=== PATIENT | female | born 1955 | race Caucasian/White ===

== ENCOUNTER 2019-09-05 11:45 | Observation (INO) ==
[2019-09-05] MEDS ORDERED: D50W ABBOJECT SYR ONE ×2 (11:47→12:57)
[2019-09-05] MEDS ORDERED: NS 1000 ML 1,000 ML ONE (11:47)
[2019-09-05] MEDS ORDERED: NS 1000 ML 1,000 ML IV ONE (11:48)
[2019-09-05] MEDS ORDERED: D50W ABBOJECT SYR IV ONE ×2 (11:54→13:09)
[2019-09-05 12:01] LABS: BASOPHILS # (AUTO) 0.1 X10^3/uL (0.0-0.1); EOSINOPHILS # (AUTO) 0.4 x10^3/uL (0.0-0.2); EOSINOPHILS % (AUTO) 3.5 % (0.9-2.9); HEMATOCRIT 36.8 % (36.0-47.0); HEMOGLOBIN 12.1 g/dL (12.0-16.0); LYMPHOCYTES # (AUTO) 3.9 X10^3/uL (1.3-2.9); LYMPHOCYTES % (AUTO) 36.8 % (21.0-51.0); MEAN CORPUSCULAR HEMOGLOBIN 27.7 pg (27.0-34.0); MEAN CORPUSCULAR HGB CONC 32.8 g/dL (33.0-35.0); MEAN CORPUSCULAR VOLUME 84.3 fL (80.0-100.0); MEAN PLATELET VOLUME 7.8 fL (7.4-11.0); MONOCYTES % (AUTO) 9.2 % (0.0-13.0); NEUTROPHILS # (AUTO) 5.3 x10^3/uL (2.2-4.8); NEUTROPHILS % (AUTO) 49.5 % (42.0-75.0); PLATELET COUNT 355 X10^3/uL (150.0-450.0); RED BLOOD COUNT 4.36 X10^6/uL (3.5-5.4); RED CELL DISTRIBUTION WIDTH 14.3 % (11.6-16.5); WHITE BLOOD COUNT 10.7 X10^3/uL (3.6-10.0)
--- NOTE | 2019-09-05 12:04 | DR.HYPOGLY ---
HPI Time Seen Time Seen by Provider: 09/05/19 11:48 PCP Primary Care Physician: Bill Complaint Chief Complaint Doctors Comments: 63yo female presented for hypoglycemia. Pt is historian. He reports pt was seen by PCP this morning and in the pa rking lot has syncopal episode. She was noted to have BG 60 and is took her insulin this morning but had not eaten today. He reports pt has been worsening SOB for the past 5d with BLE swelling. On arrival pt was lethargic and BG 28. She was given 1amp of D5 and respond to verbal stimuli. She has chronic back pain and has fentanyl patch in place. Chief Complaint:: Hypoglycemia Nurses notes reviewed Nurses Notes Review: Yes Source History Provided: Family Member Mode of Arrival Mode of Arrival: Wheelchair Timing Came on: Suddenly Duration Duration: Constant Duration: Minutes Severity Blood sugar (if known): 28 Context [place]: Confused and Found unresponsive Symptoms: Confusion and Missed a meal; denies Shaky, Sweaty and Slurred speech History of: Diabetes, Insulin use and Hypoglycemic episodes Prehospital care: None Modifying factors Improves: D50 and Drink Associated signs and symptoms Associated signs and symptoms: Nausea and Vomiting; denies Abdominal pain PMH PMH Past Medical History: Diabetes and Hypertension Past Medical History Comment: chronic back pain Past Surgical History: Yes Surgical History: Ortho Surgery Family History History of Family Medical Conditions: Yes Family Medical History: Diabetes Mellitus and Hypertension Social History Type of Tobacco Use: None Alcohol Use: None Do you use any recreational Drugs:: No Lives With: Spouse Lives Where: Home infectious screening Isolation: Standard ROS Review of Systems Respiratoy: Short of Breath Cardiovascular: Edema Gastrointestinal/Abdominal: Vomiting Unable to Obtain Due To: Altered mental status PE Vital Signs Vitals: Temperature 98.0 F Pulse Rate 48 Respiratory Rate 32 Blood Pressure [Left Arm] 164/84 Blood Pressure 134/72 O2 Sat by Pulse Oximetry 99 General Limitations: Altered Mental Status General Appearance: Lethargic and In Distress Eyes Eye exam: Normal Appearance, PERRL and EOMI; negative Scleral Icterus Pupils: Regular, Round: Bilateral and Size: Bilateral (3) Sclera/Conjunctival: Normal Inspection: Bilateral ENT ENT Exam: Normal Exam, Normal External Ear Exam, Mucous Membranes Dry and TM's Normal Bilaterally Nose Exam: Normal Nose Exam Mouth Exam: Normal Inspection Throat Exam: Normal Inspection Neck Neck Exam: Normal Inspection; negative Tenderness and Lymphadenopathy Respiratory Respiratory Exam: Normal Lung Sounds Bilat; negative Respiratory Distress Respiratory Exam: Bilateral: Crackles Cardiovascular Cardiovascular Exam: Regular Rate and Normal Rhythm Abdominal Exam Abdominal Exam: Soft, Distention and Dimnished Bowel Sounds; negative Normal Bowel Sounds and Tenderness Extremities Extremities Exam: Normal Inspection and Edema (3+ kourtney) Skin Skin Exam: Warm, Dry, Intact and Normal Color MDM Additional information Additional Information Obtained From: Old Records Differential diagnosis Differential diagnosis: Hypoglycemia and Starvation Induced by: Insulin and Oral hypoglycemic agent COURSE Treatment Treatment: 14:00 pt still lethargic. BG improved. Pt on narcotics and benzo for chronic pain. Will give Narcan x1. Continue to monitor. Reevaluation 1st: Unchanged (pt still lethargic and BG improved to 103 with 1am D50. WIll recheck BG. Will order ct a/p for abd distention) 2nd: Unchanged (Pt repeat BG 62 will given 2nd amp D50 and started on D5 1/2NS. Continue to monitor closely. Pt still lethargic) 3rd: Improved (BG 124 after amp D50) Consultation Consultation Comments: spoke to Dr. Rivera for admission, agree with plan and will see in hospital Education/Counseling Education/Counseling: Patient, Family, Education and Counseling Educated On: Treatment, Diagnosis, Prognosis and Needs for Follow Up (pcp) ROR Labs Reviewed Laboratory Results Reviewed?: Yes Result Diagrams: 09/05/19 11:52 09/05/19 15:45 Laboratory: WBC 10.7 X10^3/uL (3.6-10.0) H 09/05/19 11:52 RBC 4.36 X10^6/uL (3.5-5.4) 09/05/19 11:52 Hgb 12.1 g/dL (12.0-16.0) 09/05/19 11:52 Hct 36.8 % (36.0-47.0) 09/05/19 11:52 MCV 84.3 fL (80.0-100.0) 09/05/19 11:52 MCH 27.7 pg (27.0-34.0) 09/05/19 11:52 MCHC 32.8 g/dL (33.0-35.0) L 09/05/19 11:52 RDW 14.3 % (11.6-16.5) 09/05/19 11:52 Plt Count 355 X10^3/uL (150.0-450.0) 09/05/19 11:52 MPV 7.8 fL (7.4-11.0) 09/05/19 11:52 Neut % (Auto) 49.5 % (42.0-75.0) 09/05/19 11:52 Lymph % (Auto) 36.8 % (21.0-51.0) 09/05/19 11:52 [place] % (Auto) 9.2 % (0.0-13.0) 09/05/19 11:52 Eos % (Auto) 3.5 % (0.9-2.9) H 09/05/19 11:52 Baso % (Auto) 1.0 % (0.2-1.0) 09/05/19 11:52 Neut # (Auto) 5.3 x10^3/uL (2.2-4.8) H 09/05/19 11:52 Lymph # (Auto) 3.9 X10^3/uL (1.3-2.9) H 09/05/19 11:52 [place] # (Auto) 1.0 x10^3/uL (0.3-0.8) H 09/05/19 11:52 Eos # (Auto) 0.4 x10^3/uL (0.0-0.2) H 09/05/19 11:52 Baso # (Auto) 0.1 X10^3/uL (0.0-0.1) 09/05/19 11:52 Absolute Nucleated RBC 0.1 /100WBC 09/05/19 11:52 Sample Site Lbra 09/05/19 14:48 ABG pH 7.380 (7.35-7.45) 09/05/19 14:48 ABG pCO2 56.0 mmHg (35.0-45.0) H* 09/05/19 14:48 ABG pO2 87.0 mmHg (80.0-100.0) 09/05/19 14:48 ABG HCO3 33.1 mmol/L (22-26) H* 09/05/19 14:48 ABG O2 Saturation 96.0 % (90-100) 09/05/19 14:48 ABG Base Excess 6.4 mmol/L (-2.0-2.0) H 09/05/19 14:48 Alexx Test N/a 09/05/19 14:48 A-a Gradient 71.0 mmHg 09/05/19 14:48 FiO2 32.0 09/05/19 14:48 Blood Gas Comments Pt toll well eb 09/05/19 14:48 Sodium 141 mmol/L (136-145) 09/05/19 11:52 Corrected Sodium TNP 09/05/19 11:52 Potassium 3.2 mmol/L (3.5-5.1) L 09/05/19 11:52 Chloride 100 mmol/L (98-107) 09/05/19 11:52 Carbon Dioxide 31.5 mmol/L (21-32) 09/05/19 11:52 BUN 29 mg/dL (7-18) H 09/05/19 11:52 Creatinine 1.58 mg/dL (0.55-1.02) H 09/05/19 11:52 Est GFR (MDRD) Af Amer 42 (>60) L 09/05/19 11:52 Est GFR (MDRD) Non-Af 35 (>60) L 09/05/19 11:52 Glucose 39 mg/dL (65-99) L* 09/05/19 11:52 POC Glucose (mg/dL) 124 mg/dL (65-99) H 09/05/19 13:30 Calcium 9.0 mg/dL (8.5-10.1) 09/05/19 11:52 Troponin I < 0.02 ng/mL (0-1.5) 09/05/19 11:52 B-Natriuretic Peptide 222 pg/mL (0-79) H 09/05/19 11:52 Other Results Comments: WBC 10.7 Hb 12.1 BMP K 3.2 Cr 1.58 BUN 29 Glu 39 Trop neg BNP 222 ABG pH 7.38 pCO2 26 HCO3 33.1 PO2 87.0 POC Bg 103 BG [address] a/p: Mod-sev constipation, Mod bladder obstruction XRAY XRAY Interpreted by: Radiologist XRAY Findings: CXR: NAF EKG Rate: 59 [place]: Normal Rhythm: SB Block: 1 and AVB Hypertrophy: None ST: Normal (Prolong QTc 512, interpreted by me) Opioid Opioid Risk Tool Total: 0 Total Score Risk Category: Low Risk Copyright: [facility] predicting aberrant behaviors Diagnosis Discharge Problem: Hypoglycemia associated with type 2 diabetes mellitus, Acute hypokalemia, DANAE (acute kidney injury) Accidental medication overdose Qualifiers: Encounter type: initial encounter Qualified Code(s): T50.901A - Poisoning by unspecified drugs, medicaments and biological substances, accidental (unintentional), initial encounter ADDITIONAL NOTES Additional Notes Additional Notes: I have personally reviewed your medications, lab results, imaging and time was spent discussion results. Patient educated on their health issue. They verbalized their understanding and agreed with plan of care. Condition: Stable Disposition: Admission
--- NOTE | 2019-09-05 12:09 | RAD ---
HISTORY: Low blood sugar. Prior history of diabetes and hypertension. Study: Single-view chest Comparison: 12/13/2014. Technique: Examination is expiratory. Findings: Trachea is midline. Although there is cardiomegaly, the heart size and pulmonary markings are likely accentuated by the markedly expiratory phase of the radiograph. No CHF, infiltrate or pleural fluid is seen. The osseous structures are intact. IMPRESSION: Cardiomegaly with the transverse diameter likely accentuated by the expiratory technique. No acute or active disease is seen in the chest. Reported By:
[2019-09-05 12:13] LABS: BLOOD UREA NITROGEN 29 mg/dL (7-18); CARBON DIOXIDE 31.5 mmol/L (21-32); CHLORIDE 100 mmol/L (98-107); CREATININE 1.58 mg/dL (0.55-1.02); SODIUM 141 mmol/L (136-145); TROPONIN I < 0.02 ng/mL (0-1.5); eGFR NON BLACK RACES 35 (>60)
[2019-09-05] MEDS ORDERED: D5 1/2 NS 1000 ML 1,000 ML IV ONE (12:57)
[2019-09-05] MEDS ORDERED: DEXTROSE 25% IV ONE (13:08)
[2019-09-05] MEDS ORDERED: NARCAN INJ IVP ONE ×2 (13:58→14:09)
[2019-09-05] MEDS ORDERED: NARCAN INJ ONE ×2 (13:59→14:11)
[2019-09-05] MEDS ORDERED: D5 1/2 NS 1000 ML 1,000 ML IV SCH (14:00)
--- NOTE | 2019-09-05 14:38 | CT ---
History: Abdominal distension Exam: CT abdomen and pelvis without contrast Comparison: None Technique: Axial spiral images were obtained from lung bases through the pubic symphysis without contrast. Automated dose control was utilized. Findings: There is some hazy subsegmental opacities along the lung bases posterior laterally. No effusion is seen. The liver and spleen are normal size and density. The gallbladder, pancreas , and bile ducts are normal. The adrenals are normal. There is moderate cortical thinning and scarring throughout both kidneys with questionable minimal hydronephrosis and mild prominence of both ureters down to the bladder with no filling defects in the ureters. The bladder is severely distended extending superiorly into the mesentery of the lower and mid abdomen. There is no wall thickening or bladder stones seen.. The uterus has been removed. There is no adnexal mass or free fluid. The appendix is normal . No adenopathy or ascites is seen. There is moderate feces in the colon which is mildly dilated throughout down to the proximal to mid left colon with no obvious wall thickening or pericolonic inflammation seen. The distal left colon and sigmoid is normal caliber. The small bowel is normal caliber. There are postop changes seen along the lower lumbar spine. IMPRESSION: Moderately severe constipation with diffuse mild dilatation of the colon seen down to the proximal to mid descending left colon with no obvious focal mass or obstructing lesion seen in the area. This could represent a colonic ileus or possible early colonic obstructing lesion in the left colon, recommend clinical follow-up. Moderately severe distention of the urinary bladder which is probably causing some mild obstruction of the upper collecting systems of both kidneys and is suggestive of an early bladder outlet obstruction , recommend clinical follow-up. Moderate cortical thinning and scarring throughout both kidneys with minimal hydronephrosis and slight prominence of the ureters down to the bladder with no filling defects. Mild bibasilar atelectasis vs early infiltrates or scarring . Status post hysterectomy with no pelvic mass. Reported By:
[2019-09-05 14:51] LABS: ABG BASE EXCESS 6.4 mmol/L (-2.0-2.0)
[2019-09-05 14:52] LABS: ABG HCO3 33.1 mmol/L (22-26)
[2019-09-05 16:00] LABS: BLOOD UREA NITROGEN 27 mg/dL (7-18); CALCIUM 8.2 mg/dL (8.5-10.1); CHLORIDE 104 mmol/L (98-107); CREATININE 1.26 mg/dL (0.55-1.02); SODIUM 143 mmol/L (136-145); eGFR NON BLACK RACES 46 (>60)
[2019-09-05 16:02] LABS: AMMONIA < 10 umol/L (11-32)
[2019-09-05] MEDS: D5 1/2 NS + KCL 20 MEQ/L 1,000 ML IV SCH (16:37)
[2019-09-05] MEDS: OTBSDRIP XX SCH ×6 (16:38→23:46)
[2019-09-05 16:41] LABS: BILIRUBIN,URINE NEGATIVE (NEGATIVE); BLOOD/HEMOGLOBIN,URINE NEGATIVE (NEGATIVE); GLUCOSE, URINE 4+ (NEGATIVE); KETONES,URINE NEGATIVE (NEGATIVE); LEUKOCYTE ESTERASE ,URINE NEGATIVE (NEGATIVE); NITRITES,URINE NEGATIVE (NEGATIVE); PROTEIN,URINE NEGATIVE (NEGATIVE); UROBILINOGEN,URINE NORMAL (NORMAL)
[2019-09-05 16:47] LABS: APPEARANCE,URINE CLEAR (CLEAR); COLOR,URINE YELLOW (YELLOW)
[2019-09-05 17:40] VITALS: BMI 34.9
[2019-09-05] MEDS: SYNTHROID 50 mcg TAB PO SCH (18:04)
[2019-09-05] MEDS: ROCEPHIN VIAL 1 GRAM 1 G in NS 100 ML IV + SPIKE MINIBAG* 100 ML IV SCH (21:15)
[2019-09-05] MEDS: MILK OF MAGNESIA PO SCH (21:15)
[2019-09-05] MEDS: COLACE CAP 100 MG PO SCH (21:15)
[2019-09-05] MEDS: GLUCOPHAGE XR PO SCH (21:43)
[2019-09-05] MEDS: NEBIVOLOL 2.5 MG PO SCH (21:44)
[2019-09-06] MEDS: OTBSDRIP XX SCH ×4 (01:42→07:52)
[2019-09-06] MEDS: D5 1/2 NS + KCL 20 MEQ/L 1,000 ML IV SCH ×2 (01:57→10:43)
[2019-09-06 05:21] LABS: BASOPHILS # (AUTO) 0.1 X10^3/uL (0.0-0.1); BASOPHILS % (AUTO) 1.2 % (0.2-1.0); EOSINOPHILS # (AUTO) 0.2 x10^3/uL (0.0-0.2); EOSINOPHILS % (AUTO) 3.3 % (0.9-2.9); HEMATOCRIT 34.6 % (36.0-47.0); HEMOGLOBIN 11.4 g/dL (12.0-16.0); LYMPHOCYTES # (AUTO) 1.8 X10^3/uL (1.3-2.9); LYMPHOCYTES % (AUTO) 28.1 % (21.0-51.0); MEAN CORPUSCULAR VOLUME 84.9 fL (80.0-100.0); MEAN PLATELET VOLUME 8.3 fL (7.4-11.0); MONOCYTES # (AUTO) 0.6 x10^3/uL (0.3-0.8); MONOCYTES % (AUTO) 9.6 % (0.0-13.0); NEUTROPHILS # (AUTO) 3.6 x10^3/uL (2.2-4.8); NEUTROPHILS % (AUTO) 57.8 % (42.0-75.0); PLATELET COUNT 276 X10^3/uL (150.0-450.0); RED BLOOD COUNT 4.07 X10^6/uL (3.5-5.4); WHITE BLOOD COUNT 6.3 X10^3/uL (3.6-10.0)
[2019-09-06 05:38] LABS: ALANINE AMINOTRANSFERASE 21 Units/L (12-78); ALBUMIN 3.2 g/dL (3.4-5.0); ALKALINE PHOSPHATASE 106 Units/L (46-116); ASPARTATE AMINO TRANSFERASE 21 Units/L (15-37); BLOOD UREA NITROGEN 19 mg/dL (7-18); CHLORIDE 105 mmol/L (98-107); COR CA(FOR HYPOALB) 8.6 mg/dL (8.5-10.1); SODIUM 144 mmol/L (136-145); TOTAL PROTEIN 7.2 g/dL (6.4-8.2); eGFR NON BLACK RACES 60 (>60)
[2019-09-06] MEDS ORDERED: PERCOCET TAB 5/325 MG PO PRN (07:55)
[2019-09-06] MEDS ORDERED: XANAX PO PRN (07:58)
[2019-09-06] MEDS: MILK OF MAGNESIA PO SCH ×2 (08:20→20:42)
[2019-09-06] MEDS: ROCEPHIN VIAL 1 GRAM 1 G in NS 100 ML IV + SPIKE MINIBAG* 100 ML IV SCH (08:21)
--- NOTE | 2019-09-06 09:22 | RAD ---
Examination: AP chest History: SOB Comparison 09/05/2019 Findings: Normal heart size with clear, normally inflated lungs. No definite pneumonia, atelectasis or pleural disease. Impression: Within normal limits. Reported By:
[2019-09-06] MEDS: NEBIVOLOL 2.5 MG PO SCH ×2 (09:45→20:42)
--- NOTE | 2019-09-06 10:37 | DR.H&P ---
H&P - History & Physical for Day of: H&P Date: 09/05/19 - Chief Complaint Chief Complaint: AMS, HYPOGLYCEMIA - History of Present Illness History of Present Illness: PT IS 63 WF ER ADMISSION AFTER PRESENTING WITH AMS DUE TO HYPOGLYCEMIA. PT KNOWN DIABETIC AND STATES SHE TOOK HER INSULIN THIS AM WITHOUT EATING. PT WAS AT HER PCP, DR PATEL OFFICE FOR TREATMENT OF LOWER LEG SWELLING. PT BS 39 ON ARRIVAL TO ER. PT HAS PMH OF CHRONIC PAIN, HTN, DM, WYATT, OA. PT ADMITTED FOR TREATMENT OF ACUTE ILLNESS - Past Medical History Past Medical History: Anxiety, Arthritis, Diabetes, Hypertension - Past Surgical History Surgical History: Ortho Surgery - Family History Family Medical History: Diabetes Mellitus, Hypertension - Social History Does patient currently use any type of tobacco product: No Have you used tobacco products in the last 12 months: No Type of Tobacco Use: None Does any household member use tobacco: No Alcohol Use: None Drug Use: None - Medications Home Medications: lisinopril Allergy (Verified 09/05/19 12:12) ciprofloxacin [From Cipro] Adverse Reaction (Verified 09/05/19 12:12) CONTINUE taking the following medications amphetamine sulfate 10 mg PO BID 09/05/19 [History] empagliflozin [Jardiance] 10 mg PO DAILY 09/05/19 [History] escitalopram oxalate 5 mg PO DAILY 09/05/19 [History] estradiol 1 % VAGINAL DAILY 09/05/19 [History] insulin glargine [Lantus U-100 Insulin] 45 unit SUBCUT DAILY 09/05/19 [History] nebivolol [Bystolic] 2.5 mg PO BID 09/05/19 [History] clonidine HCl 0.1 mg PO TID 09/06/19 [History] furosemide 40 mg PO BID 09/06/19 [History] gabapentin 300 mg PO DAILY PRN 09/06/19 [History] gabapentin 600 mg PO HS 09/06/19 [History] losartan 100 mg PO DAILY 09/06/19 [History] oxybutynin chloride 15 mg PO DAILY 09/06/19 [History] promethazine 12.5 mg PO BID 09/06/19 [History] verapamil 180 mg PO BID 09/06/19 [History] - Review of Systems Constitutional: Weakness Eyes: No Symptoms Reported ENT: No Symptoms Reported Respiratory: No Symptoms Reported Cardiovascular: No Symptoms Reported, Edema Gastrointestinal: Abdominal Pain Genitourinary: Retention Musculoskeletal: Back Pain Skin: No Symptoms Reported Neurological: Weakness, Confusion - Physical Exam Vital Signs: Temperature 98.7 F Pulse Rate 64 Respiratory Rate 17 Blood Pressure [Left Arm] 164/84 Blood Pressure 186/91 O2 Sat by Pulse Oximetry 96 Oriented: Person Ear: Normal Nose: Normal Throat: Dry Respiratory: RLL Diminished, LLL Diminished Cardiovascular: Normal : Normal Auscultation: Bowel Sounds: Normal Palpation: Normal Tenderness: Diffuse Skin: Decreased Turgur Musculoskeletal: Back:Thoracic, Back:Lumbar Psychiatric: Anxiety Affect: Anxious Speech Pattern: Clear, Appropriate - Assessment/Plan (1) Hypoglycemia associated with type 2 diabetes mellitus Status: Acute Plan: ADMIT, BS CONTROL. GENTLE IV HYDRATION, GARCIA CATH WITH STRICT I & OS. UA, ADMISSION LABS. CXR ON ADMISSION, EKG MONITORING. VERIFY HOME MEDICATION (2) DANAE (acute kidney injury) Status: Acute (3) Accidental medication overdose Qualifiers: Encounter type: initial encounter Qualified Code(s): T50.901A - Poisoning by unspecified drugs, medicaments and biological substances, accidental (unintentional), initial encounter Status: Acute (4) Acute hypokalemia Status: Acute (5) Altered mental status Status: Acute - Allergies Allergies/Adverse Reactions: Allergies Allergy/AdvReac Type Severity Reaction Status Date / Time lisinopril Allergy Verified 09/05/19 12:12 ciprofloxacin [From Cipro] AdvReac Verified 09/05/19 12:12
[2019-09-06] MEDS: COZAAR PO SCH (10:44)
[2019-09-06] MEDS: XANAX PO SCH ×2 (14:19→22:02)
[2019-09-06] MEDS: GLUCOPHAGE XR PO SCH ×2 (15:51→20:41)
[2019-09-06] MEDS ORDERED: CATAPRES TAB 0.1 MG ONE (16:18)
[2019-09-06] MEDS: CATAPRES TAB 0.1 MG PO SCH ×2 (16:21→22:02)
[2019-09-06] MEDS: NS 1/2 1000 ML IV 1,000 ML IV SCH (16:22)
[2019-09-06] MEDS ORDERED: HumuLIN R ONE (16:41)
[2019-09-06] MEDS: SYNTHROID 50 mcg TAB PO SCH (16:45)
[2019-09-06] MEDS: HumuLIN R SUBCUT PRN ×2 (16:46→21:18)
[2019-09-06] MEDS: APRESOLINE INJ 20 MG VIAL IVP PRN (17:41)
[2019-09-06] MEDS ORDERED: SNACK - Diabetic Appropriate PO SCH (20:00)
[2019-09-06] MEDS: COLACE CAP 100 MG PO SCH (20:41)
[2019-09-06] MEDS ORDERED: AMBIEN PO PRN (21:26)
[2019-09-06] MEDS ORDERED: AMBIEN ONE (22:00)
[2019-09-07] MEDS ORDERED: NS 1/2 1000 ML IV 1,000 ML IV ONE (01:07)
[2019-09-07] MEDS: NS 1/2 1000 ML IV 1,000 ML IV SCH ×2 (01:29→17:01)
[2019-09-07 05:08] LABS: BASOPHILS # (AUTO) 0.1 X10^3/uL (0.0-0.1); BASOPHILS % (AUTO) 0.9 % (0.2-1.0); EOSINOPHILS # (AUTO) 0.3 x10^3/uL (0.0-0.2); EOSINOPHILS % (AUTO) 3.9 % (0.9-2.9); HEMOGLOBIN 11.4 g/dL (12.0-16.0); LYMPHOCYTES # (AUTO) 2.5 X10^3/uL (1.3-2.9); LYMPHOCYTES % (AUTO) 37.7 % (21.0-51.0); MEAN CORPUSCULAR HEMOGLOBIN 27.5 pg (27.0-34.0); MEAN CORPUSCULAR HGB CONC 32.4 g/dL (33.0-35.0); MEAN CORPUSCULAR VOLUME 84.8 fL (80.0-100.0); MONOCYTES # (AUTO) 0.6 x10^3/uL (0.3-0.8); MONOCYTES % (AUTO) 9.6 % (0.0-13.0); NEUTROPHILS # (AUTO) 3.2 x10^3/uL (2.2-4.8); NEUTROPHILS % (AUTO) 47.9 % (42.0-75.0); PLATELET COUNT 293 X10^3/uL (150.0-450.0); RED BLOOD COUNT 4.13 X10^6/uL (3.5-5.4); RED CELL DISTRIBUTION WIDTH 14.1 % (11.6-16.5); WHITE BLOOD COUNT 6.7 X10^3/uL (3.6-10.0)
[2019-09-07] MEDS: CATAPRES TAB 0.1 MG PO SCH ×2 (05:26→13:14)
[2019-09-07] MEDS: XANAX PO SCH ×2 (05:26→13:13)
[2019-09-07 05:27] LABS: ALANINE AMINOTRANSFERASE 19 Units/L (12-78); ALKALINE PHOSPHATASE 96 Units/L (46-116); ASPARTATE AMINO TRANSFERASE 18 Units/L (15-37); BLOOD UREA NITROGEN 13 mg/dL (7-18); CALCIUM 8.1 mg/dL (8.5-10.1); CARBON DIOXIDE 27.2 mmol/L (21-32); CHLORIDE 106 mmol/L (98-107); COR CA(FOR HYPOALB) 8.9 mg/dL (8.5-10.1); COR NA(FOR HYPERGLY) 142 mmol/L (136-145); CREATININE 0.94 mg/dL (0.55-1.02); SODIUM 141 mmol/L (136-145); TOTAL PROTEIN 6.8 g/dL (6.4-8.2); eGFR NON BLACK RACES > 60 (>60)
[2019-09-07] MEDS ORDERED: SYNTHROID 50 mcg TAB PO SCH (06:00)
[2019-09-07] MEDS: COZAAR PO SCH (08:23)
[2019-09-07] MEDS: GLUCOPHAGE XR PO SCH (08:23)
[2019-09-07] MEDS: ROCEPHIN VIAL 1 GRAM 1 G in NS 100 ML IV + SPIKE MINIBAG* 100 ML IV SCH (08:23)
[2019-09-07] MEDS: NEBIVOLOL 2.5 MG PO SCH (08:24)
[2019-09-07] MEDS: MILK OF MAGNESIA PO SCH (08:24)
[2019-09-07] MEDS: APRESOLINE INJ 20 MG VIAL IVP PRN (12:05)
[2019-09-07] MEDS: HumuLIN R SUBCUT PRN ×2 (12:28→17:01)
[2019-09-07 14:22] VITALS: BP 153/76
== END 2019-09-07 17:30 | disposition home or self-care (01) ==
LOC: ER 11:45 → ICU 11:45
PROVIDERS: ADMIT Internal Medicine; ATTEND Internal Medicine
DX: E87.6 Hypokalemia; N17.8 Other acute kidney failure; F41.8 Other specified anxiety disorders; T50.901A Poisoning by unspecified drugs, medicaments and biological substances, accidental (unintentional), initial encounter; F13.90 Sedative, hypnotic, or anxiolytic use, unspecified, uncomplicated; R41.82 Altered mental status, unspecified; R94.4 Abnormal results of kidney function studies; Z79.4 Long term (current) use of insulin; R60.0 Localized edema; I10 Essential (primary) hypertension; E11.649 Type 2 diabetes mellitus with hypoglycemia without coma
CPT/HCPCS: 36415; 36600; 71010; 71045; 74176; 80048; 80053; 80307; 81003; 82140; 82803; 83036; 83880; 84484; 85025; 93005; 96360; 96361; 96365; 96367; 96372; 96374; 96375; 99284; 99285; A4222; G0378; G0434; J0360; J0696; J1815; J2310; J3490; J7030; J7050; S5010

== ENCOUNTER 2020-09-24 19:15 | Inpatient (IN) ==
[2020-09-24] MEDS ORDERED: NS 1000 ML 1,000 ML IV STA (20:07)
[2020-09-24 20:16] LABS: ABG ALLEN TEST POS; ABG BASE EXCESS -1.8 mmol/L (-2.0-2.0); ABG HCO3 21.9 mmol/L (22-26)
[2020-09-24 20:44] LABS: BASOPHILS % (AUTO) 0.1 % (0.2-1.0); HEMATOCRIT 29.9 % (36.0-47.0); HEMOGLOBIN 9.2 g/dL (12.0-16.0); LYMPHOCYTES % (AUTO) 8.5 % (21.0-51.0); MEAN CORPUSCULAR HEMOGLOBIN 23.5 pg (27.0-34.0); MEAN CORPUSCULAR HGB CONC 30.9 g/dL (33.0-35.0); MEAN CORPUSCULAR VOLUME 76.1 fL (80.0-100.0); MEAN PLATELET VOLUME 8.9 fL (7.4-11.0); MONOCYTES # (AUTO) 0.5 x10^3/uL (0.3-0.8); MONOCYTES % (AUTO) 4.1 % (0.0-13.0); NEUTROPHILS # (AUTO) 10.3 x10^3/uL (2.2-4.8); NEUTROPHILS % (AUTO) 87.3 % (42.0-75.0); PLATELET COUNT 219 X10^3/uL (150.0-450.0); RED BLOOD COUNT 3.93 X10^6/uL (3.5-5.4); RED CELL DISTRIBUTION WIDTH 15.4 % (11.6-16.5); WHITE BLOOD COUNT 11.8 X10^3/uL (3.6-10.0)
--- NOTE | 2020-09-24 20:44 | DR.EXTPAIN ---
HPI Time seen Time Seen by Provider: 09/24/20 20:06 PCP Primary Care Physician: HPI Comment HPI Comment: PATIENT COMPLAINS OF RECENTLY TESTED POSITIVE FOR COVID19 ON 09/20/20 WITH ONSET OF INCREASING DYSPNEA, X 2 DAYS, PRODUCTIVE COUGH AND WEA KNESS. HAS CHEST PAIN UPON INSPIRATION. HAS ASSOCIATED FEVER AND CHILLS. Complaint/Symptoms Chief Complaint Doctor Comments: PRODUCTIVE COUGH AND DYSPNEA Chief Complaint:: PT STATED SHE GOT TESTED FOR COVID ON SEP 20 AN IT WAS POSITIVE. AN TODAY SHE STARTED HAVING SHORTNESS,WEAKNESS,UTI AND SOB. Self Treatment fo Chief Complaint: ANTIBIOTICS FROM DOCTOR COVID-19 Coronavirus risk:travel/contact w/high risk person: Yes Has patient experienced Coronavirus symptoms: Yes Coronavirus symptoms experienced: Fever, Coughing and Shortness of Breath Nurses notes reviewed Nurses Notes Review: Yes Source History Provided: Patient Mode of arrival Mode of Arrival: Ambulatory Timing Onset of Chief Complaint: 09/24/20 Associated signs and symptoms Associated Signs and Symptoms: Weakness, Pain (CHEST PAIN UPON INSPIRATION), Fever and Cough Other history Other History: DIABETES, HYPERTENSION PMH PMH Past Medical History: Yes Past Medical History: Anxiety, Arthritis, Diabetes and Hypertension Past Medical History Comment: COVID Past Surgical History: Yes Surgical History: Hysterectomy and Ortho Surgery Past Surgical History Comment: THYROID ,CATARACTS, BACK Family History History of Family Medical Conditions: Yes Family Medical History: Diabetes Mellitus and Hypertension Social History Alcohol Use: None Do you use any recreational Drugs:: No Lives With: Spouse Lives Where: Home Infectious screening In the last 2 months have you had wt loss of >10#?: NO Have you had fever, night sweats or hemotysis?: No Have you traveled outside the country in the last 6 months?: No Isolation: Droplet ROS Review of Systems Constitutional: Chills, Fever, Malaise and Weakness Respiratoy: Productive Cough and Short of Breath Neurological: Weakness PE Vital Signs Vitals: Temperature 99.1 F Pulse Rate 67 Respiratory Rate 24 Blood Pressure [Left Arm] 164/84 Blood Pressure 140/63 O2 Sat by Pulse Oximetry 87 General Limitations: Physical Limitation General Appearance: Alert Chest Chest Inspection: Symmetric Chest Wall Rise Respiratory Respiratory Exam: Prolonged Expiratory Phase Respiratory Exam: Bilateral: Wheezing and Bilateral: Decreased Breath Sounds MDM Differential Diagnosis Differential Diagnosis: Other (PNEUMONIA) ROR Labs Reviewed Laboratory Results Reviewed?: Yes (TROPONIN <0.02, DDIMER-0.83) Result Diagrams: 10/20/20 06:03 10/20/20 06:03 Laboratory: 09/24/20 20:28 Blood Blood Culture - Final 09/24/20 20:24 Blood Blood Culture - Final 09/24/20 21:52 Urine,Clean Catch Urine Culture - Final Escherichia Coli WBC 11.8 X10^3/uL (3.6-10.0) H 09/24/20 20:24 RBC 3.93 X10^6/uL (3.5-5.4) 09/24/20 20:24 Hgb 9.2 g/dL (12.0-16.0) L 09/24/20 20:24 Hct 29.9 % (36.0-47.0) L 09/24/20 20:24 MCV 76.1 fL (80.0-100.0) L 09/24/20 20:24 MCH 23.5 pg (27.0-34.0) L 09/24/20 20:24 MCHC 30.9 g/dL (33.0-35.0) L 09/24/20 20:24 RDW 15.4 % (11.6-16.5) 09/24/20 20:24 Plt Count 219 X10^3/uL (150.0-450.0) 09/24/20 20:24 Plt Count Comment Adequate (ADEQUATE) 09/24/20 20:24 MPV 8.9 fL (7.4-11.0) 09/24/20 20:24 Neut % (Auto) 87.3 % (42.0-75.0) H 09/24/20 20:24 Lymph % (Auto) 8.5 % (21.0-51.0) L 09/24/20 20:24 [place] % (Auto) 4.1 % (0.0-13.0) 09/24/20 20:24 Eos % (Auto) 0.0 % (0.9-2.9) L 09/24/20 20:24 Baso % (Auto) 0.1 % (0.2-1.0) L 09/24/20 20:24 Neut # (Auto) 10.3 x10^3/uL (2.2-4.8) H 09/24/20 20:24 Lymph # (Auto) 1.0 X10^3/uL (1.3-2.9) L 09/24/20 20:24 [place] # (Auto) 0.5 x10^3/uL (0.3-0.8) 09/24/20 20:24 Eos # (Auto) 0.0 x10^3/uL (0.0-0.2) 09/24/20 20:24 Baso # (Auto) 0.0 X10^3/uL (0.0-0.1) 09/24/20 20:24 Absolute Nucleated RBC 0.0 /100WBC 09/24/20 20:24 Plt Morphology Comment Normal (NORMAL) 09/24/20: RBC Morphology Abnormal (NORMAL) A 09/24/20: Hypochromasia 1+ A 09/24/20: Poikilocytosis Slight A 09/24/20: PT 14.3 SECONDS (11.8-14.3) 09/24/20:24 INR Target Range - 09/24/20: INR 1.15 (0.8-1.3) 09/24/20:24 D-Dimer 0.83 ug/ml (0.0-0.57) H* 09/24/20: Sample Site Rr 09/24/20 20:00 ABG pH 7.430 (7.35-7.45) 09/24/20 20:00 ABG pCO2 33.0 mmHg (35.0-45.0) L 09/24/20 20:00 ABG pO2 69.0 mmHg (80.0-100.0) L 09/24/20 20:00 ABG HCO3 21.9 mmol/L (22-26) L 09/24/20 20:00 ABG O2 Saturation 94.0 % (90-100) 09/24/20 20:00 ABG Base Excess -1.8 mmol/L (-2.0-2.0) 09/24/20 20: Alexx Test Pos 09/24/20 20:00 A-a Gradient 89.0 mmHg 09/24/20 20:00 FiO2 28.0 09/24/20 20:00 Blood Gas Comments Erwin well sw 09/24/20 20:00 Sodium 134 mmol/L (136-145) L 09/24/20 20:24 Corrected Sodium 137 mmol/L (136-145) 09/24/20 20:24 Potassium 4.3 mmol/L (3.5-5.1) 09/24/20 20:24 Chloride 97 mmol/L (98-107) L 09/24/20 20:24 Carbon Dioxide 24.8 mmol/L (21-32) 09/24/20 20:24 BUN 48 mg/dL (7-18) H 09/24/20 20:24 Creatinine 1.91 mg/dL (0.55-1.02) H 09/24/20 20:24 Est GFR (MDRD) Af Amer 34 (>60) L 09/24/20 20:24 Est GFR (MDRD) Non-Af 28 (>60) L 09/24/20 20:24 Glucose 206 mg/dL (65-99) H 09/24/20 20:24 Lactic Acid 1.5 mmol/L (0.4-2.0) 09/24/20 21:56 Calcium 8.5 mg/dL (8.5-10.1) 09/24/20 20:24 Corrected Calcium 9.2 mg/dL (8.5-10.1) 09/24/20 20:24 Ferritin 125 ng/mL (8-252) 09/24/20 20:24 Total Bilirubin 0.30 mg/dL (0.2-1.0) 09/24/20 20:24 AST 24 Units/L (15-37) 09/24/20 20:24 ALT 19 Units/L (12-78) 09/24/20 20:24 Alkaline Phosphatase 63 Units/L (46-116) 09/24/20 20:24 Troponin I < 0.02 ng/mL (0-1.5) 09/24/20 20:24 C-Reactive Protein 25.90 mg/L (0-3.0) H 09/24/20 20:24 B-Natriuretic Peptide 637 pg/mL (0-79) H* 09/24/20 20:24 Total Protein 7.3 g/dL (6.4-8.2) 09/24/20 20:24 Albumin 3.1 g/dL (3.4-5.0) L 09/24/20 20:24 Globulin 4.2 g/dL (2.5-4.5) 09/24/20 20:24 Albumin/Globulin Ratio 0.7 Ratio (1.1-2.1) L 09/24/20 20:24 Specimen Type Clean catch urine 09/24/20 21:52 Urine Color Mabel (YELLOW) 09/24/20 21:52 Urine Appearance Slightly hazy (CLEAR) 09/24/20 21:52 Urine pH 5.0 (5.0 - 8.0) 09/24/20 21:52 Ur Specific [place] 1.015 (1.000-1.030) 09/24/20 21:52 Urine Protein 1+ (NEGATIVE) 09/24/20 21:52 Urine Glucose (UA) 3+ (NEGATIVE) 09/24/20 21:52 Urine Ketones Negative (NEGATIVE) 09/24/20 21:52 Urine Occult Blood 1+ (NEGATIVE) 09/24/20 21:52 Urine Nitrite Positive (NEGATIVE) 09/24/20 21:52 Urine Bilirubin Negative (NEGATIVE) 09/24/20 21:52 Urine Urobilinogen 1+ (NORMAL) 09/24/20 21:52 Ur Leukocyte Esterase 1+ (NEGATIVE) 09/24/20 21:52 Urine RBC 3-5 /HPF (0-3) A 09/24/20 21:52 Urine WBC 5-10 /HPF (0-5) A 09/24/20 21:52 Ur Squamous Epith Cells Few /HPF (NEGATIVE) 09/24/20 21:52 Urine Bacteria 2+ /HPF (NEGATIVE) 09/24/20 21:52 Ur Culture Indicated? Yes/culture set up 09/24/20 21:52 Influenza Type A (PCR) Negative (NEGATIVE) 09/24/20 22:20 Influenza Type B (PCR) Negative (NEGATIVE) 09/24/20 22:20 SARS CoV-2 RNA Rapid MICK Positive (NEGATIVE) A 09/24/20 22: XRAY XRAY Interpreted by: Radiologist X-ray Results: CHEST XRAY CONSISTENT WITH DIFFUSE INFILTRATES EKG Rhythm: NSR Block: None, AVB (IST DEGREE AVB) and IVCD Opioid Opioid Risk Tool Age (Jesus box if 16-45): No History of Preadolescent Sexual Abuse: No Total: 0 Total Score Risk Category: Low Risk Copyright: [facility] predicting aberrant behaviors Diagnosis Discharge Problem: Pneumonia due to COVID-19 virus Instructions Forms: Convalescent Plasma EUA Consent
[2020-09-24 20:55] LABS: PLATELET MORPHOLOGY COMMENT NORMAL (NORMAL)
[2020-09-24 20:56] LABS: HYPOCHROMASIA 1+; POIKILOCYTOSIS SLIGHT
[2020-09-24 20:58] LABS: ALANINE AMINOTRANSFERASE 19 Units/L (12-78); ALBUMIN 3.1 g/dL (3.4-5.0); ALKALINE PHOSPHATASE 63 Units/L (46-116); ASPARTATE AMINO TRANSFERASE 24 Units/L (15-37); BLOOD UREA NITROGEN 48 mg/dL (7-18); CALCIUM 8.5 mg/dL (8.5-10.1); CARBON DIOXIDE 24.8 mmol/L (21-32); CHLORIDE 97 mmol/L (98-107); COR CA(FOR HYPOALB) 9.2 mg/dL (8.5-10.1); COR NA(FOR HYPERGLY) 137 mmol/L (136-145); CREATININE 1.91 mg/dL (0.55-1.02); SODIUM 134 mmol/L (136-145); TOTAL PROTEIN 7.3 g/dL (6.4-8.2); TROPONIN I < 0.02 ng/mL (0-1.5); eGFR NON BLACK RACES 28 (>60)
[2020-09-24] MEDS ORDERED: SOLU-Medrol 125 MG VIAL ONE (21:08)
[2020-09-24] MEDS ORDERED: ROCEPHIN 1 GRAM IV PREMIX 1 G/50 ML IV.SOLN. IV ONE ×2 (21:09→21:35)
[2020-09-24] MEDS ORDERED: NS 1000 ML 1,000 ML ONE (21:09)
[2020-09-24] MEDS ORDERED: SOLU-Medrol 125 MG VIAL IVP ONE (21:11)
[2020-09-24] MEDS ORDERED: LOVENOX INJ 60 MG SYR SC ONE (21:17)
[2020-09-24] MEDS ORDERED: LOVENOX INJ 40 MG SYR SC ONE ×2 (21:22→21:48)
[2020-09-24 22:17] LABS: BILIRUBIN,URINE NEGATIVE (NEGATIVE); BLOOD/HEMOGLOBIN,URINE 1+ (NEGATIVE); GLUCOSE, URINE 3+ (NEGATIVE); KETONES,URINE NEGATIVE (NEGATIVE); LEUKOCYTE ESTERASE ,URINE 1+ (NEGATIVE); NITRITES,URINE POSITIVE (NEGATIVE); PROTEIN,URINE 1+ (NEGATIVE); UROBILINOGEN,URINE 1+ (NORMAL)
[2020-09-24 22:32] LABS: APPEARANCE,URINE SLIGHTLY HAZY (CLEAR); COLOR,URINE AMBER (YELLOW)
[2020-09-24 22:33] LABS: BACTERIA,URINE 2+ /HPF (NEGATIVE); SQUAMOUS EPITHELIAL CELL,UR FEW /HPF (NEGATIVE)
--- NOTE | 2020-09-24 23:38 | RAD ---
STUDY: CHEST, 1 VIEWCOMPARISON: September 06, 2019HISTORY: PT STATED SHE GOT TESTED FOR COVID ON SEP 20 AN IT WAS POSITIVE. AN TODAY SHE STARTED HAVING SHORTNESS,WEAKNESS,UTI AND SOB.FINDINGS:Diffuse multifocal alveolar airspace disease is seen throughout the right and left lung. Heart size is enlarged and may be magnified on this portable technique. No pleural effusion or pneumothorax is seen.IMPRESSION:Multifocal alveolar airspace disease throughout the right and left lung is in correlation with the patient's history of being positive for COVID-19 and therefore, this could represent COVID-19 pneumonia.Electronically signed by: Wilfred Alonso (Sep 24, 2020 23:36:20)
[2020-09-25] MEDS ORDERED: NEURONTIN CAP 300 MG PO PRN (00:48)
[2020-09-25] MEDS ORDERED: PERCOCET TAB 5/325 MG PO PRN ×2 (00:48→12:18)
[2020-09-25] MEDS ORDERED: REMDESIVIR 200 MG in NS 250 ML IV 250 ML IV SCH (01:00)
[2020-09-25] MEDS: ZITHROMAX INJ 500 MG VIAL 500 MG in NS 250 ML IV 250 ML IV SCH (01:15)
[2020-09-25] MEDS: COLACE CAP 100 MG PO SCH ×4 (01:15→22:29)
[2020-09-25] MEDS ORDERED: NS 100 ML IV 100 ML IV ONE (01:34)
[2020-09-25] MEDS ORDERED: ASCORBIC ACID INJ MULTI-DOSE VIAL IV ONE (01:34)
[2020-09-25] MEDS: NS 1000 ML 1,000 ML IV SCH (01:45)
[2020-09-25 02:03] VITALS: BMI 31.4
[2020-09-25] MEDS: ASCORBIC ACID INJ MULTI-DOSE VIAL 1,500 MG in NS 100 ML IV 100 ML IV SCH ×4 (03:38→21:00)
[2020-09-25] MEDS ORDERED: DUONEB 0.5 MG/3 MG (3 mL) NEB ONE (04:54)
[2020-09-25 05:15] LABS: ABG ALLEN TEST POS; ABG BASE EXCESS -1.1 mmol/L (-2.0-2.0); ABG HCO3 22.2 mmol/L (22-26)
[2020-09-25] MEDS: CATAPRES TAB 0.1 MG PO SCH ×3 (05:45→22:31)
[2020-09-25] MEDS: DUONEB 0.5 MG/3 MG (3 mL) NEB SCH ×2 (05:53→14:25)
[2020-09-25] MEDS ORDERED: SOLU-Medrol 40 MG VIAL IVP SCH (06:00)
[2020-09-25] MEDS: HumuLIN R SC PRN ×4 (06:19→22:39)
[2020-09-25 06:21] LABS: BASOPHILS % (AUTO) 0.1 % (0.2-1.0); HEMATOCRIT 29.8 % (36.0-47.0); HEMOGLOBIN 9.4 g/dL (12.0-16.0); LYMPHOCYTES # (AUTO) 0.8 X10^3/uL (1.3-2.9); MEAN CORPUSCULAR HEMOGLOBIN 24.1 pg (27.0-34.0); MEAN CORPUSCULAR HGB CONC 31.6 g/dL (33.0-35.0); MEAN CORPUSCULAR VOLUME 76.2 fL (80.0-100.0); MEAN PLATELET VOLUME 8.7 fL (7.4-11.0); MONOCYTES # (AUTO) 0.3 x10^3/uL (0.3-0.8); MONOCYTES % (AUTO) 2.9 % (0.0-13.0); NEUTROPHILS # (AUTO) 8.2 x10^3/uL (2.2-4.8); PLATELET COUNT 201 X10^3/uL (150.0-450.0); RED BLOOD COUNT 3.91 X10^6/uL (3.5-5.4); RED CELL DISTRIBUTION WIDTH 15.7 % (11.6-16.5); WHITE BLOOD COUNT 9.3 X10^3/uL (3.6-10.0)
[2020-09-25 06:31] LABS: ALBUMIN 2.9 g/dL (3.4-5.0); CALCIUM 8.2 mg/dL (8.5-10.1); CARBON DIOXIDE 21.3 mmol/L (21-32); COR CA(FOR HYPOALB) 9.1 mg/dL (8.5-10.1); CREATININE 1.58 mg/dL (0.55-1.02)
[2020-09-25 07:20] LABS: PLATELET MORPHOLOGY COMMENT NORMAL (NORMAL)
[2020-09-25 07:21] LABS: BURR CELLS PRESENT; HYPOCHROMASIA SLIGHT
[2020-09-25] MEDS ORDERED: LASIX PO SCH (09:00)
[2020-09-25] MEDS ORDERED: VITAMIN D (1.25MG) PO SCH (09:00)
[2020-09-25] MEDS ORDERED: VITAMIN A PO SCH (09:00)
[2020-09-25] MEDS ORDERED: GLUCOPHAGE XR 24-HR PO SCH (09:00)
[2020-09-25] MEDS ORDERED: AMPHETAMINE SULFATE 10 MG PO SCH (09:00)
[2020-09-25] MEDS ORDERED: PHENERGAN TAB 25 MG PO SCH (09:00)
[2020-09-25] MEDS ORDERED: PROMETHAZINE 12.5 MG PO SCH (09:00)
[2020-09-25] MEDS ORDERED: LOVENOX INJ 30 MG SYR SC SCH ×2 (09:00→21:00)
[2020-09-25] MEDS ORDERED: ESCITALOPRAM OXALATE 5 MG PO SCH (09:00)
[2020-09-25] MEDS: PULMICORT NEB TX 0.5 MG NEB SCH ×2 (10:25→21:14)
[2020-09-25] MEDS ORDERED: LEXAPRO ONE (10:58)
[2020-09-25] MEDS: EMPAGLIFLOZIN 10 MG PO SCH (11:15)
[2020-09-25] MEDS: CALAN SR 180 MG PO SCH ×2 (11:17→21:00)
[2020-09-25] MEDS: COZAAR PO SCH (11:19)
[2020-09-25] MEDS: ZEBETA TAB 5 MG PO SCH ×2 (11:19→21:00)
[2020-09-25] MEDS: OXYBUTYNIN CHLORIDE ER PO SCH (11:20)
[2020-09-25] MEDS: LEXAPRO PO SCH (11:21)
[2020-09-25] MEDS: TRICOR TAB 160 MG PO SCH (11:22)
[2020-09-25] MEDS: K-DUR TAB 20 MEQ PO SCH (11:23)
[2020-09-25] MEDS: LANTUS SC SCH (11:24)
[2020-09-25] MEDS: ZINC SULFATE PO SCH ×2 (11:30→21:00)
[2020-09-25] MEDS: ESTRADIOL VG SCH (12:00)
--- NOTE | 2020-09-25 12:26 | DR.H&P ---
H&P History & Physical for Day of: H&P Date: 09/25/20 Chief Complaint Chief Complaint: weakness, dyspnea, COVID infection Allergies Allergies Allergy/AdvReac Type Severity Reaction Status Date / Time lisinopril Allergy Verified 09/05/19 12:12 ciprofloxacin [From Cipro] AdvReac Verified 09/05/19 12:12 History of Present Illness History of Present Illness: Ms. White is a 64y/o female with a PMH of chronic pain, anxiety, Type 2 DM, Hx of blood clots , HTN, HLD presented with worsening dyspnea, weakness and cough. She was tested positive for COVID-19 on 09/20 and reports worsening symptoms. Her also tested positive. She is currently on 3L O2 via nasal cannula. She reports generalized weakness and non productive cough. Denies GI symptoms. ED work up CXR: multifocal airspace disease concerning for COVID-19 infection Labs: WBC 9.3 Hgb 9.4 BUN/Cr: 41/1.58 (down from 1.91 on admission) CRP 25.90 --> 23.8 D-dimer 0.83 Trop (-) AB.45///22 on 3L UA: suggestive of infection Patient was started on COVID-19 pneumonia protocol Plan: increase solumedrol to 80mg q8 hrs, continue Remdesivir. Continue Rocephin and Zithromax. Aggressive pulmonary toilet, continue duonebs/pulmicort. Continue immune support with vitamins. Wean O2 as tolerated. Unable to do CTA due to acute renal injury. Resume home medications. Patient is on Eliquis for hx of blood clots. Monitor AM labs, CXR and ABG. Time spent in clinical assessment, physical examination, reviewing labs/imaging and decision making over 75 mins. Past Medical History Past Medical History: Anxiety, Arthritis, Diabetes, Dyslipidemia, Hypertension, Hypothyroidism and Renal Disease Past Surgical History Surgical History: Hysterectomy and Other Family History Family Medical History: Diabetes Mellitus, Cancer, [place], Coronary Artery Disease, Heart Failure and Hypertension Social History Alcohol Use: None Drug Use: None Medications Home Medications: lisinopril Allergy (Verified 09/05/19 12:12) ciprofloxacin [From Cipro] Adverse Reaction (Verified 09/05/19 12:12) Labs Result Diagrams: 09/25/20 05:49 09/25/20 05:49 Labs: Laboratory WBC 9.3 X10^3/uL (3.6-10.0) 09/25/20 05:49 RBC 3.91 X10^6/uL (3.5-5.4) 09/25/20 05:49 Hgb 9.4 g/dL (12.0-16.0) L 09/25/20 05:49 Hct 29.8 % (36.0-47.0) L 09/25/20 05:49 MCV 76.2 fL (80.0-100.0) L 09/25/20 05:49 MCH 24.1 pg (27.0-34.0) L 09/25/20 05:49 MCHC 31.6 g/dL (33.0-35.0) L 09/25/20 05:49 RDW 15.7 % (11.6-16.5) 09/25/20 05:49 Plt Count 201 X10^3/uL (150.0-450.0) 09/25/20 05:49 Plt Count Comment Adequate (ADEQUATE) 09/25/20 05:49 MPV 8.7 fL (7.4-11.0) 09/25/20 05:49 Neut % (Auto) 88.0 % (42.0-75.0) H 09/25/20 05:49 Lymph % (Auto) 9.0 % (21.0-51.0) L 09/25/20 05:49 [place] % (Auto) 2.9 % (0.0-13.0) 09/25/20 05:49 Eos % (Auto) 0.0 % (0.9-2.9) L 09/25/20 05:49 Baso % (Auto) 0.1 % (0.2-1.0) L 09/25/20 05:49 Neut # (Auto) 8.2 x10^3/uL (2.2-4.8) H 09/25/20 05:49 Lymph # (Auto) 0.8 X10^3/uL (1.3-2.9) L 09/25/20 05:49 [place] # (Auto) 0.3 x10^3/uL (0.3-0.8) 09/25/20 05:49 Eos # (Auto) 0.0 x10^3/uL (0.0-0.2) 09/25/20 05:49 Baso # (Auto) 0.0 X10^3/uL (0.0-0.1) 09/25/20 05:49 Absolute Nucleated RBC 0.0 /100WBC 09/25/20 05:49 Plt Morphology Comment Normal (NORMAL) 09/25/20 05:49 RBC Morphology Abnormal (NORMAL) A 09/25/20 05:49 Hypochromasia Slight A 09/25/20 05:49 Poikilocytosis Slight A 09/24/20 20:24 [place] Cells Present 09/25/20 05:49 PT 14.3 SECONDS (11.8-14.3) 09/24/20 20:24 INR Target Range - 09/24/20 20:24 INR 1.15 (0.8-1.3) 09/24/20 20:24 D-Dimer 0.83 ug/ml (0.0-0.57) H* 09/24/20 20:24 Sample Site Rr 09/25/20 05:00 ABG pH 7.450 (7.35-7.45) 09/25/20 05:00 ABG pCO2 32.0 mmHg (35.0-45.0) L 09/25/20 05:00 ABG pO2 59.0 mmHg (80.0-100.0) L 09/25/20 05:00 ABG HCO3 22.2 mmol/L (22-26) 09/25/20 05:00 ABG O2 Saturation 91.0 % (90-100) 09/25/20 05:00 ABG Base Excess -1.1 mmol/L (-2.0-2.0) 09/25/20 05:00 Alexx Test Pos 09/25/20 05:00 A-a Gradient 129.0 mmHg 09/25/20 05:00 FiO2 32.0 09/25/20 05:00 Blood Gas Comments Erwin well sw 09/25/20 05:00 Sodium 137 mmol/L (136-145) 09/25/20 05:49 Corrected Sodium 141 mmol/L (136-145) 09/25/20 05:49 Potassium 3.9 mmol/L (3.5-5.1) 09/25/20 05:49 Chloride 100 mmol/L (98-107) 09/25/20 05:49 Carbon Dioxide 21.3 mmol/L (21-32) 09/25/20 05:49 BUN 41 mg/dL (7-18) H 09/25/20 05:49 Creatinine 1.58 mg/dL (0.55-1.02) H 09/25/20 05:49 Est GFR (MDRD) Af Amer 42 (>60) L 09/25/20 05:49 Est GFR (MDRD) Non-Af 35 (>60) L 09/25/20 05:49 Glucose 279 mg/dL (65-99) H 09/25/20 05:49 POC Glucose (mg/dL) 371 mg/dL (65-99) H 09/25/20 11:34 Lactic Acid 1.5 mmol/L (0.4-2.0) 09/24/20 21:56 Calcium 8.2 mg/dL (8.5-10.1) L 09/25/20 05:49 Corrected Calcium 9.1 mg/dL (8.5-10.1) 09/25/20 05:49 Ferritin 109 ng/mL (8-252) 09/25/20 05:49 Total Bilirubin 0.30 mg/dL (0.2-1.0) 09/25/20 05:49 AST 22 Units/L (15-37) 09/25/20 05:49 ALT 16 Units/L (12-78) 09/25/20 05:49 Alkaline Phosphatase 64 Units/L (46-116) 09/25/20 05:49 Troponin I < 0.02 ng/mL (0-1.5) 09/24/20 20:24 C-Reactive Protein 23.80 mg/L (0-3.0) H 09/25/20 05:49 B-Natriuretic Peptide 637 pg/mL (0-79) H* 09/24/20 20:24 Total Protein 7.0 g/dL (6.4-8.2) 09/25/20 05:49 Albumin 2.9 g/dL (3.4-5.0) L 09/25/20 05:49 Globulin 4.1 g/dL (2.5-4.5) 12/12/20 05:49 Albumin/Globulin Ratio 0.7 Ratio (1.1-2.1) L 09/25/20 05:49 Specimen Type Clean catch urine 09/24/20 21:52 Urine Color Mabel (YELLOW) 09/24/20 21:52 Urine Appearance Slightly hazy (CLEAR) 09/24/20 21:52 Urine pH 5.0 (5.0 - 8.0) 09/24/20 21:52 Ur Specific [place] 1.015 (1.000-1.030) 09/24/20 21:52 Urine Protein 1+ (NEGATIVE) 09/24/20 21:52 Urine Glucose (UA) 3+ (NEGATIVE) 09/24/20 21:52 Urine Ketones Negative (NEGATIVE) 09/24/20 21:52 Urine Occult Blood 1+ (NEGATIVE) 09/24/20 21:52 Urine Nitrite Positive (NEGATIVE) 09/24/20 21:52 Urine Bilirubin Negative (NEGATIVE) 09/24/20 21:52 Urine Urobilinogen 1+ (NORMAL) 09/24/20 21:52 Ur Leukocyte Esterase 1+ (NEGATIVE) 09/24/20 21:52 Urine RBC 3-5 /HPF (0-3) A 09/24/20 21:52 Urine WBC 5-10 /HPF (0-5) A 09/24/20 21:52 Ur Squamous Epith Cells Few /HPF (NEGATIVE) 09/24/20 21:52 Urine Bacteria 2+ /HPF (NEGATIVE) 09/24/20 21:52 Ur Culture Indicated? Yes/culture set up 09/24/20 21:52 Influenza Type A (PCR) Negative (NEGATIVE) 09/24/20 22:20 Influenza Type B (PCR) Negative (NEGATIVE) 09/24/20 22:20 SARS CoV-2 RNA Rapid MICK Positive (NEGATIVE) A 09/24/20 22:20 Review of Systems Constitutional: Fever, Chills, Weakness and Malaise Eyes: No Symptoms Reported ENT: Nose Congestion Respiratory: Cough, Shortness of Breath, SOB with Excertion and Pleuritic Pain Cardiovascular: No Symptoms Reported Gastrointestinal: No Symptoms Reported Genitourinary: Dysuria and Frequency Musculoskeletal: Back Pain Skin: No Symptoms Reported Neurological: No Symptoms Reported Physical Exam Vital Signs: Temperature 99.7 F Pulse Rate [Left Radial] 75 Pulse Rate 88 Respiratory Rate 20 Blood Pressure [Left Arm] 186/89 Blood Pressure 140/63 O2 Sat by Pulse Oximetry 92 Oriented: Normal Eyes: Normal Ear: Normal Respiratory: Diminished Throughout and Rhonchi Throughout Cardiovascular: Tachycardia Auscultation: Bowel Sounds: Normal Palpation: Normal Tenderness: Normal Skin: Decreased Turgur Musculoskeletal: Normal Psychiatric: Anxiety Mood Description: Anxious Affect: Anxious Speech Pattern: Clear and Appropriate Assessment/Plan (1) DANAE (acute kidney injury): Status: Acute (2) Acute respiratory failure with hypoxia: Status: Acute (3) Urinary tract infection: Qualifiers: Urinary tract infection type: acute cystitis Hematuria presence: without hematuria Qualified Code(s): N30.00 - Acute cystitis without hematuria Status: Acute (4) Diabetes mellitus: Qualifiers: Diabetes mellitus type: type 2 Diabetes mellitus mcfp insulin use: with mcfp use Diabetes mellitus complication status: with circulatory complication Diabetes mellitus complication detail: with other circulatory complications Qualified Code(s): E11.59 - Type 2 diabetes mellitus with other c irculatory complications; Z79.4 - [employer] (current) use of insulin Status: Acute (5) Anemia: Qualifiers: Anemia type: unspecified type Qualified Code(s): D64.9 - Anemia, unspecified Status: Acute (6) Pneumonia due to COVID-19 virus: Status: Acute Review H&P Reviewed: Yes Patient was examined?: Yes
[2020-09-25] MEDS: SOLU-Medrol 40 MG VIAL IVP SCH ×3 (14:08→22:31)
[2020-09-25] MEDS: ELIQUIS PO SCH ×2 (14:09→21:00)
[2020-09-25] MEDS: SYNTHROID 50 mcg TAB PO SCH (16:28)
[2020-09-25 16:40] LABS: CKMB % 1.3 % (<4); CREATINE KINASE 78 Units/L (26-192); CREATINE KINASE MB < 1.0 ng/mL (0-4.0); TROPONIN I < 0.02 ng/mL (0-1.5)
[2020-09-25] MEDS ORDERED: PEPCID TAB 20 MG PO PRN (20:06)
[2020-09-25] MEDS: ROCEPHIN VIAL 1 GRAM 1 G in NS 100 ML IV + SPIKE MINIBAG* 100 ML IV SCH (21:00)
[2020-09-25] MEDS: AMBIEN PO SCH (21:00)
[2020-09-25] MEDS: NEURONTIN TAB 600 MG PO SCH (21:00)
[2020-09-25] MEDS: XOPENEX 1.25 MG/3 ML NEBULE NEB SCH (21:14)
[2020-09-25] MEDS: SNACK - Diabetic Appropriate PO SCH (22:28)
[2020-09-25] MEDS: ZOFRAN INJ 4 MG VIAL IVP PRN (22:55)
[2020-09-25] MEDS: TYLENOL 325 MG TAB PO PRN (23:16)
[2020-09-26] MEDS: NS 1000 ML 1,000 ML IV SCH ×2 (02:13)
[2020-09-26] MEDS: ASCORBIC ACID INJ MULTI-DOSE VIAL 1,500 MG in NS 100 ML IV 100 ML IV SCH ×4 (02:13→21:17)
[2020-09-26 05:18] LABS: BASOPHILS % (AUTO) 0.2 % (0.2-1.0); HEMATOCRIT 28.3 % (36.0-47.0); HEMOGLOBIN 8.9 g/dL (12.0-16.0); LYMPHOCYTES # (AUTO) 0.6 X10^3/uL (1.3-2.9); LYMPHOCYTES % (AUTO) 6.9 % (21.0-51.0); MEAN CORPUSCULAR HGB CONC 31.4 g/dL (33.0-35.0); MEAN CORPUSCULAR VOLUME 76.4 fL (80.0-100.0); MEAN PLATELET VOLUME 9.1 fL (7.4-11.0); MONOCYTES # (AUTO) 0.4 x10^3/uL (0.3-0.8); MONOCYTES % (AUTO) 4.2 % (0.0-13.0); NEUTROPHILS # (AUTO) 7.7 x10^3/uL (2.2-4.8); NEUTROPHILS % (AUTO) 88.7 % (42.0-75.0); PLATELET COUNT 245 X10^3/uL (150.0-450.0); RED CELL DISTRIBUTION WIDTH 16.1 % (11.6-16.5); WHITE BLOOD COUNT 8.7 X10^3/uL (3.6-10.0)
[2020-09-26] MEDS: CATAPRES TAB 0.1 MG PO SCH ×3 (05:23→21:16)
[2020-09-26] MEDS: SOLU-Medrol 40 MG VIAL IVP SCH ×3 (05:23→21:19)
[2020-09-26 05:26] LABS: CALCIUM 8.4 mg/dL (8.5-10.1); CREATININE 1.31 mg/dL (0.55-1.02)
[2020-09-26 05:33] LABS: CARBON DIOXIDE 26.1 mmol/L (21-32)
[2020-09-26] MEDS: HumuLIN R SC PRN ×4 (05:40→22:36)
[2020-09-26 05:46] LABS: ABG HCO3 27.9 mmol/L (22-26)
[2020-09-26 05:47] LABS: ABG ALLEN TEST POS
[2020-09-26] MEDS: K-DUR TAB 20 MEQ PO SCH ×3 (05:48→21:19)
[2020-09-26] MEDS: XOPENEX 1.25 MG/3 ML NEBULE NEB SCH ×3 (06:11→21:00)
[2020-09-26 06:14] LABS: PLATELET MORPHOLOGY COMMENT NORMAL (NORMAL)
[2020-09-26] MEDS ORDERED: LEXAPRO ONE (08:48)
[2020-09-26] MEDS: PULMICORT NEB TX 0.5 MG NEB SCH ×2 (09:12→21:00)
[2020-09-26] MEDS: CALAN SR 180 MG PO SCH ×2 (09:14→21:17)
[2020-09-26] MEDS: ZITHROMAX INJ 500 MG VIAL 500 MG in NS 250 ML IV 250 ML IV SCH (09:14)
[2020-09-26] MEDS: COZAAR PO SCH (09:15)
[2020-09-26] MEDS: ELIQUIS PO SCH ×2 (09:15→21:18)
[2020-09-26] MEDS: COLACE CAP 100 MG PO SCH ×2 (09:15→21:18)
[2020-09-26] MEDS: ZEBETA TAB 5 MG PO SCH ×2 (09:16→21:16)
[2020-09-26] MEDS: EMPAGLIFLOZIN 10 MG PO SCH (09:16)
[2020-09-26] MEDS: ZINC SULFATE PO SCH ×2 (09:17→21:16)
[2020-09-26] MEDS: ESTRADIOL VG SCH (09:17)
[2020-09-26] MEDS: TRICOR TAB 160 MG PO SCH (09:18)
[2020-09-26] MEDS: LEXAPRO PO SCH (09:18)
[2020-09-26] MEDS: OXYBUTYNIN CHLORIDE ER PO SCH (09:31)
[2020-09-26] MEDS: LANTUS SC SCH (09:32)
[2020-09-26] MEDS: REMDESIVIR 100 MG in NS 250 ML IV 250 ML IV SCH (09:32)
[2020-09-26] MEDS ORDERED: REMDESIVIR 100 MG in NS 250 ML IV 250 ML IV SCH (10:00)
--- NOTE | 2020-09-26 11:29 | PCM.PROG ---
Progress Note Progress Note for Day of Date of Exam: 09/26/20 Subjective Subjective: Patient seen at bedside, no overnight events. Patient states she feels a little better today. She is currently on 3L NC. She reports dry cough. Denies fever or chills. She reports decreased appetite. Denies N/V/D. She does report bloating. She is being treated for COVID-19 pneumonia with respiratory failure and UTI. Labs: Hgb 8.9 WBC 8.7 BUN/Cr: 33/1.31 ABG 7.42/43/51/27.9 CRP 25.8 Urine Cx: gram negative rods Blood Cx pending Plan: will order CTA to rule out PE. Order one unit of convalescent plasma. Continue Rocephin, Remdesivir and solumedrol. Continue duonebs, pulmicort and IS. Patient will be moved to ICU side for closer monitoring. Continue gentle hydration with NS. Monitor AM labs and respiratory status closely. Time spent for clinical assessment, physical examination, reviewing labs/imaging and decision making more than 75 mins. Past Medical Family Social History Past Med/Fam/Surg Hx: No changes since H&P Allergies: Allergies lisinopril Allergy (Verified 09/05/19 12:12) ciprofloxacin [From Cipro] Adverse Reaction (Verified 09/05/19 12:12) Review of Systems ROS: No change since H&P Vital Signs and I&O's Vital Signs: Temperature 98.4 F Pulse Rate [Left Radial] 86 Pulse Rate 81 Respiratory Rate 20 Blood Pressure [Left Arm] 169/97 Blood Pressure 140/63 O2 Sat by Pulse Oximetry 92 Intake and Output: Intake & Output 09/23/20 09/24/20 09/25/20 09/26/20 23:59 23:59 23:59 23:59 Intake Total 3376 / 3376 959 / 959 Balance 3376 / 3376 959 / 959 Physical Exam Oriented: Normal Eyes: Normal Ear: Normal Nose: Normal Throat: Dry Respiratory: Generalized and Diminished Cardiovascular: Normal Auscultation: Bowel Sounds: Normal Tenderness: Normal Skin: Decreased Turgur Musculoskeletal: Normal Psychiatric: Normal Mood Description: Calm Affect: Normal Speech Pattern: Clear and Appropriate Laboratory and Diagnostics Result Diagrams: 09/26/20 04:35 09/26/20 04:35 Labs: 09/24/20 20:28 Blood Blood Culture - Preliminary 09/24/20 20:24 Blood Blood Culture - Preliminary 09/24/20 21:52 Urine,Clean Catch Urine Culture - Preliminary Laboratory WBC 8.7 X10^3/uL (3.6-10.0) 09/26/20 04:35 RBC 3.70 X10^6/uL (3.5-5.4) 09/26/20 04:35 Hgb 8.9 g/dL (12.0-16.0) L 09/26/20 04:35 Hct 28.3 % (36.0-47.0) L 09/26/20 04:35 MCV 76.4 fL (80.0-100.0) L 09/26/20 04:35 MCH 24.0 pg (27.0-34.0) L 09/26/20 04:35 MCHC 31.4 g/dL (33.0-35.0) L 09/26/20 04:35 RDW 16.1 % (11.6-16.5) 09/26/20 04:35 Plt Count 245 X10^3/uL (150.0-450.0) 09/26/20 04:35 Plt Count Comment Adequate (ADEQUATE) 09/26/20 04:35 MPV 9.1 fL (7.4-11.0) 09/26/20 04:35 Neut % (Auto) 88.7 % (42.0-75.0) H 09/26/20 04:35 Lymph % (Auto) 6.9 % (21.0-51.0) L 09/26/20 04:35 [place] % (Auto) 4.2 % (0.0-13.0) 09/26/20 04:35 Eos % (Auto) 0.0 % (0.9-2.9) L 09/26/20 04:35 Baso % (Auto) 0.2 % (0.2-1.0) 09/26/20 04:35 Neut # (Auto) 7.7 x10^3/uL (2.2-4.8) H 09/26/20 04:35 Lymph # (Auto) 0.6 X10^3/uL (1.3-2.9) L 09/26/20 04:35 [place] # (Auto) 0.4 x10^3/uL (0.3-0.8) 09/26/20 04:35 Eos # (Auto) 0.0 x10^3/uL (0.0-0.2) 09/26/20 04:35 Baso # (Auto) 0.0 X10^3/uL (0.0-0.1) 09/26/20 04:35 Absolute Nucleated RBC 0.0 /100WBC 09/26/20 04:35 Total Counted 100 09/26/20 04:35 Neutrophils % (Manual) 91 % (39-76) H 09/26/20 04:35 Lymphocytes % (Manual) 9 % (13-43) L 09/26/20 04:35 Plt Morphology Comment Normal (NORMAL) 09/26/20 04:35 RBC Morphology Normal (NORMAL) 09/26/20 04:35 Hypochromasia Slight A 09/25/20 05:49 Poikilocytosis Slight A 09/24/20 20:24 [place] Cells Present 09/25/20 05:49 PT 14.3 SECONDS (11.8-14.3) 09/24/20 20:24 INR Target Range - 09/24/20 20:24 INR 1.15 (0.8-1.3) 09/24/20 20:24 D-Dimer 0.83 ug/ml (0.0-0.57) H* 09/24/20 20:24 Sample Site Lr 09/26/20 05:00 ABG pH 7.420 (7.35-7.45) 09/26/20 05:00 ABG pCO2 43.0 mmHg (35.0-45.0) 09/26/20 05:00 ABG pO2 51.0 mmHg (80.0-100.0) L 09/26/20 05:00 ABG HCO3 27.9 mmol/L (22-26) H 09/26/20 05:00 ABG O2 Saturation 86.0 % (90-100) L 09/26/20 05:00 ABG Base Excess 3.0 mmol/L (-2.0-2.0) H 09/26/20 05:00 Alexx Test Pos 09/26/20 05:00 A-a Gradient 123.0 mmHg 09/26/20 05:00 FiO2 32.0 09/26/20 05:00 Blood Gas Comments Erwin well sw 09/26/20 05:00 Sodium 141 mmol/L (136-145) 09/26/20 04:35 Corrected Sodium 146 mmol/L (136-145) H 09/26/20 04:35 Potassium 4.5 mmol/L (3.5-5.1) 09/26/20 04:35 Chloride 106 mmol/L (98-107) 09/26/20 04:35 Carbon Dioxide 26.1 mmol/L (21-32) 09/26/20 04:35 BUN 33 mg/dL (7-18) H 09/26/20 04:35 Creatinine 1.31 mg/dL (0.55-1.02) H 09/26/20 04:35 Est GFR (MDRD) Af Amer 53 (>60) L 09/26/20 04:35 Est GFR (MDRD) Non-Af 43 (>60) L 09/26/20 04:35 Glucose 315 mg/dL (65-99) H 09/26/20 04:35 POC Glucose (mg/dL) 258 mg/dL (65-99) H 09/26/20 05:02 Lactic Acid 1.5 mmol/L (0.4-2.0) 09/24/20 21:56 Calcium 8.4 mg/dL (8.5-10.1) L 09/26/20 04:35 Corrected Calcium 9.1 mg/dL (8.5-10.1) 09/25/20 05:49 Ferritin 109 ng/mL (8-252) 09/25/20 05:49 Total Bilirubin 0.30 mg/dL (0.2-1.0) 09/25/20 05:49 AST 22 Units/L (15-37) 09/25/20 05:49 ALT 16 Units/L (12-78) 09/25/20 05:49 Alkaline Phosphatase 64 Units/L (46-116) 09/25/20 05:49 Creatine Kinase 78 Units/L (26-192) 09/25/20 16:10 CK-MB (CK-2) < 1.0 ng/mL (0-4.0) 09/25/20 16:10 CK/CKMB % Calc 1.3 % (<4) 09/25/20 16:10 Troponin I < 0.02 ng/mL (0-1.5) 09/25/20 16:10 C-Reactive Protein 25.80 mg/L (0-3.0) H 09/26/20 04:35 B-Natriuretic Peptide 637 pg/mL (0-79) H* 09/24/20 20:24 Total Protein 7.0 g/dL (6.4-8.2) 09/25/20 05:49 Albumin 2.9 g/dL (3.4-5.0) L 09/25/20 05:49 Globulin 4.1 g/dL (2.5-4.5) 09/25/20 05:49 Albumin/Globulin Ratio 0.7 Ratio (1.1-2.1) L 09/25/20 05:49 Specimen Type Clean catch urine 09/24/20 21:52 Urine Color Mabel (YELLOW) 09/24/20 21:52 Urine Appearance Slightly hazy (CLEAR) 09/24/20 21:52 Urine pH 5.0 (5.0 - 8.0) 09/24/20 21:52 Ur Specific [place] 1.015 (1.000-1.030) 09/24/20 21:52 Urine Protein 1+ (NEGATIVE) 09/24/20 21:52 Urine Glucose (UA) 3+ (NEGATIVE) 09/24/20 21:52 Urine Ketones Negative (NEGATIVE) 09/24/20 21:52 Urine Occult Blood 1+ (NEGATIVE) 09/24/20 21:52 Urine Nitrite Positive (NEGATIVE) 09/24/20 21:52 Urine Bilirubin Negative (NEGATIVE) 09/24/20 21:52 Urine Urobilinogen 1+ (NORMAL) 09/24/20 21:52 Ur Leukocyte Esterase 1+ (NEGATIVE) 09/24/20 21:52 Urine RBC 3-5 /HPF (0-3) A 09/24/20 21:52 Urine WBC 5-10 /HPF (0-5) A 09/24/20 21:52 Ur Squamous Epith Cells Few /HPF (NEGATIVE) 09/24/20 21:52 Urine Bacteria 2+ /HPF (NEGATIVE) 09/24/20 21:52 Ur Culture Indicated? Yes/culture set up 09/24/20 21:52 Influenza Type A (PCR) Negative (NEGATIVE) 09/24/20 22:20 Influenza Type B (PCR) Negative (NEGATIVE) 09/24/20 22:20 SARS CoV-2 RNA Rapid MICK Positive (NEGATIVE) A 09/24/20 22:20 Plan (1) DANAE (acute kidney injury): Status: Acute (2) Acute respiratory failure with hypoxia: Status: Acute (3) Urinary tract infection: Status: Acute Qualifiers: Urinary tract infection type: acute cystitis Hematuria presence: without hematuria Qualified Code(s): N30.00 - Acute cystitis without hematuria (4) Diabetes mellitus: Status: Acute Qualifiers: Diabetes mellitus type: type 2 Diabetes mellitus complication status: with circulatory complication Diabetes mellitus complication detail: with other circulatory complications Diabetes mellitus technical writing lead/mgr insulin use: with technical writing lead/mgr use Qualified Code(s): E11.59 - Type 2 diabetes mellitus with other circulatory complications; Z79.4 - FDC (current) use of insulin (5) Anemia: Status: Acute Qualifiers: Anemia type: unspecified type Qualified Code(s): D64.9 - Anemia, unspecified (6) Pneumonia due to COVID-19 virus: Status: Acute
[2020-09-26] MEDS ORDERED: NS 100 ML IV 100 ML IV ONE (11:30)
--- NOTE | 2020-09-26 12:31 | CT ---
HISTORYcovid 19. elevated d-dimerSTUDYCTA CHESTCOMPARISONNone.TECHNIQUEMultiple axial images of the chest were obtained from the thoracic inlet to the upper abdomen after the administration of IV contrast. 3D reconstructions utilizing axial MIPS imaging was performed and reviewed. Dose reduction techniques including Automated Exposure Control (AEC) and adjustment of mA and kV were utilized.FINDINGSLungs: [Extensive parenchymal opacities in both lungs with limited air bronchograms. No obstructing proximal endobronchial masses.]Pleura: [No pleural effusion.]Thoracic Aorta: [Mildly dilated ascending thoracic aorta measuring 4.3 cm. Limited opacification the thoracic aorta. Mild atherosclerotic changes.]Main Pulmonary Trunk: [Respiratory motion artifact limiting assessment of segmental and subsegmental pulmonary artery branches. No filling defects identified within the more proximal pulmonary arteries. Main pulmonary trunk enlarged measuring 3.6 cm.]Heart: [Heart size borderline. No pericardial effusion.]Mediastinum/Lymph Nodes: [No definite pathologically enlarged lymph nodes jeff or mediastinum.]Upper Abdomen: [No masses in the visualized portions the adrenal glands. Possible mass involving the left kidney only seen on the most caudal image measuring 4.5 cm with adjacent fat stranding.]MSK: [Normal alignment of the thoracic vertebrae. Degenerative changes.]Other: Visualized portion of the thyroid gland unremarkable.IMPRESSIONExtensive parenchymal opacities in both lungs, presumably viral in etiology.Mildly dilated ascending thoracic aorta measuring 4.3 cm.No pulmonary embolism identified within limitation imposed by respiratory motion artifact. Enlargement of the main pulmonary trunk suggesting pulmonary arterial hypertension.Possible mass involving left kidney seen only on the most caudal image. This could be further assessed with nonemergent ultrasound.Electronically signed by: Mauricio Mendoza (Sep 26, 2020 12:30:19)
[2020-09-26] MEDS: XANAX PO PRN ×2 (15:48→23:20)
[2020-09-26 16:11] LABS: ABG BASE EXCESS -1.3 mmol/L (-2.0-2.0); ABG HCO3 23.7 mmol/L (22-26)
[2020-09-26] MEDS: SYNTHROID 50 mcg TAB PO SCH (16:52)
--- NOTE | 2020-09-26 18:27 | DR.ADDEND ---
ADDENDUM Addendum Addendum: Patient transferred to ICU for closer monitoring. Sats noted to be in high 60s on nasal canula. Patient placed on heated high flow at 80%. Repeat ABG showed worsening hypoxia. CT PE negative for PE, showed bilateral opacities. Patient placed on BiPAP and will be monitored closely. Patient remains in critical condition. Critical care time spent for clinical assessment, reviewing labs and imaging and decision making more than 75 mins
[2020-09-26] MEDS: AMBIEN PO SCH (21:15)
[2020-09-26] MEDS: ROCEPHIN VIAL 1 GRAM 1 G in NS 100 ML IV + SPIKE MINIBAG* 100 ML IV SCH (21:17)
[2020-09-26] MEDS: NEURONTIN TAB 600 MG PO SCH (21:18)
[2020-09-26] MEDS: SNACK - Diabetic Appropriate PO SCH (21:29)
[2020-09-26] MEDS: ZOFRAN INJ 4 MG VIAL IVP PRN (22:45)
[2020-09-27] MEDS: NS 1000 ML 1,000 ML IV SCH ×2 (00:30→01:17)
[2020-09-27] MEDS: ASCORBIC ACID INJ MULTI-DOSE VIAL 1,500 MG in NS 100 ML IV 100 ML IV SCH ×4 (02:14→20:06)
[2020-09-27] MEDS: APRESOLINE INJ 20 MG VIAL IVP PRN ×2 (03:21→20:20)
[2020-09-27] MEDS: CATAPRES TAB 0.1 MG PO SCH ×2 (05:28→15:15)
[2020-09-27] MEDS: SOLU-Medrol 40 MG VIAL IVP SCH ×3 (05:28→21:12)
[2020-09-27 05:44] LABS: BASOPHILS % (AUTO) 0.1 % (0.2-1.0); HEMATOCRIT 29.1 % (36.0-47.0); HEMOGLOBIN 9.2 g/dL (12.0-16.0); LYMPHOCYTES # (AUTO) 0.6 X10^3/uL (1.3-2.9); LYMPHOCYTES % (AUTO) 3.5 % (21.0-51.0); MEAN CORPUSCULAR HGB CONC 31.6 g/dL (33.0-35.0); MEAN CORPUSCULAR VOLUME 76.1 fL (80.0-100.0); MEAN PLATELET VOLUME 8.5 fL (7.4-11.0); MONOCYTES # (AUTO) 0.6 x10^3/uL (0.3-0.8); MONOCYTES % (AUTO) 3.6 % (0.0-13.0); NEUTROPHILS # (AUTO) 15.6 x10^3/uL (2.2-4.8); NEUTROPHILS % (AUTO) 92.8 % (42.0-75.0); PLATELET COUNT 312 X10^3/uL (150.0-450.0); RED BLOOD COUNT 3.83 X10^6/uL (3.5-5.4); WHITE BLOOD COUNT 16.8 X10^3/uL (3.6-10.0)
[2020-09-27 05:50] LABS: ABG ALLEN TEST POS; ABG BASE EXCESS 0.8 mmol/L (-2.0-2.0)
[2020-09-27] MEDS: HumuLIN R SC PRN ×3 (05:50→20:43)
[2020-09-27 05:57] LABS: CALCIUM 8.6 mg/dL (8.5-10.1); CARBON DIOXIDE 24.6 mmol/L (21-32); CREATININE 1.38 mg/dL (0.55-1.02)
[2020-09-27] MEDS: XOPENEX 1.25 MG/3 ML NEBULE NEB SCH ×3 (06:09→21:01)
[2020-09-27] MEDS: ZOFRAN INJ 4 MG VIAL IVP PRN (06:33)
[2020-09-27 06:52] LABS: PLATELET MORPHOLOGY COMMENT NORMAL (NORMAL)
[2020-09-27] MEDS ORDERED: LEXAPRO ONE (07:36)
--- NOTE | 2020-09-27 07:50 | RAD ---
[id number], SOBSTUDYCHEST, 1 VIEWCOMPARISONPortable chest September 24, 2020.FINDINGSThe trachea is midline. The cardiac silhouette is mildly enlarged but stable. There is significant worsening of airspace disease right upper lobe left upper lobe compared to September 24, 2020. There is no effusion or pneumothorax observed.. The bony thorax is unremarkable.IMPRESSIONSignificant worsening of bilateral upper lobe infiltrates compared to the film of September 24, 2020.Electronically signed by: NAYELI EMMANUEL (Sep 27, 2020 07:49:11)
[2020-09-27] MEDS: ZEBETA TAB 5 MG PO SCH (08:25)
[2020-09-27] MEDS: ELIQUIS PO SCH (08:25)
[2020-09-27] MEDS: LEXAPRO PO SCH (08:27)
[2020-09-27] MEDS: OXYBUTYNIN CHLORIDE ER PO SCH (08:29)
[2020-09-27] MEDS: COZAAR PO SCH (08:30)
[2020-09-27] MEDS: CALAN SR 180 MG PO SCH (08:31)
[2020-09-27] MEDS: ZINC SULFATE PO SCH (08:32)
[2020-09-27] MEDS: COLACE CAP 100 MG PO SCH (08:33)
[2020-09-27] MEDS: LANTUS SC SCH (08:33)
[2020-09-27] MEDS: ZITHROMAX INJ 500 MG VIAL 500 MG in NS 250 ML IV 250 ML IV SCH (08:34)
[2020-09-27] MEDS: TRICOR TAB 160 MG PO SCH (08:34)
[2020-09-27] MEDS: REMDESIVIR 100 MG in NS 250 ML IV 250 ML IV SCH (08:35)
[2020-09-27] MEDS ORDERED: VITAMIN A PO SCH (09:00)
[2020-09-27] MEDS ORDERED: VITAMIN D3 125 mcg (5,000 UNITS) PO SCH (09:00)
[2020-09-27] MEDS: PULMICORT NEB TX 0.5 MG NEB SCH ×2 (09:05→21:01)
[2020-09-27] MEDS: K-DUR TAB 20 MEQ PO SCH ×2 (09:07→20:06)
[2020-09-27] MEDS ORDERED: ACTEMRA 400 MG in NS 100 ML IV 80 ML IV SCH (09:45)
[2020-09-27] MEDS ORDERED: QUELICIN (OR ANECTINE) ONE ×2 (12:27→21:15)
[2020-09-27] MEDS: DIPRIVAN PREMIX 1 GRAM IV 1,000 MG/100 ML VIAL IV PRN ×3 (12:40→23:00)
[2020-09-27] MEDS ORDERED: NS 500 ML IV 500 ML IV ONE (12:48)
--- NOTE | 2020-09-27 13:18 | RAD ---
HISTORYET TUBE PLACEMENT, COVID PNEUMONIA RESP FAILURESTUDYCHEST, 1 VIEWCOMPARISONChest film September 27, 2020 at 4:18 a.m..FINDINGSThe trachea is midline. An ET tube is been placed since the last exam and the tip of the ET tube lies 6.2 cm above the nicky. The bilateral interstitial alveolar infiltrates are stable compared to earlier film today there is no evidence of effusion or pneumothorax. The cardiac silhouette is unremarkable . The lungs are clear without focal infiltrate or effusion. The bony thorax is unremarkable.IMPRESSIONET tube in good position. No change in the bilateral alveolar infiltrates compared to film earlier today.Electronically signed by: NAYELI EMMANUEL (Sep 27, 2020 13:16:54)
[2020-09-27 13:19] LABS: ABG BASE EXCESS -0.4 mmol/L (-2.0-2.0); ABG HCO3 24.1 mmol/L (22-26)
--- NOTE | 2020-09-27 13:57 | RAD ---
HISTORYCENTRAL LINE PLACEMENT, COVID PNEUMONIA, RESP FAILURESTUDYCHEST, 1 VIEWCOMPARISONEarlier same dayFINDINGSThe trachea is midline. The cardiac silhouette is unremarkable. ET tube is in stable position. There is a right IJ line with tip overlying the SVC. The lungs are stable with diffuse multifocal airspace disease no pneumothorax is seen. The bony thorax is unremarkable.IMPRESSIONRight-sided line placement as above otherwise stable chestElectronically signed by: SOSA BRIGGS (Sep 27, 2020 13:55:52)
[2020-09-27 14:17] LABS: ABG BASE EXCESS -0.4 mmol/L (-2.0-2.0); ABG HCO3 24.1 mmol/L (22-26)
--- NOTE | 2020-09-27 14:19 | DR.UPDATE ---
H&P Update History and Physical Update: History and Physical reviewed and patient examined. Changes noted: NO Yes with the following:agree with H&P. will intubate and place invasive monitoring lines. H&P Reviewed: Yes Patient was examined?: Yes Procedures (ALL) - Arterial Line Consent obtained: verbal consent Time out performed: Yes Size(gauge): 20 Technique used: guided wire technique Post-procedure: dry sterile dressing placed Patient tolerated procedure: Yes Site: Left, radial - Intubation Time out performed: Yes Sedative: other (propofil 120mg) paralytic: succinylchline (100mg, then vecuronium 5mg after return of spontaeous resp) Laryngoscope: fiber optic video scope ET tube size: other (7.0) Tube secured depth: 20cm Tube secured location: lips Tube placement confirmation: visualized tube passing through cords, equal breath sounds bilaterally, no breath sounds over epigastrium, comfirmation by capnometer Patient tolerated procedure: Yes Intubation complications: none
--- NOTE | 2020-09-27 14:27 | DR.UPDATE ---
H&P Update History and Physical Update: History and Physical reviewed and patient examined. Changes noted: NO Yes with the following:agree with h&p will place c line H&P Reviewed: Yes Patient was examined?: Yes Procedures (ALL) - Central Line Placement PCM.CLCO: verbal consent Time out performed: Yes Patient placed pm monitor/pulse ox: Yes MD prep: mask, gown, gloves, other Centrial line prep: chlorhexidine scrub, sterile drapes applied Local anesthsia used: lidocane 1% Ultrasound used for placement: Yes (rij cannulation visualized) Central line lumen ininserted: triple Post procedure: sutured in place, good blood return, all ports aspirated, flushed,capped, sterile dressing applied Post procedure xray: tip oc catheter in good position, no pneumothorax seen Patient tolerated procedure: Yes Complications: none
[2020-09-27] MEDS: SNACK - Diabetic Appropriate PO SCH (20:07)
[2020-09-27] MEDS: LOVENOX INJ 30 MG SYR SC SCH (20:08)
[2020-09-27] MEDS: ROCEPHIN VIAL 1 GRAM 1 G in NS 100 ML IV + SPIKE MINIBAG* 100 ML IV SCH (20:08)
[2020-09-27] MEDS ORDERED: QUELICIN (OR ANECTINE) IVP ONE (20:44)
[2020-09-27] MEDS ORDERED: CATAPRES-TTS-1 TD SCH (21:00)
[2020-09-27] MEDS ORDERED: VERSED ONE ×2 (21:17→21:18)
[2020-09-27] MEDS ORDERED: NS 100 ML IV 100 ML IV ONE (21:18)
[2020-09-27] MEDS: VERSED 100 MG in NS 100 ML IV 80 ML IV PRN (21:35)
[2020-09-27] MEDS ORDERED: MORPHINE SULFATE PCA 30 MG IV ONE (22:05)
[2020-09-27] MEDS ORDERED: MORPHINE SULFATE PCA 30 MG ONE (22:18)
[2020-09-27] MEDS ORDERED: DIPRIVAN PREMIX 1 GRAM IV 1,000 MG/100 ML VIAL ONE (22:58)
[2020-09-27 23:52] LABS: ABG BASE EXCESS 1.6 mmol/L (-2.0-2.0); ABG HCO3 27.7 mmol/L (22-26)
[2020-09-28] MEDS: NS 1000 ML 1,000 ML IV SCH ×2 (01:02→15:13)
[2020-09-28] MEDS: ASCORBIC ACID INJ MULTI-DOSE VIAL 1,500 MG in NS 100 ML IV 100 ML IV SCH ×2 (02:00→08:50)
[2020-09-28] MEDS: APRESOLINE INJ 20 MG VIAL IVP PRN ×3 (02:29→22:35)
[2020-09-28] MEDS ORDERED: MORPHINE SULFATE PCA 30 MG ONE (03:42)
[2020-09-28] MEDS: MORPHINE SULFATE PCA 30 MG IV SCH ×8 (04:25→11:04)
[2020-09-28] MEDS: SOLU-Medrol 40 MG VIAL IVP SCH ×3 (05:08→21:08)
[2020-09-28] MEDS: VERSED 100 MG in NS 100 ML IV 80 ML IV PRN ×2 (05:29→20:28)
[2020-09-28 05:37] LABS: BASOPHILS % (AUTO) 0.2 % (0.2-1.0); HEMATOCRIT 27.5 % (36.0-47.0); HEMOGLOBIN 8.6 g/dL (12.0-16.0); LYMPHOCYTES # (AUTO) 0.4 X10^3/uL (1.3-2.9); LYMPHOCYTES % (AUTO) 3.6 % (21.0-51.0); MEAN CORPUSCULAR HEMOGLOBIN 24.1 pg (27.0-34.0); MEAN CORPUSCULAR HGB CONC 31.2 g/dL (33.0-35.0); MEAN CORPUSCULAR VOLUME 77.2 fL (80.0-100.0); MEAN PLATELET VOLUME 8.8 fL (7.4-11.0); MONOCYTES # (AUTO) 0.3 x10^3/uL (0.3-0.8); MONOCYTES % (AUTO) 2.9 % (0.0-13.0); NEUTROPHILS # (AUTO) 10.2 x10^3/uL (2.2-4.8); NEUTROPHILS % (AUTO) 93.3 % (42.0-75.0); PLATELET COUNT 288 X10^3/uL (150.0-450.0); RED BLOOD COUNT 3.56 X10^6/uL (3.5-5.4); RED CELL DISTRIBUTION WIDTH 16.1 % (11.6-16.5); WHITE BLOOD COUNT 10.9 X10^3/uL (3.6-10.0)
[2020-09-28 05:48] LABS: CALCIUM 8.5 mg/dL (8.5-10.1); CARBON DIOXIDE 26.7 mmol/L (21-32); CREATININE 1.42 mg/dL (0.55-1.02)
[2020-09-28] MEDS: HumuLIN R SC PRN ×3 (05:48→17:05)
[2020-09-28] MEDS: XOPENEX 1.25 MG/3 ML NEBULE NEB SCH ×3 (05:59→20:25)
[2020-09-28 06:03] LABS: ABG BASE EXCESS 0.8 mmol/L (-2.0-2.0); ABG HCO3 27.1 mmol/L (22-26)
[2020-09-28 06:52] LABS: PLATELET MORPHOLOGY COMMENT NORMAL (NORMAL)
--- NOTE | 2020-09-28 07:53 | RAD ---
HISTORYSOB, [id number], 1 [id number]/14/2020FINDINGSThe trachea is midline and the endotracheal tube is seen at the level of the clavicles. There is a right IJ catheter with the tip at the SVC. There is stable mild cardiomegaly. There is again seen severe diffuse alveolar ground-glass radiopacities, since prior study,there has been some interval improvement in the right upper lobe densities. There is no evidence of effusions or pneumothoraxIMPRESSIONMild interval improvement in right upper lobe ground-glass radiopacities, persistent diffuse disease.Electronically signed by: Nicci Tran (Sep 28, 2020 07:52:10)
[2020-09-28] MEDS ORDERED: NS 500 ML IV 500 ML IV ONE (08:44)
[2020-09-28] MEDS ORDERED: NS 250 ML IV 250 ML IV ONE (08:45)
[2020-09-28] MEDS: NS 50 ML IV 50 ML IV SCH (08:45)
[2020-09-28] MEDS: LANTUS SC SCH (08:50)
[2020-09-28] MEDS: PULMICORT NEB TX 0.5 MG NEB SCH ×2 (08:55→20:25)
[2020-09-28] MEDS ORDERED: NS 50 ML IV 50 ML IV SCH (09:00)
[2020-09-28] MEDS ORDERED: SYNTHROID INJ 100 mcg VIAL IM SCH (09:00)
[2020-09-28] MEDS: DIPRIVAN PREMIX 1 GRAM IV 1,000 MG/100 ML VIAL IV PRN (09:40)
[2020-09-28] MEDS: NS 250 ML IV 250 ML IV SCH ×2 (09:42→22:29)
[2020-09-28] MEDS: REMDESIVIR 100 MG in NS 250 ML IV 250 ML IV SCH (09:43)
[2020-09-28] MEDS: LOVENOX INJ 30 MG SYR SC SCH ×2 (09:43→20:31)
[2020-09-28] MEDS ORDERED: QUELICIN (OR ANECTINE) ONE (11:00)
[2020-09-28] MEDS ORDERED: NORCURON INJ 10 MG VIAL ONE (11:00)
[2020-09-28] MEDS: ZITHROMAX INJ 500 MG VIAL 500 MG in NS 250 ML IV 250 ML IV SCH (11:00)
[2020-09-28] MEDS ORDERED: DIPRIVAN VIAL ONE (11:00)
--- NOTE | 2020-09-28 12:22 | PCM.PROG ---
Progress Note - Progress Note for Day of Date of Exam: 09/28/20 - Subjective Subjective: WAS ADMITTED FOR PNEUMONIA DUE TO COVID-19, HYPOXIA, AND A URINARY TRACT INFECTION. TODAY, SHE IS ALERT AND ORIENTED, LYING IN BED ON MORNING ROUNDS. SHE ID CURRENTLY UTILIZING THE BIPAP. SHE REPORTS INCREASED SHORTNESS OF BREATH TODAY. HER OXYGEN SATURATIONS REPORTEDLY FELL TO THE 80S SEVERAL TIMES THROUGHOUT THE DAY YESTERDAY. HER OXYGEN WAS INCREASED. HER BLOOD PRESSURE HAS ALSO BEEN ELEVATED. STAFF REPORTS THAT WHEN THE BIPAP IS REMOVED FOR PATIENT TO EAT OR DRINK, HER OXYGEN SATURATIONS DROP TO THE 40s-50s. THEY REPORT THAT HER SATURATIONS WERE SLOW TO REBOUND. AFTER SATURATIONS DID NOT INCREASE PAST THE 70s, PATIENT WAS INTUBATED PER ANESTHESIA AND RESPIRATORY. A CENTRAL LINE AND ART LINE WERE ALSO PLACE AT BEDSIDE. AM LABS REVEALED THE FOLLOWING ABNORMAL VALUES: WBC 16.8, HGB 9.2, HCT 29.1, D-DIMER 2.18, BUN 41, CREATININE 1.38, GLUCOSE 243, CRP 14.90. ABG PRIOR TO INTUBATION REVEALED: PH 7.390, PC02 43.0, P02 53, HC03 26.0, 02 SAT 87.0, FI02 100. BLOOD CULTURES ARE PENDING. URINE CULTURE REVEALED GROWTH OF E.COLI. SHE IS CURRENTLY RECEIVING NS AT 50 ML/HR, REMDESIVIR 100MG IV DAILY, ROCEPHIN 1G IV HS, AZITHROMYCIN 500MG IV DAILY, SOLU-MEDROL 80MG IV Q8H, XOPENEX NEBS TID, PULMICORT NEBS BID, HUMULIN R SLIDING SCALE, LANTUS 36 UNITS SC DAILY. MORPHINE 2MG/1HR ANIMAL CONTROL SPECIALIST, DIPROVAN PER PROTOCOL, AND VERSED DRIP PER PROTOCOL FOR SEDATIONS. OTHERWISE, WE PLAN TO FOL LOW UP WITH AM LABS, ABG, AND CHEST XRAY AND CONTINUE TO MONITOR. Time spent for clinical assessment, physical examination, reviewing labs/imaging and decision making more than 75 mins. - Past Medical Family Social History Past Med/Fam/Surg Hx: No changes since H&P Allergies: Allergies lisinopril Allergy (Verified 09/05/19 12:12) ciprofloxacin [From Cipro] Adverse Reaction (Verified 09/05/19 12:12) - Review of Systems ROS: No change since H&P - Vital Signs and I&O's Vital Signs: Temperature 97.5 F Pulse Rate [Left Radial] 39 Pulse Rate 42 Respiratory Rate 25 Blood Pressure [Left Radial 161/56 Artery] Blood Pressure [Left Arm] 167/74 Blood Pressure 146/69 O2 Sat by Pulse Oximetry 100 Intake and Output: Intake & Output 09/26/20 09/27/20 09/28/20 09/29/20 11:59 11:59 11:59 11:59 Intake Total 3335 / 3335 4538 / 4538 2544 / 2544 Output Total 2300 / 2300 Balance 3335 / 3335 4538 / 4538 244 / 244 - Physical Exam Oriented: Normal Eyes: Normal Ear: Normal Nose: Normal Throat: Dry Respiratory: Generalized, Diminished Cardiovascular: Normal Auscultation: Bowel Sounds: Normal Palpation: Normal Tenderness: Normal Skin: Decreased Turgur Musculoskeletal: Normal Psychiatric: Normal Mood Description: Calm Affect: Normal Speech Pattern: Artificially Ventilated - Laboratory and Diagnostics Result Diagrams: 09/28/20 04:30 09/28/20 04:30 Labs: 09/27/20 13:40 Sputum - Endotracheal Wash Sputum Culture - Preliminary 09/27/20 13:40 Sputum - Endotracheal Wash - Final 09/24/20 21:52 Urine,Clean Catch Urine Culture - Final Escherichia Coli 09/24/20 20:28 Blood Blood Culture - Preliminary 09/24/20 20:24 Blood Blood Culture - Preliminary Laboratory WBC 10.9 X10^3/uL (3.6-10.0) H 09/28/20 04:30 RBC 3.56 X10^6/uL (3.5-5.4) 09/28/20 04:30 Hgb 8.6 g/dL (12.0-16.0) L 09/28/20 04:30 Hct 27.5 % (36.0-47.0) L 09/28/20 04:30 MCV 77.2 fL (80.0-100.0) L 09/28/20 04:30 MCH 24.1 pg (27.0-34.0) L 09/28/20 04:30 MCHC 31.2 g/dL (33.0-35.0) L 09/28/20 04:30 RDW 16.1 % (11.6-16.5) 09/28/20 04:30 Plt Count 288 X10^3/uL (150.0-450.0) 09/28/20 04:30 Plt Count Comment Adequate (ADEQUATE) 09/28/20 04:30 MPV 8.8 fL (7.4-11.0) 09/28/20 04:30 Neut % (Auto) 93.3 % (42.0-75.0) H 09/28/20 04:30 Lymph % (Auto) 3.6 % (21.0-51.0) L 09/28/20 04:30 [place] % (Auto) 2.9 % (0.0-13.0) 09/28/20 04:30 Eos % (Auto) 0.0 % (0.9-2.9) L 09/28/20 04:30 Baso % (Auto) 0.2 % (0.2-1.0) 09/28/20 04:30 Neut # (Auto) 10.2 x10^3/uL (2.2-4.8) H 09/28/20 04:30 Lymph # (Auto) 0.4 X10^3/uL (1.3-2.9) L 09/28/20 04:30 [place] # (Auto) 0.3 x10^3/uL (0.3-0.8) 09/28/20 04:30 Eos # (Auto) 0.0 x10^3/uL (0.0-0.2) 09/28/20 04:30 Baso # (Auto) 0.0 X10^3/uL (0.0-0.1) 09/28/20 04:30 Absolute Nucleated RBC 0.0 /100WBC 09/28/20 04:30 Total Counted 100 09/28/20 04:30 Neutrophils % (Manual) 94 % (39-76) H 09/28/20 04:30 Lymphocytes % (Manual) 4 % (13-43) L 09/28/20 04:30 Monocytes % (Manual) 2 % (4-9) L 09/28/20 04:30 Plt Morphology Comment Normal (NORMAL) 09/28/20 04:30 RBC Morphology Normal (NORMAL) 09/28/20 04:30 Hypochromasia Slight A 09/25/20 05:49 Poikilocytosis Slight A 09/24/20 20:24 [place] Cells Present 09/25/20 05:49 PT 14.3 SECONDS (11.8-14.3) 09/24/20 20:24 INR Target Range - 09/24/20 20:24 INR 1.15 (0.8-1.3) 09/24/20 20:24 D-Dimer 2.18 ug/ml (0.0-0.57) H* 09/27/20 04:30 Sample Site Art-line 09/28/20 06:01 ABG pH 7.350 (7.35-7.45) 09/28/20 06:01 ABG pCO2 49.0 mmHg (35.0-45.0) H 09/28/20 06:01 ABG pO2 191.0 mmHg (80.0-100.0) H 09/28/20 06:01 ABG HCO3 27.1 mmol/L (22-26) H 09/28/20 06:01 ABG O2 Saturation 100.0 % (90-100) 09/28/20 06:01 ABG Base Excess 0.8 mmol/L (-2.0-2.0) 09/28/20 06:01 Alexx Test Na 09/28/20 06:01 A-a Gradient 461.0 mmHg 09/28/20 06:01 FiO2 100.0 09/28/20 06:01 Blood Gas Comments Erwin well-mtf 09/28/20 06:01 Sodium 145 mmol/L (136-145) 09/28/20 04:30 Corrected Sodium 148 mmol/L (136-145) H 09/28/20 04:30 Potassium 5.5 mmol/L (3.5-5.1) H 09/28/20 04:30 Chloride 111 mmol/L (98-107) H 09/28/20 04:30 Carbon Dioxide 26.7 mmol/L (21-32) 09/28/20 04:30 BUN 45 mg/dL (7-18) H 09/28/20 04:30 Creatinine 1.42 mg/dL (0.55-1.02) H 09/28/20 04:30 Est GFR (MDRD) Af Amer 48 (>60) L 09/28/20 04:30 Est GFR (MDRD) Non-Af 39 (>60) L 09/28/20 04:30 Glucose 242 mg/dL (65-99) H 09/28/20 04:30 POC Glucose (mg/dL) 196 mg/dL (65-99) H 09/28/20 12:07 Lactic Acid 1.5 mmol/L (0.4-2.0) 09/24/20 21:56 Calcium 8.5 mg/dL (8.5-10.1) 09/28/20 04:30 Corrected Calcium 9.1 mg/dL (8.5-10.1) 09/25/20 05:49 Ferritin 80 ng/mL (8-252) 09/28/20 04:30 Total Bilirubin 0.30 mg/dL (0.2-1.0) 09/25/20 05:49 AST 22 Units/L (15-37) 09/25/20 05:49 ALT 16 Units/L (12-78) 09/25/20 05:49 Alkaline Phosphatase 64 Units/L (46-116) 09/25/20 05:49 Creatine Kinase 78 Units/L (26-192) 09/25/20 16:10 CK-MB (CK-2) < 1.0 ng/mL (0-4.0) 09/25/20 16:10 CK/CKMB % Calc 1.3 % (<4) 09/25/20 16:10 Troponin I < 0.02 ng/mL (0-1.5) 09/25/20 16:10 C-Reactive Protein 35.30 mg/L (0-3.0) H 09/28/20 04:30 B-Natriuretic Peptide 637 pg/mL (0-79) H* 09/24/20 20:24 Total Protein 7.0 g/dL (6.4-8.2) 09/25/20 05:49 Albumin 2.9 g/dL (3.4-5.0) L 09/25/20 05:49 Globulin 4.1 g/dL (2.5-4.5) 09/25/20 05:49 Albumin/Globulin Ratio 0.7 Ratio (1.1-2.1) L 09/25/20 05:49 Specimen Type Clean catch urine 09/24/20 21:52 Urine Color Mabel (YELLOW) 09/24/20 21:52 Urine Appearance Slightly hazy (CLEAR) 09/24/20 21:52 Urine pH 5.0 (5.0 - 8.0) 09/24/20 21:52 Ur Specific [place] 1.015 (1.000-1.030) 09/24/20 21:52 Urine Protein 1+ (NEGATIVE) 09/24/20 21:52 Urine Glucose (UA) 3+ (NEGATIVE) 09/24/20 21:52 Urine Ketones Negative (NEGATIVE) 09/24/20 21:52 Urine Occult Blood 1+ (NEGATIVE) 09/24/20 21:52 Urine Nitrite Positive (NEGATIVE) 09/24/20 21:52 Urine Bilirubin Negative (NEGATIVE) 09/24/20 21:52 Urine Acetone Negative (NEGATIVE) 09/27/20 11:53 Urine Urobilinogen 1+ (NORMAL) 09/24/20 21:52 Ur Leukocyte Esterase 1+ (NEGATIVE) 09/24/20 21:52 Urine RBC 3-5 /HPF (0-3) A 09/24/20 21:52 Urine WBC 5-10 /HPF (0-5) A 09/24/20 21:52 Ur Squamous Epith Cells Few /HPF (NEGATIVE) 09/24/20 21:52 Urine Bacteria 2+ /HPF (NEGATIVE) 09/24/20 21:52 Ur Culture Indicated? Yes/culture set up 09/24/20 21:52 Influenza Type A (PCR) Negative (NEGATIVE) 09/24/20 22:20 Influenza Type B (PCR) Negative (NEGATIVE) 09/24/20 22:20 SARS CoV-2 RNA Rapid MICK Positive (NEGATIVE) A 09/24/20 22:20 Blood Type A POSITIVE 09/26/20 12:21 - Plan (1) Pneumonia due to 2019 novel coronavirus Status: Acute Plan: NS AT 50 ML/HR, REMDESIVIR 100MG IV DAILY, ROCEPHIN 1G IV HS, AZITHROMYCIN 500MG IV DAILY, SOLU-MEDROL 80MG IV Q8H, XOPENEX NEBS TID, PULMICORT NEBS BID, HUMULIN R SLIDING SCALE, LANTUS 36 UNITS SC DAILY. MECHANICAL VENTILATION, WEAN DOPAMINE TODAY. (2) Acute respiratory failure with hypoxia Status: Acute (3) Diabetes mellitus Status: Acute Qualifiers: Diabetes mellitus type: type 2 Diabetes mellitus nursing home insulin use: unspecified terminal operations supervisor insulin use status Diabetes mellitus complication status: with other specified complication Qualified Code(s): E11.69 - Type 2 diabetes mellitus with other specified complication
[2020-09-28] MEDS: LACRI-LUBE S.O.P. AFFEYE SCH ×2 (12:23→20:30)
--- NOTE | 2020-09-28 15:20 | PCM.PROG ---
Progress Note - Progress Note for Day of Date of Exam: 09/28/20 - Subjective Subjective: WAS ADMITTED FOR PNEUMONIA DUE TO COVID-19, HYPOXIA, AND A URINARY TRACT INFECTION. TODAY, SHE IS ALERT AND ORIENTED, LYING IN BED ON MORNING ROUNDS. SHE IS CURRENTLY ON THE MECHANICAL VENTILLATOR WITH SETTINGS AC, VENT RATE 25, TIDAL VOLUME 450, PEAK FLOW 45, PEEP 15, FI02 70, SET RATE 25. PATIENT IS NOT BREATHING OVER SET RATE. STAFF REPORTS THAT SHE HAS BEEN BRADYCARDIC WITH HR IN THE 40s THIS MORNING, BUT INCREASES TO THE 50s WITH STIMULATION. HER SEDATION WAS INCREASED THROUGHOUT THE NIGHT DUE TO AGITATION. HER OXYGEN SATURATIONS HAVE BEEN 100% ON THE VENT. HER VITALS THIS MORNING ARE: 97.5-44-25-99%-147/69. LABS WERE OBTAINED. ABNORMAL VALUES INCLUDE THE FOLLOWING: WBC 10.9, HGB 8.6 HCT 27.5, POTASSIUM 5.5, CHLORIDE 111, BUN 45, CREATININE 1.42, GLUCOSE 242, CRP 35.30. ABG PRIOR TO INTUBATION REVEALED: PH 7.350, PC02 49, P02 191, HC03 27.1, 02 SAT 100, FI02 100. BLOOD CULTURES ARE PENDING. URINE CULTURE REVEALED GROWTH OF E.COLI. A CHEST XRAY WAS OBTAINED AND REVEALED: Mild interval improvement in right upper lobe ground-glass radiopacities, persistent diffuse disease. SHE IS CURRENTLY RECEIVING NS AT 50 ML/HR, REMDESIVIR 100MG IV, DAILY, ROCEPHIN 1G IV HS, AZITHROMYCIN 500MG IV DAILY, SOLU-MEDROL 80MG IV Q8H, XOPENEX NEBS TID, PULMICORT NEBS BID, HUMULIN R SLIDING SCALE, LANTUS 36 UNITS SC DAILY. MORPHINE 2MG/1HR INTEGRATION DEVELOPER, DIPROVAN PER PROTOCOL, AND VERSED DRIP PER PROTOCOL FOR SEDATIONS. WE WILL WEAN DOWN ON THE DIPROVAN TODAY. OTHERWISE, WE PLAN TO FOLLOW UP WITH AM LABS, ABG, AND CHEST XRAY AND CONTINUE TO MONITOR. Time spent for clinical assessment, physical examination, reviewing labs/imaging and decision making more than 45 mins. - Past Medical Family Social History Past Med/Fam/Surg Hx: No changes since H&P Allergies: Allergies lisinopril Allergy (Verified 09/05/19 12:12) ciprofloxacin [From Cipro] Adverse Reaction (Verified 09/05/19 12:12) - Review of Systems ROS: No change since H&P - Vital Signs and I&O's Vital Signs: Temperature 98.5 F Pulse Rate [Left Radial] 40 Pulse Rate 42 Respiratory Rate 25 Blood Pressure [Left Radial 160/55 Artery] Blood Pressure [Left Arm] 169/75 Blood Pressure 146/69 O2 Sat by Pulse Oximetry 100 Intake and Output: Intake & Output 09/26/20 09/27/20 09/28/20 09/29/20 11:59 11:59 11:59 11:59 Intake Total 3335 / 3335 4538 / 4538 2544 / 2544 Output Total 2300 / 2300 Balance 3335 / 3335 4538 / 4538 244 / 244 - Physical Exam Oriented: Normal Eyes: Normal Ear: Normal Nose: Normal Throat: Dry Respiratory: Generalized, Diminished Cardiovascular: Normal Auscultation: Bowel Sounds: Normal Tenderness: Normal Skin: Decreased Turgur Musculoskeletal: Normal Psychiatric: Normal Mood Description: Calm Affect: Normal Speech Pattern: Artificially Ventilated - Laboratory and Diagnostics Result Diagrams: 09/28/20 04:30 09/28/20 04:30 Labs: 09/27/20 13:40 Sputum - Endotracheal Wash Sputum Culture - Preliminary 09/27/20 13:40 Sputum - Endotracheal Wash - Final 09/24/20 21:52 Urine,Clean Catch Urine Culture - Final Escherichia Coli 09/24/20 20:28 Blood Blood Culture - Preliminary 09/24/20 20:24 Blood Blood Culture - Preliminary Laboratory WBC 10.9 X10^3/uL (3.6-10.0) H 09/28/20 04:30 RBC 3.56 X10^6/uL (3.5-5.4) 09/28/20 04:30 Hgb 8.6 g/dL (12.0-16.0) L 09/28/20 04:30 Hct 27.5 % (36.0-47.0) L 09/28/20 04:30 MCV 77.2 fL (80.0-100.0) L 09/28/20 04:30 MCH 24.1 pg (27.0-34.0) L 09/28/20 04:30 MCHC 31.2 g/dL (33.0-35.0) L 09/28/20 04:30 RDW 16.1 % (11.6-16.5) 09/28/20 04:30 Plt Count 288 X10^3/uL (150.0-450.0) 09/28/20 04:30 Plt Count Comment Adequate (ADEQUATE) 09/28/20 04:30 MPV 8.8 fL (7.4-11.0) 09/28/20 04:30 Neut % (Auto) 93.3 % (42.0-75.0) H 09/28/20 04:30 Lymph % (Auto) 3.6 % (21.0-51.0) L 09/28/20 04:30 [place] % (Auto) 2.9 % (0.0-13.0) 09/28/20 04:30 Eos % (Auto) 0.0 % (0.9-2.9) L 09/28/20 04:30 Baso % (Auto) 0.2 % (0.2-1.0) 09/28/20 04:30 Neut # (Auto) 10.2 x10^3/uL (2.2-4.8) H 09/28/20 04:30 Lymph # (Auto) 0.4 X10^3/uL (1.3-2.9) L 09/28/20 04:30 [place] # (Auto) 0.3 x10^3/uL (0.3-0.8) 09/28/20 04:30 Eos # (Auto) 0.0 x10^3/uL (0.0-0.2) 09/28/20 04:30 Baso # (Auto) 0.0 X10^3/uL (0.0-0.1) 09/28/20 04:30 Absolute Nucleated RBC 0.0 /100WBC 09/28/20 04:30 Total Counted 100 09/28/20 04:30 Neutrophils % (Manual) 94 % (39-76) H 09/28/20 04:30 Lymphocytes % (Manual) 4 % (13-43) L 09/28/20 04:30 Monocytes % (Manual) 2 % (4-9) L 09/28/20 04:30 Plt Morphology Comment Normal (NORMAL) 09/28/20 04:30 RBC Morphology Normal (NORMAL) 09/28/20 04:30 Hypochromasia Slight A 09/25/20 05:49 Poikilocytosis Slight A 09/24/20 20:24 [place] Cells Present 09/25/20 05:49 PT 14.3 SECONDS (11.8-14.3) 09/24/20 20:24 INR Target Range - 09/24/20 20:24 INR 1.15 (0.8-1.3) 09/24/20 20:24 D-Dimer 2.18 ug/ml (0.0-0.57) H* 09/27/20 04:30 Sample Site Art-line 09/28/20 06:01 ABG pH 7.350 (7.35-7.45) 09/28/20 06:01 ABG pCO2 49.0 mmHg (35.0-45.0) H 09/28/20 06:01 ABG pO2 191.0 mmHg (80.0-100.0) H 09/28/20 06:01 ABG HCO3 27.1 mmol/L (22-26) H 09/28/20 06:01 ABG O2 Saturation 100.0 % (90-100) 09/28/20 06:01 ABG Base Excess 0.8 mmol/L (-2.0-2.0) 09/28/20 06:01 Alexx Test Na 09/28/20 06:01 A-a Gradient 461.0 mmHg 09/28/20 06:01 FiO2 100.0 09/28/20 06:01 Blood Gas Comments Erwin well-mtf 09/28/20 06:01 Sodium 145 mmol/L (136-145) 09/28/20 04:30 Corrected Sodium 148 mmol/L (136-145) H 09/28/20 04:30 Potassium 5.5 mmol/L (3.5-5.1) H 09/28/20 04:30 Chloride 111 mmol/L (98-107) H 09/28/20 04:30 Carbon Dioxide 26.7 mmol/L (21-32) 09/28/20 04:30 BUN 45 mg/dL (7-18) H 09/28/20 04:30 Creatinine 1.42 mg/dL (0.55-1.02) H 09/28/20 04:30 Est GFR (MDRD) Af Amer 48 (>60) L 09/28/20 04:30 Est GFR (MDRD) Non-Af 39 (>60) L 09/28/20 04:30 Glucose 242 mg/dL (65-99) H 09/28/20 04:30 POC Glucose (mg/dL) 196 mg/dL (65-99) H 09/28/20 12:07 Lactic Acid 1.5 mmol/L (0.4-2.0) 09/24/20 21:56 Calcium 8.5 mg/dL (8.5-10.1) 09/28/20 04:30 Corrected Calcium 9.1 mg/dL (8.5-10.1) 09/25/20 05:49 Ferritin 80 ng/mL (8-252) 09/28/20 04:30 Total Bilirubin 0.30 mg/dL (0.2-1.0) 09/25/20 05:49 AST 22 Units/L (15-37) 09/25/20 05:49 ALT 16 Units/L (12-78) 09/25/20 05:49 Alkaline Phosphatase 64 Units/L (46-116) 09/25/20 05:49 Creatine Kinase 78 Units/L (26-192) 09/25/20 16:10 CK-MB (CK-2) < 1.0 ng/mL (0-4.0) 09/25/20 16:10 CK/CKMB % Calc 1.3 % (<4) 09/25/20 16:10 Troponin I < 0.02 ng/mL (0-1.5) 09/25/20 16:10 C-Reactive Protein 35.30 mg/L (0-3.0) H 09/28/20 04:30 B-Natriuretic Peptide 637 pg/mL (0-79) H* 09/24/20 20:24 Total Protein 7.0 g/dL (6.4-8.2) 09/25/20 05:49 Albumin 2.9 g/dL (3.4-5.0) L 09/25/20 05:49 Globulin 4.1 g/dL (2.5-4.5) 09/25/20 05:49 Albumin/Globulin Ratio 0.7 Ratio (1.1-2.1) L 09/25/20 05:49 Specimen Type Clean catch urine 09/24/20 21:52 Urine Color Mabel (YELLOW) 09/24/20 21:52 Urine Appearance Slightly hazy (CLEAR) 09/24/20 21:52 Urine pH 5.0 (5.0 - 8.0) 09/24/20 21:52 Ur Specific [place] 1.015 (1.000-1.030) 09/24/20 21:52 Urine Protein 1+ (NEGATIVE) 09/24/20 21:52 Urine Glucose (UA) 3+ (NEGATIVE) 09/24/20 21:52 Urine Ketones Negative (NEGATIVE) 09/24/20 21:52 Urine Occult Blood 1+ (NEGATIVE) 09/24/20 21:52 Urine Nitrite Positive (NEGATIVE) 09/24/20 21:52 Urine Bilirubin Negative (NEGATIVE) 09/24/20 21:52 Urine Acetone Negative (NEGATIVE) 09/27/20 11:53 Urine Urobilinogen 1+ (NORMAL) 09/24/20 21:52 Ur Leukocyte Esterase 1+ (NEGATIVE) 09/24/20 21:52 Urine RBC 3-5 /HPF (0-3) A 09/24/20 21:52 Urine WBC 5-10 /HPF (0-5) A 09/24/20 21:52 Ur Squamous Epith Cells Few /HPF (NEGATIVE) 09/24/20 21:52 Urine Bacteria 2+ /HPF (NEGATIVE) 09/24/20 21:52 Ur Culture Indicated? Yes/culture set up 09/24/20 21:52 Influenza Type A (PCR) Negative (NEGATIVE) 09/24/20 22:20 Influenza Type B (PCR) Negative (NEGATIVE) 09/24/20 22:20 SARS CoV-2 RNA Rapid MICK Positive (NEGATIVE) A 09/24/20 22:20 Blood Type A POSITIVE 09/26/20 12:21 - Plan (1) Pneumonia due to 2019 novel coronavirus Status: Acute Plan: NS AT 50 ML/HR, REMDESIVIR 100MG IV DAILY, ROCEPHIN 1G IV HS, AZITHROMYCIN 500MG IV DAILY, SOLU-MEDROL 80MG IV Q8H, XOPENEX NEBS TID, PULMICORT NEBS BID, HUMULIN R SLIDING SCALE, LANTUS 36 UNITS SC DAILY. MECHANICAL VENTILATION, WEAN DOPAMINE TODAY. 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
[2020-09-28] MEDS: MORPHINE SULFATE PCA 30 MG IV PRN ×2 (17:00→23:47)
[2020-09-28] MEDS: ROCEPHIN VIAL 1 GRAM 1 G in NS 100 ML IV + SPIKE MINIBAG* 100 ML IV SCH (20:29)
[2020-09-28] MEDS: SNACK - Diabetic Appropriate PO SCH (20:29)
[2020-09-29] MEDS: NS 1000 ML 1,000 ML IV SCH ×2 (01:47→18:20)
[2020-09-29] MEDS: APRESOLINE INJ 20 MG VIAL IVP PRN ×2 (02:30→15:12)
[2020-09-29 04:17] LABS: ABG BASE EXCESS 0.7 mmol/L (-2.0-2.0); ABG HCO3 27.4 mmol/L (22-26)
[2020-09-29] MEDS: XOPENEX 1.25 MG/3 ML NEBULE NEB SCH ×3 (05:01→20:50)
[2020-09-29] MEDS: SOLU-Medrol 40 MG VIAL IVP SCH ×3 (05:38→21:04)
[2020-09-29] MEDS: HumuLIN R SC PRN ×3 (05:42→21:05)
[2020-09-29 06:08] LABS: BASOPHILS % (AUTO) 0.1 % (0.2-1.0); HEMATOCRIT 31.3 % (36.0-47.0); HEMOGLOBIN 9.5 g/dL (12.0-16.0); LYMPHOCYTES # (AUTO) 0.4 X10^3/uL (1.3-2.9); LYMPHOCYTES % (AUTO) 3.3 % (21.0-51.0); MEAN CORPUSCULAR HEMOGLOBIN 23.5 pg (27.0-34.0); MEAN CORPUSCULAR HGB CONC 30.5 g/dL (33.0-35.0); MEAN CORPUSCULAR VOLUME 77.2 fL (80.0-100.0); MEAN PLATELET VOLUME 8.8 fL (7.4-11.0); MONOCYTES # (AUTO) 0.6 x10^3/uL (0.3-0.8); MONOCYTES % (AUTO) 4.9 % (0.0-13.0); NEUTROPHILS # (AUTO) 10.6 x10^3/uL (2.2-4.8); NEUTROPHILS % (AUTO) 91.7 % (42.0-75.0); PLATELET COUNT 364 X10^3/uL (150.0-450.0); RED BLOOD COUNT 4.05 X10^6/uL (3.5-5.4); RED CELL DISTRIBUTION WIDTH 16.2 % (11.6-16.5); WHITE BLOOD COUNT 11.6 X10^3/uL (3.6-10.0)
[2020-09-29 06:35] LABS: ALBUMIN 2.3 g/dL (3.4-5.0); CALCIUM 8.6 mg/dL (8.5-10.1); CREATININE 1.4 mg/dL (0.55-1.02); TOTAL PROTEIN 6.3 g/dL (6.4-8.2)
[2020-09-29 06:42] LABS: CARBON DIOXIDE 24.8 mmol/L (21-32)
--- NOTE | 2020-09-29 06:46 | RAD ---
HISTORYSOB, COVID+STUDYCHEST, 1 [id number] view of the chestFINDINGSRight IJ central line in good position. ET tube in good position. Cardiac and mediastinal contours are stable. Improved appearance of multifocal airspace disease. No definite pleural effusion or pneumothorax.IMPRESSIONImproving airspace disease.Electronically signed by: Miller Loredo (Sep 29, 2020 06:45:04)
[2020-09-29 06:53] LABS: HYPOCHROMASIA 1+; PLATELET MORPHOLOGY COMMENT NORMAL (NORMAL)
[2020-09-29] MEDS: MORPHINE SULFATE PCA 30 MG IV PRN ×3 (08:10→22:36)
[2020-09-29] MEDS: PULMICORT NEB TX 0.5 MG NEB SCH ×2 (09:05→20:50)
[2020-09-29] MEDS: DIPRIVAN PREMIX 1 GRAM IV 1,000 MG/100 ML VIAL IV PRN ×2 (09:56→18:20)
[2020-09-29] MEDS: LACRI-LUBE S.O.P. AFFEYE SCH ×2 (09:57→20:48)
[2020-09-29] MEDS: ZITHROMAX INJ 500 MG VIAL 500 MG in NS 250 ML IV 250 ML IV SCH (09:57)
[2020-09-29] MEDS: REMDESIVIR 100 MG in NS 250 ML IV 250 ML IV SCH (09:57)
[2020-09-29] MEDS ORDERED: PHARMACY CONSULT - TPN XX SCH (10:00)
[2020-09-29] MEDS: LOVENOX INJ 30 MG SYR SC SCH ×2 (10:04→21:04)
[2020-09-29] MEDS: LANTUS SC SCH (10:04)
[2020-09-29] MEDS: VERSED 100 MG in NS 100 ML IV 80 ML IV PRN (10:45)
[2020-09-29] MEDS ORDERED: CLINIMIX IV SCH ×7 (11:00)
[2020-09-29] MEDS ORDERED: HUMULIN R IV SCH ×7 (11:00)
[2020-09-29] MEDS ORDERED: TPN ELECTROLYTES IV SCH ×7 (11:00)
[2020-09-29] MEDS ORDERED: [UNRECOGNIZED DRUG - OTHER] IV SCH ×4 (11:00)
[2020-09-29] MEDS: NS 50 ML IV 50 ML IV SCH (11:33)
[2020-09-29] MEDS ORDERED: SYNTHROID INJ 100 mcg VIAL ONE (11:40)
[2020-09-29] MEDS: SYNTHROID INJ 100 mcg VIAL IVP SCH (11:48)
[2020-09-29] MEDS: NS 250 ML IV 250 ML IV SCH (13:24)
[2020-09-29] MEDS: SNACK - Diabetic Appropriate PO SCH (20:48)
[2020-09-29] MEDS: ROCEPHIN VIAL 1 GRAM 1 G in NS 100 ML IV + SPIKE MINIBAG* 100 ML IV SCH (21:04)
[2020-09-29] MEDS: LIPOSYN III 20% 100ML 100 ML IV SCH (21:51)
--- NOTE | 2020-09-29 22:52 | PCM.PROG ---
Progress Note - Progress Note for Day of Date of Exam: 09/29/20 - Subjective Subjective: WAS ADMITTED FOR PNEUMONIA DUE TO COVID-19, HYPOXIA, AND A URINARY TRACT INFECTION. TODAY, SHE IS LYING IN BED ON MORNING ROUNDS. SHE IS SEDATED. SHE IS CURRENTLY ON THE MECHANICAL VENTILLATOR WITH SETTINGS AC, VENT RATE 25, TIDAL VOLUME 450, PEAK FLOW 45, PEEP 15, FI02 55, SET RATE 25. PATIENT IS NOT BREATHING OVER SET RATE. HER SEDATION WAS INCREASED THROUGHOUT THE NIGHT DUE TO AGITATION. STAFF REPORTS THAT SHE CONTINUES TO BE AGITATED. HER OXYGEN SATURATIONS HAVE BEEN 96- 100% ON THE VENT. HER VITALS THIS MORNING ARE: 98.0-65-25-96%-129/72. LABS WERE OBTAINED. ABNORMAL VALUES INCLUDE THE FOLLOWING: WBC 11.6, HGB 9.5, HCT 31.3, SODIUM 149, CHLORIDE 114, BUN 52, CREATININE 1.40, GLUCOSE 215, CRP 21.60, TOTAL PROTEIN 6.3, ALBUMIN 2.3. ABG PRIOR TO INTUBATION REVEALED: PH 7.330, PC02 52, P02 92, HC03 27.4, 02 SAT 97, FI02 65. BLOOD CULTURES ARE PENDING. URINE CULTURE REVEALED GROWTH OF E.COLI. SPUTUM CULTURE REVEALED GROWTH OF ENTEROBACTER CLOACAAE. A CHEST XRAY WAS OBT AINED AND REVEALED: Improving airspace disease. SHE IS CURRENTLY RECEIVING NS AT 50 ML/HR, REMDESIVIR 100MG IV, DAILY, ROCEPHIN 1G IV HS, AZITHROMYCIN 500MG IV DAILY, SOLU-MEDROL 80MG IV Q8H, XOPENEX NEBS TID, PULMICORT NEBS BID, HUMULIN R SLIDING SCALE, LANTUS 36 UNITS SC DAILY, MORPHINE IT APPLICATIONS MANAGER, AND VERSED DRIP PER PROTOCOL FOR SEDATIONS. TODAY, WE WLL RESTART THE DIPROVAN AND DECREASE THE MORPHINE AND VERSED. OTHERWISE, WE PLAN TO FOLLOW UP WITH AM LABS, ABG, AND CHEST XRAY AND CONTINUE TO MONITOR. Time spent for clinical assessment, physical examination, reviewing labs/imaging and decision making more than 45 mins. - Past Medical Family Social History Past Med/Fam/Surg Hx: No changes since H&P Allergies: Allergies lisinopril Allergy (Verified 09/05/19 12:12) ciprofloxacin [From Cipro] Adverse Reaction (Verified 11/22/19 12:12) - Review of Systems ROS: No change since H&P - Vital Signs and I&O's Vital Signs: Temperature 99.3 F Pulse Rate [Left Radial] 75 Pulse Rate 90 Respiratory Rate 25 Blood Pressure [Left Radial 169/69 Artery] Blood Pressure [Left Arm] 152/77 Blood Pressure 171/76 O2 Sat by Pulse Oximetry 100 Intake and Output: Intake & Output 09/27/20 09/28/20 09/29/20 09/30/20 11:59 11:59 11:59 11:59 Intake Total 4538 / 4538 2544 / 2544 2533.0 / 2533.0 1540 / 1540 Output Total 2300 / 2300 1600 / 1600 1300 / 1300 Balance 4538 / 4538 244 / 244 933.0 / 933.0 240 / 240 - Physical Exam Oriented: Normal Eyes: Normal Ear: Normal Nose: Normal Throat: Dry Respiratory: Generalized, Diminished Cardiovascular: Normal Auscultation: Bowel Sounds: Normal Tenderness: Normal Skin: Decreased Turgur Musculoskeletal: Normal Psychiatric: Normal Mood Description: Calm Affect: Normal Speech Pattern: Artificially Ventilated - Laboratory and Diagnostics Result Diagrams: 09/29/20 04:45 09/29/20 04:45 Labs: 09/27/20 13:40 Sputum - Endotracheal Wash Sputum Culture - Preliminary Enterobacter Cloacae 09/27/20 13:40 Sputum - Endotracheal Wash - Final 09/24/20 21:52 Urine,Clean Catch Urine Culture - Final Escherichia Coli 09/24/20 20:28 Blood Blood Culture - Preliminary 09/24/20 20:24 Blood Blood Culture - Preliminary Laboratory WBC 11.6 X10^3/uL (3.6-10.0) H 09/29/20 04:45 RBC 4.05 X10^6/uL (3.5-5.4) 09/29/20 04:45 Hgb 9.5 g/dL (12.0-16.0) L 09/29/20 04:45 Hct 31.3 % (36.0-47.0) L 09/29/20 04:45 MCV 77.2 fL (80.0-100.0) L 09/29/20 04:45 MCH 23.5 pg (27.0-34.0) L 09/29/20 04:45 MCHC 30.5 g/dL (33.0-35.0) L 09/29/20 04:45 RDW 16.2 % (11.6-16.5) 09/29/20 04:45 Plt Count 364 X10^3/uL (150.0-450.0) 09/29/20 04:45 Plt Count Comment Adequate (ADEQUATE) 09/29/20 04:45 MPV 8.8 fL (7.4-11.0) 09/29/20 04:45 Neut % (Auto) 91.7 % (42.0-75.0) H 09/29/20 04:45 Lymph % (Auto) 3.3 % (21.0-51.0) L 09/29/20 04:45 [place] % (Auto) 4.9 % (0.0-13.0) 09/29/20 04:45 Eos % (Auto) 0.0 % (0.9-2.9) L 09/29/20 04:45 Baso % (Auto) 0.1 % (0.2-1.0) L 09/29/20 04:45 Neut # (Auto) 10.6 x10^3/uL (2.2-4.8) H 09/29/20 04:45 Lymph # (Auto) 0.4 X10^3/uL (1.3-2.9) L 09/29/20 04:45 [place] # (Auto) 0.6 x10^3/uL (0.3-0.8) 09/29/20 04:45 Eos # (Auto) 0.0 x10^3/uL (0.0-0.2) 09/29/20 04:45 Baso # (Auto) 0.0 X10^3/uL (0.0-0.1) 09/29/20 04:45 Absolute Nucleated RBC 0.0 /100WBC 09/29/20 04:45 Total Counted 100 09/29/20 04:45 Neutrophils % (Manual) 86 % (39-76) H 09/29/20 04:45 Lymphocytes % (Manual) 11 % (13-43) L 09/29/20 04:45 Monocytes % (Manual) 3 % (4-9) L 09/29/20 04:45 Plt Morphology Comment Normal (NORMAL) 09/29/20 04:45 RBC Morphology Abnormal (NORMAL) A 09/29/20 04:45 Hypochromasia 1+ A 09/29/20 04:45 Poikilocytosis Slight A 09/24/20 20:24 [place] Cells Present 09/25/20 05:49 PT 14.3 SECONDS (11.8-14.3) 09/24/20 20:24 INR Target Range - 09/24/20 20:24 INR 1.15 (0.8-1.3) 09/24/20 20:24 D-Dimer 2.18 ug/ml (0.0-0.57) H* 09/27/20 04:30 Sample Site Cristina 09/29/20 04:12 ABG pH 7.330 (7.35-7.45) L 09/29/20 04:12 ABG pCO2 52.0 mmHg (35.0-45.0) H* 09/29/20 04:12 ABG pO2 92.0 mmHg (80.0-100.0) 09/29/20 04:12 ABG HCO3 27.4 mmol/L (22-26) H 09/29/20 04:12 ABG O2 Saturation 97.0 % (90-100) 09/29/20 04:12 ABG Base Excess 0.7 mmol/L (-2.0-2.0) 09/29/20 04:12 Alexx Test N/a 09/29/20 04:12 A-a Gradient 306.0 mmHg 09/29/20 04:12 FiO2 65.0 09/29/20 04:12 Blood Gas Comments Erwin well ae 09/29/20 04:12 Sodium 149 mmol/L (136-145) H 09/29/20 04:45 Corrected Sodium 152 mmol/L (136-145) H 09/29/20 04:45 Potassium 5.0 mmol/L (3.5-5.1) 09/29/20 04:45 Chloride 114 mmol/L (98-107) H 09/29/20 04:45 Carbon Dioxide 24.8 mmol/L (21-32) 09/29/20 04:45 BUN 52 mg/dL (7-18) H 09/29/20 04:45 Creatinine 1.40 mg/dL (0.55-1.02) H 09/29/20 04:45 Est GFR (MDRD) Af Amer 49 (>60) L 09/29/20 04:45 Est GFR (MDRD) Non-Af 40 (>60) L 09/29/20 04:45 Glucose 215 mg/dL (65-99) H 09/29/20 04:45 POC Glucose (mg/dL) 220 mg/dL (65-99) H 09/29/20 20:20 Lactic Acid 1.5 mmol/L (0.4-2.0) 09/24/20 21:56 Calcium 8.6 mg/dL (8.5-10.1) 09/29/20 04:45 Corrected Calcium 10.0 mg/dL (8.5-10.1) 09/29/20 04:45 Ferritin 81 ng/mL (8-252) 09/29/20 04:45 Total Bilirubin 0.20 mg/dL (0.2-1.0) 09/29/20 04:45 AST 15 Units/L (15-37) 09/29/20 04:45 ALT 19 Units/L (12-78) 09/29/20 04:45 Alkaline Phosphatase 73 Units/L (46-116) 09/29/20 04:45 Creatine Kinase 78 Units/L (26-192) 09/25/20 16:10 CK-MB (CK-2) < 1.0 ng/mL (0-4.0) 09/25/20 16:10 CK/CKMB % Calc 1.3 % (<4) 09/25/20 16:10 Troponin I < 0.02 ng/mL (0-1.5) 09/25/20 16:10 C-Reactive Protein 21.60 mg/L (0-3.0) H 09/29/20 04:45 B-Natriuretic Peptide 637 pg/mL (0-79) H* 09/24/20 20:24 Total Protein 6.3 g/dL (6.4-8.2) L 09/29/20 04:45 Albumin 2.3 g/dL (3.4-5.0) L 09/29/20 04:45 Globulin 4.0 g/dL (2.5-4.5) 09/29/20 04:45 Albumin/Globulin Ratio 0.6 Ratio (1.1-2.1) L 09/29/20 04:45 Prealbumin 15.8 mg/dL (18-35.7) L 09/29/20 04:45 Specimen Type Clean catch urine 09/24/20 21:52 Urine Color Mabel (YELLOW) 09/24/20 21:52 Urine Appearance Slightly hazy (CLEAR) 09/24/20 21:52 Urine pH 5.0 (5.0 - 8.0) 09/24/20 21:52 Ur Specific [place] 1.015 (1.000-1.030) 09/24/20 21:52 Urine Protein 1+ (NEGATIVE) 09/24/20 21:52 Urine Glucose (UA) 3+ (NEGATIVE) 09/24/20 21:52 Urine Ketones Negative (NEGATIVE) 09/24/20 21:52 Urine Occult Blood 1+ (NEGATIVE) 09/24/20 21:52 Urine Nitrite Positive (NEGATIVE) 09/24/20 21:52 Urine Bilirubin Negative (NEGATIVE) 09/24/20 21:52 Urine Acetone Negative (NEGATIVE) 09/27/20 11:53 Urine Urobilinogen 1+ (NORMAL) 09/24/20 21:52 Ur Leukocyte Esterase 1+ (NEGATIVE) 09/24/20 21:52 Urine RBC 3-5 /HPF (0-3) A 09/24/20 21:52 Urine WBC 5-10 /HPF (0-5) A 09/24/20 21:52 Ur Squamous Epith Cells Few /HPF (NEGATIVE) 09/24/20 21:52 Urine Bacteria 2+ /HPF (NEGATIVE) 09/24/20 21:52 Ur Culture Indicated? Yes/culture set up 09/24/20 21:52 Influenza Type A (PCR) Negative (NEGATIVE) 09/24/20 22:20 Influenza Type B (PCR) Negative (NEGATIVE) 09/24/20 22:20 SARS CoV-2 RNA Rapid MICK Positive (NEGATIVE) A 09/24/20 22:20 Blood Type A POSITIVE 09/26/20 12:21 - Plan (1) Pneumonia due to 2019 novel coronavirus Status: Acute Plan: NS AT 50 ML/HR, REMDESIVIR 100MG IV DAILY, ROCEPHIN 1G IV HS, AZITHROMYCIN 500MG IV DAILY, SOLU-MEDROL 80MG IV Q8H, XOPENEX NEBS TID, PULMICORT NEBS BID, HUMULIN R SLIDING SCALE, LANTUS 36 UNITS SC DAILY. MECHANICAL VENTILATION, WEAN DOPAMINE TODAY. (2) Acute respiratory failure with hypoxia Status: Acute (3) Diabetes mellitus Status: Acute Qualifiers: Diabetes mellitus type: type 2 Diabetes mellitus snf insulin use: unspecified snf insulin use status Diabetes mellitus complication status: with other specified complication Qualified Code(s): E11.69 - Type 2 diabetes mellitus with other specified complication
[2020-09-30] MEDS: APRESOLINE INJ 20 MG VIAL IVP PRN ×4 (01:54→23:04)
[2020-09-30] MEDS: VERSED 100 MG in NS 100 ML IV 80 ML IV PRN ×2 (02:20→17:18)
[2020-09-30] MEDS: NS 250 ML IV 250 ML IV SCH ×2 (02:59→12:55)
[2020-09-30] MEDS: NS 1000 ML 1,000 ML IV SCH (03:08)
[2020-09-30] MEDS: DIPRIVAN PREMIX 1 GRAM IV 1,000 MG/100 ML VIAL IV PRN ×3 (03:14→17:51)
[2020-09-30 05:00] LABS: ABG BASE EXCESS 3.1 mmol/L (-2.0-2.0); ABG HCO3 28.5 mmol/L (22-26)
[2020-09-30] MEDS: SOLU-Medrol 40 MG VIAL IVP SCH ×3 (05:14→21:24)
[2020-09-30 05:29] LABS: BASOPHILS % (AUTO) 0.1 % (0.2-1.0); HEMATOCRIT 28.5 % (36.0-47.0); HEMOGLOBIN 9.1 g/dL (12.0-16.0); LYMPHOCYTES # (AUTO) 0.3 X10^3/uL (1.3-2.9); LYMPHOCYTES % (AUTO) 3.2 % (21.0-51.0); MEAN CORPUSCULAR HEMOGLOBIN 24.3 pg (27.0-34.0); MEAN CORPUSCULAR HGB CONC 32.1 g/dL (33.0-35.0); MEAN CORPUSCULAR VOLUME 75.6 fL (80.0-100.0); MONOCYTES # (AUTO) 0.7 x10^3/uL (0.3-0.8); MONOCYTES % (AUTO) 6.9 % (0.0-13.0); NEUTROPHILS # (AUTO) 8.7 x10^3/uL (2.2-4.8); NEUTROPHILS % (AUTO) 89.8 % (42.0-75.0); PLATELET COUNT 419 X10^3/uL (150.0-450.0); RED BLOOD COUNT 3.77 X10^6/uL (3.5-5.4); RED CELL DISTRIBUTION WIDTH 16.2 % (11.6-16.5); WHITE BLOOD COUNT 9.7 X10^3/uL (3.6-10.0)
[2020-09-30 05:40] LABS: PREALBUMIN 18.8 mg/dL (18-35.7)
[2020-09-30 05:43] LABS: ALBUMIN 2.2 g/dL (3.4-5.0); CALCIUM 8.6 mg/dL (8.5-10.1); CREATININE 1.2 mg/dL (0.55-1.02); TOTAL PROTEIN 5.9 g/dL (6.4-8.2)
[2020-09-30 05:51] LABS: CARBON DIOXIDE 24.2 mmol/L (21-32)
[2020-09-30 06:23] LABS: HYPOCHROMASIA SLIGHT; MICROCYTOSIS SLIGHT; PLATELET MORPHOLOGY COMMENT NORMAL (NORMAL)
[2020-09-30] MEDS: XOPENEX 1.25 MG/3 ML NEBULE NEB SCH ×3 (06:26→20:53)
--- NOTE | 2020-09-30 08:10 | RAD ---
HISTORYCOVID, SOBSTUDYCHEST, 1 [id number]/2020.TECHNIQUEAP view of the chestFINDINGSET tube in good position. Right IJ central line in good position. The cardiac and mediastinal contours appear normal. Mildly improved bilateral airspace and interstitial opacities scattered throughout the lungs. No pleural effusion or pneumothorax.IMPRESSIONMildly improved pulmonary infiltrates.Electronically signed by: Miller Loredo (Sep 30, 2020 08:08:37)
[2020-09-30] MEDS ORDERED: CATAPRES-TTS-2 TD SCH (09:00)
[2020-09-30] MEDS: INVANZ INJ 1 GM VIAL 1 GM in NS 100 ML IV + SPIKE MINIBAG* 100 ML IV SCH (09:38)
[2020-09-30] MEDS: LACRI-LUBE S.O.P. AFFEYE SCH ×2 (09:38→20:28)
[2020-09-30] MEDS: HUMULIN R IV SCH ×3 (09:38)
[2020-09-30] MEDS: MVI IV SCH ×3 (09:38)
[2020-09-30] MEDS: CLINIMIX IV SCH ×3 (09:38)
[2020-09-30] MEDS: LANTUS SC SCH (09:38)
[2020-09-30] MEDS: LOVENOX INJ 30 MG SYR SC SCH ×2 (09:39→20:30)
[2020-09-30] MEDS: REMDESIVIR 100 MG in NS 250 ML IV 250 ML IV SCH (09:39)
[2020-09-30] MEDS: SYNTHROID INJ 100 mcg VIAL IVP SCH (09:40)
[2020-09-30] MEDS: MORPHINE SULFATE PCA 30 MG IV PRN ×3 (09:41→20:37)
[2020-09-30] MEDS: CATAPRES-TTS-3 TD SCH (09:52)
[2020-09-30] MEDS: NS 50 ML IV 50 ML IV SCH (10:24)
--- NOTE | 2020-09-30 11:10 | CT ---
HISTORYPUPILLARY CHANGES hypertension diabetesSTUDYBRAIN W/O CONCOMPARISONNoneTECHNIQUEAxial images through the head were performed without contrast. CT scan was performed following ALARA (As low as Reasonably Achievable).Coronal and Sagittal reformatted images were performed.FINDINGSThe ventricles are normal in size and symmetric. There is no evidence of acute hemorrhage, mass effect or edema,no intra or extra-axial fluid collections, no hyperdense vessel. There is mild periventricular hypo attenuations, there is secretions in the nasopharynx. No acute fracture,s there is bilateral opacification of the mastoid cells. No focal orbital masses. No acute fractures are seen. There is no evidence of sellar masses, the cervicocranial junction is unremarkable.IMPRESSIONNo acute intracranial abnormalities. No sellar massesMultiple secretions in the posterior nasopharynx with bilateral opacification of the mastoid cells. NonspecificElectronically signed by: Nicci Tran (Sep 30, 2020 11:08:50)
[2020-09-30] MEDS: PULMICORT NEB TX 0.5 MG NEB SCH ×2 (12:55→20:53)
[2020-09-30] MEDS: HumuLIN R SC PRN ×2 (17:49→20:59)
[2020-09-30] MEDS: SNACK - Diabetic Appropriate PO SCH (20:28)
[2020-09-30] MEDS: LIPOSYN III 20% 100ML 100 ML IV SCH (20:58)
[2020-10-01] MEDS: NS 1000 ML 1,000 ML IV SCH (00:47)
[2020-10-01] MEDS: DIPRIVAN PREMIX 1 GRAM IV 1,000 MG/100 ML VIAL IV PRN ×4 (01:28→17:49)
[2020-10-01] MEDS: NS 250 ML IV 250 ML IV SCH ×2 (02:05→16:55)
[2020-10-01] MEDS: MORPHINE SULFATE PCA 30 MG IV PRN ×5 (03:16→19:41)
[2020-10-01] MEDS: APRESOLINE INJ 20 MG VIAL IVP PRN ×3 (04:37→13:21)
[2020-10-01] MEDS: SOLU-Medrol 40 MG VIAL IVP SCH ×3 (05:16→21:00)
[2020-10-01] MEDS: HumuLIN R SC PRN ×4 (05:35→21:00)
[2020-10-01] MEDS: VERSED 100 MG in NS 100 ML IV 80 ML IV PRN ×2 (05:39→21:31)
[2020-10-01 05:44] LABS: ABG BASE EXCESS 5.5 mmol/L (-2.0-2.0); ABG HCO3 28.9 mmol/L (22-26)
[2020-10-01 05:44] LABS: ALANINE AMINOTRANSFERASE 22 Units/L (12-78); ALBUMIN 2.2 g/dL (3.4-5.0); ALKALINE PHOSPHATASE 51 Units/L (46-116); ASPARTATE AMINO TRANSFERASE 24 Units/L (15-37); BLOOD UREA NITROGEN 53 mg/dL (7-18); CALCIUM 8.7 mg/dL (8.5-10.1); CARBON DIOXIDE 28.7 mmol/L (21-32); COR CA(FOR HYPOALB) 10.1 mg/dL (8.5-10.1); COR NA(FOR HYPERGLY) 160 mmol/L (136-145); CREATININE 1.16 mg/dL (0.55-1.02); TOTAL PROTEIN 5.8 g/dL (6.4-8.2); eGFR NON BLACK RACES 50 (>60)
[2020-10-01] MEDS: XOPENEX 1.25 MG/3 ML NEBULE NEB SCH ×3 (05:45→21:22)
[2020-10-01 06:06] LABS: BASOPHILS % (AUTO) 0.1 % (0.2-1.0); HEMATOCRIT 29.6 % (36.0-47.0); HEMOGLOBIN 9.4 g/dL (12.0-16.0); LYMPHOCYTES # (AUTO) 0.2 X10^3/uL (1.3-2.9); LYMPHOCYTES % (AUTO) 3.9 % (21.0-51.0); MEAN CORPUSCULAR HEMOGLOBIN 24.4 pg (27.0-34.0); MEAN CORPUSCULAR HGB CONC 31.9 g/dL (33.0-35.0); MEAN CORPUSCULAR VOLUME 76.4 fL (80.0-100.0); MEAN PLATELET VOLUME 8.6 fL (7.4-11.0); MONOCYTES # (AUTO) 0.4 x10^3/uL (0.3-0.8); MONOCYTES % (AUTO) 7.1 % (0.0-13.0); NEUTROPHILS # (AUTO) 5.5 x10^3/uL (2.2-4.8); NEUTROPHILS % (AUTO) 88.9 % (42.0-75.0); PLATELET COUNT 396 X10^3/uL (150.0-450.0); RED BLOOD COUNT 3.87 X10^6/uL (3.5-5.4); RED CELL DISTRIBUTION WIDTH 16.5 % (11.6-16.5); WHITE BLOOD COUNT 6.2 X10^3/uL (3.6-10.0)
[2020-10-01 06:30] LABS: SODIUM 155 mmol/L (136-145)
[2020-10-01 06:31] LABS: CHLORIDE 120 mmol/L (98-107)
--- NOTE | 2020-10-01 06:41 | RAD ---
HISTORYCOVID, SOBSTUDYCHEST, 1 VIEWCOMPARISONOne day prior.TECHNIQUEAP view of the chestFINDINGSET tube terminates at the level of the clavicles approximately 9.2 cm from the nicky. Right IJ central line in good position. Stable bilateral scattered patchy lung opacities worst in the mid and upper lungs. No pleural effusion or pneumothorax.IMPRESSIONStable multifocal infiltrates. Consider 1-2 cm advancement of ET tube.Electronically signed by: Miller Loredo (Oct 01, 2020 06:39:45)
[2020-10-01 07:03] LABS: CRENATED RBC SLIGHT; PLATELET MORPHOLOGY COMMENT NORMAL (NORMAL)
[2020-10-01] MEDS ORDERED: SYNTHROID INJ 100 mcg VIAL ONE (08:32)
[2020-10-01] MEDS: PULMICORT NEB TX 0.5 MG NEB SCH ×2 (08:35→21:22)
[2020-10-01] MEDS: INVANZ INJ 1 GM VIAL 1 GM in NS 100 ML IV + SPIKE MINIBAG* 100 ML IV SCH (09:23)
[2020-10-01] MEDS: LACRI-LUBE S.O.P. AFFEYE SCH ×2 (09:24→20:47)
[2020-10-01] MEDS: LANTUS SC SCH (09:25)
[2020-10-01] MEDS: LOVENOX INJ 30 MG SYR SC SCH ×2 (09:28→20:48)
[2020-10-01] MEDS: SYNTHROID INJ 100 mcg VIAL IVP SCH (09:32)
[2020-10-01] MEDS: NS 50 ML IV 50 ML IV SCH (09:41)
[2020-10-01] MEDS: VASOTEC INJ 2.5 MG VIAL IVP PRN (10:24)
[2020-10-01] MEDS: LASIX IVP SCH ×2 (10:24→20:46)
[2020-10-01] MEDS: HUMULIN R IV SCH ×3 (12:44)
[2020-10-01] MEDS: CLINIMIX IV SCH ×3 (12:44)
[2020-10-01] MEDS: MVI IV SCH ×3 (12:44)
[2020-10-01] MEDS: REMDESIVIR 100 MG in NS 250 ML IV 250 ML IV SCH (12:44)
[2020-10-01] MEDS ORDERED: NORMODYNE INJ 20 MG VIAL IVP PRN (13:47)
--- NOTE | 2020-10-01 13:49 | PCM.PROG ---
Progress Note - Progress Note for Day of Date of Exam: 09/30/20 - Subjective Subjective: WAS ADMITTED FOR PNEUMONIA DUE TO COVID-19, HYPOXIA, AND A URINARY TRACT INFECTION. TODAY, SHE IS LYING IN BED ON MORNING ROUNDS. SHE IS SEDATED. SHE IS CURRENTLY ON THE MECHANICAL VENTILLATOR WITH SETTINGS AC, VENT RATE 25, TIDAL VOLUME 450, PEAK FLOW 45, PEEP 10, FI02 40. HER OXYGEN SATURATIONS HAVE BEEN 95- 100% ON THE VENT. HER VITALS THIS MORNING ARE: 97.8-53-25-99%-180/84. LABS WERE OBTAINED. ABNORMAL VALUES INCLUDE THE FOLLOWING: HGB 9.1, HCT 28.5, SODIUM 155, CHLORIDE 119, BUN 53, CREATININE 1.20, GLUCOSE 156, TOTAL BILI 0.10, AST 39, CRP 11.0, TOTAL PROTEIN 5.9, ALBUMIN 2.2 ABG REVEALED: PH 7.400, PC02 46, P02 89.0, HC03 28.5, 02 SAT 97, BASE EXCESS 3.1, FI02 50.0. BLOOD CULTURES ARE PENDING. URINE CULTURE REVEALED GROWTH OF E.COLI. SPUTUM CULTURE REVEALED GROWTH OF ENTEROBACTER CLOACAAE AND KLEBSIELLA PNEUMONIAE. A CHEST XRAY WAS OBTAINED AND REVEALED: Mildly improved pulmonary infiltrates. SHE IS CURRENTLY RECEIVING NS AT 50 ML/HR, REMDESIVIR 100MG IV, DAILY, ROCEPHIN 1G IV HS, AZITHROMYCIN 500MG IV DAILY, SOLU-MEDROL 80MG IV Q8H, XOPENEX NEBS TID, PULMICORT NEBS BID, HUMULIN R SLIDING SCALE, LANTUS 36 UNITS SC DAILY, MORPHINE READING TUTOR, DIPROVAN DRIP, AND VERSED DRIP PER PROTOCOL FOR SEDATIONS. WE WILL DISCONTINUE THE ROCEPHIN AND AZITHROMYCIN TODAY AND START INVANZ 1G IV DAILY. OTHERWISE, WE WILL CONTINUE WITH CURRENT PLAN OF CARE TODAY. WE PLAN TO FOLLOW UP WITH AM LABS, ABG, AND CHEST XRAY AND CONTINUE TO MONITOR. Time spent for clinical assessment, physical examination, reviewing labs/imaging and decision making more than 45 mins. - Past Medical Family Social History Past Med/Fam/Surg Hx: No changes since H&P Allergies: Allergies lisinopril Allergy (Verified 09/05/19 12:12) ciprofloxacin [From Cipro] Adverse Reaction (Verified 09/05/19 12:12) - Review of Systems ROS: No change since H&P - Vital Signs and I&O's Vital Signs: Temperature 97.6 F Pulse Rate [Left Radial] 75 Pulse Rate 47 Respiratory Rate 25 Blood Pressure [Left Radial 169/69 Artery] Blood Pressure [Left Arm] 152/77 Blood Pressure 190/88 O2 Sat by Pulse Oximetry 99 Intake and Output: Intake & Output 09/29/20 09/30/20 10/01/20 10/02/20 11:59 11:59 11:59 11:59 Intake Total 2533.0 / 2533.0 3092 / 3092 2366 / 2366 Output Total 1600 / 1600 2600 / 2600 2900 / 2900 Balance 933.0 / 933.0 492 / 492 -534 / -534 - Physical Exam Oriented: Normal Eyes: Normal Ear: Normal Nose: Normal Throat: Dry Respiratory: Generalized, Diminished Cardiovascular: Normal Auscultation: Bowel Sounds: Normal Palpation: Normal Tenderness: Normal Skin: Decreased Turgur Musculoskeletal: Normal Psychiatric: Normal Mood Description: Calm Affect: Normal Speech Pattern: Artificially Ventilated - Laboratory and Diagnostics Result Diagrams: 10/01/20 04:20 10/01/20 04:20 Labs: 09/24/20 20:28 Blood Blood Culture - Final 09/24/20 20:24 Blood Blood Culture - Final 09/27/20 13:40 Sputum - Endotracheal Wash Sputum Culture - Final Enterobacter Cloacae Klebsiella Pneumoniae 09/27/20 13:40 Sputum - Endotracheal Wash - Final 09/24/20 21:52 Urine,Clean Catch Urine Culture - Final Escherichia Coli Laboratory WBC 6.2 X10^3/uL (3.6-10.0) 10/01/20 04:20 RBC 3.87 X10^6/uL (3.5-5.4) 10/01/20 04:20 Hgb 9.4 g/dL (12.0-16.0) L 10/01/20 04:20 Hct 29.6 % (36.0-47.0) L 10/01/20 04:20 MCV 76.4 fL (80.0-100.0) L 10/01/20 04:20 MCH 24.4 pg (27.0-34.0) L 10/01/20 04:20 MCHC 31.9 g/dL (33.0-35.0) L 10/01/20 04:20 RDW 16.5 % (11.6-16.5) 10/01/20 04:20 Plt Count 396 X10^3/uL (150.0-450.0) 10/01/20 04:20 Plt Count Comment Adequate (ADEQUATE) 10/01/20 04:20 MPV 8.6 fL (7.4-11.0) 10/01/20 04:20 Neut % (Auto) 88.9 % (42.0-75.0) H 10/01/20 04:20 Lymph % (Auto) 3.9 % (21.0-51.0) L 10/01/20 04:20 [place] % (Auto) 7.1 % (0.0-13.0) 10/01/20 04:20 Eos % (Auto) 0.0 % (0.9-2.9) L 10/01/20 04:20 Baso % (Auto) 0.1 % (0.2-1.0) L 10/01/20 04:20 Neut # (Auto) 5.5 x10^3/uL (2.2-4.8) H 10/01/20 04:20 Lymph # (Auto) 0.2 X10^3/uL (1.3-2.9) L 10/01/20 04:20 [place] # (Auto) 0.4 x10^3/uL (0.3-0.8) 10/01/20 04:20 Eos # (Auto) 0.0 x10^3/uL (0.0-0.2) 10/01/20 04:20 Baso # (Auto) 0.0 X10^3/uL (0.0-0.1) 10/01/20 04:20 Absolute Nucleated RBC 0.2 /100WBC 10/01/20 04:20 Total Counted 100 09/29/20 04:45 Neutrophils % (Manual) 86 % (39-76) H 09/29/20 04:45 Lymphocytes % (Manual) 11 % (13-43) L 09/29/20 04:45 Monocytes % (Manual) 3 % (4-9) L 09/29/20 04:45 Plt Morphology Comment Normal (NORMAL) 10/01/20 04:20 RBC Morphology Abnormal (NORMAL) A 10/01/20 04:20 Hypochromasia Slight A 09/30/20 04:25 Poikilocytosis Slight A 09/24/20 20:24 Microcytosis Slight A 09/30/20 04:25 [place] Cells Present 09/25/20 05:49 Crenated Cell Slight A 10/01/20 04:20 PT 14.3 SECONDS (11.8-14.3) 09/24/20 20:24 INR Target Range - 09/24/20 20:24 INR 1.15 (0.8-1.3) 09/24/20 20:24 D-Dimer 2.18 ug/ml (0.0-0.57) H* 09/27/20 04:30 Sample Site Art-line 10/01/20 05:43 ABG pH 7.500 (7.35-7.45) H 10/01/20 05:43 ABG pCO2 37.0 mmHg (35.0-45.0) 10/01/20 05:43 ABG pO2 109.0 mmHg (80.0-100.0) H 10/01/20 05:43 ABG HCO3 28.9 mmol/L (22-26) H 10/01/20 05:43 ABG O2 Saturation 99.0 % (90-100) 10/01/20 05:43 ABG Base Excess 5.5 mmol/L (-2.0-2.0) H 10/01/20 05:43 Alexx Test Na 10/01/20 05:43 A-a Gradient 59.0 mmHg 10/01/20 05:43 FiO2 30.0 10/01/20 05:43 Blood Gas Comments Erwin abg well-mtf 10/01/20 05:43 Sodium 155 mmol/L (136-145) H* 10/01/20 04:20 Corrected Sodium 160 mmol/L (136-145) H 10/01/20 04:20 Potassium 4.2 mmol/L (3.5-5.1) 10/01/20 04:20 Chloride 120 mmol/L (98-107) H* 10/01/20 04:20 Carbon Dioxide 28.7 mmol/L (21-32) 10/01/20 04:20 BUN 53 mg/dL (7-18) H 10/01/20 04:20 Creatinine 1.16 mg/dL (0.55-1.02) H 10/01/20 04:20 Est GFR (MDRD) Af Amer > 60 (>60) 10/01/20 04:20 Est GFR (MDRD) Non-Af 50 (>60) L 10/01/20 04:20 Glucose 292 mg/dL (65-99) H 10/01/20 04:20 POC Glucose (mg/dL) 218 mg/dL (65-99) H 10/01/20 11:18 Lactic Acid 1.5 mmol/L (0.4-2.0) 09/24/20 21:56 Calcium 8.7 mg/dL (8.5-10.1) 10/01/20 04:20 Corrected Calcium 10.1 mg/dL (8.5-10.1) 10/01/20 04:20 Ferritin 102 ng/mL (8-252) 10/01/20 04:20 Total Bilirubin 0.20 mg/dL (0.2-1.0) 10/01/20 04:20 AST 24 Units/L (15-37) 10/01/20 04:20 ALT 22 Units/L (12-78) 10/01/20 04:20 Alkaline Phosphatase 51 Units/L (46-116) 10/01/20 04:20 Creatine Kinase 78 Units/L (26-192) 09/25/20 16:10 CK-MB (CK-2) < 1.0 ng/mL (0-4.0) 09/25/20 16:10 CK/CKMB % Calc 1.3 % (<4) 09/25/20 16:10 Troponin I < 0.02 ng/mL (0-1.5) 09/25/20 16:10 C-Reactive Protein 5.90 mg/L (0-3.0) H 10/01/20 04:20 B-Natriuretic Peptide 637 pg/mL (0-79) H* 09/24/20 20:24 Total Protein 5.8 g/dL (6.4-8.2) L 10/01/20 04:20 Albumin 2.2 g/dL (3.4-5.0) L 10/01/20 04:20 Globulin 3.6 g/dL (2.5-4.5) 10/01/20 04:20 Albumin/Globulin Ratio 0.6 Ratio (1.1-2.1) L 10/01/20 04:20 Prealbumin 18.8 mg/dL (18-35.7) 09/30/20 04:25 Specimen Type Clean catch urine 09/24/20 21:52 Urine Color Mabel (YELLOW) 09/24/20 21:52 Urine Appearance Slightly hazy (CLEAR) 09/24/20 21:52 Urine pH 5.0 (5.0 - 8.0) 09/24/20 21:52 Ur Specific [place] 1.015 (1.000-1.030) 09/24/20 21:52 Urine Protein 1+ (NEGATIVE) 09/24/20 21:52 Urine Glucose (UA) 3+ (NEGATIVE) 09/24/20 21:52 Urine Ketones Negative (NEGATIVE) 09/24/20 21:52 Urine Occult Blood 1+ (NEGATIVE) 09/24/20 21:52 Urine Nitrite Positive (NEGATIVE) 09/24/20 21:52 Urine Bilirubin Negative (NEGATIVE) 09/24/20 21:52 Urine Acetone Negative (NEGATIVE) 09/27/20 11:53 Urine Urobilinogen 1+ (NORMAL) 09/24/20 21:52 Ur Leukocyte Esterase 1+ (NEGATIVE) 09/24/20 21:52 Urine RBC 3-5 /HPF (0-3) A 09/24/20 21:52 Urine WBC 5-10 /HPF (0-5) A 09/24/20 21:52 Ur Squamous Epith Cells Few /HPF (NEGATIVE) 09/24/20 21:52 Urine Bacteria 2+ /HPF (NEGATIVE) 09/24/20 21:52 Ur Culture Indicated? Yes/culture set up 09/24/20 21:52 Influenza Type A (PCR) Negative (NEGATIVE) 09/24/20 22:20 Influenza Type B (PCR) Negative (NEGATIVE) 09/24/20 22:20 SARS CoV-2 RNA Rapid MICK Positive (NEGATIVE) A 09/24/20 22:20 Blood Type A POSITIVE 09/26/20 12:21 - Plan (1) Pneumonia due to 2019 novel coronavirus Status: Acute Plan: NS AT 50 ML/HR, REMDESIVIR 100MG IV DAILY, INVANZ 1G IV DAILY, SOLU-MEDROL 80MG IV Q8H, XOPENEX NEBS TID, PULMICORT NEBS BID, HUMULIN R SLIDING SCALE, LANTUS 36 UNITS SC DAILY. MECHANICAL VENTILATION (2) Acute respiratory failure with hypoxia Status: Acute (3) Diabetes mellitus Status: Acute Qualifiers: Diabetes mellitus type: type 2 Diabetes mellitus assisted insulin use: unspecified assisted insulin use status Diabetes mellitus complication status: with other specified complication Qualified Code(s): E11.69 - Type 2 diabetes mellitus with other specified complication
[2020-10-01] MEDS ORDERED: VERSED ONE (18:24)
[2020-10-01] MEDS ORDERED: NS 100 ML IV 100 ML IV ONE (18:25)
[2020-10-01] MEDS: SNACK - Diabetic Appropriate PO SCH (20:29)
[2020-10-01] MEDS ORDERED: LIPOSYN III 20% 250ML 250 ML IV SCH (21:00)
[2020-10-02] MEDS: NS 1000 ML 1,000 ML IV SCH (01:37)
[2020-10-02] MEDS: DIPRIVAN PREMIX 1 GRAM IV 1,000 MG/100 ML VIAL IV PRN ×4 (02:05→19:44)
[2020-10-02] MEDS: MORPHINE SULFATE PCA 30 MG IV PRN ×4 (02:06→23:55)
[2020-10-02] MEDS: APRESOLINE INJ 20 MG VIAL IVP PRN ×5 (02:25→22:55)
[2020-10-02] MEDS: NS 250 ML IV 250 ML IV SCH (04:05)
[2020-10-02] MEDS: VASOTEC INJ 2.5 MG VIAL IVP PRN ×2 (04:37→10:49)
[2020-10-02 05:29] LABS: ABG BASE EXCESS 8.5 mmol/L (-2.0-2.0)
[2020-10-02] MEDS: XOPENEX 1.25 MG/3 ML NEBULE NEB SCH ×3 (05:29→20:53)
[2020-10-02 05:30] LABS: ABG HCO3 32.8 mmol/L (22-26)
[2020-10-02] MEDS: SOLU-Medrol 40 MG VIAL IVP SCH ×3 (05:44→21:30)
[2020-10-02 05:46] LABS: ALBUMIN 2.2 g/dL (3.4-5.0); CALCIUM 8.4 mg/dL (8.5-10.1); COR CA(FOR HYPOALB) 9.8 mg/dL (8.5-10.1); CREATININE 1.22 mg/dL (0.55-1.02); TOTAL PROTEIN 5.7 g/dL (6.4-8.2)
[2020-10-02] MEDS: HumuLIN R SC PRN ×3 (05:55→21:50)
[2020-10-02 06:01] LABS: BASOPHILS % (AUTO) 0.3 % (0.2-1.0); HEMATOCRIT 29.5 % (36.0-47.0); HEMOGLOBIN 9.3 g/dL (12.0-16.0); LYMPHOCYTES # (AUTO) 0.4 X10^3/uL (1.3-2.9); LYMPHOCYTES % (AUTO) 5.3 % (21.0-51.0); MEAN CORPUSCULAR HEMOGLOBIN 24.3 pg (27.0-34.0); MEAN CORPUSCULAR HGB CONC 31.6 g/dL (33.0-35.0); MEAN CORPUSCULAR VOLUME 76.9 fL (80.0-100.0); MEAN PLATELET VOLUME 8.5 fL (7.4-11.0); MONOCYTES # (AUTO) 0.5 x10^3/uL (0.3-0.8); MONOCYTES % (AUTO) 7.4 % (0.0-13.0); NEUTROPHILS # (AUTO) 6.4 x10^3/uL (2.2-4.8); PLATELET COUNT 396 X10^3/uL (150.0-450.0); RED BLOOD COUNT 3.84 X10^6/uL (3.5-5.4); RED CELL DISTRIBUTION WIDTH 16.3 % (11.6-16.5); WHITE BLOOD COUNT 7.4 X10^3/uL (3.6-10.0)
--- NOTE | 2020-10-02 06:19 | RAD ---
HISTORYcovidSTUDYAP [id number] is slight interval increase in heart size. Interval increase in bibasal airspace disease, left greater than right. ET tube tip is at the level of T3, 6 cm above the nicky. No large pleural fluid component or developing pneumothorax seen.IMPRESSIONIncreasing cardiomegaly and increasing bibasal airspace disease consistent with progression of pneumonia.Electronically signed by: ISHA JIMENEZ (Oct 02, 2020 06:18:13)
[2020-10-02 06:41] LABS: PLATELET MORPHOLOGY COMMENT NORMAL (NORMAL)
[2020-10-02] MEDS: PULMICORT NEB TX 0.5 MG NEB SCH ×2 (09:33→20:53)
[2020-10-02] MEDS: INVANZ INJ 1 GM VIAL 1 GM in NS 100 ML IV + SPIKE MINIBAG* 100 ML IV SCH (09:47)
[2020-10-02] MEDS: LACRI-LUBE S.O.P. AFFEYE SCH ×2 (09:47→20:00)
[2020-10-02] MEDS: LANTUS SC SCH (09:48)
[2020-10-02] MEDS: LOVENOX INJ 30 MG SYR SC SCH ×2 (09:58→21:30)
[2020-10-02] MEDS: NS 50 ML IV 50 ML IV SCH (09:59)
[2020-10-02] MEDS: SYNTHROID INJ 100 mcg VIAL IVP SCH (09:59)
[2020-10-02] MEDS: MVI IV SCH ×3 (13:31)
[2020-10-02] MEDS: CLINIMIX IV SCH ×3 (13:31)
[2020-10-02] MEDS: REMDESIVIR 100 MG in NS 250 ML IV 250 ML IV SCH (13:31)
[2020-10-02] MEDS: HUMULIN R IV SCH ×3 (13:31)
[2020-10-02] MEDS: VERSED 100 MG in NS 100 ML IV 80 ML IV PRN (13:43)
[2020-10-02] MEDS ORDERED: NS 1/2 1000 ML IV 1,000 ML IV ONE (14:29)
[2020-10-02] MEDS: NS 1/2 1000 ML IV 1,000 ML IV SCH (14:45)
[2020-10-02] MEDS: MORPHINE SULFATE PCA 30 MG IVP PRN (15:00)
--- NOTE | 2020-10-02 16:30 | RAD ---
EXAM: ABDOMEN X-RAY (or KUB)HISTORY: Nasogastric tube verification status post tube placement..TECHNIQUE: Supine viewCOMPARISON: None.FINDINGS: A nasogastric tube is noted with the distal tip in the proximal stomach (consuming normal gastric anatomy) and the proximal sidehole at the gastroesophageal junction.There are up to 5.7 cm dilated air-filled large bowel loops within the abdomen which may represent ileus. There is no gross organomegaly, free intraperitoneal air, or suspicious calcifications seen.Status post distal lumbar spine fusion with metallic hardware in situ. The visualized bony structures are otherwise within normal limits.IMPRESSION:1. A nasogastric tube is noted with the distal tip in the proximal stomach (consuming normal gastric anatomy) and the proximal sidehole at the gastroesophageal junction.2. Up to 5.7 cm dilated air-filled large bowel loops within the abdomen which may represent ileus.3. Consider follow-up evaluation with CT if symptoms persist or worsen.Electronically signed by: Mercedes Duffy (Oct 02, 2020 16:29:07)
[2020-10-02] MEDS: NORVASC TAB 5 MG PO SCH ×2 (18:34→19:41)
[2020-10-02] MEDS: COZAAR PO ONE ×2 (18:34→19:41)
[2020-10-02] MEDS: LASIX IVP SCH ×2 (18:34→19:40)
[2020-10-02] MEDS: SNACK - Diabetic Appropriate PO SCH (23:50)
[2020-10-03] MEDS ORDERED: NORVASC TAB 5 MG PO ONE (00:23)
[2020-10-03] MEDS ORDERED: NORVASC TAB 5 MG ONE (01:05)
[2020-10-03] MEDS ORDERED: CATAPRES TAB 0.1 MG ONE (01:10)
[2020-10-03] MEDS ORDERED: VERSED ONE (01:47)
[2020-10-03] MEDS: VERSED 100 MG in NS 100 ML IV 80 ML IV PRN ×2 (02:00→13:50)
[2020-10-03] MEDS: DIPRIVAN PREMIX 1 GRAM IV 1,000 MG/100 ML VIAL IV PRN ×4 (02:00→18:30)
[2020-10-03] MEDS: APRESOLINE INJ 20 MG VIAL IVP PRN ×2 (02:24→08:43)
[2020-10-03] MEDS: XOPENEX 1.25 MG/3 ML NEBULE NEB SCH ×3 (05:24→20:00)
[2020-10-03] MEDS: HumuLIN R SC PRN ×4 (05:31→22:55)
[2020-10-03] MEDS: SOLU-Medrol 40 MG VIAL IVP SCH ×3 (05:32→21:50)
[2020-10-03 05:36] LABS: BASOPHILS % (AUTO) 0.2 % (0.2-1.0); HEMOGLOBIN 9.3 g/dL (12.0-16.0); LYMPHOCYTES # (AUTO) 0.4 X10^3/uL (1.3-2.9); LYMPHOCYTES % (AUTO) 4.2 % (21.0-51.0); MEAN CORPUSCULAR HEMOGLOBIN 24.4 pg (27.0-34.0); MEAN CORPUSCULAR VOLUME 76.2 fL (80.0-100.0); MEAN PLATELET VOLUME 8.3 fL (7.4-11.0); MONOCYTES # (AUTO) 0.6 x10^3/uL (0.3-0.8); MONOCYTES % (AUTO) 6.3 % (0.0-13.0); NEUTROPHILS # (AUTO) 7.9 x10^3/uL (2.2-4.8); NEUTROPHILS % (AUTO) 89.3 % (42.0-75.0); PLATELET COUNT 356 X10^3/uL (150.0-450.0); RED CELL DISTRIBUTION WIDTH 16.3 % (11.6-16.5); WHITE BLOOD COUNT 8.9 X10^3/uL (3.6-10.0)
[2020-10-03 05:52] LABS: ABG BASE EXCESS 9.3 mmol/L (-2.0-2.0)
[2020-10-03 05:53] LABS: ABG HCO3 33.5 mmol/L (22-26)
[2020-10-03 05:55] LABS: ALANINE AMINOTRANSFERASE 25 Units/L (12-78); ALBUMIN 2.3 g/dL (3.4-5.0); ALKALINE PHOSPHATASE 46 Units/L (46-116); ASPARTATE AMINO TRANSFERASE 17 Units/L (15-37); BLOOD UREA NITROGEN 55 mg/dL (7-18); CALCIUM 8.4 mg/dL (8.5-10.1); CARBON DIOXIDE 28.8 mmol/L (21-32); COR CA(FOR HYPOALB) 9.8 mg/dL (8.5-10.1); COR NA(FOR HYPERGLY) 165 mmol/L (136-145); CREATININE 1.05 mg/dL (0.55-1.02); TOTAL PROTEIN 5.6 g/dL (6.4-8.2); eGFR NON BLACK RACES 56 (>60)
[2020-10-03 06:12] LABS: CHLORIDE 123 mmol/L (98-107); SODIUM 160 mmol/L (136-145)
[2020-10-03 06:16] LABS: HYPOCHROMASIA SLIGHT; PLATELET MORPHOLOGY COMMENT NORMAL (NORMAL)
[2020-10-03] MEDS ORDERED: NS 100 ML IV + SPIKE MINIBAG* 100 ML IV ONE (08:03)
[2020-10-03] MEDS: LANTUS SC SCH (08:40)
[2020-10-03] MEDS: INVANZ INJ 1 GM VIAL 1 GM in NS 100 ML IV + SPIKE MINIBAG* 100 ML IV SCH (08:40)
[2020-10-03] MEDS: COZAAR PO SCH (08:40)
[2020-10-03] MEDS: LOVENOX INJ 30 MG SYR SC SCH (08:41)
[2020-10-03] MEDS: LACRI-LUBE S.O.P. AFFEYE SCH ×2 (08:41→21:50)
[2020-10-03] MEDS: LASIX IVP SCH (08:41)
[2020-10-03] MEDS: SYNTHROID INJ 100 mcg VIAL IVP SCH (08:42)
[2020-10-03] MEDS: REMDESIVIR 100 MG in NS 250 ML IV 250 ML IV SCH (08:42)
[2020-10-03] MEDS: NORVASC TAB 10 MG PO SCH (08:50)
[2020-10-03] MEDS: PULMICORT NEB TX 0.5 MG NEB SCH ×2 (09:47→20:00)
--- NOTE | 2020-10-03 12:53 | RAD ---
EXAM: CHEST X-RAYHISTORY: Covid pneumonia. Urinary tract infection..TECHNIQUE: AP CXR dated October 03, 2020 at 10:40 AM.COMPARISON: CXR dated October 02, 2020.FINDINGS:An endotracheal tube is again noted with the distal tip approximately 5.5 cm above the nicky (adequate position). Nasogastric tube with distal tip out of [id number] below the hemidiaphragms, presumably within the stomach. Clinical correlation is advised. Right internal jugular central venous catheter with distal tip in SVC (adequate position). Recommend careful clinical correlation to ensure venous blood return.The heart size and mediastinum are within normal limits. There is mild interval progression of patchy diffuse right lung parenchymal infiltrate compared with the previous exam. There is interval progression of hazy opacity in the right lower lobe/lung base with loss of definition of the hemidiaphragm in keeping with small pleural effusion and/or basilar atelectasis; cannot rule out concomitant pneumonic infiltrate in the appropriate clinical setting. Recommend clinical correlation and appropriate followup evaluation as clinically warranted.There is no pneumothorax seen. The visualized bony structures are within normal limits.IMPRESSION:1. Mild interval progression of patchy diffuse right lung parenchymal infiltrate compared with the previous exam.2. Interval progression of hazy opacity in the right lower lobe/lung base with loss of definition of the hemidiaphragm in keeping with small pleural effusion and/or basilar atelectasis; cannot rule out concomitant pneumonic infiltrate in the appropriate clinical setting.3. Recommend clinical correlation and appropriate followup evaluation to ensure complete clearance.Electronically signed by: Mercedes Duffy (Oct 03, 2020 12:51:53)
[2020-10-03 15:04] LABS: ALANINE AMINOTRANSFERASE 31 Units/L (12-78); ALBUMIN 2.3 g/dL (3.4-5.0); ALKALINE PHOSPHATASE 48 Units/L (46-116); ASPARTATE AMINO TRANSFERASE 23 Units/L (15-37); BLOOD UREA NITROGEN 56 mg/dL (7-18); CALCIUM 8.7 mg/dL (8.5-10.1); COR CA(FOR HYPOALB) 10.1 mg/dL (8.5-10.1); COR NA(FOR HYPERGLY) 164 mmol/L (136-145); CREATININE 1.08 mg/dL (0.55-1.02); TOTAL PROTEIN 5.7 g/dL (6.4-8.2); eGFR NON BLACK RACES 54 (>60)
[2020-10-03 15:06] LABS: SODIUM 160 mmol/L (136-145)
[2020-10-03] MEDS: MORPHINE SULFATE PCA 30 MG IVP PRN (16:00)
[2020-10-03] MEDS ORDERED: NS 1/2 1000 ML IV 1,000 ML IV ONE (19:13)
[2020-10-03] MEDS: SNACK - Diabetic Appropriate PO SCH (19:34)
[2020-10-03] MEDS: NS 1/2 1000 ML IV 1,000 ML IV SCH (19:34)
[2020-10-03] MEDS: CATAPRES TAB 0.1 MG PO PRN (21:50)
[2020-10-04] MEDS: APRESOLINE INJ 20 MG VIAL IVP PRN (00:05)
[2020-10-04] MEDS: LOVENOX INJ 30 MG SYR SC SCH ×3 (00:16→21:23)
[2020-10-04] MEDS: DIPRIVAN PREMIX 1 GRAM IV 1,000 MG/100 ML VIAL IV PRN ×4 (01:00→22:41)
[2020-10-04] MEDS: NS 500 ML IV 500 ML IV PRN (01:20)
[2020-10-04] MEDS: CATAPRES TAB 0.1 MG PO PRN ×2 (03:50→18:47)
[2020-10-04 04:22] LABS: ABG BASE EXCESS 10.4 mmol/L (-2.0-2.0); ABG HCO3 34.3 mmol/L (22-26)
[2020-10-04] MEDS: SOLU-Medrol 40 MG VIAL IVP SCH ×3 (05:30→22:16)
[2020-10-04] MEDS: XOPENEX 1.25 MG/3 ML NEBULE NEB SCH ×3 (05:33→21:28)
[2020-10-04 05:42] LABS: ALANINE AMINOTRANSFERASE 33 Units/L (12-78); ALBUMIN 2.1 g/dL (3.4-5.0); ALKALINE PHOSPHATASE 46 Units/L (46-116); ASPARTATE AMINO TRANSFERASE 17 Units/L (15-37); BLOOD UREA NITROGEN 56 mg/dL (7-18); CALCIUM 8.2 mg/dL (8.5-10.1); CARBON DIOXIDE 30.6 mmol/L (21-32); COR CA(FOR HYPOALB) 9.7 mg/dL (8.5-10.1); COR NA(FOR HYPERGLY) 165 mmol/L (136-145); TOTAL PROTEIN 5.2 g/dL (6.4-8.2); eGFR NON BLACK RACES 59 (>60)
[2020-10-04 06:03] LABS: CHLORIDE 123 mmol/L (98-107); SODIUM 162 mmol/L (136-145)
[2020-10-04 06:05] LABS: BASOPHILS % (AUTO) 0.1 % (0.2-1.0); HEMATOCRIT 29.3 % (36.0-47.0); HEMOGLOBIN 9.1 g/dL (12.0-16.0); LYMPHOCYTES # (AUTO) 0.5 X10^3/uL (1.3-2.9); LYMPHOCYTES % (AUTO) 5.6 % (21.0-51.0); MEAN CORPUSCULAR HEMOGLOBIN 24.1 pg (27.0-34.0); MEAN CORPUSCULAR HGB CONC 31.1 g/dL (33.0-35.0); MEAN CORPUSCULAR VOLUME 77.2 fL (80.0-100.0); MEAN PLATELET VOLUME 8.5 fL (7.4-11.0); MONOCYTES # (AUTO) 0.5 x10^3/uL (0.3-0.8); MONOCYTES % (AUTO) 5.8 % (0.0-13.0); NEUTROPHILS # (AUTO) 8.3 x10^3/uL (2.2-4.8); NEUTROPHILS % (AUTO) 88.5 % (42.0-75.0); PLATELET COUNT 358 X10^3/uL (150.0-450.0); RED CELL DISTRIBUTION WIDTH 16.5 % (11.6-16.5); WHITE BLOOD COUNT 9.3 X10^3/uL (3.6-10.0)
[2020-10-04] MEDS: HumuLIN R SC PRN ×4 (06:36→21:24)
[2020-10-04 06:53] LABS: HYPOCHROMASIA SLIGHT
[2020-10-04 07:13] LABS: PLATELET MORPHOLOGY COMMENT NORMAL (NORMAL)
[2020-10-04 07:26] LABS: CHLORIDE 123 mmol/L (98-107)
--- NOTE | 2020-10-04 08:12 | RAD ---
HISTORYCOVID+STUDYCHEST, 1 [id number]/20/2020FINDINGSTracheostomy tube and nasogastric tube are unchanged. There is a righ t IJ catheter with the tip in the SVC. Stable heart size. There is a stable left lower lobe radiopaci ty. There is persistent effacement of the left diaphragm. There is also persistent right lower lobe r adiopacity. No evidence of pneumothorax or effusions.IMPRESSIONPersistent bibasal alveolar radiopacit ies with effacement of the diaphragm and patchy ground-glass radiopacities in the midlung zones. Tube s and lines are unchanged.Electronically signed by: Nicci Tran (Oct 04, 2020 08:10:14)
[2020-10-04] MEDS: MORPHINE SULFATE PCA 30 MG IVP PRN (08:25)
--- NOTE | 2020-10-04 08:49 | PCM.PROG ---
Progress Note - Progress Note for Day of Date of Exam: 10/01/20 - Subjective Subjective: WAS ADMITTED FOR PNEUMONIA DUE TO COVID-19, HYPOXIA, AND A URINARY TRACT INFECTION. TODAY, SHE IS LYING IN BED ON MORNING ROUNDS. SHE IS SEDATED. SHE IS CURRENTLY ON THE MECHANICAL VENTILLATOR WITH SETTINGS AC, VENT RATE 25, TIDAL VOLUME 450, PEAK FLOW 45, PEEP 7, FI02 30. HER OXYGEN SATURATIONS HAVE BEEN 99-100% ON THE VENT. HER VITALS THIS MORNING ARE: 98.0-49-25-99%-190/93. LABS WERE OBTAINED. ABNORMAL VALUES INCLUDE THE FOLLOWING: HGB 9.4, HCT 29.6, SODIUM 155, CHLORIDE 120, BUN 53, CREATININE 1.16, GLUCOSE 292, CRP 5.90, TOTAL PROTEIN 5.8, ALBUMIN 2.2. ABG REVEALED: PH 7.500, PC02 37, P02 109.0, HC03 28.9, 02 SAT 99, FI02 30.0. BLOOD CULTURES ARE PENDING. URINE CULTURE REVEALED GROWTH OF E.COLI. SPUTUM CULTURE REVEALED GROWTH OF ENTEROBACTER CLOACAAE AND KLEBSIELLA PNEUMONIAE. A CHEST XRAY WAS OBTAINED AND REVEALED: Stable multifocal infiltrates. SHE IS CURRENTLY RECEIVING NS AT 50 ML/HR, REMDESIVIR 100MG IV, DAILY, INVANZ 1G IV DAILY, SOLU-MEDROL 80MG IV Q8H, XOPENEX NEBS TID, PULMICORT NEBS BID, HUMULIN R SLIDING SCALE, LANTUS 36 UNITS SC DAILY, MORPHINE WIRE STRAIGHTENER, DIPROVAN DRIP, AND VERSED DRIP PER PROTOCOL FOR SEDATIONS. OTHERWISE, WE WILL CONTINUE WITH CURRENT PLAN OF CARE TODAY. WE PLAN TO FOLLOW UP WITH AM LABS, ABG, AND CHEST XRAY AND CONTINUE TO MONITOR. Time spent for clinical assessment, physical examination, reviewing labs/imaging and decision making more than 45 mins. - Past Medical Family Social History Past Med/Fam/Surg Hx: No changes since H&P Allergies: Allergies lisinopril Allergy (Verified 09/05/19 12:12) ciprofloxacin [From Cipro] Adverse Reaction (Verified 09/05/19 12:12) - Review of Systems ROS: No change since H&P - Vital Signs and I&O's Vital Signs: Temperature 97.5 F Pulse Rate [Left Radial] 75 Pulse Rate 61 Respiratory Rate 20 Blood Pressure [Left Radial 169/69 Artery] Blood Pressure [Left Arm] 152/77 Blood Pressure 209/89 O2 Sat by Pulse Oximetry 94 Intake and Output: Intake & Output 10/01/20 10/02/20 10/03/20 10/04/20 11:59 11:59 11:59 11:59 Intake Total 2366 / 2366 3475 / 3475 3285 / 3285 830 / 830 Output Total 2900 / 2900 5250 / 5250 3800 / 3800 3225 / 3225 Balance -534 / -534 -1775 / -1775 -515 / -515 -2395 / -2395 - Physical Exam Oriented: Normal Eyes: Normal Ear: Normal Nose: Normal Throat: Dry Respiratory: Generalized, Diminished Cardiovascular: Normal Auscultation: Bowel Sounds: Normal Tenderness: Normal Skin: Decreased Turgur Musculoskeletal: Normal Psychiatric: Normal Mood Description: Calm Affect: Normal Speech Pattern: Artificially Ventilated - Laboratory and Diagnostics Result Diagrams: 10/04/20 05:06 10/04/20 05:06 Labs: 09/24/20 20:28 Blood Blood Culture - Final 09/24/20 20:24 Blood Blood Culture - Final 09/27/20 13:40 Sputum - Endotracheal Wash Sputum Culture - Final Enterobacter Cloacae Klebsiella Pneumoniae 09/27/20 13:40 Sputum - Endotracheal Wash - Final 09/24/20 21:52 Urine,Clean Catch Urine Culture - Final Escherichia Coli Laboratory WBC 9.3 X10^3/uL (3.6-10.0) 10/04/20 05:06 RBC 3.80 X10^6/uL (3.5-5.4) 10/04/20 05:06 Hgb 9.1 g/dL (12.0-16.0) L 10/04/20 05:06 Hct 29.3 % (36.0-47.0) L 10/04/20 05:06 MCV 77.2 fL (80.0-100.0) L 10/04/20 05:06 MCH 24.1 pg (27.0-34.0) L 10/04/20 05:06 MCHC 31.1 g/dL (33.0-35.0) L 10/04/20 05:06 RDW 16.5 % (11.6-16.5) 10/04/20 05:06 Plt Count 358 X10^3/uL (150.0-450.0) 10/04/20 05:06 Plt Count Comment Adequate (ADEQUATE) 10/04/20 05:06 MPV 8.5 fL (7.4-11.0) 10/04/20 05:06 Neut % (Auto) 88.5 % (42.0-75.0) H 10/04/20 05:06 Lymph % (Auto) 5.6 % (21.0-51.0) L 10/04/20 05:06 Simpson % (Auto) 5.8 % (0.0-13.0) 10/04/20 05:06 Eos % (Auto) 0.0 % (0.9-2.9) L 10/04/20 05:06 Baso % (Auto) 0.1 % (0.2-1.0) L 10/04/20 05:06 Neut # (Auto) 8.3 x10^3/uL (2.2-4.8) H 10/04/20 05:06 Lymph # (Auto) 0.5 X10^3/uL (1.3-2.9) L 10/04/20 05:06 Simpson # (Auto) 0.5 x10^3/uL (0.3-0.8) 10/04/20 05:06 Eos # (Auto) 0.0 x10^3/uL (0.0-0.2) 10/04/20 05:06 Baso # (Auto) 0.0 X10^3/uL (0.0-0.1) 10/04/20 05:06 Absolute Nucleated RBC 0.0 /100WBC 10/04/20 05:06 Total Counted 100 09/29/20 04:45 Neutrophils % (Manual) 86 % (39-76) H 09/29/20 04:45 Lymphocytes % (Manual) 11 % (13-43) L 09/29/20 04:45 Monocytes % (Manual) 3 % (4-9) L 09/29/20 04:45 Plt Morphology Comment Normal (NORMAL) 10/04/20 05:06 RBC Morphology Abnormal (NORMAL) A 10/04/20 05:06 Dimorphic RBCs [employer]it[employer] Teacher 10/04/20 05:06 Hypochromasia Slight A 10/04/20 05:06 Poikilocytosis Slight A 09/24/20 20:24 Microcytosis Slight A 09/30/20 04:25 [place] Cells Present 09/25/20 05:49 Crenated Cell Slight A 10/01/20 04:20 PT 14.3 SECONDS (11.8-14.3) 09/24/20 20:24 INR Target Range - 09/24/20 20:24 INR 1.15 (0.8-1.3) 09/24/20 20:24 D-Dimer 2.18 ug/ml (0.0-0.57) H* 09/27/20 04:30 Sample Site Cristina 10/04/20 04:17 ABG pH 7.520 (7.35-7.45) H 10/04/20 04:17 ABG pCO2 42.0 mmHg (35.0-45.0) 10/04/20 04:17 ABG pO2 65.0 mmHg (80.0-100.0) L 10/04/20 04:17 ABG HCO3 34.3 mmol/L (22-26) H* 10/04/20 04:17 ABG O2 Saturation 95.0 % (90-100) 10/04/20 04:17 ABG Base Excess 10.4 mmol/L (-2.0-2.0) H 10/04/20 04:17 Alexx Test N/a 10/04/20 04:17 A-a Gradient 203.0 mmHg 10/04/20 04:17 FiO2 45.0 10/04/20 04:17 Blood Gas Comments Erwin well ae 10/04/20 04:17 Sodium 162 mmol/L (136-145) H* 10/04/20 05:06 Corrected Sodium 165 mmol/L (136-145) H 10/04/20 05:06 Potassium 3.3 mmol/L (3.5-5.1) L 10/04/20 05:06 Chloride 123 mmol/L (98-107) H* 10/04/20 05:06 Carbon Dioxide 30.6 mmol/L (21-32) 10/04/20 05:06 BUN 56 mg/dL (7-18) H 10/04/20 05:06 Creatinine 1.00 mg/dL (0.55-1.02) 10/04/20 05:06 Est GFR (MDRD) Af Amer > 60 (>60) 10/04/20 05:06 Est GFR (MDRD) Non-Af 59 (>60) 10/04/20 05:06 Glucose 220 mg/dL (65-99) H 10/04/20 05:06 POC Glucose (mg/dL) 195 mg/dL (65-99) H 10/04/20 05:06 Lactic Acid 1.5 mmol/L (0.4-2.0) 09/24/20 21:56 Calcium 8.2 mg/dL (8.5-10.1) L 10/04/20 05:06 Corrected Calcium 9.7 mg/dL (8.5-10.1) 10/04/20 05:06 Magnesium 2.8 mg/dL (1.7-2.9) 10/04/20 05:06 Ferritin 179 ng/mL (8-252) 10/03/20 05:09 Total Bilirubin 0.40 mg/dL (0.2-1.0) 10/04/20 05:06 AST 17 Units/L (15-37) 10/04/20 05:06 ALT 33 Units/L (12-78) 10/04/20 05:06 Alkaline Phosphatase 46 Units/L (46-116) 10/04/20 05:06 Creatine Kinase 78 Units/L (26-192) 09/25/20 16:10 CK-MB (CK-2) < 1.0 ng/mL (0-4.0) 09/25/20 16:10 CK/CKMB % Calc 1.3 % (<4) 09/25/20 16:10 Troponin I < 0.02 ng/mL (0-1.5) 09/25/20 16:10 C-Reactive Protein 1.50 mg/L (0-3.0) 10/04/20 05:06 B-Natriuretic Peptide 637 pg/mL (0-79) H* 09/24/20 20:24 Total Protein 5.2 g/dL (6.4-8.2) L 10/04/20 05:06 Albumin 2.1 g/dL (3.4-5.0) L 10/04/20 05:06 Globulin 3.1 g/dL (2.5-4.5) 10/04/20 05:06 Albumin/Globulin Ratio 0.7 Ratio (1.1-2.1) L 10/04/20 05:06 Prealbumin 18.8 mg/dL (18-35.7) 09/30/20 04:25 Specimen Type Clean catch urine 09/24/20 21:52 Urine Color Mabel (YELLOW) 09/24/20 21:52 Urine Appearance Slightly hazy (CLEAR) 09/24/20 21:52 Urine pH 5.0 (5.0 - 8.0) 09/24/20 21:52 Ur Specific [place] 1.015 (1.000-1.030) 09/24/20 21:52 Urine Protein 1+ (NEGATIVE) 09/24/20 21:52 Urine Glucose (UA) 3+ (NEGATIVE) 09/24/20 21:52 Urine Ketones Negative (NEGATIVE) 09/24/20 21:52 Urine Occult Blood 1+ (NEGATIVE) 09/24/20 21:52 Urine Nitrite Positive (NEGATIVE) 09/24/20 21:52 Urine Bilirubin Negative (NEGATIVE) 09/24/20 21:52 Urine Acetone Negative (NEGATIVE) 09/27/20 11:53 Urine Urobilinogen 1+ (NORMAL) 09/24/20 21:52 Ur Leukocyte Esterase 1+ (NEGATIVE) 09/24/20 21:52 Urine RBC 3-5 /HPF (0-3) A 09/24/20 21:52 Urine WBC 5-10 /HPF (0-5) A 09/24/20 21:52 Ur Squamous Epith Cells Few /HPF (NEGATIVE) 09/24/20 21:52 Urine Bacteria 2+ /HPF (NEGATIVE) 09/24/20 21:52 Ur Culture Indicated? Yes/culture set up 09/24/20 21:52 Influenza Type A (PCR) Negative (NEGATIVE) 09/24/20 22:20 Influenza Type B (PCR) Negative (NEGATIVE) 09/24/20 22:20 SARS CoV-2 RNA Rapid MICK Positive (NEGATIVE) A 09/24/20 22:20 Blood Type A POSITIVE 09/26/20 12:21 - Plan (1) Pneumonia due to 2019 novel coronavirus Status: Acute Plan: NS AT 50 ML/HR, REMDESIVIR 100MG IV DAILY, INVANZ 1G IV DAILY, SOLU-MEDROL 80MG IV Q8H, XOPENEX NEBS TID, PULMICORT NEBS BID, HUMULIN R SLIDING SCALE, LANTUS 36 UNITS SC DAILY. MECHANICAL VENTILATION (2) Acute respiratory failure with hypoxia Status: Acute (3) Diabetes mellitus Status: Acute Qualifiers: Diabetes mellitus type: type 2 Diabetes mellitus terminal make up operator insulin use: unspecified snf insulin use status Diabetes mellitus complication status: with other specified complication Qualified Code(s): E11.69 - Type 2 diabetes mellitus with other specified complication
[2020-10-04] MEDS: COZAAR PO SCH (09:19)
[2020-10-04] MEDS: SYNTHROID INJ 100 mcg VIAL IVP SCH (09:19)
[2020-10-04] MEDS: NORVASC TAB 10 MG PO SCH (09:19)
[2020-10-04] MEDS: LANTUS SC SCH (09:20)
[2020-10-04] MEDS: XANAX PO PRN ×2 (09:20→14:30)
[2020-10-04] MEDS: INVANZ INJ 1 GM VIAL 1 GM in NS 100 ML IV + SPIKE MINIBAG* 100 ML IV SCH (09:21)
[2020-10-04] MEDS: LACRI-LUBE S.O.P. AFFEYE SCH ×2 (09:21→21:22)
[2020-10-04] MEDS: PULMICORT NEB TX 0.5 MG NEB SCH ×2 (09:36→21:28)
[2020-10-04] MEDS: REMDESIVIR 100 MG in NS 250 ML IV 250 ML IV SCH (10:23)
[2020-10-04] MEDS: NS 1/2 1000 ML IV 1,000 ML IV SCH (13:36)
[2020-10-04] MEDS: VERSED 100 MG in NS 100 ML IV 80 ML IV PRN (17:00)
[2020-10-04] MEDS: SNACK - Diabetic Appropriate PO SCH (21:22)
[2020-10-05] MEDS: MORPHINE SULFATE PCA 30 MG IVP PRN ×2 (00:32→16:40)
[2020-10-05] MEDS: APRESOLINE INJ 20 MG VIAL IVP PRN ×3 (01:07→23:56)
[2020-10-05 05:00] LABS: ABG BASE EXCESS 8.2 mmol/L (-2.0-2.0)
[2020-10-05] MEDS: XOPENEX 1.25 MG/3 ML NEBULE NEB SCH ×3 (05:00→20:20)
[2020-10-05] MEDS: SOLU-Medrol 40 MG VIAL IVP SCH ×3 (05:00→21:41)
[2020-10-05 05:01] LABS: ABG HCO3 31.9 mmol/L (22-26)
[2020-10-05] MEDS: HumuLIN R SC PRN ×2 (05:37→12:29)
[2020-10-05] MEDS: DIPRIVAN PREMIX 1 GRAM IV 1,000 MG/100 ML VIAL IV PRN (05:41)
[2020-10-05 06:17] LABS: BASOPHILS % (AUTO) 0.3 % (0.2-1.0); HEMOGLOBIN 9.3 g/dL (12.0-16.0); LYMPHOCYTES # (AUTO) 0.8 X10^3/uL (1.3-2.9); LYMPHOCYTES % (AUTO) 7.1 % (21.0-51.0); MEAN CORPUSCULAR HEMOGLOBIN 24.4 pg (27.0-34.0); MEAN CORPUSCULAR HGB CONC 31.9 g/dL (33.0-35.0); MEAN CORPUSCULAR VOLUME 76.6 fL (80.0-100.0); MEAN PLATELET VOLUME 8.6 fL (7.4-11.0); MONOCYTES # (AUTO) 0.5 x10^3/uL (0.3-0.8); MONOCYTES % (AUTO) 4.3 % (0.0-13.0); NEUTROPHILS # (AUTO) 9.5 x10^3/uL (2.2-4.8); NEUTROPHILS % (AUTO) 88.3 % (42.0-75.0); PLATELET COUNT 331 X10^3/uL (150.0-450.0); RED BLOOD COUNT 3.79 X10^6/uL (3.5-5.4); RED CELL DISTRIBUTION WIDTH 16.2 % (11.6-16.5); WHITE BLOOD COUNT 10.7 X10^3/uL (3.6-10.0)
[2020-10-05 06:24] LABS: ALANINE AMINOTRANSFERASE 36 Units/L (12-78); ALBUMIN 2.1 g/dL (3.4-5.0); ALKALINE PHOSPHATASE 46 Units/L (46-116); ASPARTATE AMINO TRANSFERASE 15 Units/L (15-37); BLOOD UREA NITROGEN 60 mg/dL (7-18); CALCIUM 8.3 mg/dL (8.5-10.1); CARBON DIOXIDE 29.8 mmol/L (21-32); COR CA(FOR HYPOALB) 9.8 mg/dL (8.5-10.1); COR NA(FOR HYPERGLY) 163 mmol/L (136-145); CREATININE 0.99 mg/dL (0.55-1.02); TOTAL PROTEIN 5.3 g/dL (6.4-8.2); eGFR NON BLACK RACES 60 (>60)
[2020-10-05 06:35] LABS: CHLORIDE 123 mmol/L (98-107); SODIUM 160 mmol/L (136-145)
--- NOTE | 2020-10-05 07:11 | RAD ---
HISTORYFollow-up COVID-19STUDYChest AP [id number] is rotated to the left. There is an endotracheal tube in good position. There is a nasogastric tube coursing below the left hemidiaphragm. Its tip is not visi ble. There is a right IJ line in good position. The heart remains enlarged. No congestive heart failu re is noted. Hazy infiltrates are present in the lower half of the right lung unchanged from the prio r examination. There is improved aeration of the left lung when compared with the prior examination. No definite pleural effusions are identified. Bony thorax is unremarkable.IMPRESSIONNo change cardiom egaly without congestive heart failureNo change hazy infiltrates lower half of the right lungImproved aeration of the left lung when compared to the prior examinationElectronically signed by: CHOLO WAITE (Oct 05, 2020 07:09:52)
[2020-10-05 07:22] LABS: HYPOCHROMASIA SLIGHT; PLATELET MORPHOLOGY COMMENT NORMAL (NORMAL)
[2020-10-05] MEDS: LACRI-LUBE S.O.P. AFFEYE SCH ×2 (09:15→21:38)
[2020-10-05] MEDS: LANTUS SC SCH (09:15)
[2020-10-05] MEDS: COZAAR PO SCH (09:15)
[2020-10-05] MEDS: INVANZ INJ 1 GM VIAL 1 GM in NS 100 ML IV + SPIKE MINIBAG* 100 ML IV SCH (09:15)
[2020-10-05] MEDS: SYNTHROID INJ 100 mcg VIAL IVP SCH (09:17)
[2020-10-05] MEDS: NORVASC TAB 10 MG PO SCH (09:17)
[2020-10-05] MEDS: PULMICORT NEB TX 0.5 MG NEB SCH ×2 (09:42→20:20)
[2020-10-05] MEDS: LOVENOX INJ 30 MG SYR SC SCH ×2 (12:27→21:38)
--- NOTE | 2020-10-05 16:01 | PCM.PROG ---
Progress Note - Progress Note for Day of Date of Exam: 10/04/20 - Subjective Subjective: WAS ADMITTED FOR PNEUMONIA DUE TO COVID-19, HYPOXIA, AND A URINARY TRACT INFECTION. TODAY, SHE IS LYING IN BED ON MORNING ROUNDS. SHE IS SEDATED. SHE IS CURRENTLY ON THE MECHANICAL VENTILLATOR WITH SETTINGS AC, VENT RATE 20, TIDAL VOLUME 450, PEAK FLOW 45, PEEP 10, FI02 40. HER OXYGEN SATURATIONS HAVE BEEN 90-94% ON THE VENT. THERE IS AN NG TUBE IN PLACE FOR TREATMENT OF HYPERNATREMIA WELL TUBE FEEDINGS. SHE IS RECEIVING FREE WATER THROUGH THE NG TUBE. ON EXAMINATION, SHE CONTINUES TO BE BRADYCARDIC. BILATERAL LUNGS ARE NOTED WITH DIMINISHED LUNG SOUNDS THROUGHOUT. ABDOMEN IS ROUND, SOFT, AND NON-TENDER WITH HYPERACTIVE BOWEL SOUNDS NOTED IN ALL QUADRANTS. THERE IS 1+ PITTING EDEMA TO UPPER AND LOWER EXTREMITIES. A GARCIA CATHETER IS NOTED TO BEDSIDE DREAINAGE. HER VITALS THIS MORNING ARE: 99.0-58-20-92%-196/84. LABS WERE OBTAINED. ABNORMAL VALUES INCLUDE THE FOLLOWING: HGB 9.1, HCT 29.3, SODIUM 162, POTASSIUM 3.3, CHLORIDE 123, BUN 56, GLUCOSE 220, CALCIUM 8.2, TOTAL PROTEIN 5.2, ALBUMIN 2.1. ABG REVEALED: PH 7.520, PC02 42, P02 65, HC03 34.3, 02 SAT 95, FI02 45. BLOOD CULTURES ARE PENDING. URINE CULTURE REVEALED GROWTH OF E.COLI. SPUTUM CULTURE REVEALED GROWTH OF ENTEROBACTER CLOACAAE AND KLEBSIELLA PNEUMONIAE. A CHEST XRAY WAS OBTAINED AND REVEALED: Persistent bibasal alveolar radiopacities with effacement of the diaphragm and patchy ground-glass radio pacities in the midlung zones. Tubes and lines are unchanged. SHE IS CURRENTLY RECEIVING NS AT 75 ML/HR, REMDESIVIR 100MG IV, DAILY, INVANZ 1G IV DAILY, SOLU- MEDROL 80MG IV Q8H, XOPENEX NEBS TID, PULMICORT NEBS BID, HUMULIN R SLIDING SCALE, LANTUS 36 UNITS DAILY, A CATAPRES PATCH, APRESOLINE 10MG IV Q4H PRN, MORPHINE ASSEMBLY ASSOCIATE, DIPROVAN DRIP, AND VERSED DRIP PER PROTOCOL FOR SEDATIONS. WE WILL CONTINUE WITH CURRENT PLAN OF CARE TODAY AND ATTEMPT TO WEAN FROM THE VENT. OTHERWISE, WE PLAN TO FOLLOW UP WITH AM LABS, ABG, AND CHEST XRAY AND CONTINUE TO MONITOR. Time spent for clinical assessment, physical examination, reviewing labs/imaging and decision making more than 45 mins. - Past Medical Family Social History Past Med/Fam/Surg Hx: No changes since H&P Allergies: Allergies lisinopril Allergy (Verified 09/05/19 12:12) ciprofloxacin [From Cipro] Adverse Reaction (Verified 09/05/19 12:12) - Review of Systems ROS: No change since H&P - Vital Signs and I&O's Vital Signs: Temperature 98.7 F Pulse Rate [Left Radial] 75 Pulse Rate 63 Respiratory Rate 18 Blood Pressure [Left Radial 153/53 Artery] Blood Pressure [Left Arm] 152/77 Blood Pressure 199/85 O2 Sat by Pulse Oximetry 91 Intake and Output: Intake & Output 10/03/20 10/04/20 10/05/20 10/06/20 11:59 11:59 11:59 11:59 Intake Total 3285 / 3285 930 / 930 2576 / 2596 1299 / 1299 Output Total 3800 / 3800 3225 / 3225 1900 / 1900 900 / 900 Balance -515 / -515 -2295 / -2295 676 / 696 399 / 399 - Physical Exam Oriented: Normal Eyes: Normal Ear: Normal Nose: Normal Throat: Dry Respiratory: Generalized, Diminished Cardiovascular: Normal Auscultation: Bowel Sounds: Normal Tenderness: Normal Skin: Decreased Turgur Musculoskeletal: Normal Psychiatric: Normal Mood Description: Calm Affect: Normal Speech Pattern: Artificially Ventilated - Laboratory and Diagnostics Result Diagrams: 10/05/20 05:20 10/05/20 05:20 Labs: 09/24/20 20:28 Blood Blood Culture - Final 09/24/20 20:24 Blood Blood Culture - Final 09/27/20 13:40 Sputum - Endotracheal Wash Sputum Culture - Final Enterobacter Cloacae Klebsiella Pneumoniae 09/27/20 13:40 Sputum - Endotracheal Wash - Final 09/24/20 21:52 Urine,Clean Catch Urine Culture - Final Escherichia Coli Laboratory WBC 10.7 X10^3/uL (3.6-10.0) H 10/05/20 05:20 RBC 3.79 X10^6/uL (3.5-5.4) 12/22/20 05:20 Hgb 9.3 g/dL (12.0-16.0) L 10/05/20 05:20 Hct 29.0 % (36.0-47.0) L 10/05/20 05:20 MCV 76.6 fL (80.0-100.0) L 10/05/20 05:20 MCH 24.4 pg (27.0-34.0) L 10/05/20 05:20 MCHC 31.9 g/dL (33.0-35.0) L 10/05/20 05:20 RDW 16.2 % (11.6-16.5) 10/05/20 05:20 Plt Count 331 X10^3/uL (150.0-450.0) 10/05/20 05:20 Plt Count Comment Adequate (ADEQUATE) 10/05/20 05:20 MPV 8.6 fL (7.4-11.0) 10/05/20 05:20 Neut % (Auto) 88.3 % (42.0-75.0) H 10/05/20 05:20 Lymph % (Auto) 7.1 % (21.0-51.0) L 10/05/20 05:20 Cook % (Auto) 4.3 % (0.0-13.0) 10/05/20 05:20 Eos % (Auto) 0.0 % (0.9-2.9) L 10/05/20 05:20 Baso % (Auto) 0.3 % (0.2-1.0) 10/05/20 05:20 Neut # (Auto) 9.5 x10^3/uL (2.2-4.8) H 10/05/20 05:20 Lymph # (Auto) 0.8 X10^3/uL (1.3-2.9) L 10/05/20 05:20 Cook # (Auto) 0.5 x10^3/uL (0.3-0.8) 10/05/20 05:20 Eos # (Auto) 0.0 x10^3/uL (0.0-0.2) 10/05/20 05:20 Baso # (Auto) 0.0 X10^3/uL (0.0-0.1) 10/05/20 05:20 Absolute Nucleated RBC 0.0 /100WBC 10/05/20 05:20 Total Counted 100 09/29/20 04:45 Neutrophils % (Manual) 86 % (39-76) H 09/29/20 04:45 Lymphocytes % (Manual) 11 % (13-43) L 09/29/20 04:45 Monocytes % (Manual) 3 % (4-9) L 09/29/20 04:45 Plt Morphology Comment Normal (NORMAL) 10/05/20 05:20 RBC Morphology Abnormal (NORMAL) A 10/05/20 05:20 Dimorphic RBCs Manager Man[employer] 10/04/20 05:06 Hypochromasia Slight A 10/05/20 05:20 Poikilocytosis Slight A 09/24/20 20:24 Microcytosis Slight A 09/30/20 04:25 Symsonia Cells Present 09/25/20 05:49 Crenated Cell Slight A 10/01/20 04:20 PT 14.3 SECONDS (11.8-14.3) 09/24/20 20:24 INR Target Range - 09/24/20 20:24 INR 1.15 (0.8-1.3) 09/24/20 20:24 D-Dimer 2.18 ug/ml (0.0-0.57) H* 09/27/20 04:30 Sample Site A line 10/05/20 05:00 ABG pH 7.510 (7.35-7.45) H 10/05/20 05:00 ABG pCO2 40.0 mmHg (35.0-45.0) 10/05/20 05:00 ABG pO2 69.0 mmHg (80.0-100.0) L 10/05/20 05:00 ABG HCO3 31.9 mmol/L (22-26) H* 10/05/20 05:00 ABG O2 Saturation 95.0 % (90-100) 10/05/20 05:00 ABG Base Excess 8.2 mmol/L (-2.0-2.0) H 10/05/20 05:00 Alexx Test Na 10/05/20 05:00 A-a Gradient 202.0 mmHg 10/05/20 05:00 FiO2 45.0 10/05/20 05:00 Blood Gas Comments Erwin well sw 10/05/20 05:00 Sodium 160 mmol/L (136-145) H* 10/05/20 05:20 Corrected Sodium 163 mmol/L (136-145) H 10/05/20 05:20 Potassium 3.7 mmol/L (3.5-5.1) 10/05/20 05:20 Chloride 123 mmol/L (98-107) H* 10/05/20 05:20 Carbon Dioxide 29.8 mmol/L (21-32) 10/05/20 05:20 BUN 60 mg/dL (7-18) H 10/05/20 05:20 Creatinine 0.99 mg/dL (0.55-1.02) 10/05/20 05:20 Est GFR (MDRD) Af Amer > 60 (>60) 10/05/20 05:20 Est GFR (MDRD) Non-Af 60 (>60) 10/05/20 05:20 Glucose 222 mg/dL (65-99) H 10/05/20 05:20 POC Glucose (mg/dL) 184 mg/dL (65-99) H 10/05/20 12:00 Lactic Acid 1.5 mmol/L (0.4-2.0) 09/24/20 21:56 Calcium 8.3 mg/dL (8.5-10.1) L 10/05/20 05:20 Corrected Calcium 9.8 mg/dL (8.5-10.1) 10/05/20 05:20 Magnesium 2.8 mg/dL (1.7-2.9) 10/04/20 05:06 Ferritin 178 ng/mL (8-252) 10/05/20 05:20 Total Bilirubin 0.40 mg/dL (0.2-1.0) 10/05/20 05:20 AST 15 Units/L (15-37) 10/05/20 05:20 ALT 36 Units/L (12-78) 10/05/20 05:20 Alkaline Phosphatase 46 Units/L (46-116) 10/05/20 05:20 Creatine Kinase 78 Units/L (26-192) 09/25/20 16:10 CK-MB (CK-2) < 1.0 ng/mL (0-4.0) 09/25/20 16:10 CK/CKMB % Calc 1.3 % (<4) 09/25/20 16:10 Troponin I < 0.02 ng/mL (0-1.5) 09/25/20 16:10 C-Reactive Protein 0.60 mg/L (0-3.0) 10/05/20 05:20 B-Natriuretic Peptide 637 pg/mL (0-79) H* 09/24/20 20:24 Total Protein 5.3 g/dL (6.4-8.2) L 10/05/20 05:20 Albumin 2.1 g/dL (3.4-5.0) L 10/05/20 05:20 Globulin 3.2 g/dL (2.5-4.5) 10/05/20 05:20 Albumin/Globulin Ratio 0.7 Ratio (1.1-2.1) L 10/05/20 05:20 Prealbumin 18.8 mg/dL (18-35.7) 09/30/20 04:25 Specimen Type Clean catch urine 09/24/20 21:52 Urine Color Mabel (YELLOW) 09/24/20 21:52 Urine Appearance Slightly hazy (CLEAR) 09/24/20 21:52 Urine pH 5.0 (5.0 - 8.0) 09/24/20 21:52 Ur Specific [place] 1.015 (1.000-1.030) 09/24/20 21:52 Urine Protein 1+ (NEGATIVE) 09/24/20 21:52 Urine Glucose (UA) 3+ (NEGATIVE) 09/24/20 21:52 Urine Ketones Negative (NEGATIVE) 09/24/20 21:52 Urine Occult Blood 1+ (NEGATIVE) 09/24/20 21:52 Urine Nitrite Positive (NEGATIVE) 09/24/20 21:52 Urine Bilirubin Negative (NEGATIVE) 09/24/20 21:52 Urine Acetone Negative (NEGATIVE) 09/27/20 11:53 Urine Urobilinogen 1+ (NORMAL) 09/24/20 21:52 Ur Leukocyte Esterase 1+ (NEGATIVE) 09/24/20 21:52 Urine RBC 3-5 /HPF (0-3) A 09/24/20 21:52 Urine WBC 5-10 /HPF (0-5) A 09/24/20 21:52 Ur Squamous Epith Cells Few /HPF (NEGATIVE) 09/24/20 21:52 Urine Bacteria 2+ /HPF (NEGATIVE) 09/24/20 21:52 Ur Culture Indicated? Yes/culture set up 09/24/20 21:52 Influenza Type A (PCR) Negative (NEGATIVE) 09/24/20 22:20 Influenza Type B (PCR) Negative (NEGATIVE) 09/24/20 22:20 SARS CoV-2 RNA Rapid MICK Positive (NEGATIVE) A 09/24/20 22:20 Blood Type A POSITIVE 09/26/20 12:21 - Plan (1) Pneumonia due to 2019 novel coronavirus Status: Acute Plan: NS AT 50 ML/HR, REMDESIVIR 100MG IV DAILY, INVANZ 1G IV DAILY, SOLU-MEDROL 80MG IV Q8H, XOPENEX NEBS TID, PULMICORT NEBS BID, HUMULIN R SLIDING SCALE, LANTUS 36 UNITS SC DAILY. MECHANICAL VENTILATION (2) Acute respiratory failure with hypoxia Status: Acute (3) Diabetes mellitus Status: Acute Qualifiers: Diabetes mellitus type: type 2 Diabetes mellitus halfway insulin use: unspecified halfway insulin use status Diabetes mellitus complication status : with other specified complication Qualified Code(s): E11.69 - Type 2 diabetes mellitus with other specified complication
--- NOTE | 2020-10-05 16:29 | PCM.PROG ---
Progress Note - Progress Note for Day of Date of Exam: 10/05/20 - Subjective Subjective: WAS ADMITTED FOR PNEUMONIA DUE TO COVID-19, HYPOXIA, AND A URINARY TRACT INFECTION. TODAY, SHE IS LYING IN BED ON MORNING ROUNDS. SHE IS SEDATED. SHE IS CURRENTLY ON THE MECHANICAL VENTILLATOR WITH SETTINGS AC, VENT RATE 20, TIDAL VOLUME 450, PEAK FLOW 45, PEEP 10, FI02 40. HER OXYGEN SATURATIONS HAVE BEEN 92-94% ON THE VENT. THERE IS AN NG TUBE IN PLACE FOR TREATMENT OF HYPERNATREMIA WELL TUBE FEEDINGS. SHE IS RECEIVING FREE WATER THROUGH THE NG TUBE. ON EXAMINATION, SHE CONTINUES TO BE BRADYCARDIC WITH HR 50- 60. BILATERAL LUNGS ARE NOTED WITH DIMINISHED LUNG SOUNDS THROUGHOUT. ABDOMEN IS ROUND, SOFT, AND NON-TENDER WITH HYPERACTIVE BOWEL SOUNDS NOTED IN ALL QUADRANTS. THERE IS 1+ PITTING EDEMA TO UPPER AND LOWER EXTREMITIES. A GARCIA CATHETER IS NOTED TO BEDSIDE DREAINAGE. HER VITALS THIS MORNING ARE: 98.7-60-20-94%NC-174/68. LABS WERE OBTAINED. ABNORMAL VALUES INCLUDE THE FOLLOWING: WBC 10.7, HGB 9.3, HCT 29.0, SODIUM 160, CHLORIDE 123, BUN 60, GLUCOSE 222, CALCIUM 8.2, TOTAL PROTEIN 5.3, ALBUMIN 2.1. ABG REVEALED: PH 7.510, PC02 40, P02 69, HC03 31.9, 02 SAT 95, BASE EXCESS 8.2, FI02 45. BLOOD CULTURES ARE PENDING. URINE CULTURE REVEALED GROWTH OF E.COLI. SPUTUM CULTURE REVEALED GROWTH OF ENTEROBACTER CLOACAAE AND KLEBSIELLA PNEUMONIAE. A CHEST XRAY WAS OBTAINED AND REVEALED: No change cardiomegaly without congestive heart failure. No change hazy infiltrates lower half of the right lung. Improved aeration of the left lung when compared to the prior examination. SHE IS CURRENTLY RECEIVING NS AT 75 ML/HR, REMDESIVIR 100MG IV, DAILY, INVANZ 1G IV DAILY, SOLU-MEDROL 80MG IV Q8H, XOPENEX NEBS TID, PULMICORT NEBS BID, HUMULIN R SLIDING SCALE, LANTUS 36 UNITS DAILY, A CATAPRES PATCH, APRESOLINE 10MG IV Q4H PRN, MORPHINE AQUACULTURE FARMER, DIPROVAN DRIP, AND VERSED DRIP PER PROTOCOL FOR SEDATIONS. WE WILL CONTINUE WITH CURRENT PLAN OF CARE TODAY AND CONTINUE TO WEAN FROM THE VENT. OTHERWISE, WE PLAN TO FOLLOW UP WITH AM LABS, ABG, AND CHEST XRAY AND CONTINUE TO MONITOR. Time spent for clinical assessment, physical examination, reviewing labs/imaging and decision making more than 45 mins. - Past Medical Family Social History Past Med/Fam/Surg Hx: No changes since H&P Allergies: Allergies lisinopril Allergy (Verified 09/05/19 12:12) ciprofloxacin [From Cipro] Adverse Reaction (Verified 09/05/19 12:12) - Review of Systems ROS: No change since H&P - Vital Signs and I&O's Vital Signs: Temperature 98.7 F Pulse Rate [Left Radial] 75 Pulse Rate 63 Respiratory Rate 18 Blood Pressure [Left Radial 153/53 Artery] Blood Pressure [Left Arm] 152/77 Blood Pressure 199/85 O2 Sat by Pulse Oximetry 91 Intake and Output: Intake & Output 10/03/20 10/04/20 10/05/20 10/06/20 11:59 11:59 11:59 11:59 Intake Total 3285 / 3285 930 / 930 2576 / 2596 1299 / 1299 Output Total 3800 / 3800 3225 / 3225 1900 / 1900 900 / 900 Balance -515 / -515 -2295 / -2295 676 / 696 399 / 399 - Physical Exam Oriented: Normal Eyes: Normal Ear: Normal Nose: Normal Throat: Dry Respiratory: Generalized, Diminished Cardiovascular: Normal : Normal Auscultation: Bowel Sounds: Normal Palpation: Normal Tenderness: Normal Skin: Decreased Turgur Musculoskeletal: Normal Psychiatric: Normal Mood Description: Calm Affect: Normal Speech Pattern: Artificially Ventilated - Laboratory and Diagnostics Result Diagrams: 10/05/20 05:20 10/05/20 05:20 Labs: 09/24/20 20:28 Blood Blood Culture - Final 09/24/20 20:24 Blood Blood Culture - Final 09/27/20 13:40 Sputum - Endotracheal Wash Sputum Culture - Final Enterobacter Cloacae Klebsiella Pneumoniae 09/27/20 13:40 Sputum - Endotracheal Wash - Final 09/24/20 21:52 Urine,Clean Catch Urine Culture - Final Escherichia Coli Laboratory WBC 10.7 X10^3/uL (3.6-10.0) H 10/05/20 05:20 RBC 3.79 X10^6/uL (3.5-5.4) 10/05/20 05:20 Hgb 9.3 g/dL (12.0-16.0) L 10/05/20 05:20 Hct 29.0 % (36.0-47.0) L 10/05/20 05:20 MCV 76.6 fL (80.0-100.0) L 10/05/20 05:20 MCH 24.4 pg (27.0-34.0) L 10/05/20 05:20 MCHC 31.9 g/dL (33.0-35.0) L 10/05/20 05:20 RDW 16.2 % (11.6-16.5) 10/05/20 05:20 Plt Count 331 X10^3/uL (150.0-450.0) 10/05/20 05:20 Plt Count Comment Adequate (ADEQUATE) 10/05/20 05:20 MPV 8.6 fL (7.4-11.0) 10/05/20 05:20 Neut % (Auto) 88.3 % (42.0-75.0) H 10/05/20 05:20 Lymph % (Auto) 7.1 % (21.0-51.0) L 10/05/20 05:20 [place] % (Auto) 4.3 % (0.0-13.0) 10/05/20 05:20 Eos % (Auto) 0.0 % (0.9-2.9) L 10/05/20 05:20 Baso % (Auto) 0.3 % (0.2-1.0) 10/05/20 05:20 Neut # (Auto) 9.5 x10^3/uL (2.2-4.8) H 10/05/20 05:20 Lymph # (Auto) 0.8 X10^3/uL (1.3-2.9) L 10/05/20 05:20 [place] # (Auto) 0.5 x10^3/uL (0.3-0.8) 10/05/20 05:20 Eos # (Auto) 0.0 x10^3/uL (0.0-0.2) 10/05/20 05:20 Baso # (Auto) 0.0 X10^3/uL (0.0-0.1) 10/05/20 05:20 Absolute Nucleated RBC 0.0 /100WBC 10/05/20 05:20 Total Counted 100 09/29/20 04:45 Neutrophils % (Manual) 86 % (39-76) H 09/29/20 04:45 Lymphocytes % (Manual) 11 % (13-43) L 09/29/20 04:45 Monocytes % (Manual) 3 % (4-9) L 09/29/20 04:45 Plt Morphology Comment Normal (NORMAL) 10/05/20 05:20 RBC Morphology Abnormal (NORMAL) A 10/05/20 05:20 Dimorphic RBCs Soda Room Operator 10/04/20 05:06 Hypochromasia Slight A 10/05/20 05:20 Poikilocytosis Slight A 09/24/20 20:24 Microcytosis Slight A 09/30/20 04:25 [place] Cells Present 09/25/20 05:49 Crenated Cell Slight A 10/01/20 04:20 PT 14.3 SECONDS (11.8-14.3) 09/24/20 20:24 INR Target Range - 09/24/20 20:24 INR 1.15 (0.8-1.3) 09/24/20 20:24 D-Dimer 2.18 ug/ml (0.0-0.57) H* 09/27/20 04:30 Sample Site A line 10/05/20 05:00 ABG pH 7.510 (7.35-7.45) H 10/05/20 05:00 ABG pCO2 40.0 mmHg (35.0-45.0) 10/05/20 05:00 ABG pO2 69.0 mmHg (80.0-100.0) L 10/05/20 05:00 ABG HCO3 31.9 mmol/L (22-26) H* 10/05/20 05:00 ABG O2 Saturation 95.0 % (90-100) 10/05/20 05:00 ABG Base Excess 8.2 mmol/L (-2.0-2.0) H 10/05/20 05:00 Alexx Test Na 10/05/20 05:00 A-a Gradient 202.0 mmHg 10/05/20 05:00 FiO2 45.0 10/05/20 05:00 Blood Gas Comments Erwin well sw 10/05/20 05:00 Sodium 160 mmol/L (136-145) H* 10/05/20 05:20 Corrected Sodium 163 mmol/L (136-145) H 10/05/20 05:20 Potassium 3.7 mmol/L (3.5-5.1) 10/05/20 05:20 Chloride 123 mmol/L (98-107) H* 10/05/20 05:20 Carbon Dioxide 29.8 mmol/L (21-32) 10/05/20 05:20 BUN 60 mg/dL (7-18) H 10/05/20 05:20 Creatinine 0.99 mg/dL (0.55-1.02) 10/05/20 05:20 Est GFR (MDRD) Af Amer > 60 (>60) 10/05/20 05:20 Est GFR (MDRD) Non-Af 60 (>60) 10/05/20 05:20 Glucose 222 mg/dL (65-99) H 10/05/20 05:20 POC Glucose (mg/dL) 184 mg/dL (65-99) H 10/05/20 12:00 Lactic Acid 1.5 mmol/L (0.4-2.0) 09/24/20 21:56 Calcium 8.3 mg/dL (8.5-10.1) L 10/05/20 05:20 Corrected Calcium 9.8 mg/dL (8.5-10.1) 10/05/20 05:20 Magnesium 2.8 mg/dL (1.7-2.9) 10/04/20 05:06 Ferritin 178 ng/mL (8-252) 10/05/20 05:20 Total Bilirubin 0.40 mg/dL (0.2-1.0) 10/05/20 05:20 AST 15 Units/L (15-37) 10/05/20 05:20 ALT 36 Units/L (12-78) 10/05/20 05:20 Alkaline Phosphatase 46 Units/L (46-116) 10/05/20 05:20 Creatine Kinase 78 Units/L (26-192) 09/25/20 16:10 CK-MB (CK-2) < 1.0 ng/mL (0-4.0) 09/25/20 16:10 CK/CKMB % Calc 1.3 % (<4) 09/25/20 16:10 Troponin I < 0.02 ng/mL (0-1.5) 09/25/20 16:10 C-Reactive Protein 0.60 mg/L (0-3.0) 10/05/20 05:20 B-Natriuretic Peptide 637 pg/mL (0-79) H* 09/24/20 20:24 Total Protein 5.3 g/dL (6.4-8.2) L 10/05/20 05:20 Albumin 2.1 g/dL (3.4-5.0) L 10/05/20 05:20 Globulin 3.2 g/dL (2.5-4.5) 10/05/20 05:20 Albumin/Globulin Ratio 0.7 Ratio (1.1-2.1) L 10/05/20 05:20 Prealbumin 18.8 mg/dL (18-35.7) 09/30/20 04:25 Specimen Type Clean catch urine 09/24/20 21:52 Urine Color Mabel (YELLOW) 09/24/20 21:52 Urine Appearance Slightly hazy (CLEAR) 09/24/20 21:52 Urine pH 5.0 (5.0 - 8.0) 09/24/20 21:52 Ur Specific [place] 1.015 (1.000-1.030) 09/24/20 21:52 Urine Protein 1+ (NEGATIVE) 09/24/20 21:52 Urine Glucose (UA) 3+ (NEGATIVE) 09/24/20 21:52 Urine Ketones Negative (NEGATIVE) 09/24/20 21:52 Urine Occult Blood 1+ (NEGATIVE) 09/24/20 21:52 Urine Nitrite Positive (NEGATIVE) 09/24/20 21:52 Urine Bilirubin Negative (NEGATIVE) 09/24/20 21:52 Urine Acetone Negative (NEGATIVE) 09/27/20 11:53 Urine Urobilinogen 1+ (NORMAL) 09/24/20 21:52 Ur Leukocyte Esterase 1+ (NEGATIVE) 09/24/20 21:52 Urine RBC 3-5 /HPF (0-3) A 09/24/20 21:52 Urine WBC 5-10 /HPF (0-5) A 09/24/20 21:52 Ur Squamous Epith Cells Few /HPF (NEGATIVE) 09/24/20 21:52 Urine Bacteria 2+ /HPF (NEGATIVE) 09/24/20 21:52 Ur Culture Indicated? Yes/culture set up 09/24/20 21:52 Influenza Type A (PCR) Negative (NEGATIVE) 09/24/20 22:20 Influenza Type B (PCR) Negative (NEGATIVE) 09/24/20 22:20 SARS CoV-2 RNA Rapid MICK Positive (NEGATIVE) A 09/24/20 22:20 Blood Type A POSITIVE 09/26/20 12:21 - Plan (1) Pneumonia due to 2019 novel coronavirus Status: Acute Plan: NS AT 75 ML/HR, REMDESIVIR 100MG IV, DAILY, INVANZ 1G IV DAILY, SOLU- MEDROL 80MG IV Q8H, XOPENEX NEBS TID, PULMICORT NEBS BID, HUMULIN R SLIDING SCALE, LANTUS 36 UNITS DAILY, A CATAPRES PATCH, APRESOLINE 10MG IV Q4H PRN, MORPHINE AQUACULTURE FARMER, DIPROVAN DRIP, AND VERSED DRIP PER PROTOCOL FOR SEDATIONS. MECHANICAL VENTILATION (2) Acute respiratory failure with hypoxia Status: Acute (3) Hypernatremia Status: Acute Plan: FREE WATER THROUGH NG TUBE (4) Diabetes mellitus Status: Acute Qualifiers: Diabetes mellitus type: type 2 Diabetes mellitus fci insulin use: unspecified director long term care insulin use status Diabetes mellitus complication status: with other specified complication Qualified Code(s): E11.69 - Type 2 diabetes mellitus with other specified complication
[2020-10-05] MEDS ORDERED: NS 1/2 1000 ML IV 1,000 ML IV ONE (16:41)
[2020-10-05] MEDS: NS 1/2 1000 ML IV 1,000 ML IV SCH (16:46)
[2020-10-05] MEDS: CATAPRES TAB 0.1 MG PO PRN (21:35)
[2020-10-05] MEDS: SNACK - Diabetic Appropriate PO SCH (21:38)
[2020-10-06 04:08] LABS: ABG BASE EXCESS 9.3 mmol/L (-2.0-2.0); ABG HCO3 33.5 mmol/L (22-26)
[2020-10-06] MEDS: APRESOLINE INJ 20 MG VIAL IVP PRN ×2 (04:24→23:13)
[2020-10-06] MEDS: XOPENEX 1.25 MG/3 ML NEBULE NEB SCH ×3 (05:01→20:17)
[2020-10-06] MEDS ORDERED: NS 1/2 1000 ML IV 1,000 ML IV ONE (05:20)
[2020-10-06] MEDS: SOLU-Medrol 40 MG VIAL IVP SCH ×3 (05:44→21:00)
[2020-10-06 05:47] LABS: BASOPHILS % (AUTO) 0.2 % (0.2-1.0); HEMATOCRIT 28.9 % (36.0-47.0); HEMOGLOBIN 9.1 g/dL (12.0-16.0); LYMPHOCYTES # (AUTO) 0.8 X10^3/uL (1.3-2.9); LYMPHOCYTES % (AUTO) 7.5 % (21.0-51.0); MEAN CORPUSCULAR HEMOGLOBIN 24.2 pg (27.0-34.0); MEAN CORPUSCULAR HGB CONC 31.7 g/dL (33.0-35.0); MEAN CORPUSCULAR VOLUME 76.3 fL (80.0-100.0); MEAN PLATELET VOLUME 8.8 fL (7.4-11.0); MONOCYTES # (AUTO) 0.6 x10^3/uL (0.3-0.8); MONOCYTES % (AUTO) 5.3 % (0.0-13.0); NEUTROPHILS # (AUTO) 9.2 x10^3/uL (2.2-4.8); PLATELET COUNT 290 X10^3/uL (150.0-450.0); RED BLOOD COUNT 3.78 X10^6/uL (3.5-5.4); RED CELL DISTRIBUTION WIDTH 16.2 % (11.6-16.5); WHITE BLOOD COUNT 10.6 X10^3/uL (3.6-10.0)
[2020-10-06 06:07] LABS: ALANINE AMINOTRANSFERASE 31 Units/L (12-78); ALKALINE PHOSPHATASE 48 Units/L (46-116); ASPARTATE AMINO TRANSFERASE 17 Units/L (15-37); BLOOD UREA NITROGEN 51 mg/dL (7-18); CALCIUM 8.2 mg/dL (8.5-10.1); CARBON DIOXIDE 30.6 mmol/L (21-32); COR CA(FOR HYPOALB) 9.8 mg/dL (8.5-10.1); COR NA(FOR HYPERGLY) 163 mmol/L (136-145); CREATININE 0.83 mg/dL (0.55-1.02); HYPOCHROMASIA SLIGHT; PLATELET MORPHOLOGY COMMENT NORMAL (NORMAL); TOTAL PROTEIN 5.1 g/dL (6.4-8.2); eGFR NON BLACK RACES > 60 (>60)
[2020-10-06 06:19] LABS: CHLORIDE 123 mmol/L (98-107); SODIUM 160 mmol/L (136-145)
[2020-10-06] MEDS: HumuLIN R SC PRN ×3 (06:45→16:59)
--- NOTE | 2020-10-06 07:38 | RAD ---
HISTORYShortness of breathSTUDYChest AP [id number]/2020FINDINGSThere is an endotracheal tube in good position. There is a right- sided central line in good position. There is a nasogastric tube in good position. The heart remains enlarged. No congestive heart failure is noted. Hazy infiltrates are present predominately in the low er half of the right lung. Left upper lobe is clear. There is increasing density in the retrocardiac area of the left lower lobe which could be due to developing atelectasis, infiltrate or pleural effus ion. Bony thorax is unremarkable.IMPRESSIONNo change right lung infiltratesNo change cardiomegaly wit hout congestive heart failureIncreasing density retrocardiac area of the left lower lobe obscuring le ft hemidiaphragm which could be on the basis of atelectasis, infiltrate, effusion or combination.Elec tronically signed by: CHOLO HALLMAN (Oct 06, 2020 07:36:24)
[2020-10-06] MEDS: NS 1/2 1000 ML IV 1,000 ML IV SCH ×2 (09:00→22:27)
[2020-10-06] MEDS: PULMICORT NEB TX 0.5 MG NEB SCH ×2 (09:05→20:17)
[2020-10-06] MEDS: INVANZ INJ 1 GM VIAL 1 GM in NS 100 ML IV + SPIKE MINIBAG* 100 ML IV SCH (09:11)
[2020-10-06] MEDS: COZAAR PO SCH (09:11)
[2020-10-06] MEDS: LOVENOX INJ 30 MG SYR SC SCH ×2 (09:12→21:00)
[2020-10-06] MEDS: LACRI-LUBE S.O.P. AFFEYE SCH ×2 (09:12→21:00)
[2020-10-06] MEDS: LANTUS SC SCH (09:12)
[2020-10-06] MEDS: NORVASC TAB 10 MG PO SCH (09:13)
[2020-10-06] MEDS: SYNTHROID INJ 100 mcg VIAL IVP SCH (09:13)
[2020-10-06] MEDS: MORPHINE SULFATE PCA 30 MG IVP PRN (09:14)
--- NOTE | 2020-10-06 12:22 | CT ---
HISTORYAltered mental statusSTUDYCT head without contrastTechnique: Axial noncontrast images with coronal and sagittal reformats. Dose reduction procedures were used with mA/kv adjusted for body size.COMPARISONNoneFINDINGSThe ventricles are normal in size shape and position. There is decreased attenuation in the periventricular white matter suggestive of small vessel vascular disease. There are no areas of abnormal attenuation to suggest recent or remote CVA, hemorrhage, mass lesion, or extra-axial fluid collection. The visualized sinuses are clear. The calvarium is intact.IMPRESSIONNo definite acute intracranial abnormalitySmall-vessel diseaseElectronically signed by: CHOLO HALLMAN (Oct 06, 2020 12:20:34)
[2020-10-06] MEDS: VERSED 100 MG in NS 100 ML IV 80 ML IV PRN (18:13)
[2020-10-06] MEDS: SNACK - Diabetic Appropriate PO SCH (22:29)
[2020-10-06] MEDS: CATAPRES TAB 0.1 MG PO PRN (23:13)
[2020-10-07] MEDS: MORPHINE SULFATE PCA 30 MG IVP PRN ×2 (01:22→17:35)
[2020-10-07] MEDS ORDERED: NS 1/2 1000 ML IV 1,000 ML IV ONE (02:15)
[2020-10-07] MEDS: APRESOLINE INJ 20 MG VIAL IVP PRN (05:00)
[2020-10-07] MEDS: XOPENEX 1.25 MG/3 ML NEBULE NEB SCH ×3 (05:02→20:50)
[2020-10-07] MEDS: NS 1/2 1000 ML IV 1,000 ML IV SCH ×2 (05:11→12:04)
[2020-10-07 05:17] LABS: ABG BASE EXCESS 7.5 mmol/L (-2.0-2.0)
[2020-10-07 05:18] LABS: ABG HCO3 31.1 mmol/L (22-26)
[2020-10-07 05:34] LABS: BASOPHILS % (AUTO) 0.3 % (0.2-1.0); HEMATOCRIT 31.6 % (36.0-47.0); HEMOGLOBIN 9.7 g/dL (12.0-16.0); LYMPHOCYTES # (AUTO) 0.7 X10^3/uL (1.3-2.9); LYMPHOCYTES % (AUTO) 6.4 % (21.0-51.0); MEAN CORPUSCULAR HEMOGLOBIN 23.7 pg (27.0-34.0); MEAN CORPUSCULAR HGB CONC 30.8 g/dL (33.0-35.0); MEAN CORPUSCULAR VOLUME 77.1 fL (80.0-100.0); MEAN PLATELET VOLUME 9.2 fL (7.4-11.0); MONOCYTES # (AUTO) 0.5 x10^3/uL (0.3-0.8); MONOCYTES % (AUTO) 4.7 % (0.0-13.0); NEUTROPHILS # (AUTO) 9.7 x10^3/uL (2.2-4.8); NEUTROPHILS % (AUTO) 88.6 % (42.0-75.0); PLATELET COUNT 287 X10^3/uL (150.0-450.0); RED BLOOD COUNT 4.11 X10^6/uL (3.5-5.4); RED CELL DISTRIBUTION WIDTH 16.2 % (11.6-16.5); WHITE BLOOD COUNT 10.9 X10^3/uL (3.6-10.0)
[2020-10-07 05:55] LABS: HYPOCHROMASIA 1+; PLATELET MORPHOLOGY COMMENT NORMAL (NORMAL)
[2020-10-07 06:00] LABS: ALANINE AMINOTRANSFERASE 31 Units/L (12-78); ALBUMIN 2.2 g/dL (3.4-5.0); ALKALINE PHOSPHATASE 52 Units/L (46-116); ASPARTATE AMINO TRANSFERASE 16 Units/L (15-37); BLOOD UREA NITROGEN 46 mg/dL (7-18); CALCIUM 8.2 mg/dL (8.5-10.1); CARBON DIOXIDE 30.2 mmol/L (21-32); COR CA(FOR HYPOALB) 9.6 mg/dL (8.5-10.1); COR NA(FOR HYPERGLY) 162 mmol/L (136-145); CREATININE 0.86 mg/dL (0.55-1.02); TOTAL PROTEIN 5.4 g/dL (6.4-8.2); eGFR NON BLACK RACES > 60 (>60)
[2020-10-07 06:13] LABS: CHLORIDE 124 mmol/L (98-107); SODIUM 160 mmol/L (136-145)
[2020-10-07] MEDS: SOLU-Medrol 40 MG VIAL IVP SCH ×3 (06:33→21:00)
--- NOTE | 2020-10-07 06:52 | RAD ---
HISTORYShortness of breathSTUDYChest AP [id number]/2020FINDINGSThere is an endotracheal tube in good position. There is a right IJ line in good position. There is a nasogastric tube coursing below the left hemidiaphragm. Its tip is not visible. The heart remains enlarged. The jeff are normal. Hazy infiltrate remains in the lower half of the right lung. The right upper lung field is clear. There has been significant improvement in the aeration of the retrocardiac left lower lobe when compared to the prior examination. The left lung is now clear. No definite pleural effusions are identified. Bony thorax is unremarkable.IMPRESSI ONNo change cardiomegaly without congestive heart failureNo change right basilar infiltratesRemainder of the lung lopez are now clearElectronically signed by: CHOLO HALLMAN (Oct 07, 2020 06:51:16)
[2020-10-07] MEDS: LANTUS SC SCH (08:30)
[2020-10-07] MEDS: INVANZ INJ 1 GM VIAL 1 GM in NS 100 ML IV + SPIKE MINIBAG* 100 ML IV SCH (08:30)
[2020-10-07] MEDS: LOVENOX INJ 30 MG SYR SC SCH ×2 (08:31→21:00)
[2020-10-07] MEDS: LACRI-LUBE S.O.P. AFFEYE SCH ×2 (08:31→21:00)
[2020-10-07] MEDS: SYNTHROID INJ 100 mcg VIAL IVP SCH (08:32)
[2020-10-07] MEDS: PULMICORT NEB TX 0.5 MG NEB SCH ×2 (09:11→20:50)
[2020-10-07] MEDS: COZAAR PO SCH (10:00)
[2020-10-07] MEDS: CATAPRES-TTS-3 TD SCH (10:01)
[2020-10-07] MEDS: NORVASC TAB 10 MG PO SCH (10:01)
--- NOTE | 2020-10-07 10:07 | PCM.PROG ---
Progress Note - Progress Note for Day of Date of Exam: 10/06/20 - Subjective Subjective: WAS ADMITTED FOR PNEUMONIA DUE TO COVID-19, HYPOXIA, AND A URINARY TRACT INFECTION. TODAY, SHE IS LYING IN BED ON MORNING ROUNDS. SHE IS CURRENTLY ON THE MECHANICAL VENTILLATOR WITH SETTINGS AC, VENT RATE 18, TIDAL VOLUME 450, PEAK FLOW 45, PEEP 8, FI02 45. HER OXYGEN SATURATIONS HAVE BEEN 92- 94% ON THE VENT. THERE IS AN NG TUBE IN PLACE FOR TREATMENT OF HYPERNATREMIA WELL TUBE FEEDINGS. SHE IS RECEIVING FREE WATER THROUGH THE NG TUBE. ON EXAMINATION, SHE CONTINUES TO BE BRADYCARDIC WITH HR 50-60. BILATERAL LUNGS ARE NOTED WITH DIMINISHED LUNG SOUNDS THROUGHOUT. ABDOMEN IS ROUND, SOFT, AND NON- TENDER WITH HYPERACTIVE BOWEL SOUNDS NOTED IN ALL QUADRANTS. THERE IS 1+ PITTING EDEMA TO UPPER AND LOWER EXTREMITIES. A GARCIA CATHETER IS NOTED TO BEDSIDE DREAINAGE. HER VITALS THIS MORNING ARE: 98.3-58-18-93%-208/87. LABS WERE OBTAINED. ABNORMAL VALUES INCLUDE THE FOLLOWING: WBC 10.6, HGB 9.1, HCT 28.9, SODIUM 160, CHLORIDE 123, BUN 51, GLUCOSE 207, CALCIUM 8.2, TOTAL PROTEIN 5.1, ALBUMIN 2.0. ABG REVEALED: PH 7.500, PC02 43, P02 66, HC03 33.5, 02 SAT 94, BASE EXCESS 9.3, FI02 50.0. BLOOD CULTURES ARE PENDING. URINE CULTURE REVEALED GROWTH OF E.COLI. SPUTUM CULTURE REVEALED GROWTH OF ENTEROBACTER CLOACAAE AND KLEBSIELLA PNEUMONIAE. A CHEST XRAY WAS OBTAINED AND REVEALED: No change right lung infiltrates. No change cardiomegaly without congestive heart failure. Incr easing density retrocardiac area of the left lower lobe obscuring left hemidiaphragm which could be on the basis of atelectasis, infiltrate, effusion or combination. STAFF ATTEMPTED TO WEAN PATIENT OFF OF SEDATION YESTERDAY. THEY REPORT THAT SHE IS NOT BREATHING OVER THE SET RATE AND IS NOT ABLE TO FOLLOW COMMANDS DESPITE SEDATION BEING TURNED OFF. SHE IS CURRENTLY RECEIVING NS AT 75 ML/HR, REMDESIVIR 100MG IV, DAILY, INVANZ 1G IV DAILY, SOLU-MEDROL 80MG IV Q8H, XOPENEX NEBS TID, PULMICORT NEBS BID, HUMULIN R SLIDING SCALE, LANTUS 36 UNITS DAILY, A CATAPRES PATCH, APRESOLINE 10MG IV Q4H PRN, MORPHINE FINANCIAL REPORTING MANAGER, DIPROVAN DRIP, AND VERSED DRIP PER PROTOCOL FOR SEDATIONS. WE WILL CONTINUE WITH CURRENT PLAN OF CARE TODAY AND CONTINUE TO WEAN FROM THE VENT. OTHERWISE, WE PLAN TO FOLLOW UP WITH AM LABS, ABG, AND CHEST XRAY AND CONTINUE TO MONITOR. Time spent for clinical assessment, physical examination, reviewing labs/imaging and decision making more than 45 mins. - Past Medical Family Social History Past Med/Fam/Surg Hx: No changes since H&P Allergies: Allergies lisinopril Allergy (Verified 09/05/19 12:12) ciprofloxacin [From Cipro] Adverse Reaction (Verified 09/05/19 12:12) - Review of Systems ROS: No change since H&P - Vital Signs and I&O's Vital Signs: Temperature 98.5 F Pulse Rate [Left Radial] 75 Pulse Rate 69 Respiratory Rate 18 Blood Pressure [Left Radial 153/53 Artery] Blood Pressure [Left Arm] 152/77 Blood Pressure 213/92 O2 Sat by Pulse Oximetry 93 Intake and Output: Intake & Output 10/04/20 10/05/20 10/06/20 10/07/20 11:59 11:59 11:59 11:59 Intake Total 930 / 930 2576 / 2596 2543 / 2543 2949 / 2949 Output Total 3225 / 3225 1900 / 1900 3500 / 3500 2275 / 2275 Balance -2295 / -2295 676 / 696 -957 / -957 674 / 674 - Physical Exam Oriented: Normal Eyes: Normal Ear: Normal Nose: Normal Throat: Dry Respiratory: Generalized, Diminished Cardiovascular: Normal : Normal Auscultation: Bowel Sounds: Normal Tenderness: Normal Skin: Decreased Turgur Musculoskeletal: Normal Psychiatric: Normal Mood Description: Calm Affect: Normal Speech Pattern: Artificially Ventilated - Laboratory and Diagnostics Result Diagrams: 10/07/20 04:28 10/07/20 04:28 Labs: 09/24/20 20:28 Blood Blood Culture - Final 09/24/20 20:24 Blood Blood Culture - Final 09/27/20 13:40 Sputum - Endotracheal Wash Sputum Culture - Final Enterobacter Cloacae Klebsiella Pneumoniae 09/27/20 13:40 Sputum - Endotracheal Wash - Final 09/24/20 21:52 Urine,Clean Catch Urine Culture - Final Escherichia Coli Laboratory WBC 10.9 X10^3/uL (3.6-10.0) H 10/07/20 04:28 RBC 4.11 X10^6/uL (3.5-5.4) 10/07/20 04:28 Hgb 9.7 g/dL (12.0-16.0) L 10/07/20 04:28 Hct 31.6 % (36.0-47.0) L 10/07/20 04:28 MCV 77.1 fL (80.0-100.0) L 10/07/20 04:28 MCH 23.7 pg (27.0-34.0) L 10/07/20 04:28 MCHC 30.8 g/dL (33.0-35.0) L 10/07/20 04:28 RDW 16.2 % (11.6-16.5) 10/07/20 04:28 Plt Count 287 X10^3/uL (150.0-450.0) 10/07/20 04:28 Plt Count Comment Adequate (ADEQUATE) 10/07/20 04:28 MPV 9.2 fL (7.4-11.0) 10/07/20 04:28 Neut % (Auto) 88.6 % (42.0-75.0) H 10/07/20 04:28 Lymph % (Auto) 6.4 % (21.0-51.0) L 10/07/20 04:28 [place] % (Auto) 4.7 % (0.0-13.0) 10/07/20 04:28 Eos % (Auto) 0.0 % (0.9-2.9) L 10/07/20 04:28 Baso % (Auto) 0.3 % (0.2-1.0) 10/07/20 04:28 Neut # (Auto) 9.7 x10^3/uL (2.2-4.8) H 10/07/20 04:28 Lymph # (Auto) 0.7 X10^3/uL (1.3-2.9) L 10/07/20 04:28 [place] # (Auto) 0.5 x10^3/uL (0.3-0.8) 10/07/20 04:28 Eos # (Auto) 0.0 x10^3/uL (0.0-0.2) 10/07/20 04:28 Baso # (Auto) 0.0 X10^3/uL (0.0-0.1) 10/07/20 04:28 Absolute Nucleated RBC 0.1 /100WBC 10/07/20 04:28 Total Counted 100 09/29/20 04:45 Neutrophils % (Manual) 86 % (39-76) H 09/29/20 04:45 Lymphocytes % (Manual) 11 % (13-43) L 09/29/20 04:45 Monocytes % (Manual) 3 % (4-9) L 09/29/20 04:45 Plt Morphology Comment Normal (NORMAL) 10/07/20 04:28 RBC Morphology Abnormal (NORMAL) A 10/07/20 04:28 Dimorphic RBCs Edge Inker Uppers 10/04/20 05:06 Hypochromasia 1+ A 10/07/20 04:28 Poikilocytosis Slight A 09/24/20 20:24 Microcytosis Slight A 09/30/20 04:25 [place] Cells Present 09/25/20 05:49 Crenated Cell Slight A 10/01/20 04:20 PT 14.3 SECONDS (11.8-14.3) 09/24/20 20:24 INR Target Range - 09/24/20 20:24 INR 1.15 (0.8-1.3) 09/24/20 20:24 D-Dimer 2.18 ug/ml (0.0-0.57) H* 09/27/20 04:30 Sample Site [place] 10/07/20 05:12 ABG pH 7.510 (7.35-7.45) H 10/07/20 05:12 ABG pCO2 39.0 mmHg (35.0-45.0) 10/07/20 05:12 ABG pO2 82.0 mmHg (80.0-100.0) 10/07/20 05:12 ABG HCO3 31.1 mmol/L (22-26) H* 10/07/20 05:12 ABG O2 Saturation 97.0 % (90-100) 10/07/20 05:12 ABG Base Excess 7.5 mmol/L (-2.0-2.0) H 10/07/20 05:12 Alexx Test Na 10/07/20 05:12 A-a Gradient 154.0 mmHg 10/07/20 05:12 FiO2 40.0 10/07/20 05:12 Blood Gas Comments Erwin abg well-mtf 10/07/20 05:12 Sodium 160 mmol/L (136-145) H* 10/07/20 04:28 Corrected Sodium 162 mmol/L (136-145) H 10/07/20 04:28 Potassium 3.7 mmol/L (3.5-5.1) 10/07/20 04:28 Chloride 124 mmol/L (98-107) H* 10/07/20 04:28 Carbon Dioxide 30.2 mmol/L (21-32) 10/07/20 04:28 BUN 46 mg/dL (7-18) H 10/07/20 04:28 Creatinine 0.86 mg/dL (0.55-1.02) 10/07/20 04:28 Est GFR (MDRD) Af Amer > 60 (>60) 10/07/20 04:28 Est GFR (MDRD) Non-Af > 60 (>60) 10/07/20 04:28 Glucose 189 mg/dL (65-99) H 10/07/20 04:28 POC Glucose (mg/dL) 195 mg/dL (65-99) H 10/06/20 20:07 Lactic Acid 1.5 mmol/L (0.4-2.0) 09/24/20 21:56 Calcium 8.2 mg/dL (8.5-10.1) L 10/07/20 04:28 Corrected Calcium 9.6 mg/dL (8.5-10.1) 10/07/20 04:28 Magnesium 2.8 mg/dL (1.7-2.9) 10/04/20 05:06 Ferritin 220 ng/mL (8-252) 10/07/20 04:28 Total Bilirubin 0.50 mg/dL (0.2-1.0) 10/07/20 04:28 AST 16 Units/L (15-37) 10/07/20 04:28 ALT 31 Units/L (12-78) 10/07/20 04:28 Alkaline Phosphatase 52 Units/L (46-116) 10/07/20 04:28 Creatine Kinase 78 Units/L (26-192) 09/25/20 16:10 CK-MB (CK-2) < 1.0 ng/mL (0-4.0) 09/25/20 16:10 CK/CKMB % Calc 1.3 % (<4) 09/25/20 16:10 Troponin I < 0.02 ng/mL (0-1.5) 09/25/20 16:10 C-Reactive Protein 0.50 mg/L (0-3.0) 10/07/20 04:28 B-Natriuretic Peptide 637 pg/mL (0-79) H* 09/24/20 20:24 Total Protein 5.4 g/dL (6.4-8.2) L 10/07/20 04:28 Albumin 2.2 g/dL (3.4-5.0) L 10/07/20 04:28 Globulin 3.2 g/dL (2.5-4.5) 10/07/20 04:28 Prealbumin 18.8 mg/dL (18-35.7) 09/30/20 04:25 Albumin/Globulin Ratio 0.7 Ratio (1.1-2.1) L 10/07/20 04:28 Specimen Type Clean catch urine 09/24/20 21:52 Urine Color Mabel (YELLOW) 09/24/20 21:52 Urine Appearance Slightly hazy (CLEAR) 09/24/20 21:52 Urine pH 5.0 (5.0 - 8.0) 09/24/20 21:52 Ur Specific [place] 1.015 (1.000-1.030) 09/24/20 21:52 Urine Protein 1+ (NEGATIVE) 09/24/20 21:52 Urine Glucose (UA) 3+ (NEGATIVE) 09/24/20 21:52 Urine Ketones Negative (NEGATIVE) 09/24/20 21:52 Urine Occult Blood 1+ (NEGATIVE) 09/24/20 21:52 Urine Nitrite Positive (NEGATIVE) 09/24/20 21:52 Urine Bilirubin Negative (NEGATIVE) 09/24/20 21:52 Urine Acetone Negative (NEGATIVE) 09/27/20 11:53 Urine Urobilinogen 1+ (NORMAL) 09/24/20 21:52 Ur Leukocyte Esterase 1+ (NEGATIVE) 09/24/20 21:52 Urine RBC 3-5 /HPF (0-3) A 09/24/20 21:52 Urine WBC 5-10 /HPF (0-5) A 09/24/20 21:52 Ur Squamous Epith Cells Few /HPF (NEGATIVE) 09/24/20 21:52 Urine Bacteria 2+ /HPF (NEGATIVE) 09/24/20 21:52 Ur Culture Indicated? Yes/culture set up 09/24/20 21:52 Influenza Type A (PCR) Negative (NEGATIVE) 09/24/20 22:20 Influenza Type B (PCR) Negative (NEGATIVE) 09/24/20 22:20 SARS CoV-2 RNA Rapid MICK Positive (NEGATIVE) A 09/24/20 22:20 Blood Type A POSITIVE 09/26/20 12:21 - Plan (1) Pneumonia due to 2019 novel coronavirus Status: Acute Plan: NS AT 75 ML/HR, REMDESIVIR 100MG IV, DAILY, INVANZ 1G IV DAILY, SOLU- MEDROL 80MG IV Q8H, XOPENEX NEBS TID, PULMICORT NEBS BID, HUMULIN R SLIDING SCALE, LANTUS 36 UNITS DAILY, A CATAPRES PATCH, APRESOLINE 10MG IV Q4H PRN, MORPHINE FINANCIAL REPORTING MANAGER, DIPROVAN DRIP, AND VERSED DRIP PER PROTOCOL FOR SEDATIONS. MECHANICAL VENTILATION (2) Acute respiratory failure with hypoxia Status: Acute (3) Hypernatremia Status: Acute Plan: FREE WATER THROUGH NG TUBE (4) Diabetes mellitus Status: Acute Qualifiers: Diabetes mellitus type: type 2 Diabetes mellitus [facility] insulin use: unspecified termination clerk insulin use status Diabetes mellitus complication status: with other specified complication Qualified Code(s): E11.69 - Type 2 diabetes mellitus with other specified complication
[2020-10-07] MEDS: HumuLIN R SC PRN (21:00)
[2020-10-07] MEDS: CATAPRES TAB 0.1 MG PO PRN (21:00)
[2020-10-07] MEDS ORDERED: NS 500 ML IV 500 ML IV ONE (21:42)
[2020-10-07] MEDS: SNACK - Diabetic Appropriate PO SCH (22:21)
[2020-10-07] MEDS: NS 500 ML IV 500 ML IV PRN (22:28)
[2020-10-08] MEDS: VERSED 100 MG in NS 100 ML IV 80 ML IV PRN ×2 (00:30→23:00)
[2020-10-08] MEDS: APRESOLINE INJ 20 MG VIAL IVP PRN (05:05)
[2020-10-08 05:23] LABS: ABG BASE EXCESS 6.7 mmol/L (-2.0-2.0)
[2020-10-08 05:24] LABS: ABG HCO3 30.4 mmol/L (22-26)
[2020-10-08] MEDS: SOLU-Medrol 40 MG VIAL IVP SCH ×3 (06:05→21:49)
[2020-10-08] MEDS: XOPENEX 1.25 MG/3 ML NEBULE NEB SCH ×3 (06:06→21:06)
[2020-10-08 06:17] LABS: BASOPHILS % (AUTO) 0.3 % (0.2-1.0); HEMATOCRIT 34.4 % (36.0-47.0); HEMOGLOBIN 10.5 g/dL (12.0-16.0); LYMPHOCYTES # (AUTO) 0.6 X10^3/uL (1.3-2.9); LYMPHOCYTES % (AUTO) 4.8 % (21.0-51.0); MEAN CORPUSCULAR HEMOGLOBIN 23.6 pg (27.0-34.0); MEAN CORPUSCULAR HGB CONC 30.5 g/dL (33.0-35.0); MEAN CORPUSCULAR VOLUME 77.4 fL (80.0-100.0); MEAN PLATELET VOLUME 9.4 fL (7.4-11.0); MONOCYTES # (AUTO) 0.5 x10^3/uL (0.3-0.8); MONOCYTES % (AUTO) 4.1 % (0.0-13.0); NEUTROPHILS # (AUTO) 11.1 x10^3/uL (2.2-4.8); NEUTROPHILS % (AUTO) 90.8 % (42.0-75.0); PLATELET COUNT 297 X10^3/uL (150.0-450.0); RED BLOOD COUNT 4.44 X10^6/uL (3.5-5.4); RED CELL DISTRIBUTION WIDTH 16.6 % (11.6-16.5); WHITE BLOOD COUNT 12.2 X10^3/uL (3.6-10.0)
[2020-10-08 06:29] LABS: ALANINE AMINOTRANSFERASE 88 Units/L (12-78); ALBUMIN 2.3 g/dL (3.4-5.0); ALKALINE PHOSPHATASE 60 Units/L (46-116); ASPARTATE AMINO TRANSFERASE 46 Units/L (15-37); BLOOD UREA NITROGEN 44 mg/dL (7-18); CALCIUM 8.4 mg/dL (8.5-10.1); COR CA(FOR HYPOALB) 9.8 mg/dL (8.5-10.1); COR NA(FOR HYPERGLY) 163 mmol/L (136-145); CREATININE 0.89 mg/dL (0.55-1.02); TOTAL PROTEIN 5.7 g/dL (6.4-8.2); eGFR NON BLACK RACES > 60 (>60)
[2020-10-08 06:43] LABS: CHLORIDE 123 mmol/L (98-107); SODIUM 160 mmol/L (136-145)
[2020-10-08] MEDS: HumuLIN R SC PRN ×4 (07:10→21:50)
--- NOTE | 2020-10-08 07:20 | RAD ---
HISTORYSOBSTUDYCHEST, 1 [id number] is rotated to the left. Stable support apparatus. Patchy left base opacity slightly worse. Hazy right lung opacity may relate to rotation however there is more focal patchy right base opacity. No sizable effusion or visible pneumothorax.IMPRESSIONMildly increased patchy multifocal opacities.Electronically signed by: Zi Mendes (Oct 08, 2020 07:18:33)
[2020-10-08 07:43] LABS: BAND NEUTROPHILS % 3 % (0-10); HYPOCHROMASIA 1+; PLATELET MORPHOLOGY COMMENT NORMAL (NORMAL)
[2020-10-08] MEDS: PULMICORT NEB TX 0.5 MG NEB SCH ×2 (09:10→21:06)
[2020-10-08] MEDS: INVANZ INJ 1 GM VIAL 1 GM in NS 100 ML IV + SPIKE MINIBAG* 100 ML IV SCH (09:23)
[2020-10-08] MEDS: LACRI-LUBE S.O.P. AFFEYE SCH ×2 (09:23→21:26)
[2020-10-08] MEDS: COZAAR PO SCH (09:23)
[2020-10-08] MEDS: LOVENOX INJ 30 MG SYR SC SCH ×2 (09:24→21:48)
[2020-10-08] MEDS: LANTUS SC SCH (09:24)
[2020-10-08] MEDS: SYNTHROID INJ 100 mcg VIAL IVP SCH (09:25)
[2020-10-08] MEDS: NORVASC TAB 10 MG PO SCH (09:25)
[2020-10-08] MEDS: MORPHINE SULFATE PCA 30 MG IVP PRN ×2 (09:56→23:00)
[2020-10-08] MEDS: D5W 1000 ML IV 1,000 ML IV SCH ×2 (11:41→22:49)
--- NOTE | 2020-10-08 12:05 | PCM.PROG ---
Progress Note Progress Note for Day of Date of Exam: 10/08/20 Subjective Subjective: Patient seen at bedside, no overnight events. She is currently being treated for acute respiratory failure 2/2 to COVID-19 pneumonia and UTI. She is on mechanical ventilation. Patient has been weaned off sedation but unable to follow commands. During exam, she opens her eyes and moves her head side to side. CT-brain done on 10/06 did not show any acute changes. Labs: WBC 12.2 Hgb 10.5 Na: 163 K 3.5 Glucose 208 D-dimer 2.89 ABG 7.5// Vent settings FiO2 35% PEEP 8 RR 16 CXR: increase in patchy multifocal opacities Sputum Cx: Enterobacter and Klebsiella Urine Cx: E.coli NGT in place Plan: unable to wean off vent due to not able to follow commands. Patient is currently off Propofol, only on versed and Morphine. Monitor neuro status. Switch IVF to D5 at 75cc/hr for hypernatremia. Continue ertapenem. Continue solumedrol Monitor Am labs and imaging. Patient remains critical. Critical care Time spent for clinical assessment, physical examination, reviewi ng labs/imaging , decision making and documentation more than 75 mins. Past Medical Family Social History Past Med/Fam/Surg Hx: No changes since H&P Allergies: Allergies lisinopril Allergy (Verified 09/05/19 12:12) ciprofloxacin [From Cipro] Adverse Reaction (Verified 09/05/19 12:12) Review of Systems ROS: No change since H&P Vital Signs and I&O's Vital Signs: Temperature 98.2 F Pulse Rate [Left Radial] 75 Pulse Rate 67 Respiratory Rate 16 Blood Pressure [Left Radial 153/53 Artery] Blood Pressure [Left Arm] 152/77 Blood Pressure 133/63 O2 Sat by Pulse Oximetry 92 Intake and Output: Intake & Output 10/05/20 10/06/20 10/07/20 10/08/20 23:59 23:59 23:59 23:59 Intake Total 2563 / 2563 2817 / 2817 2375 / 2375 45 / 45 Output Total 2950 / 2950 2900 / 2900 2050 / 2050 500 / 500 Balance -387 / -387 -83 / -83 325 / 325 -455 / -455 Physical Exam Oriented: Unable to test Eyes: Normal Ear: Normal Nose: Normal Throat: Dry Respiratory: Generalized and Diminished Cardiovascular: Normal and Edema Auscultation: Bowel Sounds: Normal Tenderness: Normal Skin: Decreased Turgur Musculoskeletal: Normal Psychiatric: Normal Mood Description: Calm Affect: Normal Speech Pattern: Artificially Ventilated Laboratory and Diagnostics Result Diagrams: 10/08/20 04:42 10/08/20 04:42 Labs: 09/24/20 20:28 Blood Blood Culture - Final 09/24/20 20:24 Blood Blood Culture - Final 09/27/20 13:40 Sputum - Endotracheal Wash Sputum Culture - Final Enterobacter Cloacae Klebsiella Pneumoniae 09/27/20 13:40 Sputum - Endotracheal Wash - Final 09/24/20 21:52 Urine,Clean Catch Urine Culture - Final Escherichia Coli Laboratory WBC 12.2 X10^3/uL (3.6-10.0) H 10/08/20 04:42 RBC 4.44 X10^6/uL (3.5-5.4) 10/08/20 04:42 Hgb 10.5 g/dL (12.0-16.0) L 10/08/20 04:42 Hct 34.4 % (36.0-47.0) L 10/08/20 04:42 MCV 77.4 fL (80.0-100.0) L 10/08/20 04:42 MCH 23.6 pg (27.0-34.0) L 10/08/20 04:42 MCHC 30.5 g/dL (33.0-35.0) L 10/08/20 04:42 RDW 16.6 % (11.6-16.5) H 10/08/20 04:42 Plt Count 297 X10^3/uL (150.0-450.0) 10/08/20 04:42 Plt Count Comment Adequate (ADEQUATE) 10/08/20 04:42 MPV 9.4 fL (7.4-11.0) 10/08/20 04:42 Neut % (Auto) 90.8 % (42.0-75.0) H 10/08/20 04:42 Lymph % (Auto) 4.8 % (21.0-51.0) L 10/08/20 04:42 [place] % (Auto) 4.1 % (0.0-13.0) 10/08/20 04:42 Eos % (Auto) 0.0 % (0.9-2.9) L 10/08/20 04:42 Baso % (Auto) 0.3 % (0.2-1.0) 10/08/20 04:42 Neut # (Auto) 11.1 x10^3/uL (2.2-4.8) H 10/08/20 04:42 Lymph # (Auto) 0.6 X10^3/uL (1.3-2.9) L 10/08/20 04:42 [place] # (Auto) 0.5 x10^3/uL (0.3-0.8) 10/08/20 04:42 Eos # (Auto) 0.0 x10^3/uL (0.0-0.2) 10/08/20 04:42 Baso # (Auto) 0.0 X10^3/uL (0.0-0.1) 10/08/20 04:42 Absolute Nucleated RBC 0.0 /100WBC 10/08/20 04:42 Total Counted 100 10/08/20 04:42 Neutrophils % (Manual) 86 % (39-76) H 10/08/20 04:42 Band Neutrophils % 3 % (0-10) 10/08/20 04:42 Lymphocytes % (Manual) 6 % (13-43) L 10/08/20 04:42 Monocytes % (Manual) 5 % (4-9) 10/08/20 04:42 Plt Morphology Comment Normal (NORMAL) 10/08/20 04:42 RBC Morphology Abnormal (NORMAL) A 10/08/20 04:42 Dimorphic RBCs Belly Dancer 10/04/20 05:06 Hypochromasia 1+ A 10/08/20 04:42 Poikilocytosis Slight A 09/24/20 20:24 Microcytosis Slight A 09/30/20 04:25 [place] Cells Present 09/25/20 05:49 Crenated Cell Slight A 10/01/20 04:20 PT 14.3 SECONDS (11.8-14.3) 09/24/20 20:24 INR Target Range - 09/24/20 20:24 INR 1.15 (0.8-1.3) 09/24/20 20:24 D-Dimer 2.89 ug/ml (0.0-0.57) H* 12/25/20 04:38 Sample Site A line 10/08/20 05:00 ABG pH 7.500 (7.35-7.45) H 10/08/20 05:00 ABG pCO2 39.0 mmHg (35.0-45.0) 10/08/20 05:00 ABG pO2 68.0 mmHg (80.0-100.0) L 10/08/20 05:00 ABG HCO3 30.4 mmol/L (22-26) H* 10/08/20 05:00 ABG O2 Saturation 95.0 % (90-100) 10/08/20 05:00 ABG Base Excess 6.7 mmol/L (-2.0-2.0) H 10/08/20 05:00 Alexx Test Na 10/08/20 05:00 A-a Gradient 133.0 mmHg 10/08/20 05:00 FiO2 35.0 10/08/20 05:00 Blood Gas Comments Ac450,peep8,rr18,35% 10/08/20 05:00 Sodium 160 mmol/L (136-145) H* 10/08/20 04:42 Corrected Sodium 163 mmol/L (136-145) H 10/08/20 04:42 Potassium 3.5 mmol/L (3.5-5.1) 10/08/20 04:42 Chloride 123 mmol/L (98-107) H* 10/08/20 04:42 Carbon Dioxide 29.0 mmol/L (21-32) 10/08/20 04:42 BUN 44 mg/dL (7-18) H 10/08/20 04:42 Creatinine 0.89 mg/dL (0.55-1.02) 10/08/20 04:42 Est GFR (MDRD) Af Amer > 60 (>60) 10/08/20 04:42 Est GFR (MDRD) Non-Af > 60 (>60) 10/08/20 04:42 Glucose 208 mg/dL (65-99) H 10/08/20 04:42 POC Glucose (mg/dL) 190 mg/dL (65-99) H 10/08/20 11:31 Lactic Acid 1.5 mmol/L (0.4-2.0) 09/24/20 21:56 Calcium 8.4 mg/dL (8.5-10.1) L 10/08/20 04:42 Corrected Calcium 9.8 mg/dL (8.5-10.1) 10/08/20 04:42 Magnesium 2.8 mg/dL (1.7-2.9) 10/04/20 05:06 Ferritin 246 ng/mL (8-252) 10/08/20 04:42 Total Bilirubin 0.70 mg/dL (0.2-1.0) 10/08/20 04:42 AST 46 Units/L (15-37) H 10/08/20 04:42 ALT 88 Units/L (12-78) H 10/08/20 04:42 Alkaline Phosphatase 60 Units/L (46-116) 10/08/20 04:42 Creatine Kinase 78 Units/L (26-192) 09/25/20 16:10 CK-MB (CK-2) < 1.0 ng/mL (0-4.0) 09/25/20 16:10 CK/CKMB % Calc 1.3 % (<4) 09/25/20 16:10 Troponin I < 0.02 ng/mL (0-1.5) 09/25/20 16:10 C-Reactive Protein 0.60 mg/L (0-3.0) 10/08/20 04:42 B-Natriuretic Peptide 637 pg/mL (0-79) H* 09/24/20 20:24 Total Protein 5.7 g/dL (6.4-8.2) L 10/08/20 04:42 Albumin 2.3 g/dL (3.4-5.0) L 10/08/20 04:42 Globulin 3.4 g/dL (2.5-4.5) 10/08/20 04:42 Prealbumin 18.8 mg/dL (18-35.7) 09/30/20 04:25 Albumin/Globulin Ratio 0.7 Ratio (1.1-2.1) L 10/08/20 04:42 Specimen Type Clean catch urine 09/24/20 21:52 Urine Color Mabel (YELLOW) 09/24/20 21:52 Urine Appearance Slightly hazy (CLEAR) 09/24/20 21:52 Urine pH 5.0 (5.0 - 8.0) 09/24/20 21:52 Ur Specific [place] 1.015 (1.000-1.030) 09/24/20 21:52 Urine Protein 1+ (NEGATIVE) 09/24/20 21:52 Urine Glucose (UA) 3+ (NEGATIVE) 09/24/20 21:52 Urine Ketones Negative (NEGATIVE) 09/24/20 21:52 Urine Occult Blood 1+ (NEGATIVE) 09/24/20 21:52 Urine Nitrite Positive (NEGATIVE) 09/24/20 21:52 Urine Bilirubin Negative (NEGATIVE) 09/24/20 21:52 Urine Acetone Negative (NEGATIVE) 09/27/20 11:53 Urine Urobilinogen 1+ (NORMAL) 09/24/20 21:52 Ur Leukocyte Esterase 1+ (NEGATIVE) 09/24/20 21:52 Urine RBC 3-5 /HPF (0-3) A 09/24/20 21:52 Urine WBC 5-10 /HPF (0-5) A 09/24/20 21:52 Ur Squamous Epith Cells Few /HPF (NEGATIVE) 09/24/20 21:52 Urine Bacteria 2+ /HPF (NEGATIVE) 09/24/20 21:52 Ur Culture Indicated? Yes/culture set up 09/24/20 21:52 Influenza Type A (PCR) Negative (NEGATIVE) 09/24/20 22:20 Influenza Type B (PCR) Negative (NEGATIVE) 09/24/20 22:20 SARS CoV-2 RNA Rapid MICK Positive (NEGATIVE) A 09/24/20 22:20 Blood Type A POSITIVE 09/26/20 12:21 Plan (1) Pneumonia due to 2019 novel coronavirus: Status: Acute Plan: NS AT 75 ML/HR, REMDESIVIR 100MG IV, DAILY, INVANZ 1G IV DAILY, SOLU-MEDROL 80MG IV Q8H, XOPENEX NEBS TID, PULMICORT NEBS BID, HUMULIN R SLIDING SCALE, LANTUS 36 UNITS DAILY, A CATAPRES PATCH, APRESOLINE 10MG IV Q4H PRN, MORPHINE DIAL PRINTER, DIPROVAN DRIP, AND VERSED DRIP PER PROTOCOL FOR SEDATIONS. MECHANICAL VENTILATION (2) Acute respiratory failure with hypoxia: Status: Acute (3) Hypernatremia: Status: Acute Plan: FREE WATER THROUGH NG TUBE (4) Diabetes mellitus: Status: Acute Qualifiers: Diabetes mellitus complication status: with other specified complication Diabetes mellitus correction insulin use: unspecified long term acute care registered nurse insulin use status Diabetes mellitus type: type 2 Qualified Code(s): E11.69 - Type 2 diabetes mellitus with other specified complication (5) Anemia: Status: Acute Qualifiers: Anemia type: unspecified type Qualified Code(s): D64.9 - Anemia, unspecified (6) On mechanically assisted ventilation: Status: Acute (7) E-coli UTI: Status: Acute (8) Klebsiella pneumonia: Status: Acute
[2020-10-08 16:57] LABS: ABG BASE EXCESS 6.6 mmol/L (-2.0-2.0); ABG HCO3 31.3 mmol/L (22-26)
[2020-10-08] MEDS: SNACK - Diabetic Appropriate PO SCH (22:48)
[2020-10-09 05:33] LABS: BASOPHILS % (AUTO) 0.2 % (0.2-1.0); HEMATOCRIT 30.9 % (36.0-47.0); HEMOGLOBIN 9.4 g/dL (12.0-16.0); LYMPHOCYTES # (AUTO) 0.5 X10^3/uL (1.3-2.9); LYMPHOCYTES % (AUTO) 4.1 % (21.0-51.0); MEAN CORPUSCULAR HEMOGLOBIN 23.7 pg (27.0-34.0); MEAN CORPUSCULAR HGB CONC 30.4 g/dL (33.0-35.0); MEAN PLATELET VOLUME 9.3 fL (7.4-11.0); MONOCYTES # (AUTO) 0.4 x10^3/uL (0.3-0.8); MONOCYTES % (AUTO) 3.6 % (0.0-13.0); NEUTROPHILS # (AUTO) 10.7 x10^3/uL (2.2-4.8); NEUTROPHILS % (AUTO) 92.1 % (42.0-75.0); PLATELET COUNT 219 X10^3/uL (150.0-450.0); RED BLOOD COUNT 3.96 X10^6/uL (3.5-5.4); RED CELL DISTRIBUTION WIDTH 16.5 % (11.6-16.5); WHITE BLOOD COUNT 11.6 X10^3/uL (3.6-10.0)
[2020-10-09] MEDS: SOLU-Medrol 40 MG VIAL IVP SCH (05:39)
[2020-10-09 05:49] LABS: ALANINE AMINOTRANSFERASE 60 Units/L (12-78); ALBUMIN 2.1 g/dL (3.4-5.0); ALKALINE PHOSPHATASE 52 Units/L (46-116); ASPARTATE AMINO TRANSFERASE 20 Units/L (15-37); BLOOD UREA NITROGEN 46 mg/dL (7-18); CALCIUM 8.3 mg/dL (8.5-10.1); CARBON DIOXIDE 28.2 mmol/L (21-32); COR CA(FOR HYPOALB) 9.8 mg/dL (8.5-10.1); COR NA(FOR HYPERGLY) 161 mmol/L (136-145); CREATININE 0.97 mg/dL (0.55-1.02); TOTAL PROTEIN 5.1 g/dL (6.4-8.2); eGFR NON BLACK RACES > 60 (>60)
[2020-10-09] MEDS ORDERED: VERSED ONE (05:51)
[2020-10-09 05:53] LABS: CHLORIDE 120 mmol/L (98-107); SODIUM 157 mmol/L (136-145)
[2020-10-09 06:29] LABS: ABG BASE EXCESS 5.3 mmol/L (-2.0-2.0); ABG HCO3 29.9 mmol/L (22-26)
[2020-10-09] MEDS: HumuLIN R SC PRN ×3 (06:30→21:31)
[2020-10-09 06:42] LABS: HYPOCHROMASIA 1+; PLATELET MORPHOLOGY COMMENT NORMAL (NORMAL)
--- NOTE | 2020-10-09 08:09 | RAD ---
HISTORYcovidSTUDYAP [id number] is similar. There is increasing retrocardiac opacificat ion obscuring the diaphragm. Minimal right basal infiltrate remains. The upper lobes are clear. ET tu be is 5 cm above the nicky. NG tube passes below the diaphragm, tip not visualized. No change in pos ition of the right jugular CVL.IMPRESSIONPersistent cardiomegaly. Increasing consolidation left lower lobe consistent with pneumonia/atelectasis.Electronically signed by: ISHA JIMENEZ (Oct 09, 2020 08 :07:50)
[2020-10-09] MEDS: LACRI-LUBE S.O.P. AFFEYE SCH ×2 (09:45→21:37)
[2020-10-09] MEDS: INVANZ INJ 1 GM VIAL 1 GM in NS 100 ML IV + SPIKE MINIBAG* 100 ML IV SCH (09:45)
[2020-10-09] MEDS: XANAX PO PRN (09:45)
[2020-10-09] MEDS: LOVENOX INJ 30 MG SYR SC SCH ×2 (09:45→21:37)
[2020-10-09] MEDS: COZAAR PO SCH (09:45)
[2020-10-09] MEDS: SYNTHROID INJ 100 mcg VIAL IVP SCH (09:46)
[2020-10-09] MEDS: NORVASC TAB 10 MG PO SCH (09:46)
[2020-10-09] MEDS: PULMICORT NEB TX 0.5 MG NEB SCH ×2 (09:55→20:40)
[2020-10-09] MEDS: XOPENEX 1.25 MG/3 ML NEBULE NEB SCH ×3 (09:55→20:40)
[2020-10-09] MEDS: ZOSYN VIAL 3.375 GRAMS 3.375 G in NS 100 ML IV + SPIKE MINIBAG* 100 ML IV SCH ×3 (11:07→21:39)
--- NOTE | 2020-10-09 12:27 | PCM.PROG ---
Progress Note Progress Note for Day of Date of Exam: 10/09/20 Subjective Subjective: Patient seen at bedside, no overnight events. She is currently being treated for acute respiratory failure 2/2 to COVID-19 pneumonia and UTI. She is on mechanical ventilation. Patient has been weaned off sedation but unable to follow commands. She moves her head to look around the room, not able to make eye contact. During exam, she opens her eyes and moves her head side to side. Patient is seen to be biting on the ETT. CT-brain done on 10/06 did not show any acute changes. Labs: WBC 11.6 Hgb 9.4 Na: 161 K 3.9 Glucose 224 ABG 7.45/43/91/29.9 on FiO2 45%. Vent settings FiO2 45% PEEP 7 RR 14 CXR: increase in LLL consolidation. ETT 5 cm above nicky Sputum Cx: Enterobacter and Klebsiella Urine Cx: E.coli NGT in place Plan: unable to wean off vent due to not able to follow commands. Adjust ETT. Patient is currently off Propofol, only on versed and Morphine. Monitor neuro status. Continue D5 at 75cc/hr for hypernatremia. Continue ertapenem. Add zosyn for pseudomonas coverage Continue solumedrol 80 mg q12hr. Continue Xanax prn for anxiety/agitation. Monitor AM labs and imaging. Patient remains critical. Critical care Time spent for clinical assessment, physical examination, reviewing labs/imaging , decision making and documentation more than 75 mins. Past Medical Family Social History Past Med/Fam/Surg Hx: No changes since H&P Allergies: Allergies lisinopril Allergy (Verified 09/05/19 12:12) ciprofloxacin [From Cipro] Adverse Reaction (Verified 09/05/19 12:12) Review of Systems ROS: No change since H&P Vital Signs and I&O's Vital Signs: Temperature 79.6 F Pulse Rate [Left Radial] 75 Pulse Rate 75 Respiratory Rate 15 Blood Pressure [Left Radial 153/53 Artery] Blood Pressure [Left Arm] 152/77 Blood Pressure 166/78 O2 Sat by Pulse Oximetry 94 Intake and Output: Intake & Output 10/06/20 10/07/20 10/08/20 10/09/20 23:59 23:59 23:59 23:59 Intake Total 2817 / 2817 2375 / 2375 1357 / 1357 0 / 0 Output Total 2900 / 2900 2049 / 0 1500 / 1500 450 / 450 Balance -83 / -83 325 / 325 -143 / -143 -450 / -450 Physical Exam Oriented: Unable to test Eyes: Normal and Other (patient unable to focus with her eyes, looks around the room but does not make eye contact. Does not follow commands. ) Ear: Normal Nose: Normal Throat: Dry Respiratory: Generalized and Diminished Cardiovascular: Normal and Edema Auscultation: Bowel Sounds: Normal Tenderness: Normal Skin: Decreased Turgur Psychiatric: Anxiety Affect: Anxious Speech Pattern: Artificially Ventilated Laboratory and Diagnostics Result Diagrams: 10/09/20 04:35 10/09/20 04:35 Labs: 09/24/20 20:28 Blood Blood Culture - Final 09/24/20 20:24 Blood Blood Culture - Final 09/27/20 13:40 Sputum - Endotracheal Wash Sputum Culture - Final Enterobacter Cloacae Klebsiella Pneumoniae 09/27/20 13:40 Sputum - Endotracheal Wash - Final 09/24/20 21:52 Urine,Clean Catch Urine Culture - Final Escherichia Coli Laboratory WBC 11.6 X10^3/uL (3.6-10.0) H 10/09/20 04:35 RBC 3.96 X10^6/uL (3.5-5.4) 10/09/20 04:35 Hgb 9.4 g/dL (12.0-16.0) L 10/09/20 04:35 Hct 30.9 % (36.0-47.0) L 10/09/20 04:35 MCV 78.0 fL (80.0-100.0) L 10/09/20 04:35 MCH 23.7 pg (27.0-34.0) L 10/09/20 04:35 MCHC 30.4 g/dL (33.0-35.0) L 10/09/20 04:35 RDW 16.5 % (11.6-16.5) 10/09/20 04:35 Plt Count 219 X10^3/uL (150.0-450.0) 10/09/20 04:35 Plt Count Comment Adequate (ADEQUATE) 10/09/20 04:35 MPV 9.3 fL (7.4-11.0) 10/09/20 04:35 Neut % (Auto) 92.1 % (42.0-75.0) H 10/09/20 04:35 Lymph % (Auto) 4.1 % (21.0-51.0) L 10/09/20 04:35 [place] % (Auto) 3.6 % (0.0-13.0) 10/09/20 04:35 Eos % (Auto) 0.0 % (0.9-2.9) L 10/09/20 04:35 Baso % (Auto) 0.2 % (0.2-1.0) 10/09/20 04:35 Neut # (Auto) 10.7 x10^3/uL (2.2-4.8) H 10/09/20 04:35 Lymph # (Auto) 0.5 X10^3/uL (1.3-2.9) L 10/09/20 04:35 [place] # (Auto) 0.4 x10^3/uL (0.3-0.8) 10/09/20 04:35 Eos # (Auto) 0.0 x10^3/uL (0.0-0.2) 10/09/20 04:35 Baso # (Auto) 0.0 X10^3/uL (0.0-0.1) 10/09/20 04:35 Absolute Nucleated RBC 0.1 /100WBC 10/09/20 04:35 Total Counted 100 10/09/20 04:35 Neutrophils % (Manual) 93 % (39-76) H 10/09/20 04:35 Band Neutrophils % 3 % (0-10) 10/08/20 04:42 Lymphocytes % (Manual) 4 % (13-43) L 10/09/20 04:35 Monocytes % (Manual) 3 % (4-9) L 10/09/20 04:35 Plt Morphology Comment Normal (NORMAL) 10/09/20 04:35 RBC Morphology Abnormal (NORMAL) A 10/09/20 04:35 Dimorphic RBCs Wreath Machine Operator 10/04/20 05:06 Hypochromasia 1+ A 10/09/20 04:35 Poikilocytosis Slight A 09/24/20 20:24 Microcytosis Slight A 09/30/20 04:25 [place] Cells Present 09/25/20 05:49 Crenated Cell Slight A 10/01/20 04:20 PT 14.3 SECONDS (11.8-14.3) 09/24/20 20:24 INR Target Range - 09/24/20 20:24 INR 1.15 (0.8-1.3) 09/24/20 20:24 D-Dimer 2.89 ug/ml (0.0-0.57) H* 10/08/20 04:38 Sample Site [place] 10/09/20 06:28 ABG pH 7.450 (7.35-7.45) 10/09/20 06:28 ABG pCO2 43.0 mmHg (35.0-45.0) 10/09/20 06:28 ABG pO2 81.0 mmHg (80.0-100.0) 10/09/20 06:28 ABG HCO3 29.9 mmol/L (22-26) H 10/09/20 06:28 ABG O2 Saturation 96.0 % (90-100) 10/09/20 06:28 ABG Base Excess 5.3 mmol/L (-2.0-2.0) H 10/09/20 06:28 Alexx Test Na 10/09/20 06:28 A-a Gradient 186.0 mmHg 10/09/20 06:28 FiO2 45.0 10/09/20 06:28 Blood Gas Comments [place] abg well 10/09/20 06:28 Sodium 157 mmol/L (136-145) H* 10/09/20 04:35 Corrected Sodium 161 mmol/L (136-145) H 10/09/20 04:35 Potassium 3.9 mmol/L (3.5-5.1) 10/09/20 04:35 Chloride 120 mmol/L (98-107) H* 10/09/20 04:35 Carbon Dioxide 28.2 mmol/L (21-32) 10/09/20 04:35 BUN 46 mg/dL (7-18) H 10/09/20 04:35 Creatinine 0.97 mg/dL (0.55-1.02) 10/09/20 04:35 Est GFR (MDRD) Af Amer > 60 (>60) 10/09/20 04:35 Est GFR (MDRD) Non-Af > 60 (>60) 10/09/20 04:35 Glucose 251 mg/dL (65-99) H 10/09/20 04:35 POC Glucose (mg/dL) 265 mg/dL (65-99) H 10/09/20 11:19 Lactic Acid 1.5 mmol/L (0.4-2.0) 09/24/20 21:56 Calcium 8.3 mg/dL (8.5-10.1) L 10/09/20 04:35 Corrected Calcium 9.8 mg/dL (8.5-10.1) 10/09/20 04:35 Magnesium 2.8 mg/dL (1.7-2.9) 10/04/20 05:06 Ferritin 246 ng/mL (8-252) 10/08/20 04:42 Total Bilirubin 0.60 mg/dL (0.2-1.0) 10/09/20 04:35 AST 20 Units/L (15-37) 10/09/20 04:35 ALT 60 Units/L (12-78) 10/09/20 04:35 Alkaline Phosphatase 52 Units/L (46-116) 10/09/20 04:35 Creatine Kinase 78 Units/L (26-192) 09/25/20 16:10 CK-MB (CK-2) < 1.0 ng/mL (0-4.0) 09/25/20 16:10 CK/CKMB % Calc 1.3 % (<4) 09/25/20 16:10 Troponin I < 0.02 ng/mL (0-1.5) 09/25/20 16:10 C-Reactive Protein 0.60 mg/L (0-3.0) 10/08/20 04:42 B-Natriuretic Peptide 637 pg/mL (0-79) H* 09/24/20 20:24 Total Protein 5.1 g/dL (6.4-8.2) L 10/09/20 04:35 Albumin 2.1 g/dL (3.4-5.0) L 10/09/20 04:35 Globulin 3.0 g/dL (2.5-4.5) 10/09/20 04:35 Prealbumin 18.8 mg/dL (18-35.7) 09/30/20 04:25 Albumin/Globulin Ratio 0.7 Ratio (1.1-2.1) L 10/09/20 04:35 Specimen Type Clean catch urine 09/24/20 21:52 Urine Color Mabel (YELLOW) 09/24/20 21:52 Urine Appearance Slightly hazy (CLEAR) 09/24/20 21:52 Urine pH 5.0 (5.0 - 8.0) 09/24/20 21:52 Ur Specific [place] 1.015 (1.000-1.030) 09/24/20 21:52 Urine Protein 1+ (NEGATIVE) 09/24/20 21:52 Urine Glucose (UA) 3+ (NEGATIVE) 09/24/20 21:52 Urine Ketones Negative (NEGATIVE) 09/24/20 21:52 Urine Occult Blood 1+ (NEGATIVE) 09/24/20 21:52 Urine Nitrite Positive (NEGATIVE) 09/24/20 21:52 Urine Bilirubin Negative (NEGATIVE) 09/24/20 21:52 Urine Acetone Negative (NEGATIVE) 09/27/20 11:53 Urine Urobilinogen 1+ (NORMAL) 09/24/20 21:52 Ur Leukocyte Esterase 1+ (NEGATIVE) 09/24/20 21:52 Urine RBC 3-5 /HPF (0-3) A 09/24/20 21:52 Urine WBC 5-10 /HPF (0-5) A 09/24/20 21:52 Ur Squamous Epith Cells Few /HPF (NEGATIVE) 09/24/20 21:52 Urine Bacteria 2+ /HPF (NEGATIVE) 09/24/20 21:52 Ur Culture Indicated? Yes/culture set up 09/24/20 21:52 Influenza Type A (PCR) Negative (NEGATIVE) 09/24/20 22:20 Influenza Type B (PCR) Negative (NEGATIVE) 09/24/20 22:20 SARS CoV-2 RNA Rapid MICK Positive (NEGATIVE) A 09/24/20 22:20 Blood Type A POSITIVE 09/26/20 12:21 Plan (1) Pneumonia due to 2019 novel coronavirus: Status: Acute (2) Acute respiratory failure with hypoxia: Status: Acute (3) Hypernatremia: Status: Acute Plan: FREE WATER THROUGH NG TUBE (4) Diabetes mellitus: Status: Acute Qualifiers: Diabetes mellitus complication status: with other specified complication Diabetes mellitus alf insulin use: unspecified intermission coordinator insulin use status Diabetes mellitus type: type 2 Qualified Code(s): E11.69 - Type 2 diabetes mellitus with other specified complication (5) Anemia: Status: Acute Qualifiers: Anemia type: unspecified type Qualified Code(s): D64.9 - Anemia, unspecified (6) On mechanically assisted ventilation: Status: Acute (7) E-coli UTI: Status: Acute (8) Klebsiella pneumonia: Status: Acute
[2020-10-09] MEDS: D5W 1000 ML IV 1,000 ML IV SCH (13:48)
[2020-10-09] MEDS: MORPHINE SULFATE PCA 30 MG IVP PRN (15:03)
[2020-10-09] MEDS: VERSED 100 MG in NS 100 ML IV 80 ML IV PRN (17:14)
[2020-10-09] MEDS ORDERED: D5W 250 ML IV 500 ML IV ONE (20:39)
[2020-10-09] MEDS: SNACK - Diabetic Appropriate PO SCH (21:36)
[2020-10-09] MEDS: SOLU-Medrol 125 MG VIAL IVP SCH (21:38)
[2020-10-10] MEDS: D5W 1000 ML IV 1,000 ML IV SCH ×2 (01:58→15:00)
[2020-10-10 04:43] LABS: ABG BASE EXCESS 5.1 mmol/L (-2.0-2.0)
[2020-10-10 04:44] LABS: ABG HCO3 30.5 mmol/L (22-26)
[2020-10-10] MEDS: XOPENEX 1.25 MG/3 ML NEBULE NEB SCH ×3 (05:05→20:43)
[2020-10-10 05:35] LABS: BASOPHILS % (AUTO) 0.1 % (0.2-1.0); HEMATOCRIT 30.2 % (36.0-47.0); HEMOGLOBIN 9.3 g/dL (12.0-16.0); LYMPHOCYTES # (AUTO) 0.6 X10^3/uL (1.3-2.9); LYMPHOCYTES % (AUTO) 5.7 % (21.0-51.0); MEAN CORPUSCULAR HEMOGLOBIN 23.8 pg (27.0-34.0); MEAN CORPUSCULAR HGB CONC 30.7 g/dL (33.0-35.0); MEAN CORPUSCULAR VOLUME 77.6 fL (80.0-100.0); MEAN PLATELET VOLUME 9.2 fL (7.4-11.0); MONOCYTES # (AUTO) 0.5 x10^3/uL (0.3-0.8); MONOCYTES % (AUTO) 5.1 % (0.0-13.0); NEUTROPHILS % (AUTO) 89.1 % (42.0-75.0); PLATELET COUNT 168 X10^3/uL (150.0-450.0); RED BLOOD COUNT 3.89 X10^6/uL (3.5-5.4); RED CELL DISTRIBUTION WIDTH 16.1 % (11.6-16.5); WHITE BLOOD COUNT 10.1 X10^3/uL (3.6-10.0)
[2020-10-10 05:51] LABS: ALANINE AMINOTRANSFERASE 46 Units/L (12-78); ALKALINE PHOSPHATASE 52 Units/L (46-116); ASPARTATE AMINO TRANSFERASE 16 Units/L (15-37); BLOOD UREA NITROGEN 41 mg/dL (7-18); CALCIUM 7.9 mg/dL (8.5-10.1); CARBON DIOXIDE 29.5 mmol/L (21-32); COR CA(FOR HYPOALB) 9.5 mg/dL (8.5-10.1); COR NA(FOR HYPERGLY) 154 mmol/L (136-145); CREATININE 0.86 mg/dL (0.55-1.02); TOTAL PROTEIN 4.9 g/dL (6.4-8.2); eGFR NON BLACK RACES > 60 (>60)
[2020-10-10 05:59] LABS: CHLORIDE 118 mmol/L (98-107); SODIUM 152 mmol/L (136-145)
[2020-10-10] MEDS: ZOSYN VIAL 3.375 GRAMS 3.375 G in NS 100 ML IV + SPIKE MINIBAG* 100 ML IV SCH ×3 (06:39→22:00)
[2020-10-10 06:46] LABS: HYPOCHROMASIA 1+; MICROCYTOSIS SLIGHT; PLATELET MORPHOLOGY COMMENT NORMAL (NORMAL)
[2020-10-10] MEDS: MORPHINE SULFATE PCA 30 MG IVP PRN (07:00)
[2020-10-10] MEDS: XANAX PO PRN (09:30)
[2020-10-10] MEDS: LACRI-LUBE S.O.P. AFFEYE SCH ×2 (09:39→21:00)
[2020-10-10] MEDS: SYNTHROID INJ 100 mcg VIAL IVP SCH (09:39)
[2020-10-10] MEDS: COZAAR PO SCH (09:39)
[2020-10-10] MEDS: NORVASC TAB 10 MG PO SCH (09:40)
[2020-10-10] MEDS: LANTUS SC SCH (09:40)
[2020-10-10] MEDS: PULMICORT NEB TX 0.5 MG NEB SCH ×2 (09:48→20:43)
[2020-10-10] MEDS: SOLU-Medrol 125 MG VIAL IVP SCH ×2 (09:58→21:00)
[2020-10-10] MEDS: LOVENOX INJ 30 MG SYR SC SCH ×2 (09:58→21:42)
--- NOTE | 2020-10-10 10:40 | RAD ---
HISTORYCOVIDSTUDYCHEST, 1 [id number] support apparatus and cardiomegaly. Increasing hazy medial right base opacity. Left base mostly obscured by the heart. No visible pneumothorax or sizable effusion. No acute osseous finding.IMPRESSIONWorsening opacity in the right base. Left base mostly obscured.Electronically signed by: Zi Mendes (Oct 10, 2020 10:38:14)
[2020-10-10] MEDS: INVANZ INJ 1 GM VIAL 1 GM in NS 100 ML IV + SPIKE MINIBAG* 100 ML IV SCH (12:00)
--- NOTE | 2020-10-10 12:14 | PCM.PROG ---
Progress Note Progress Note for Day of Date of Exam: 10/10/20 Subjective Subjective: Patient seen at bedside, no overnight events. She is currently being treated for acute respiratory failure 2/2 to COVID-19 pneumonia and UTI. She is on mechanical ventilation. Patient has been weaned off sedation but unable to follow commands. She does open her eyes on name being called and she does turn her head to the sound. Unable to move fingers on command. Her neuro status does seem slightly better compared to the last few days. Patient has a decubitus ulcer with drainage on the bottom. Wound Cx obtained. CT-brain done on 10/06 did not show any acute changes. Labs: WBC 10.1 Hgb 9.3 Na: 154 K 3.8 Glucose 192 ABG 7.42/47/79/30.5 Vent settings FiO2 40% PEEP 7 RR 14 CXR:worsening infiltrate in the right base Sputum Cx: Enterobacter and Klebsiella Urine Cx: E.coli NGT in place Plan: wean down FiO2 as tolerated, monitor neuro status. Patient is currently off Propofol, only on versed and Morphine. Decrease D5 to 50cc/hr for hypernatremia. Continue ertapenem and zosyn. Continue solumedrol 80 mg q12hr. Continue Xanax prn for anxiety/agitation. Monitor AM labs and imaging. Follow cultures. Patient remains critical. Attempt was made to transfer patient to a higher level of care but no beds available at this time at multiple facilities. Critical care Time spent for clinical assessment, physical examination, reviewing labs/imaging , decision making and documentation more than 75 mins. Past Medical Family Social History Past Med/Fam/Surg Hx: No changes since H&P Allergies: Allergies lisinopril Allergy (Verified 09/05/19 12:12) ciprofloxacin [From Cipro] Adverse Reaction (Verified 09/05/19 12:12) Review of Systems ROS: No change since H&P Vital Signs and I&O's Vital Signs: Temperature 97.6 F Pulse Rate [Left Radial] 75 Pulse Rate 91 Respiratory Rate 18 Blood Pressure [Left Radial 153/53 Artery] Blood Pressure [Left Arm] 152/77 Blood Pressure 160/75 O2 Sat by Pulse Oximetry 96 Intake and Output: Intake & Output 10/07/20 10/08/20 10/09/20 10/10/20 23:59 23:59 23:59 23:59 Intake Total 2375 / 2375 1357 / 1357 2114 / 2114 450 / 450 Output Total 2049 1500 / 1500 1750 / 1750 500 / 500 Balance 325 / 325 -143 / -143 364 / 364 -50 / -50 Physical Exam Oriented: Unable to test Eyes: Normal and Other (Patient does open eyes when name called, looks towards the side of the sound. Not able to make eye contact. ) Ear: Normal Nose: Normal Throat: Dry Respiratory: Generalized and Diminished Cardiovascular: Normal and Edema : Normal Auscultation: Bowel Sounds: Normal Tenderness: Normal Skin: Decreased Turgur Musculoskeletal: Normal Psychiatric: Anxiety Mood Description: Calm Affect: Anxious Speech Pattern: Artificially Ventilated Laboratory and Diagnostics Result Diagrams: 10/10/20 04:35 10/10/20 04:35 Labs: 09/24/20 20:28 Blood Blood Culture - Final 09/24/20 20:24 Blood Blood Culture - Final 09/27/20 13:40 Sputum - Endotracheal Wash Sputum Culture - Final Enterobacter Cloacae Klebsiella Pneumoniae 09/27/20 13:40 Sputum - Endotracheal Wash - Final 09/24/20 21:52 Urine,Clean Catch Urine Culture - Final Escherichia Coli Laboratory WBC 10.1 X10^3/uL (3.6-10.0) H 10/10/20 04:35 RBC 3.89 X10^6/uL (3.5-5.4) 10/10/20 04:35 Hgb 9.3 g/dL (12.0-16.0) L 10/10/20 04:35 Hct 30.2 % (36.0-47.0) L 10/10/20 04:35 MCV 77.6 fL (80.0-100.0) L 10/10/20 04:35 MCH 23.8 pg (27.0-34.0) L 10/10/20 04:35 MCHC 30.7 g/dL (33.0-35.0) L 10/10/20 04:35 RDW 16.1 % (11.6-16.5) 10/10/20 04:35 Plt Count 168 X10^3/uL (150.0-450.0) 10/10/20 04:35 Plt Count Comment Adequate (ADEQUATE) 10/10/20 04:35 MPV 9.2 fL (7.4-11.0) 10/10/20 04:35 Neut % (Auto) 89.1 % (42.0-75.0) H 10/10/20 04:35 Lymph % (Auto) 5.7 % (21.0-51.0) L 10/10/20 04:35 [place] % (Auto) 5.1 % (0.0-13.0) 10/10/20 04:35 Eos % (Auto) 0.0 % (0.9-2.9) L 10/10/20 04:35 Baso % (Auto) 0.1 % (0.2-1.0) L 10/10/20 04:35 Neut # (Auto) 9.0 x10^3/uL (2.2-4.8) H 10/10/20 04:35 Lymph # (Auto) 0.6 X10^3/uL (1.3-2.9) L 10/10/20 04:35 [place] # (Auto) 0.5 x10^3/uL (0.3-0.8) 10/10/20 04:35 Eos # (Auto) 0.0 x10^3/uL (0.0-0.2) 10/10/20 04:35 Baso # (Auto) 0.0 X10^3/uL (0.0-0.1) 10/10/20 04:35 Absolute Nucleated RBC 0.1 /100WBC 10/10/20 04:35 Total Counted 100 10/09/20 04:35 Neutrophils % (Manual) 93 % (39-76) H 10/09/20 04:35 Band Neutrophils % 3 % (0-10) 10/08/20 04:42 Lymphocytes % (Manual) 4 % (13-43) L 10/09/20 04:35 Monocytes % (Manual) 3 % (4-9) L 10/09/20 04:35 Plt Morphology Comment Normal (NORMAL) 10/10/20 04:35 RBC Morphology Abnormal (NORMAL) A 10/10/20 04:35 Dimorphic RBCs Joggle Press Operator 10/04/20 05:06 Hypochromasia 1+ A 10/10/20 04:35 Poikilocytosis Slight A 09/24/20 20:24 Microcytosis Slight A 10/10/20 04:35 Vernon Cells Present 09/25/20 05:49 Crenated Cell Slight A 10/01/20 04:20 PT 14.3 SECONDS (11.8-14.3) 09/24/20 20:24 INR Target Range - 09/24/20 20:24 INR 1.15 (0.8-1.3) 09/24/20 20:24 D-Dimer 2.89 ug/ml (0.0-0.57) H* 10/08/20 04:38 Sample Site Cristina 10/10/20 04:38 ABG pH 7.420 (7.35-7.45) 10/10/20 04:38 ABG pCO2 47.0 mmHg (35.0-45.0) H 10/10/20 04:38 ABG pO2 79.0 mmHg (80.0-100.0) L 10/10/20 04:38 ABG HCO3 30.5 mmol/L (22-26) H* 10/10/20 04:38 ABG O2 Saturation 96.0 % (90-100) 10/10/20 04:38 ABG Base Excess 5.1 mmol/L (-2.0-2.0) H 10/10/20 04:38 Alexx Test N/a 10/10/20 04:38 A-a Gradient 183.0 mmHg 10/10/20 04:38 FiO2 45.0 10/10/20 04:38 Blood Gas Comments Erwin well ae 10/10/20 04:38 Sodium 152 mmol/L (136-145) H* 10/10/20 04:35 Corrected Sodium 154 mmol/L (136-145) H 10/10/20 04:35 Potassium 3.8 mmol/L (3.5-5.1) 10/10/20 04:35 Chloride 118 mmol/L (98-107) H* 10/10/20 04:35 Carbon Dioxide 29.5 mmol/L (21-32) 10/10/20 04:35 BUN 41 mg/dL (7-18) H 10/10/20 04:35 Creatinine 0.86 mg/dL (0.55-1.02) 10/10/20 04:35 Est GFR (MDRD) Af Amer > 60 (>60) 10/10/20 04:35 Est GFR (MDRD) Non-Af > 60 (>60) 10/10/20 04:35 Glucose 192 mg/dL (65-99) H 10/10/20 04:35 POC Glucose (mg/dL) 170 mg/dL (65-99) H 10/10/20 11:55 Lactic Acid 1.5 mmol/L (0.4-2.0) 09/24/20 21:56 Calcium 7.9 mg/dL (8.5-10.1) L 10/10/20 04:35 Corrected Calcium 9.5 mg/dL (8.5-10.1) 10/10/20 04:35 Magnesium 2.8 mg/dL (1.7-2.9) 10/04/20 05:06 Ferritin 246 ng/mL (8-252) 10/08/20 04:42 Total Bilirubin 0.60 mg/dL (0.2-1.0) 10/10/20 04:35 AST 16 Units/L (15-37) 10/10/20 04:35 ALT 46 Units/L (12-78) 10/10/20 04:35 Alkaline Phosphatase 52 Units/L (46-116) 10/10/20 04:35 Creatine Kinase 78 Units/L (26-192) 09/25/20 16:10 CK-MB (CK-2) < 1.0 ng/mL (0-4.0) 09/25/20 16:10 CK/CKMB % Calc 1.3 % (<4) 09/25/20 16:10 Troponin I < 0.02 ng/mL (0-1.5) 09/25/20 16:10 C-Reactive Protein 0.60 mg/L (0-3.0) 10/08/20 04:42 B-Natriuretic Peptide 637 pg/mL (0-79) H* 09/24/20 20:24 Total Protein 4.9 g/dL (6.4-8.2) L 10/10/20 04:35 Albumin 2.0 g/dL (3.4-5.0) L 10/10/20 04:35 Globulin 2.9 g/dL (2.5-4.5) 10/10/20 04:35 Prealbumin 18.8 mg/dL (18-35.7) 09/30/20 04:25 Albumin/Globulin Ratio 0.7 Ratio (1.1-2.1) L 10/10/20 04:35 Specimen Type Clean catch urine 09/24/20 21:52 Urine Color Mabel (YELLOW) 09/24/20 21:52 Urine Appearance Slightly hazy (CLEAR) 09/24/20 21:52 Urine pH 5.0 (5.0 - 8.0) 09/24/20 21:52 Ur Specific [place] 1.015 (1.000-1.030) 09/24/20 21:52 Urine Protein 1+ (NEGATIVE) 09/24/20 21:52 Urine Glucose (UA) 3+ (NEGATIVE) 09/24/20 21:52 Urine Ketones Negative (NEGATIVE) 09/24/20 21:52 Urine Occult Blood 1+ (NEGATIVE) 09/24/20 21:52 Urine Nitrite Positive (NEGATIVE) 09/24/20 21:52 Urine Bilirubin Negative (NEGATIVE) 09/24/20 21:52 Urine Acetone Negative (NEGATIVE) 09/27/20 11:53 Urine Urobilinogen 1+ (NORMAL) 09/24/20 21:52 Ur Leukocyte Esterase 1+ (NEGATIVE) 09/24/20 21:52 Urine RBC 3-5 /HPF (0-3) A 09/24/20 21:52 Urine WBC 5-10 /HPF (0-5) A 09/24/20 21:52 Ur Squamous Epith Cells Few /HPF (NEGATIVE) 09/24/20 21:52 Urine Bacteria 2+ /HPF (NEGATIVE) 09/24/20 21:52 Ur Culture Indicated? Yes/culture set up 09/24/20 21:52 Influenza Type A (PCR) Negative (NEGATIVE) 09/24/20 22:20 Influenza Type B (PCR) Negative (NEGATIVE) 09/24/20 22:20 SARS CoV-2 RNA Rapid MICK Positive (NEGATIVE) A 09/24/20 22:20 Blood Type A POSITIVE 09/26/20 12:21 Plan (1) Pneumonia due to 2019 novel coronavirus: Status: Acute Plan: NS AT 75 ML/HR, REMDESIVIR 100MG IV, DAILY, INVANZ 1G IV DAILY, SO DIA-MEDROL 80MG IV Q8H, XOPENEX NEBS TID, PULMICORT NEBS BID, HUMULIN R SLIDING SCALE, LANTUS 36 UNITS DAILY, A CATAPRES PATCH, APRESOLINE 10MG IV Q4H PRN, MORPHINE ASSISTANT DIRECTOR OF PLANT OPERATIONS, DIPROVAN DRIP, AND VERSED DRIP PER PROTOCOL FOR SEDATIONS. MECHANICAL VENTILATION (2) Acute respiratory failure with hypoxia: Status: Acute (3) Hypernatremia: Status: Acute Plan: FREE WATER THROUGH NG TUBE (4) Diabetes mellitus: Status: Acute Qualifiers: Diabetes mellitus complication status: with other specified complication Diabetes mellitus lobsterman insulin use: unspecified lobsterman insulin use status Diabetes mellitus type: type 2 Qualified Code(s): E11.69 - Type 2 diabetes mellitus with other specified complication (5) Anemia: Status: Acute Qualifiers: Anemia type: unspecified type Qualified Code(s): D64.9 - Anemia, uns pecified (6) On mechanically assisted ventilation: Status: Acute (7) E-coli UTI: Status: Acute (8) Klebsiella pneumonia: Status: Acute
[2020-10-10] MEDS: VERSED 100 MG in NS 100 ML IV 80 ML IV PRN (12:35)
[2020-10-10] MEDS: HumuLIN R SC PRN ×2 (17:13→21:00)
--- NOTE | 2020-10-10 18:04 | PCM.PROG ---
Progress Note - Progress Note for Day of Date of Exam: 10/07/20 - Subjective Subjective: WAS ADMITTED FOR PNEUMONIA DUE TO COVID-19, HYPOXIA, ACUTE RESPIRATORY FAILURE, AND A URINARY TRACT INFECTION. TODAY, SHE IS LYING IN BED ON MORNING ROUNDS. SHE IS CURRENTLY ON THE MECHANICAL VENTILLATOR WITH SETTINGS AC, VENT RATE 18, TIDAL VOLUME 450, PEAK FLOW 45, PEEP 8, FI02 40. HER OXYGEN SATURATIONS HAVE BEEN 90-94% ON THE VENT. THERE IS AN NG TUBE IN PLACE FOR TREATMENT OF HYPERNATREMIA WELL TUBE FEEDINGS. SHE IS RECEIVING FREE WATER THROUGH THE NG TUBE. ON EXAMINATION, SHE CONTINUES TO BE BRADYCARDIC WITH HR 50- 60. BILATERAL LUNGS ARE NOTED WITH DIMINISHED LUNG SOUNDS THROUGHOUT. ABDOMEN IS ROUND, SOFT, AND NON-TENDER WITH HYPERACTIVE BOWEL SOUNDS NOTED IN ALL QUADRANTS. THERE IS 1+ PITTING EDEMA TO UPPER AND LOWER EXTREMITIES. A GARCIA CATHETER IS NOTED TO BEDSIDE DREAINAGE. HER VITALS THIS MORNING ARE: 98.2-61-18-92%-207/88. LABS WERE OBTAINED. ABNORMAL VALUES INCLUDE THE FOLLOWING: WBC 10.9, HGB 9.7, HCT 31.6, SODIUM 160, CHLORIDE 124, BUN 46, GLUCOSE 189, CALCIUM 8.2, TOTAL PROTEIN 5.4, ALBUMIN 2.2. ABG REVEALED: 7.510, PC02 39, P02 82, HC03 31.1, 02 SAT 97, BASE EXCESS 7.5, FI02 40. BLOOD CULTURES ARE PENDING. URINE CULTURE REVEALED GROWTH OF E.COLI. SPUTUM CULTURE REVEALS GROWTH OF ENTEROBACTER CLOACAAE AND KLEBSIELLA PNEUMONIAE. A CHEST XRAY WAS OBTAINED AND REVEALED: No change cardiomegaly without congestive heart failure. No change right basilar infiltrates. Remainder of the lung lopez are now clear. STAFF ATTEMPTED TO WEAN PATIENT OFF OF SEDATION YESTERDAY. THEY REPORT THAT SHE IS NOT BREATHING OVER THE SET RATE AND IS NOT ABLE TO FOLLOW COMMANDS DESPITE SEDATION BEING TURNED OFF. SHE IS CURRENTLY RECEIVING NS AT 75 ML/HR, INVANZ 1G IV DAILY, SOLU-MEDROL 80MG IV Q8H, XOPENEX NEBS TID, PULMICORT NEBS BID, HUMULIN R SLIDING SCALE, LANTUS 36 UNITS DAILY, A CATAPRES PATCH, APRESOLINE 10MG IV Q4H PRN, MORPHINE MARINE METEOROLOGIST, DIPROVAN DRIP, AND VERSED DRIP PER PROTOCOL FOR SEDATIONS. WE WILL CONTINUE WITH CURRENT PLAN OF CARE TODAY AND CONTINUE TO WEAN FROM THE VENT. OTHERWISE, WE PLAN TO FOLLOW UP WITH AM LABS, ABG, AND CHEST XRAY AND CON TINUE TO MONITOR. Time spent for clinical assessment, physical examination, reviewing labs/imaging and decision making more than 75 mins. - Past Medical Family Social History Past Med/Fam/Surg Hx: No changes since H&P Allergies: Allergies lisinopril Allergy (Verified 09/05/19 12:12) ciprofloxacin [From Cipro] Adverse Reaction (Verified 09/05/19 12:12) - Review of Systems ROS: No change since H&P - Vital Signs and I&O's Vital Signs: Temperature 97.6 F Pulse Rate [Left Radial] 75 Pulse Rate 59 Respiratory Rate 13 Blood Pressure [Left Radial 153/53 Artery] Blood Pressure [Left Arm] 152/77 Blood Pressure 137/72 O2 Sat by Pulse Oximetry 93 Intake and Output: Intake & Output 10/08/20 10/09/20 10/10/20 10/11/20 11:59 11:59 11:59 11:59 Intake Total 1821 / 1821 1312 / 1312 2664 / 2664 1850 / 1850 Output Total 1974 / 1974 1450 / 1450 1800 / 1800 525 / 525 Balance -154 / -154 -138 / -138 864 / 864 1325 / 1325 - Physical Exam Oriented: Unable to test Eyes: Normal, Other (Patient does open eyes when name called, looks towards the side of the sound. Not able to make eye contact.) Ear: Normal Nose: Normal Throat: Dry Respiratory: Generalized, Diminished Cardiovascular: Normal, Edema : Normal Auscultation: Bowel Sounds: Normal Palpation: Normal Tenderness: Normal Skin: Decreased Turgur Musculoskeletal: Normal Psychiatric: Normal Mood Description: Calm Affect: Flat Speech Pattern: Artificially Ventilated - Laboratory and Diagnostics Result Diagrams: 10/10/20 04:35 10/10/20 04:35 Labs: 10/10/20 11:24 Buttock Gram Stain - Final 09/24/20 20:28 Blood Blood Culture - Final 09/24/20 20:24 Blood Blood Culture - Final 09/27/20 13:40 Sputum - Endotracheal Wash Sputum Culture - Final Enterobacter Cloacae Klebsiella Pneumoniae 09/27/20 13:40 Sputum - Endotracheal Wash - Final 09/24/20 21:52 Urine,Clean Catch Urine Culture - Final Escherichia Coli Laboratory WBC 10.1 X10^3/uL (3.6-10.0) H 10/10/20 04:35 RBC 3.89 X10^6/uL (3.5-5.4) 10/10/20 04:35 Hgb 9.3 g/dL (12.0-16.0) L 10/10/20 04:35 Hct 30.2 % (36.0-47.0) L 10/10/20 04:35 MCV 77.6 fL (80.0-100.0) L 10/10/20 04:35 MCH 23.8 pg (27.0-34.0) L 10/10/20 04:35 MCHC 30.7 g/dL (33.0-35.0) L 10/10/20 04:35 RDW 16.1 % (11.6-16.5) 10/10/20 04:35 Plt Count 168 X10^3/uL (150.0-450.0) 10/10/20 04:35 Plt Count Comment Adequate (ADEQUATE) 10/10/20 04:35 MPV 9.2 fL (7.4-11.0) 10/10/20 04:35 Neut % (Auto) 89.1 % (42.0-75.0) H 10/10/20 04:35 Lymph % (Auto) 5.7 % (21.0-51.0) L 10/10/20 04:35 [place] % (Auto) 5.1 % (0.0-13.0) 10/10/20 04:35 Eos % (Auto) 0.0 % (0.9-2.9) L 10/10/20 04:35 Baso % (Auto) 0.1 % (0.2-1.0) L 10/10/20 04:35 Neut # (Auto) 9.0 x10^3/uL (2.2-4.8) H 10/10/20 04:35 Lymph # (Auto) 0.6 X10^3/uL (1.3-2.9) L 10/10/20 04:35 [place] # (Auto) 0.5 x10^3/uL (0.3-0.8) 10/10/20 04:35 Eos # (Auto) 0.0 x10^3/uL (0.0-0.2) 10/10/20 04:35 Baso # (Auto) 0.0 X10^3/uL (0.0-0.1) 10/10/20 04:35 Absolute Nucleated RBC 0.1 /100WBC 10/10/20 04:35 Total Counted 100 10/09/20 04:35 Neutrophils % (Manual) 93 % (39-76) H 10/09/20 04:35 Band Neutrophils % 3 % (0-10) 10/08/20 04:42 Lymphocytes % (Manual) 4 % (13-43) L 10/09/20 04:35 Monocytes % (Manual) 3 % (4-9) L 10/09/20 04:35 Plt Morphology Comment Normal (NORMAL) 10/10/20 04:35 RBC Morphology Abnormal (NORMAL) A 10/10/20 04:35 Dimorphic RBCs [employer] Maker 10/04/20 05:06 Hypochromasia 1+ A 10/10/20 04:35 Poikilocytosis Slight A 09/24/20 20:24 Microcytosis Slight A 10/10/20 04:35 Vernon Cells Present 09/25/20 05:49 Crenated Cell Slight A 10/01/20 04:20 PT 14.3 SECONDS (11.8-14.3) 09/24/20 20:24 INR Target Range - 09/24/20 20:24 INR 1.15 (0.8-1.3) 09/24/20 20:24 D-Dimer 2.89 ug/ml (0.0-0.57) H* 10/08/20 04:38 Sample Site Cristina 10/10/20 04:38 ABG pH 7.420 (7.35-7.45) 10/10/20 04:38 ABG pCO2 47.0 mmHg (35.0-45.0) H 10/10/20 04:38 ABG pO2 79.0 mmHg (80.0-100.0) L 10/10/20 04:38 ABG HCO3 30.5 mmol/L (22-26) H* 10/10/20 04:38 ABG O2 Saturation 96.0 % (90-100) 10/10/20 04:38 ABG Base Excess 5.1 mmol/L (-2.0-2.0) H 10/10/20 04:38 Alexx Test N/a 10/10/20 04:38 A-a Gradient 183.0 mmHg 10/10/20 04:38 FiO2 45.0 10/10/20 04:38 Blood Gas Comments Erwin well ae 10/10/20 04:38 Sodium 152 mmol/L (136-145) H* 10/10/20 04:35 Corrected Sodium 154 mmol/L (136-145) H 10/10/20 04:35 Potassium 3.8 mmol/L (3.5-5.1) 10/10/20 04:35 Chloride 118 mmol/L (98-107) H* 10/10/20 04:35 Carbon Dioxide 29.5 mmol/L (21-32) 10/10/20 04:35 BUN 41 mg/dL (7-18) H 10/10/20 04:35 Creatinine 0.86 mg/dL (0.55-1.02) 10/10/20 04:35 Est GFR (MDRD) Af Amer > 60 (>60) 10/10/20 04:35 Est GFR (MDRD) Non-Af > 60 (>60) 10/10/20 04:35 Glucose 192 mg/dL (65-99) H 10/10/20 04:35 POC Glucose (mg/dL) 234 mg/dL (65-99) H 10/10/20 16:31 Lactic Acid 1.5 mmol/L (0.4-2.0) 09/24/20 21:56 Calcium 7.9 mg/dL (8.5-10.1) L 10/10/20 04:35 Corrected Calcium 9.5 mg/dL (8.5-10.1) 10/10/20 04:35 Magnesium 2.8 mg/dL (1.7-2.9) 10/04/20 05:06 Ferritin 246 ng/mL (8-252) 10/08/20 04:42 Total Bilirubin 0.60 mg/dL (0.2-1.0) 10/10/20 04:35 AST 16 Units/L (15-37) 10/10/20 04:35 ALT 46 Units/L (12-78) 10/10/20 04:35 Alkaline Phosphatase 52 Units/L (46-116) 10/10/20 04:35 Creatine Kinase 78 Units/L (26-192) 09/25/20 16:10 CK-MB (CK-2) < 1.0 ng/mL (0-4.0) 09/25/20 16:10 CK/CKMB % Calc 1.3 % (<4) 09/25/20 16:10 Troponin I < 0.02 ng/mL (0-1.5) 09/25/20 16:10 C-Reactive Protein 0.60 mg/L (0-3.0) 10/08/20 04:42 B-Natriuretic Peptide 637 pg/mL (0-79) H* 09/24/20 20:24 Total Protein 4.9 g/dL (6.4-8.2) L 10/10/20 04:35 Albumin 2.0 g/dL (3.4-5.0) L 10/10/20 04:35 Globulin 2.9 g/dL (2.5-4.5) 10/10/20 04:35 Prealbumin 18.8 mg/dL (18-35.7) 09/30/20 04:25 Albumin/Globulin Ratio 0.7 Ratio (1.1-2.1) L 10/10/20 04:35 Specimen Type Clean catch urine 09/24/20 21:52 Urine Color Mabel (YELLOW) 09/24/20 21:52 Urine Appearance Slightly hazy (CLEAR) 09/24/20 21:52 Urine pH 5.0 (5.0 - 8.0) 09/24/20 21:52 Ur Specific [place] 1.015 (1.000-1.030) 09/24/20 21:52 Urine Protein 1+ (NEGATIVE) 09/24/20 21:52 Urine Glucose (UA) 3+ (NEGATIVE) 09/24/20 21:52 Urine Ketones Negative (NEGATIVE) 09/24/20 21:52 Urine Occult Blood 1+ (NEGATIVE) 09/24/20 21:52 Urine Nitrite Positive (NEGATIVE) 09/24/20 21:52 Urine Bilirubin Negative (NEGATIVE) 09/24/20 21:52 Urine Acetone Negative (NEGATIVE) 09/27/20 11:53 Urine Urobilinogen 1+ (NORMAL) 09/24/20 21:52 Ur Leukocyte Esterase 1+ (NEGATIVE) 09/24/20 21:52 Urine RBC 3-5 /HPF (0-3) A 09/24/20 21:52 Urine WBC 5-10 /HPF (0-5) A 09/24/20 21:52 Ur Squamous Epith Cells Few /HPF (NEGATIVE) 09/24/20 21:52 Urine Bacteria 2+ /HPF (NEGATIVE) 09/24/20 21:52 Ur Culture Indicated? Yes/culture set up 09/24/20 21:52 Influenza Type A (PCR) Negative (NEGATIVE) 09/24/20 22:20 Influenza Type B (PCR) Negative (NEGATIVE) 09/24/20 22:20 SARS CoV-2 RNA Rapid MICK Positive (NEGATIVE) A 09/24/20 22:20 Blood Type A POSITIVE 09/26/20 12:21 - Plan (1) Pneumonia due to 2019 novel coronavirus Status: Acute Plan: NS AT 75 ML/HR, INVANZ 1G IV DAILY, SOLU-MEDROL 80MG IV Q8H, XOPENEX NEBS TID, PULMICORT NEBS BID, HUMULIN R SLIDING SCALE, LANTUS 36 UNITS DAILY, A CATAPRES PATCH, APRESOLINE 10MG IV Q4H PRN, MORPHINE MARINE METEOROLOGIST, DIPROVAN DRIP, AND VERSED DRIP PER PROTOCOL FOR SEDATIONS. MECHANICAL VENTILATION (2) Acute respiratory failure with hypoxia Status: Acute (3) Hypernatremia Status: Acute Plan: FREE WATER THROUGH NG TUBE (4) Diabetes mellitus Status: Acute Qualifiers: Diabetes mellitus type: type 2 Diabetes mellitus marine oil terminal superintendent insulin use: unspecified marine oil terminal superintendent insulin use status Diabetes mellitus complication status: with other specified complication Qualified Code(s): E11.69 - Type 2 diabetes mellitus with other specified complication
[2020-10-11] MEDS: SNACK - Diabetic Appropriate PO SCH ×2 (00:41→20:48)
[2020-10-11] MEDS: D5W 1000 ML IV 1,000 ML IV SCH ×4 (00:45→19:00)
[2020-10-11] MEDS: VERSED 100 MG in NS 100 ML IV 80 ML IV PRN (03:00)
[2020-10-11 05:49] LABS: ABG ALLEN TEST POS; ABG BASE EXCESS 4.5 mmol/L (-2.0-2.0); ABG HCO3 29.2 mmol/L (22-26)
[2020-10-11] MEDS: XOPENEX 1.25 MG/3 ML NEBULE NEB SCH ×3 (05:50→21:38)
[2020-10-11] MEDS: ZOSYN VIAL 3.375 GRAMS 3.375 G in NS 100 ML IV + SPIKE MINIBAG* 100 ML IV SCH ×3 (06:00→22:05)
[2020-10-11 06:07] LABS: BASOPHILS % (AUTO) 0.2 % (0.2-1.0); EOSINOPHILS % (AUTO) 0.2 % (0.9-2.9); HEMATOCRIT 28.4 % (36.0-47.0); HEMOGLOBIN 8.9 g/dL (12.0-16.0); LYMPHOCYTES # (AUTO) 1.4 X10^3/uL (1.3-2.9); LYMPHOCYTES % (AUTO) 15.1 % (21.0-51.0); MEAN CORPUSCULAR HEMOGLOBIN 23.9 pg (27.0-34.0); MEAN CORPUSCULAR HGB CONC 31.2 g/dL (33.0-35.0); MEAN CORPUSCULAR VOLUME 76.6 fL (80.0-100.0); MEAN PLATELET VOLUME 9.3 fL (7.4-11.0); MONOCYTES # (AUTO) 0.6 x10^3/uL (0.3-0.8); MONOCYTES % (AUTO) 6.8 % (0.0-13.0); NEUTROPHILS # (AUTO) 7.2 x10^3/uL (2.2-4.8); NEUTROPHILS % (AUTO) 77.7 % (42.0-75.0); PLATELET COUNT 167 X10^3/uL (150.0-450.0); RED BLOOD COUNT 3.71 X10^6/uL (3.5-5.4); RED CELL DISTRIBUTION WIDTH 15.8 % (11.6-16.5); WHITE BLOOD COUNT 9.3 X10^3/uL (3.6-10.0)
[2020-10-11 06:43] LABS: BLOOD UREA NITROGEN 34 mg/dL (7-18); CALCIUM 7.8 mg/dL (8.5-10.1); CARBON DIOXIDE 28.6 mmol/L (21-32); CHLORIDE 113 mmol/L (98-107); COR NA(FOR HYPERGLY) 148 mmol/L (136-145); CREATININE 0.81 mg/dL (0.55-1.02); SODIUM 146 mmol/L (136-145); eGFR NON BLACK RACES > 60 (>60)
--- NOTE | 2020-10-11 06:46 | RAD ---
HISTORYSOBSTUDYCHEST, 1 [id number]/27/2020.TECHNIQUEAP view of the chestFINDINGSET tube in good position. NG tube in good position. Right IJ central line in good position. Cardiac and mediastinal contours are stable. Stable hazy right infrahilar opacity. Stable left base consolidation. No large pleural effusion. No pneumothorax.IMPRESSIONNo significant change.Electronically signed by: Miller Loredo (Oct 11, 2020 06:45:05)
[2020-10-11 07:31] LABS: HYPOCHROMASIA 1+; PLATELET MORPHOLOGY COMMENT NORMAL (NORMAL)
[2020-10-11] MEDS: NORVASC TAB 10 MG PO SCH (08:15)
[2020-10-11] MEDS: INVANZ INJ 1 GM VIAL 1 GM in NS 100 ML IV + SPIKE MINIBAG* 100 ML IV SCH ×2 (08:15→12:42)
[2020-10-11] MEDS: COZAAR PO SCH (08:15)
[2020-10-11] MEDS: SYNTHROID INJ 100 mcg VIAL IVP SCH (08:16)
[2020-10-11] MEDS: LANTUS SC SCH (08:20)
[2020-10-11] MEDS: LOVENOX INJ 30 MG SYR SC SCH ×3 (08:21→21:00)
[2020-10-11] MEDS: LACRI-LUBE S.O.P. AFFEYE SCH ×2 (08:21→20:48)
[2020-10-11] MEDS: SOLU-Medrol 125 MG VIAL IVP SCH ×2 (08:22→22:05)
[2020-10-11] MEDS ORDERED: POTASSIUM CHLORIDE LIQ 20 MEQ UDC PO PRN (08:27)
[2020-10-11] MEDS ORDERED: K-RIDER 10 MEQ/NS 100 ML 10 MEQ/100 ML BAG IV PRN (08:27)
[2020-10-11] MEDS: PULMICORT NEB TX 0.5 MG NEB SCH ×2 (09:57→21:38)
[2020-10-11] MEDS ORDERED: SOLU-Medrol 125 MG VIAL IVP SCH (11:00)
[2020-10-11] MEDS: MORPHINE SULFATE PCA 30 MG IVP PRN ×2 (15:00)
[2020-10-11] MEDS: LASIX IVP SCH (18:29)
[2020-10-12] MEDS: VERSED 100 MG in NS 100 ML IV 80 ML IV PRN (01:00)
[2020-10-12 05:50] LABS: ALANINE AMINOTRANSFERASE 60 Units/L (12-78); ALBUMIN 1.9 g/dL (3.4-5.0); ALKALINE PHOSPHATASE 51 Units/L (46-116); ASPARTATE AMINO TRANSFERASE 37 Units/L (15-37); BLOOD UREA NITROGEN 29 mg/dL (7-18); CALCIUM 7.9 mg/dL (8.5-10.1); CARBON DIOXIDE 28.4 mmol/L (21-32); CHLORIDE 111 mmol/L (98-107); COR CA(FOR HYPOALB) 9.6 mg/dL (8.5-10.1); COR NA(FOR HYPERGLY) 148 mmol/L (136-145); CREATININE 0.71 mg/dL (0.55-1.02); SODIUM 146 mmol/L (136-145); eGFR NON BLACK RACES > 60 (>60)
[2020-10-12 06:15] LABS: BASOPHILS % (AUTO) 0.1 % (0.2-1.0); EOSINOPHILS % (AUTO) 0.2 % (0.9-2.9); HEMATOCRIT 29.3 % (36.0-47.0); HEMOGLOBIN 9.4 g/dL (12.0-16.0); LYMPHOCYTES # (AUTO) 1.1 X10^3/uL (1.3-2.9); LYMPHOCYTES % (AUTO) 10.5 % (21.0-51.0); MEAN CORPUSCULAR HEMOGLOBIN 24.5 pg (27.0-34.0); MEAN CORPUSCULAR HGB CONC 32.2 g/dL (33.0-35.0); MEAN CORPUSCULAR VOLUME 76.1 fL (80.0-100.0); MEAN PLATELET VOLUME 9.2 fL (7.4-11.0); MONOCYTES # (AUTO) 0.5 x10^3/uL (0.3-0.8); MONOCYTES % (AUTO) 4.5 % (0.0-13.0); NEUTROPHILS # (AUTO) 8.6 x10^3/uL (2.2-4.8); NEUTROPHILS % (AUTO) 84.7 % (42.0-75.0); PLATELET COUNT 147 X10^3/uL (150.0-450.0); RED BLOOD COUNT 3.85 X10^6/uL (3.5-5.4); RED CELL DISTRIBUTION WIDTH 15.7 % (11.6-16.5); WHITE BLOOD COUNT 10.2 X10^3/uL (3.6-10.0)
[2020-10-12] MEDS: XOPENEX 1.25 MG/3 ML NEBULE NEB SCH ×3 (06:15→21:00)
[2020-10-12 06:37] LABS: ABG BASE EXCESS 6.7 mmol/L (-2.0-2.0)
[2020-10-12 06:38] LABS: ABG ALLEN TEST POS; ABG HCO3 30.4 mmol/L (22-26)
[2020-10-12] MEDS: ZOSYN VIAL 3.375 GRAMS 3.375 G in NS 100 ML IV + SPIKE MINIBAG* 100 ML IV SCH ×3 (07:10→22:00)
[2020-10-12] MEDS: SOLU-Medrol 125 MG VIAL IVP SCH ×3 (07:10→22:00)
[2020-10-12] MEDS: D5W 1000 ML IV 1,000 ML IV SCH ×2 (07:10→18:04)
--- NOTE | 2020-10-12 07:39 | RAD ---
HISTORYShortness of breathSTUDYChest AP [id number]/28/2020FINDINGSPatient is rotated significantly to the left. There is an endotra cheal tube in good position. There is a nasogastric tube in good position. There is a right IJ line i n good position. Heart remains enlarged. No congestive heart failure is noted. Right lung and left up per lung lopez remain clear. Persistent increased density retrocardiac area left lower lobe obscurin g the left hemidiaphragm which could be on the basis of consolidation, atelectasis, pleural effusion or combination bony thorax is unremarkable.IMPRESSIONNo change cardiomegaly without congestive heart failureNo change abnormal retrocardiac density obscuring the left hemidiaphragm. Differential diagnos is as aboveElectronically signed by: CHOLO HALLMAN (Oct 12, 2020 07:37:41)
[2020-10-12] MEDS: PULMICORT NEB TX 0.5 MG NEB SCH ×2 (09:14→21:00)
[2020-10-12] MEDS: MORPHINE SULFATE PCA 30 MG IVP PRN (09:15)
[2020-10-12] MEDS: SYNTHROID INJ 100 mcg VIAL IVP SCH (09:41)
[2020-10-12] MEDS: NORVASC TAB 10 MG PO SCH (09:42)
[2020-10-12] MEDS: CATAPRES TAB 0.1 MG PO PRN (09:42)
[2020-10-12] MEDS: LOVENOX INJ 30 MG SYR SC SCH (09:42)
[2020-10-12] MEDS: LACRI-LUBE S.O.P. AFFEYE SCH ×2 (09:43→21:00)
[2020-10-12] MEDS: LANTUS SC SCH (09:43)
[2020-10-12] MEDS: LASIX IVP SCH ×2 (09:43→18:00)
[2020-10-12] MEDS: COZAAR PO SCH (09:46)
[2020-10-12] MEDS: INVANZ INJ 1 GM VIAL 1 GM in NS 100 ML IV + SPIKE MINIBAG* 100 ML IV SCH (10:15)
[2020-10-12] MEDS: XANAX PO PRN (21:00)
[2020-10-13] MEDS: SNACK - Diabetic Appropriate PO SCH ×2 (02:07→21:44)
[2020-10-13] MEDS: SOLU-Medrol 125 MG VIAL IVP SCH ×3 (05:45→21:44)
[2020-10-13] MEDS: ZOSYN VIAL 3.375 GRAMS 3.375 G in NS 100 ML IV + SPIKE MINIBAG* 100 ML IV SCH ×3 (05:45→21:44)
[2020-10-13 06:00] LABS: ABG BASE EXCESS 8.7 mmol/L (-2.0-2.0)
[2020-10-13 06:01] LABS: ABG HCO3 31.5 mmol/L (22-26)
[2020-10-13 06:07] LABS: BASOPHILS # (AUTO) 0.1 X10^3/uL (0.0-0.1); BASOPHILS % (AUTO) 0.5 % (0.2-1.0); EOSINOPHILS % (AUTO) 0.3 % (0.9-2.9); HEMATOCRIT 29.6 % (36.0-47.0); HEMOGLOBIN 9.2 g/dL (12.0-16.0); LYMPHOCYTES # (AUTO) 1.2 X10^3/uL (1.3-2.9); LYMPHOCYTES % (AUTO) 11.5 % (21.0-51.0); MEAN CORPUSCULAR HEMOGLOBIN 23.6 pg (27.0-34.0); MEAN CORPUSCULAR HGB CONC 31.1 g/dL (33.0-35.0); MEAN CORPUSCULAR VOLUME 75.9 fL (80.0-100.0); MEAN PLATELET VOLUME 9.2 fL (7.4-11.0); MONOCYTES # (AUTO) 0.6 x10^3/uL (0.3-0.8); MONOCYTES % (AUTO) 5.6 % (0.0-13.0); NEUTROPHILS # (AUTO) 8.5 x10^3/uL (2.2-4.8); NEUTROPHILS % (AUTO) 82.1 % (42.0-75.0); PLATELET COUNT 139 X10^3/uL (150.0-450.0); RED CELL DISTRIBUTION WIDTH 15.9 % (11.6-16.5); WHITE BLOOD COUNT 10.4 X10^3/uL (3.6-10.0)
[2020-10-13 06:16] LABS: ALANINE AMINOTRANSFERASE 70 Units/L (12-78); ALBUMIN 2.2 g/dL (3.4-5.0); ALKALINE PHOSPHATASE 60 Units/L (46-116); ASPARTATE AMINO TRANSFERASE 35 Units/L (15-37); BLOOD UREA NITROGEN 19 mg/dL (7-18); CALCIUM 7.9 mg/dL (8.5-10.1); CARBON DIOXIDE 26.9 mmol/L (21-32); CHLORIDE 111 mmol/L (98-107); COR CA(FOR HYPOALB) 9.3 mg/dL (8.5-10.1); CREATININE 0.63 mg/dL (0.55-1.02); SODIUM 146 mmol/L (136-145); TOTAL PROTEIN 5.4 g/dL (6.4-8.2); eGFR NON BLACK RACES > 60 (>60)
[2020-10-13] MEDS: XOPENEX 1.25 MG/3 ML NEBULE NEB SCH ×2 (06:30→12:20)
--- NOTE | 2020-10-13 06:42 | RAD ---
HISTORYSOBSTUDYCHEST, 1 [id number]/29/2020 in theFINDINGSThe trachea is midline. Endotracheal tube has been removed. NG tube tip in the distal esophagus. Right IJ central line in distal SVC. The cardiac silhouette is mildly enlarged.. Retrocardiac left lower lobe density again noted. Lungs are otherwise clear.. The bony thorax is unremarkable.IMPRESSIONMild cardiomegaly.Left lower lobe retrocardiac density unchanged from 10/12/2020Electronically signed by: Holger Soto (Oct 13, 2020 06:41:27)
[2020-10-13] MEDS: D5W 1000 ML IV 1,000 ML IV SCH ×2 (08:27→21:45)
[2020-10-13] MEDS: COZAAR PO SCH (08:27)
[2020-10-13] MEDS: INVANZ INJ 1 GM VIAL 1 GM in NS 100 ML IV + SPIKE MINIBAG* 100 ML IV SCH (08:27)
[2020-10-13] MEDS: LACRI-LUBE S.O.P. AFFEYE SCH ×2 (08:28→23:45)
[2020-10-13] MEDS: LASIX IVP SCH ×2 (08:28→16:54)
[2020-10-13] MEDS: LOVENOX INJ 30 MG SYR SC SCH ×2 (08:28→21:43)
[2020-10-13] MEDS: LANTUS SC SCH (08:28)
[2020-10-13] MEDS: NORVASC TAB 10 MG PO SCH (08:29)
[2020-10-13] MEDS: SYNTHROID INJ 100 mcg VIAL IVP SCH (08:29)
[2020-10-13] MEDS: PULMICORT NEB TX 0.5 MG NEB SCH ×2 (09:55→10:05)
--- NOTE | 2020-10-13 10:46 | PCM.PROG ---
Progress Note - Progress Note for Day of Date of Exam: 10/11/20 - Subjective Subjective: IS BEING TREATED FOR PNEUMONIA DUE TO COVID-19, HYPOXIA, ACUTE RESPIRATORY FAILURE, AND A URINARY TRACT INFECTION. TODAY, SHE IS LYING IN BED ON MORNING ROUNDS. SHE IS CURRENTLY ON THE MECHANICAL VENTILLATOR WITH SETTINGS SIMV, VENT RATE 14, TIDAL VOLUME 450, PEAK FLOW 45, PEEP 7, PRESSURE SUPPORT 10, RISE TIME 0.2, FI02 50. HER OXYGEN SATURATIONS HAVE BEEN 91-95% ON THE THESE SETTINGS. THERE IS AN NG TUBE IN PLACE FOR TREATMENT OF HYPERNATREMIA WELL TUBE FEEDINGS. SHE IS RECEIVING FREE WATER THROUGH THE NG TUBE. ON EXAMINATION, SHE CONTINUES TO BE BRADYCARDIC WITH HR 50-60. BILATERAL LUNGS ARE NOTED WITH DIMINISHED LUNG SOUNDS THROUGHOUT. ABDOMEN IS ROUND, SOFT, AND NON- TENDER WITH HYPERACTIVE BOWEL SOUNDS NOTED IN ALL QUADRANTS. THERE IS 1+ PITTING EDEMA TO UPPER AND LOWER EXTREMITIES. A GARCIA CATHETER IS NOTED TO BEDSIDE DREAINAGE. HER VITALS THIS MORNING ARE: 98.7-62-71-93-155/72. LABS WERE OBTAINED. ABNORMAL VALUES INCLUDE THE FOLLOWING: HGB 8.9, HCT 28.4, SODIUM 146, CHLORIDE 113, BUN 34, GLUCOSE 196, CALCIUM 7.8. ABG REVEALED: 7.550, PC02 36, P02 77, HC03 31.5, 02 SAT 97, BASE EXCESS 8.7, FI02 28. URINE CULTURE REVEALED GROWTH OF E.COLI. SPUTUM CULTURE REVEALS GROWTH OF ENTEROBACTER CLOACAAE AND KLEBSIELLA PNEUMONIAE. A CHEST XRAY WAS OBTAINED AND REVEALED: ET tube in good position. NG tube in good position. Right IJ central line in good position. C ardiac and mediastinal contours are stable. Stable hazy right infrahilar opacity. Stable left base consolidation. No large pleural effusion. No pneumothorax. SHE IS CURRENTLY RECEIVING NS AT 75 ML/HR, INVANZ 1G IV DAILY, ZOSYN IV TID, SOLU-MEDROL 80MG IV Q8H, XOPENEX NEBS TID, PULMICORT NEBS BID, HU MULIN R SLIDING SCALE, LANTUS 36 UNITS DAILY, A CATAPRES PATCH, APRESOLINE 10MG IV Q4H PRN, MORPHINE CUSTOMER SUCCESS REPRESENTATIVE, AND VERSED DRIP PER PROTOCOL FOR SEDATION. WE WILL CONTINUE WITH CURRENT PLAN OF CARE TODAY AND CONTINUE TO WEAN FROM THE VENT. WE ARE HOPEFUL THAT SHE CAN BE EXTUBATED BY TOMORROW. TODAY, WE WILL START LASIX 40MG IV BID. OTHERWISE, WE PLAN TO FOLLOW UP WITH AM LABS, ABG, AND CHEST XRAY AND CONTINUE TO MONITOR. Time spent for clinical assessment, physical examination, reviewing labs/imaging and decision making more than 75 mins. - Past Medical Family Social History Past Med/Fam/Surg Hx: No changes since H&P Allergies: Allergies lisinopril Allergy (Verified 09/05/19 12:12) ciprofloxacin [From Cipro] Adverse Reaction (Verified 09/05/19 12:12) - Review of Systems ROS: No change since H&P - Vital Signs and I&O's Vital Signs: Temperature 98.0 F Pulse Rate [Left Radial] 75 Pulse Rate 96 Respiratory Rate 18 Blood Pressure [Left Radial 153/53 Artery] Blood Pressure [Left Arm] 152/77 Blood Pressure 161/81 O2 Sat by Pulse Oximetry 93 Intake and Output: Intake & Output 10/10/20 10/11/20 10/12/20 10/13/20 11:59 11:59 11:59 11:59 Intake Total 2664 / 2664 3290 / 3290 543 / 543 1300 / 1300 Output Total 1800 / 1800 1575 / 1575 2900 / 2900 2775 / 2775 Balance 864 / 864 1715 / 1715 -2357 / -2357 -1475 / -1475 - Physical Exam Oriented: Unable to test Eyes: Normal, Other (Patient does open eyes when name called, looks towards the side of the sound. Not able to make eye contact.) Ear: Normal Nose: Normal Throat: Dry Respiratory: Generalized, Diminished Cardiovascular: Normal, Edema : Normal Auscultation: Bowel Sounds: Normal Palpation: Normal Tenderness: Normal Skin: Decreased Turgur Musculoskeletal: Normal Psychiatric: Normal Mood Description: Calm Affect: Flat Speech Pattern: Clear, Appropriate - Laboratory and Diagnostics Result Diagrams: 10/13/20 04:45 10/13/20 04:45 Labs: 10/10/20 11:24 Buttock Gram Stain - Final 10/10/20 11:24 Buttock Wound Culture - Final 09/24/20 20:28 Blood Blood Culture - Final 09/24/20 20:24 Blood Blood Culture - Final 09/27/20 13:40 Sputum - Endotracheal Wash Sputum Culture - Final Enterobacter Cloacae Klebsiella Pneumoniae 09/27/20 13:40 Sputum - Endotracheal Wash - Final 09/24/20 21:52 Urine,Clean Catch Urine Culture - Final Escherichia Coli Laboratory WBC 10.4 X10^3/uL (3.6-10.0) H 10/13/20 04:45 RBC 3.90 X10^6/uL (3.5-5.4) 10/13/20 04:45 Hgb 9.2 g/dL (12.0-16.0) L 10/13/20 04:45 Hct 29.6 % (36.0-47.0) L 10/13/20 04:45 MCV 75.9 fL (80.0-100.0) L 10/13/20 04:45 MCH 23.6 pg (27.0-34.0) L 10/13/20 04:45 MCHC 31.1 g/dL (33.0-35.0) L 10/13/20 04:45 RDW 15.9 % (11.6-16.5) 10/13/20 04:45 Plt Count 139 X10^3/uL (150.0-450.0) L 10/13/20 04:45 Plt Count Comment Adequate (ADEQUATE) 10/11/20 04:55 MPV 9.2 fL (7.4-11.0) 10/13/20 04:45 Neut % (Auto) 82.1 % (42.0-75.0) H 10/13/20 04:45 Lymph % (Auto) 11.5 % (21.0-51.0) L 10/13/20 04:45 [place] % (Auto) 5.6 % (0.0-13.0) 10/13/20 04:45 Eos % (Auto) 0.3 % (0.9-2.9) L 10/13/20 04:45 Baso % (Auto) 0.5 % (0.2-1.0) 10/13/20 04:45 Neut # (Auto) 8.5 x10^3/uL (2.2-4.8) H 10/13/20 04:45 Lymph # (Auto) 1.2 X10^3/uL (1.3-2.9) L 10/13/20 04:45 [place] # (Auto) 0.6 x10^3/uL (0.3-0.8) 10/13/20 04:45 Eos # (Auto) 0.0 x10^3/uL (0.0-0.2) 10/13/20 04:45 Baso # (Auto) 0.1 X10^3/uL (0.0-0.1) 10/13/20 04:45 Absolute Nucleated RBC 0.1 /100WBC 10/13/20 04:45 Total Counted 100 10/09/20 04:35 Neutrophils % (Manual) 93 % (39-76) H 10/09/20 04:35 Band Neutrophils % 3 % (0-10) 10/08/20 04:42 Lymphocytes % (Manual) 4 % (13-43) L 10/09/20 04:35 Monocytes % (Manual) 3 % (4-9) L 10/09/20 04:35 Plt Morphology Comment Normal (NORMAL) 10/11/20 04:55 RBC Morphology Abnormal (NORMAL) A 10/11/20 04:55 Dimorphic RBCs Benzene Worker 10/04/20 05:06 Hypochromasia 1+ A 10/11/20 04:55 Poikilocytosis Slight A 09/24/20 20:24 Microcytosis Slight A 10/10/20 04:35 Vernon Cells Present 09/25/20 05:49 Crenated Cell Slight A 10/01/20 04:20 PT 14.3 SECONDS (11.8-14.3) 09/24/20 20:24 INR Target Range - 09/24/20 20:24 INR 1.15 (0.8-1.3) 09/24/20 20:24 D-Dimer 2.89 ug/ml (0.0-0.57) H* 10/08/20 04:38 Sample Site Rb 10/13/20 05:55 ABG pH 7.550 (7.35-7.45) H 10/13/20 05:55 ABG pCO2 36.0 mmHg (35.0-45.0) 10/13/20 05:55 ABG pO2 77.0 mmHg (80.0-100.0) L 10/13/20 05:55 ABG HCO3 31.5 mmol/L (22-26) H* 10/13/20 05:55 ABG O2 Saturation 97.0 % (90-100) 10/13/20 05:55 ABG Base Excess 8.7 mmol/L (-2.0-2.0) H 10/13/20 05:55 Alexx Test Na 10/13/20 05:55 A-a Gradient 78.0 mmHg 10/13/20 05:55 FiO2 28.0 10/13/20 05:55 Blood Gas Comments Erwin well gmb 10/13/20 05:55 Sodium 146 mmol/L (136-145) H 10/13/20 04:45 Corrected Sodium TNP 10/13/20 04:45 Potassium 3.3 mmol/L (3.5-5.1) L 10/13/20 04:45 Chloride 111 mmol/L (98-107) H 10/13/20 04:45 Carbon Dioxide 26.9 mmol/L (21-32) 10/13/20 04:45 BUN 19 mg/dL (7-18) H 10/13/20 04:45 Creatinine 0.63 mg/dL (0.55-1.02) 10/13/20 04:45 Est GFR (MDRD) Af Amer > 60 (>60) 10/13/20 04:45 Est GFR (MDRD) Non-Af > 60 (>60) 10/13/20 04:45 Glucose 79 mg/dL (65-99) 10/13/20 04:45 POC Glucose (mg/dL) 70 mg/dL (65-99) 10/13/20 04:53 Lactic Acid 1.5 mmol/L (0.4-2.0) 09/24/20 21:56 Calcium 7.9 mg/dL (8.5-10.1) L 10/13/20 04:45 Corrected Calcium 9.3 mg/dL (8.5-10.1) 10/13/20 04:45 Magnesium 2.4 mg/dL (1.7-2.9) 10/11/20 04:55 Ferritin 327 ng/mL (8-252) H 10/13/20 04:45 Total Bilirubin 0.60 mg/dL (0.2-1.0) 10/13/20 04:45 AST 35 Units/L (15-37) 10/13/20 04:45 ALT 70 Units/L (12-78) 10/13/20 04:45 Alkaline Phosphatase 60 Units/L (46-116) 10/13/20 04:45 Creatine Kinase 78 Units/L (26-192) 09/25/20 16:10 CK-MB (CK-2) < 1.0 ng/mL (0-4.0) 09/25/20 16:10 CK/CKMB % Calc 1.3 % (<4) 09/25/20 16:10 Troponin I < 0.02 ng/mL (0-1.5) 09/25/20 16:10 C-Reactive Protein 0.60 mg/L (0-3.0) 10/13/20 04:45 B-Natriuretic Peptide 637 pg/mL (0-79) H* 09/24/20 20:24 Total Protein 5.4 g/dL (6.4-8.2) L 10/13/20 04:45 Albumin 2.2 g/dL (3.4-5.0) L 10/13/20 04:45 Globulin 3.2 g/dL (2.5-4.5) 10/13/20 04:45 Prealbumin 18.8 mg/dL (18-35.7) 09/30/20 04:25 Albumin/Globulin Ratio 0.7 Ratio (1.1-2.1) L 10/13/20 04:45 Specimen Type Clean catch urine 09/24/20 21:52 Urine Color Mabel (YELLOW) 09/24/20 21:52 Urine Appearance Slightly hazy (CLEAR) 09/24/20 21:52 Urine pH 5.0 (5.0 - 8.0) 09/24/20 21:52 Ur Specific [place] 1.015 (1.000-1.030) 09/24/20 21:52 Urine Protein 1+ (NEGATIVE) 09/24/20 21:52 Urine Glucose (UA) 3+ (NEGATIVE) 09/24/20 21:52 Urine Ketones Negative (NEGATIVE) 09/24/20 21:52 Urine Occult Blood 1+ (NEGATIVE) 09/24/20 21:52 Urine Nitrite Positive (NEGATIVE) 09/24/20 21:52 Urine Bilirubin Negative (NEGATIVE) 09/24/20 21:52 Urine Acetone Negative (NEGATIVE) 09/27/20 11:53 Urine Urobilinogen 1+ (NORMAL) 09/24/20 21:52 Ur Leukocyte Esterase 1+ (NEGATIVE) 09/24/20 21:52 Urine RBC 3-5 /HPF (0-3) A 09/24/20 21:52 Urine WBC 5-10 /HPF (0-5) A 09/24/20 21:52 Ur Squamous Epith Cells Few /HPF (NEGATIVE) 09/24/20 21:52 Urine Bacteria 2+ /HPF (NEGATIVE) 09/24/20 21:52 Ur Culture Indicated? Yes/culture set up 09/24/20 21:52 Influenza Type A (PCR) Negative (NEGATIVE) 09/24/20 22:20 Influenza Type B (PCR) Negative (NEGATIVE) 09/24/20 22:20 SARS CoV-2 RNA Rapid MICK Negative (NEGATIVE) 10/12/20 08:25 Blood Type A POSITIVE 09/26/20 12:21 - Plan (1) Pneumonia due to 2019 novel coronavirus Status: Acute Plan: NS AT 75 ML/HR, INVANZ 1G IV DAILY, ZOSYN IV Q8H, SOLU-MEDROL 80MG IV Q8H, XOPENEX NEBS TID, PULMICORT NEBS BID, HUMULIN R SLIDING SCALE, LANTUS 36 UNITS DAILY, A CATAPRES PATCH, APRESOLINE 10MG IV Q4H PRN, MORPHINE CUSTOMER SUCCESS REPRESENTATIVE, AND VERSED DRIP PER PROTOCOL FOR SEDATIONS. MECHANICAL VENTILATION (2) Acute respiratory failure with hypoxia Status: Acute (3) Hypernatremia Status: Acute Plan: FREE WATER THROUGH NG TUBE (4) Diabetes mellitus Status: Acute Qualifiers: Diabetes mellitus type: type 2 Diabetes mellitus chcf insulin use: unspecified chcf insulin use status Diabetes mellitus complication status: with other specified complication Qualified Code(s): E11.69 - Type 2 diabetes mellitus with other specified complication
--- NOTE | 2020-10-13 11:02 | PCM.PROG ---
Progress Note - Progress Note for Day of Date of Exam: 10/12/20 - Subjective Subjective: IS BEING TREATED FOR PNEUMONIA DUE TO COVID-19, HYPOXIA, ACUTE RESPIRATORY FAILURE, AND A URINARY TRACT INFECTION. TODAY, SHE IS LYING IN BED ON MORNING ROUNDS. SHE IS CURRENTLY ON THE MECHANICAL VENTILLATOR WITH SETTINGS SIMV, VENT RATE 14, TIDAL VOLUME 450, PEAK FLOW 50, PEEP 7, PRESSURE SUPPORT 10, RISE TIME 0.2, FI02 35. HER OXYGEN SATURATIONS HAVE BEEN 91-94% ON THE THESE SETTINGS. THERE IS AN NG TUBE IN PLACE FOR TREATMENT OF HYPERNATREMIA WELL TUBE FEEDINGS. SHE IS RECEIVING FREE WATER THROUGH THE NG TUBE. SHE IS OFF OF MOST OF HER SEDATION. SHE IS ALERT AND ABLE TO FOLLOW COMMANDS. ON EXAMINATION, BILATERAL LUNGS ARE NOTED WITH DIMINISHED LUNG SOUNDS THROUGHOUT. ABDOMEN IS ROUND, SOFT, AND NON-TENDER WITH HYPERACTIVE BOWEL SOUNDS NOTED IN ALL QUADRANTS. THERE IS 1+ PITTING EDEMA TO UPPER AND LOWER EXTREMITIES. A GARCIA CATHETER IS NOTED TO BEDSIDE DRAINAGE. HER VITALS THIS MORNING ARE: 98.0-64-14-96%-166/79. LABS WERE OBTAINED. ABNORMAL VALUES INCLUDE THE F OLLOWING: WBC 10.2, HGB 9.4, HCT 29.3, PLT COUNT 147, SODIUM 146, CHLORIDE 113, BUN 34, GLUCOSE 196, CALCIUM 7.8. ABG REVEALED: 7.550, PC02 39, P02 60, HC03 30.4, 02 SAT 93, BASE EXCESS 6.7, A-a GRADIENT 176, FI02 40. URINE CULTURE REVEALED GROWTH OF E.COLI. SPUTUM CULTURE REVEALS GROWTH OF ENTEROBACTER CLOACAAE AND KLEBSIELLA PNEUMONIAE. A CHEST XRAY WAS OBTAINED AND REVEALED: Patient is rotated significantly to the left. There is an endotracheal tube in good position. There is a nasogastric tube in good position. There is a right IJ line in good position. Heart remains enlarged. No congestive heart failure is noted. Right lung and left upper lung lopez remain clear. Persistent increased density retrocardiac area left lower lobe obscuring the left hemidiaphragm which could be on the basis of consolidation, atelectasis, pleural effusion or combination bony thorax is unremarkable. SHE IS CURRENTLY RECEIVING D5W AT 50 ML/HR, INVANZ 1G IV DAILY, ZOSYN IV TID, SOLU-MEDROL 80MG IV Q8H, XOPENEX NEBS TID, PULMICORT NEBS BID, HUMULIN R SLIDING SCALE, LASIX 40MG IV BID, LANTUS 36 UNITS DAILY, A CATAPRES PATCH, APRESOLINE 10MG IV Q4H PRN, THE POTASSIUM AND MAGNESIUM PROTOCOLS, MORPHINE WELDING SUPERVISOR, AND VERSED DRIP PER PROTOCOL FOR SEDATION. WE WILL DISCONTINUE THE VERSED AND MORPHINE AND WILL EXTUBATE PATIENT TODAY. OTHERWISE, WE WILL CONTINUE WITH CURRENT PLAN OF CARE. WE PLAN TO FOLLOW UP WITH AM LABS, ABG, AND CHEST XRAY AND CONTINUE TO MONITOR. Time spent for clinical assessment, physical examination, reviewing labs/imaging and decision making more than 75 mins. - Past Medical Family Social History Past Med/Fam/Surg Hx: No changes since H&P Allergies: Allergies lisinopril Allergy (Verified 09/05/19 12:12) ciprofloxacin [From Cipro] Adverse Reaction (Verified 09/05/19 12:12) - Review of Systems ROS: No change since H&P - Vital Signs and I&O's Vital Signs: Temperature 98.0 F Pulse Rate [Left Radial] 75 Pulse Rate 96 Respiratory Rate 18 Blood Pressure [Left Radial 153/53 Artery] Blood Pressure [Left Arm] 152/77 Blood Pressure 161/81 O2 Sat by Pulse Oximetry 93 Intake and Output: Intake & Output 10/10/20 10/11/20 10/12/20 10/13/20 11:59 11:59 11:59 11:59 Intake Total 2664 / 2664 3290 / 3290 543 / 543 1300 / 1300 Output Total 1800 / 1800 1575 / 1575 2900 / 2900 2775 / 2775 Balance 864 / 864 1715 / 1715 -2357 / -2357 -1475 / -1475 - Physical Exam Oriented: Unable to test Eyes: Normal, Other (Patient does open eyes when name called, looks towards the side of the sound. Not able to make eye contact.) Ear: Normal Nose: Normal Throat: Dry Respiratory: Generalized, Diminished Cardiovascular: Normal, Edema : Normal Auscultation: Bowel Sounds: Normal Palpation: Normal Tenderness: Normal Skin: Normal Musculoskeletal: Normal Psychiatric: Normal Mood Description: Calm Affect: Flat Speech Pattern: Clear, Appropriate - Laboratory and Diagnostics Result Diagrams: 10/13/20 04:45 10/13/20 04:45 Labs: 10/10/20 11:24 Buttock Gram Stain - Final 10/10/20 11:24 Buttock Wound Culture - Final 09/24/20 20:28 Blood Blood Culture - Final 09/24/20 20:24 Blood Blood Culture - Final 09/27/20 13:40 Sputum - Endotracheal Wash Sputum Culture - Final Enterobacter Cloacae Klebsiella Pneumoniae 09/27/20 13:40 Sputum - Endotracheal Wash - Final 09/24/20 21:52 Urine,Clean Catch Urine Culture - Final Escherichia Coli Laboratory WBC 10.4 X10^3/uL (3.6-10.0) H 10/13/20 04:45 RBC 3.90 X10^6/uL (3.5-5.4) 10/13/20 04:45 Hgb 9.2 g/dL (12.0-16.0) L 10/13/20 04:45 Hct 29.6 % (36.0-47.0) L 10/13/20 04:45 MCV 75.9 fL (80.0-100.0) L 10/13/20 04:45 MCH 23.6 pg (27.0-34.0) L 10/13/20 04:45 MCHC 31.1 g/dL (33.0-35.0) L 10/13/20 04:45 RDW 15.9 % (11.6-16.5) 10/13/20 04:45 Plt Count 139 X10^3/uL (150.0-450.0) L 10/13/20 04:45 Plt Count Comment Adequate (ADEQUATE) 10/11/20 04:55 MPV 9.2 fL (7.4-11.0) 10/13/20 04:45 Neut % (Auto) 82.1 % (42.0-75.0) H 10/13/20 04:45 Lymph % (Auto) 11.5 % (21.0-51.0) L 10/13/20 04:45 [place] % (Auto) 5.6 % (0.0-13.0) 10/13/20 04:45 Eos % (Auto) 0.3 % (0.9-2.9) L 10/13/20 04:45 Baso % (Auto) 0.5 % (0.2-1.0) 10/13/20 04:45 Neut # (Auto) 8.5 x10^3/uL (2.2-4.8) H 10/13/20 04:45 Lymph # (Auto) 1.2 X10^3/uL (1.3-2.9) L 10/13/20 04:45 [place] # (Auto) 0.6 x10^3/uL (0.3-0.8) 10/13/20 04:45 Eos # (Auto) 0.0 x10^3/uL (0.0-0.2) 10/13/20 04:45 Baso # (Auto) 0.1 X10^3/uL (0.0-0.1) 10/13/20 04:45 Absolute Nucleated RBC 0.1 /100WBC 10/13/20 04:45 Total Counted 100 10/09/20 04:35 Neutrophils % (Manual) 93 % (39-76) H 10/09/20 04:35 Band Neutrophils % 3 % (0-10) 10/08/20 04:42 Lymphocytes % (Manual) 4 % (13-43) L 10/09/20 04:35 Monocytes % (Manual) 3 % (4-9) L 10/09/20 04:35 Plt Morphology Comment Normal (NORMAL) 10/11/20 04:55 RBC Morphology Abnormal (NORMAL) A 10/11/20 04:55 Dimorphic RBCs Latin Dancer 10/04/20 05:06 Hypochromasia 1+ A 10/11/20 04:55 Poikilocytosis Slight A 09/24/20 20:24 Microcytosis Slight A 10/10/20 04:35 [place] Cells Present 09/25/20 05:49 Crenated Cell Slight A 10/01/20 04:20 PT 14.3 SECONDS (11.8-14.3) 09/24/20 20:24 INR Target Range - 09/24/20 20:24 INR 1.15 (0.8-1.3) 09/24/20 20:24 D-Dimer 2.89 ug/ml (0.0-0.57) H* 10/08/20 04:38 Sample Site Rb 10/13/20 05:55 ABG pH 7.550 (7.35-7.45) H 10/13/20 05:55 ABG pCO2 36.0 mmHg (35.0-45.0) 10/13/20 05:55 ABG pO2 77.0 mmHg (80.0-100.0) L 10/13/20 05:55 ABG HCO3 31.5 mmol/L (22-26) H* 10/13/20 05:55 ABG O2 Saturation 97.0 % (90-100) 10/13/20 05:55 ABG Base Excess 8.7 mmol/L (-2.0-2.0) H 10/13/20 05:55 Alexx Test Na 10/13/20 05:55 A-a Gradient 78.0 mmHg 10/13/20 05:55 FiO2 28.0 10/13/20 05:55 Blood Gas Comments Erwin well gmb 10/13/20 05:55 Sodium 146 mmol/L (136-145) H 10/13/20 04:45 Corrected Sodium TNP 10/13/20 04:45 Potassium 3.3 mmol/L (3.5-5.1) L 10/13/20 04:45 Chloride 111 mmol/L (98-107) H 10/13/20 04:45 Carbon Dioxide 26.9 mmol/L (21-32) 10/13/20 04:45 BUN 19 mg/dL (7-18) H 10/13/20 04:45 Creatinine 0.63 mg/dL (0.55-1.02) 10/13/20 04:45 Est GFR (MDRD) Af Amer > 60 (>60) 10/13/20 04:45 Est GFR (MDRD) Non-Af > 60 (>60) 10/13/20 04:45 Glucose 79 mg/dL (65-99) 10/13/20 04:45 POC Glucose (mg/dL) 70 mg/dL (65-99) 10/13/20 04:53 Lactic Acid 1.5 mmol/L (0.4-2.0) 09/24/20 21:56 Calcium 7.9 mg/dL (8.5-10.1) L 10/13/20 04:45 Corrected Calcium 9.3 mg/dL (8.5-10.1) 10/13/20 04:45 Magnesium 2.4 mg/dL (1.7-2.9) 10/11/20 04:55 Ferritin 327 ng/mL (8-252) H 10/13/20 04:45 Total Bilirubin 0.60 mg/dL (0.2-1.0) 10/13/20 04:45 AST 35 Units/L (15-37) 10/13/20 04:45 ALT 70 Units/L (12-78) 10/13/20 04:45 Alkaline Phosphatase 60 Units/L (46-116) 10/13/20 04:45 Creatine Kinase 78 Units/L (26-192) 09/25/20 16:10 CK-MB (CK-2) < 1.0 ng/mL (0-4.0) 09/25/20 16:10 CK/CKMB % Calc 1.3 % (<4) 09/25/20 16:10 Troponin I < 0.02 ng/mL (0-1.5) 09/25/20 16:10 C-Reactive Protein 0.60 mg/L (0-3.0) 10/13/20 04:45 B-Natriuretic Peptide 637 pg/mL (0-79) H* 09/24/20 20:24 Total Protein 5.4 g/dL (6.4-8.2) L 10/13/20 04:45 Albumin 2.2 g/dL (3.4-5.0) L 10/13/20 04:45 Globulin 3.2 g/dL (2.5-4.5) 10/13/20 04:45 Prealbumin 18.8 mg/dL (18-35.7) 09/30/20 04:25 Albumin/Globulin Ratio 0.7 Ratio (1.1-2.1) L 10/13/20 04:45 Specimen Type Clean catch urine 09/24/20 21:52 Urine Color Mabel (YELLOW) 09/24/20 21:52 Urine Appearance Slightly hazy (CLEAR) 09/24/20 21:52 Urine pH 5.0 (5.0 - 8.0) 09/24/20 21:52 Ur Specific [place] 1.015 (1.000-1.030) 09/24/20 21:52 Urine Protein 1+ (NEGATIVE) 09/24/20 21:52 Urine Glucose (UA) 3+ (NEGATIVE) 09/24/20 21:52 Urine Ketones Negative (NEGATIVE) 09/24/20 21:52 Urine Occult Blood 1+ (NEGATIVE) 09/24/20 21:52 Urine Nitrite Positive (NEGATIVE) 09/24/20 21:52 Urine Bilirubin Negative (NEGATIVE) 09/24/20 21:52 Urine Acetone Negative (NEGATIVE) 09/27/20 11:53 Urine Urobilinogen 1+ (NORMAL) 09/24/20 21:52 Ur Leukocyte Esterase 1+ (NEGATIVE) 09/24/20 21:52 Urine RBC 3-5 /HPF (0-3) A 09/24/20 21:52 Urine WBC 5-10 /HPF (0-5) A 09/24/20 21:52 Ur Squamous Epith Cells Few /HPF (NEGATIVE) 09/24/20 21:52 Urine Bacteria 2+ /HPF (NEGATIVE) 09/24/20 21:52 Ur Culture Indicated? Yes/culture set up 09/24/20 21:52 Influenza Type A (PCR) Negative (NEGATIVE) 09/24/20 22:20 Influenza Type B (PCR) Negative (NEGATIVE) 09/24/20 22:20 SARS CoV-2 RNA Rapid MICK Negative (NEGATIVE) 10/12/20 08:25 Blood Type A POSITIVE 09/26/20 12:21 - Plan (1) Pneumonia due to 2019 novel coronavirus Status: Acute Plan: D5W AT 50 ML/HR, INVANZ 1G IV DAILY, ZOSYN IV Q8H, SOLU-MEDROL 80MG IV Q8H, XOPENEX NEBS TID, PULMICORT NEBS BID, HUMULIN R SLIDING SCALE, LANTUS 36 UNITS DAILY, A CATAPRES PATCH, APRESOLINE 10MG IV Q4H PRN, THE POTASSIUM AND MAGNESIUM PROTOCOLS LASIX 40MG IV BID (2) Acute respiratory failure with hypoxia Status: Acute (3) Hypernatremia Status: Acute Plan: FREE WATER THROUGH NG TUBE (4) Diabetes mellitus Status: Acute Qualifiers: Diabetes mellitus type: type 2 Diabetes mellitus usp insulin use: unspecified termite inspector insulin use status Diabetes mellitus complication status: with other specified complication Qualified Code(s): E11.69 - Type 2 diabetes mellitus with other specified complication
[2020-10-13] MEDS: ALBUMIN HUMAN 25%- 100 ML 100 ML IV SCH (11:24)
--- NOTE | 2020-10-13 11:24 | PCM.PROG ---
Progress Note - Progress Note for Day of Date of Exam: 10/13/20 - Subjective Subjective: IS BEING TREATED FOR PNEUMONIA DUE TO COVID-19, HYPOXIA, ACUTE RESPIRATORY FAILURE, AND A URINARY TRACT INFECTION. SHE HAS BEEN REMOVED FROM THE MECHANICAL VENTILLATOR AND IS CURRENTLY UTILIZING OXYGEN VIA NASAL CANNULA AT 3 LPM. HER OXYGEN SATURATIONS HAVE BEEN 93-97% ON NASAL CANNULA. NGT REMAINS IN PLACE. SHE IS RECEIVING FREE WATER THROUGH THE NG TUBE. SHE IS SLIGHTLY DROWSY THIS MORNING, BUT IS ABLE TO FOLLOW COMMANDS. SHE DOES REPORT WEAKNESS AND SHORTNESS OF BREATH. ON EXAMINATION, BILATERAL LUNGS ARE NOTED WITH DIMINISHED LUNG SOUNDS THROUGHOUT. ABDOMEN IS ROUND, SOFT, AND NON-TENDER WITH HYPERACTIVE BOWEL SOUNDS NOTED IN ALL QUADRANTS. THERE IS 2+ EDEMA TO THE RIGHT UPPER EXTREMITY. A GARCIA CATHETER IS NOTED TO BEDSIDE DRAINAGE. HER VITALS THIS MORNING ARE: 98.0-100-19-93%162/85. LABS WERE OBTAINED. ABNORMAL VALUES INCLUDE THE FOLLOWING: WBC 10.4, HGB 9.2, HCT 29.6, PLT COUNT 139, SODIUM 143, POTASSIUM 3.3, CHLORIDE 111, BUN 19, CALCIUM 7.9, FERRITIN 327, TOTAL PROTEIN 5.4, ALBUMIN 2.2. ABG REVEALED: 7.550, PC02 36, P02 77, HC03 31.5, 02 SAT 97, BASE EXCESS 8 .7, FI02 28. URINE CULTURE REVEALED GROWTH OF E.COLI. SPUTUM CULTURE REVEALS GROWTH OF ENTEROBACTER CLOACAAE AND KLEBSIELLA PNEUMONIAE. A CHEST XRAY WAS OBTAINED AND REVEALED: Left lower lobe retrocardiac density unchanged from 10/12/2020. SHE IS CURRENTLY RECEIVING D5W AT 50 ML/HR, INVANZ 1G IV DAILY, ZOSYN IV TID, SOLU-MEDROL 80MG IV Q8H, XOPENEX NEBS TID, PULMICORT NEBS BID, HUMULIN R SLIDING SCALE, LASIX 40MG IV BID, LANTUS 36 UNITS DAILY, A CATAPRES PATCH, APRESOLINE 10MG IV Q4H PRN, THE POTASSIUM AND MAGNESIUM PROTOCOLS. TODAY, WE WILL ADD ALBUMIN 25% IV DAILY AND OBTAIN A RUE DOPPLER. OTHERWISE, WE WILL CONTINUE WITH CURRENT PLAN OF CARE. WE PLAN TO FOLLOW UP WITH AM LABS, ABG, AND CHEST XRAY AND CONTINUE TO MONITOR. Time spent for clinical assessment, physical examination, reviewing labs/imaging and decision making more than 75 mins. - Past Medical Family Social History Past Med/Fam/Surg Hx: No changes since H&P Allergies: Allergies lisinopril Allergy (Verified 09/05/19 12:12) ciprofloxacin [From Cipro] Adverse Reaction (Verified 09/05/19 12:12) - Review of Systems ROS: No change since H&P - Vital Signs and I&O's Vital Signs: Temperature 98.0 F Pulse Rate [Left Radial] 75 Pulse Rate 92 Respiratory Rate 23 Blood Pressure [Left Radial 153/53 Artery] Blood Pressure [Left Arm] 152/77 Blood Pressure 153/76 O2 Sat by Pulse Oximetry 91 Intake and Output: Intake & Output 10/10/20 10/11/20 10/12/20 10/13/20 11:59 11:59 11:59 11:59 Intake Total 2664 / 2664 3290 / 3290 543 / 543 1300 / 1300 Output Total 1800 / 1800 1575 / 1575 2900 / 2900 2775 / 2775 Balance 864 / 864 1715 / 1715 -2357 / -2357 -1475 / -1475 - Physical Exam Oriented: Unable to test Eyes: Normal, Other (Patient does open eyes when name called, looks towards the side of the sound. Not able to make eye contact.) Ear: Normal Nose: Normal Throat: Dry Respiratory: Generalized, Diminished Cardiovascular: Normal, Edema : Normal Auscultation: Bowel Sounds: Normal Palpation: Normal Tenderness: Normal Skin: Normal Musculoskeletal: Normal Psychiatric: Normal Mood Description: Calm Affect: Flat Speech Pattern: Clear, Appropriate - Laboratory and Diagnostics Result Diagrams: 10/13/20 04:45 10/13/20 04:45 Labs: 10/10/20 11:24 Buttock Gram Stain - Final 10/10/20 11:24 Buttock Wound Culture - Final 09/24/20 20:28 Blood Blood Culture - Final 09/24/20 20:24 Blood Blood Culture - Final 09/27/20 13:40 Sputum - Endotracheal Wash Sputum Culture - Final Enterobacter Cloacae Klebsiella Pneumoniae 09/27/20 13:40 Sputum - Endotracheal Wash - Final 09/24/20 21:52 Urine,Clean Catch Urine Culture - Final Escherichia Coli Laboratory WBC 10.4 X10^3/uL (3.6-10.0) H 10/13/20 04:45 RBC 3.90 X10^6/uL (3.5-5.4) 10/13/20 04:45 Hgb 9.2 g/dL (12.0-16.0) L 10/13/20 04:45 Hct 29.6 % (36.0-47.0) L 10/13/20 04:45 MCV 75.9 fL (80.0-100.0) L 10/13/20 04:45 MCH 23.6 pg (27.0-34.0) L 10/13/20 04:45 MCHC 31.1 g/dL (33.0-35.0) L 10/13/20 04:45 RDW 15.9 % (11.6-16.5) 10/13/20 04:45 Plt Count 139 X10^3/uL (150.0-450.0) L 10/13/20 04:45 Plt Count Comment Adequate (ADEQUATE) 10/11/20 04:55 MPV 9.2 fL (7.4-11.0) 10/13/20 04:45 Neut % (Auto) 82.1 % (42.0-75.0) H 10/13/20 04:45 Lymph % (Auto) 11.5 % (21.0-51.0) L 10/13/20 04:45 [place] % (Auto) 5.6 % (0.0-13.0) 10/13/20 04:45 Eos % (Auto) 0.3 % (0.9-2.9) L 10/13/20 04:45 Baso % (Auto) 0.5 % (0.2-1.0) 10/13/20 04:45 Neut # (Auto) 8.5 x10^3/uL (2.2-4.8) H 10/13/20 04:45 Lymph # (Auto) 1.2 X10^3/uL (1.3-2.9) L 10/13/20 04:45 [place] # (Auto) 0.6 x10^3/uL (0.3-0.8) 10/13/20 04:45 Eos # (Auto) 0.0 x10^3/uL (0.0-0.2) 10/13/20 04:45 Baso # (Auto) 0.1 X10^3/uL (0.0-0.1) 10/13/20 04:45 Absolute Nucleated RBC 0.1 /100WBC 10/13/20 04:45 Total Counted 100 10/09/20 04:35 Neutrophils % (Manual) 93 % (39-76) H 10/09/20 04:35 Band Neutrophils % 3 % (0-10) 10/08/20 04:42 Lymphocytes % (Manual) 4 % (13-43) L 10/09/20 04:35 Monocytes % (Manual) 3 % (4-9) L 10/09/20 04:35 Plt Morphology Comment Normal (NORMAL) 10/11/20 04:55 RBC Morphology Abnormal (NORMAL) A 10/11/20 04:55 Dimorphic RBCs Belt Builder 10/04/20 05:06 Hypochromasia 1+ A 10/11/20 04:55 Poikilocytosis Slight A 09/24/20 20:24 Microcytosis Slight A 10/10/20 04:35 [place] Cells Present 09/25/20 05:49 Crenated Cell Slight A 10/01/20 04:20 PT 14.3 SECONDS (11.8-14.3) 09/24/20 20:24 INR Target Range - 09/24/20 20:24 INR 1.15 (0.8-1.3) 09/24/20 20:24 D-Dimer 2.89 ug/ml (0.0-0.57) H* 10/08/20 04:38 Sample Site Rb 10/13/20 05:55 ABG pH 7.550 (7.35-7.45) H 10/13/20 05:55 ABG pCO2 36.0 mmHg (35.0-45.0) 10/13/20 05:55 ABG pO2 77.0 mmHg (80.0-100.0) L 10/13/20 05:55 ABG HCO3 31.5 mmol/L (22-26) H* 10/13/20 05:55 ABG O2 Saturation 97.0 % (90-100) 10/13/20 05:55 ABG Base Excess 8.7 mmol/L (-2.0-2.0) H 10/13/20 05:55 Alexx Test Na 10/13/20 05:55 A-a Gradient 78.0 mmHg 10/13/20 05:55 FiO2 28.0 10/13/20 05:55 Blood Gas Comments Erwin well g[facility] 10/13/20 05:55 Sodium 146 mmol/L (136-145) H 10/13/20 04:45 Corrected Sodium TNP 10/13/20 04:45 Potassium 3.3 mmol/L (3.5-5.1) L 10/13/20 04:45 Chloride 111 mmol/L (98-107) H 10/13/20 04:45 Carbon Dioxide 26.9 mmol/L (21-32) 10/13/20 04:45 BUN 19 mg/dL (7-18) H 10/13/20 04:45 Creatinine 0.63 mg/dL (0.55-1.02) 10/13/20 04:45 Est GFR (MDRD) Af Amer > 60 (>60) 10/13/20 04:45 Est GFR (MDRD) Non-Af > 60 (>60) 10/13/20 04:45 Glucose 79 mg/dL (65-99) 10/13/20 04:45 POC Glucose (mg/dL) 70 mg/dL (65-99) 10/13/20 04:53 Lactic Acid 1.5 mmol/L (0.4-2.0) 09/24/20 21:56 Calcium 7.9 mg/dL (8.5-10.1) L 10/13/20 04:45 Corrected Calcium 9.3 mg/dL (8.5-10.1) 10/13/20 04:45 Magnesium 2.4 mg/dL (1.7-2.9) 10/11/20 04:55 Ferritin 327 ng/mL (8-252) H 10/13/20 04:45 Total Bilirubin 0.60 mg/dL (0.2-1.0) 10/13/20 04:45 AST 35 Units/L (15-37) 10/13/20 04:45 ALT 70 Units/L (12-78) 10/13/20 04:45 Alkaline Phosphatase 60 Units/L (46-116) 10/13/20 04:45 Creatine Kinase 78 Units/L (26-192) 09/25/20 16:10 CK-MB (CK-2) < 1.0 ng/mL (0-4.0) 09/25/20 16:10 CK/CKMB % Calc 1.3 % (<4) 09/25/20 16:10 Troponin I < 0.02 ng/mL (0-1.5) 09/25/20 16:10 C-Reactive Protein 0.60 mg/L (0-3.0) 10/13/20 04:45 B-Natriuretic Peptide 637 pg/mL (0-79) H* 09/24/20 20:24 Total Protein 5.4 g/dL (6.4-8.2) L 10/13/20 04:45 Albumin 2.2 g/dL (3.4-5.0) L 10/13/20 04:45 Globulin 3.2 g/dL (2.5-4.5) 10/13/20 04:45 Prealbumin 18.8 mg/dL (18-35.7) 09/30/20 04:25 Albumin/Globulin Ratio 0.7 Ratio (1.1-2.1) L 10/13/20 04:45 Specimen Type Clean catch urine 09/24/20 21:52 Urine Color Mabel (YELLOW) 09/24/20 21:52 Urine Appearance Slightly hazy (CLEAR) 09/24/20 21:52 Urine pH 5.0 (5.0 - 8.0) 09/24/20 21:52 Ur Specific [place] 1.015 (1.000-1.030) 09/24/20 21:52 Urine Protein 1+ (NEGATIVE) 09/24/20 21:52 Urine Glucose (UA) 3+ (NEGATIVE) 09/24/20 21:52 Urine Ketones Negative (NEGATIVE) 09/24/20 21:52 Urine Occult Blood 1+ (NEGATIVE) 09/24/20 21:52 Urine Nitrite Positive (NEGATIVE) 09/24/20 21:52 Urine Bilirubin Negative (NEGATIVE) 09/24/20 21:52 Urine Acetone Negative (NEGATIVE) 09/27/20 11:53 Urine Urobilinogen 1+ (NORMAL) 09/24/20 21:52 Ur Leukocyte Esterase 1+ (NEGATIVE) 09/24/20 21:52 Urine RBC 3-5 /HPF (0-3) A 09/24/20 21:52 Urine WBC 5-10 /HPF (0-5) A 09/24/20 21:52 Ur Squamous Epith Cells Few /HPF (NEGATIVE) 09/24/20 21:52 Urine Bacteria 2+ /HPF (NEGATIVE) 09/24/20 21:52 Ur Culture Indicated? Yes/culture set up 09/24/20 21:52 Influenza Type A (PCR) Negative (NEGATIVE) 09/24/20 22:20 Influenza Type B (PCR) Negative (NEGATIVE) 09/24/20 22:20 SARS CoV-2 RNA Rapid MICK Negative (NEGATIVE) 10/12/20 08:25 Blood Type A POSITIVE 09/26/20 12:21 - Plan (1) Pneumonia due to 2019 novel coronavirus Status: Acute Plan: D5W AT 50 ML/HR, ALBUMIN 25% IV DAILY, INVANZ 1G IV DAILY, ZOSYN IV Q8H, SOLU-MEDROL 80MG IV Q8H, XOPENEX NEBS TID, PULMICORT NEBS BID, HUMULIN R SLIDING SCALE, LANTUS 36 UNITS DAILY, A CATAPRES PATCH, APRESOLINE 10MG IV Q4H PRN, THE POTASSIUM AND MAGNESIUM PROTOCOLS LASIX 40MG IV BID (2) Acute respiratory failure with hypoxia Status: Acute (3) Hypernatremia Status: Acute Plan: FREE WATER THROUGH NG TUBE (4) Diabetes mellitus Status: Acute Qualifiers: Diabetes mellitus type: type 2 Diabetes mellitus fpc insulin use: unspecified fpc insulin use status Diabetes mellitus complication status: with other specified complication Qualified Code(s): E11.69 - Type 2 diabetes mellitus with other specified complication
--- NOTE | 2020-10-13 15:48 | VAS ---
PROCEDURE: Right upper extremity Doppler venous study.HISTORY: RT ARM EDEMA .TECHNIQUE: Grayscale and color Doppler evaluation was performed of the deep venous system of the right upper extremity.COMPARISON: None .TECHNICAL QUALITY: Satisfactory .FINDINGS:Normal Doppler flow with no filling defects identified involving deep venous system of the right upper extremity.Normal compression and augmentation of the right internal jugular, subclavian, axillary, brachial, radial, and ulnar veins.IMPRESSION:No evidence of deep venous thrombosis.Electronically signed by: Forrest Harris (Oct 13, 2020 15:46:54)
[2020-10-13] MEDS: HumuLIN R SC PRN (21:52)
[2020-10-14] MEDS: PULMICORT NEB TX 0.5 MG NEB SCH ×3 (02:10→21:15)
[2020-10-14] MEDS: XOPENEX 1.25 MG/3 ML NEBULE NEB SCH ×4 (02:11→21:15)
[2020-10-14 06:21] LABS: ABG BASE EXCESS 11.3 mmol/L (-2.0-2.0)
[2020-10-14 06:22] LABS: ABG HCO3 33.6 mmol/L (22-26)
[2020-10-14 06:23] LABS: ABG ALLEN TEST POS
[2020-10-14 06:25] LABS: BASOPHILS % (AUTO) 0.1 % (0.2-1.0); HEMATOCRIT 27.1 % (36.0-47.0); HEMOGLOBIN 8.8 g/dL (12.0-16.0); LYMPHOCYTES # (AUTO) 0.4 X10^3/uL (1.3-2.9); MEAN CORPUSCULAR HEMOGLOBIN 24.2 pg (27.0-34.0); MEAN CORPUSCULAR HGB CONC 32.6 g/dL (33.0-35.0); MEAN CORPUSCULAR VOLUME 74.2 fL (80.0-100.0); MONOCYTES # (AUTO) 0.2 x10^3/uL (0.3-0.8); MONOCYTES % (AUTO) 2.8 % (0.0-13.0); NEUTROPHILS % (AUTO) 92.1 % (42.0-75.0); PLATELET COUNT 125 X10^3/uL (150.0-450.0); RED BLOOD COUNT 3.65 X10^6/uL (3.5-5.4); RED CELL DISTRIBUTION WIDTH 15.7 % (11.6-16.5); WHITE BLOOD COUNT 8.6 X10^3/uL (3.6-10.0)
[2020-10-14] MEDS: ZOSYN VIAL 3.375 GRAMS 3.375 G in NS 100 ML IV + SPIKE MINIBAG* 100 ML IV SCH (06:26)
[2020-10-14 06:36] LABS: ALANINE AMINOTRANSFERASE 78 Units/L (12-78); ALBUMIN 2.6 g/dL (3.4-5.0); ALKALINE PHOSPHATASE 68 Units/L (46-116); ASPARTATE AMINO TRANSFERASE 30 Units/L (15-37); BLOOD UREA NITROGEN 16 mg/dL (7-18); CARBON DIOXIDE 29.8 mmol/L (21-32); CHLORIDE 108 mmol/L (98-107); COR CA(FOR HYPOALB) 9.1 mg/dL (8.5-10.1); COR NA(FOR HYPERGLY) 147 mmol/L (136-145); CREATININE 0.64 mg/dL (0.55-1.02); SODIUM 145 mmol/L (136-145); TOTAL PROTEIN 5.6 g/dL (6.4-8.2); eGFR NON BLACK RACES > 60 (>60)
--- NOTE | 2020-10-14 06:45 | RAD ---
HISTORYShortness of breathSTUDYChest AP [id number]/30/2020FINDINGSPatient is rotated to the left. There is a right IJ line in good position. Nasogastric tube is no longer present. The heart remains enlarged. The lungs are somewhat h ypoinflated. The right lung is clear. There is some subsegmental atelectasis peripherally in the left upper lobe. Increased density in the retrocardiac area of the left lower lobe could represent atelec tasis, infiltrate, effusion or combination and is unchanged. Bony thorax is unremarkable.IMPRESSIONNo significant change from the prior examinationElectronically signed by: CHOLO HALLMAN (Oct 14, 2020 0 6:43:39)
[2020-10-14] MEDS: SOLU-Medrol 125 MG VIAL IVP SCH (07:26)
[2020-10-14 07:28] LABS: BAND NEUTROPHILS % 5 % (0-10)
[2020-10-14 07:29] LABS: MICROCYTOSIS SLIGHT; PLATELET MORPHOLOGY COMMENT NORMAL (NORMAL)
[2020-10-14] MEDS: ALBUMIN HUMAN 25%- 100 ML 100 ML IV SCH (09:19)
[2020-10-14] MEDS: INVANZ INJ 1 GM VIAL 1 GM in NS 100 ML IV + SPIKE MINIBAG* 100 ML IV SCH (10:09)
[2020-10-14] MEDS: LOVENOX INJ 30 MG SYR SC SCH ×2 (10:12→21:26)
[2020-10-14] MEDS: SYNTHROID INJ 100 mcg VIAL IVP SCH (10:14)
[2020-10-14] MEDS: APRESOLINE INJ 20 MG VIAL IVP PRN (10:15)
[2020-10-14] MEDS ORDERED: XANAX PO PRN (10:47)
[2020-10-14] MEDS: COZAAR PO SCH ×2 (11:00→12:02)
[2020-10-14] MEDS: LASIX IVP SCH ×2 (11:00→17:36)
[2020-10-14] MEDS: LACRI-LUBE S.O.P. AFFEYE SCH ×2 (12:02→21:27)
[2020-10-14] MEDS: LANTUS SC SCH (12:03)
[2020-10-14] MEDS: NORVASC TAB 10 MG PO SCH (13:39)
[2020-10-14] MEDS: CATAPRES-TTS-3 TD SCH (13:39)
[2020-10-14] MEDS: NS 1/2 + KCL 20 MEQ/L 1,000 ML IV SCH ×2 (13:40→19:06)
[2020-10-14] MEDS: ZOFRAN INJ 4 MG VIAL IVP PRN (13:40)
--- NOTE | 2020-10-14 14:34 | RAD ---
HISTORYABD PAIN HX: HTN, DM SX: HYSTERECTOMYSTUDYACUTE ABDOMEN SERIESCOMPARISONChest x-ray same dayFINDINGSThe trachea is midline. The cardiac silhouette is [stable. Right IJ central venous catheter unchanged]. [Similar left basilar airspace opacities] [the bony thorax is unremarkable].Flat plate and upright evaluation of the abdomen demonstrates a [normal bowel gas pattern]. There is no pneumoperitoneum. No pathological soft tissue mass or calcification can be observed. The bony structures are grossly intact. Lumbar spinal fusion hardware.IMPRESSION1. [Similar left basilar airspace opacities.]2. [No evidence for acute abdominal pathology identified.]Electronically signed by: CHOLO HALLMAN (Oct 14, 2020 14:32:19)
[2020-10-14] MEDS: TOPROL XL PO SCH (20:15)
[2020-10-14] MEDS ORDERED: TOPROL XL PO ONE (20:15)
[2020-10-14] MEDS: SNACK - Diabetic Appropriate PO SCH (21:27)
[2020-10-15] MEDS: NS 1/2 + KCL 20 MEQ/L 1,000 ML IV SCH ×6 (00:43→19:54)
[2020-10-15] MEDS: ZOFRAN INJ 4 MG VIAL IVP PRN (05:41)
[2020-10-15 06:16] LABS: BASOPHILS % (AUTO) 0.1 % (0.2-1.0); EOSINOPHILS # (AUTO) 0.1 x10^3/uL (0.0-0.2); EOSINOPHILS % (AUTO) 1.1 % (0.9-2.9); HEMATOCRIT 24.6 % (36.0-47.0); LYMPHOCYTES # (AUTO) 0.9 X10^3/uL (1.3-2.9); LYMPHOCYTES % (AUTO) 14.9 % (21.0-51.0); MEAN CORPUSCULAR HEMOGLOBIN 24.3 pg (27.0-34.0); MEAN CORPUSCULAR HGB CONC 32.5 g/dL (33.0-35.0); MEAN CORPUSCULAR VOLUME 74.7 fL (80.0-100.0); MEAN PLATELET VOLUME 8.5 fL (7.4-11.0); MONOCYTES # (AUTO) 0.5 x10^3/uL (0.3-0.8); MONOCYTES % (AUTO) 7.8 % (0.0-13.0); NEUTROPHILS # (AUTO) 4.8 x10^3/uL (2.2-4.8); NEUTROPHILS % (AUTO) 76.1 % (42.0-75.0); PLATELET COUNT 110 X10^3/uL (150.0-450.0); RED BLOOD COUNT 3.29 X10^6/uL (3.5-5.4); RED CELL DISTRIBUTION WIDTH 15.7 % (11.6-16.5); WHITE BLOOD COUNT 6.3 X10^3/uL (3.6-10.0)
[2020-10-15] MEDS: XOPENEX 1.25 MG/3 ML NEBULE NEB SCH ×3 (06:27→20:00)
[2020-10-15] MEDS: APRESOLINE INJ 20 MG VIAL IVP PRN (06:28)
[2020-10-15 06:29] LABS: ALANINE AMINOTRANSFERASE 85 Units/L (12-78); ALBUMIN 2.6 g/dL (3.4-5.0); ALKALINE PHOSPHATASE 51 Units/L (46-116); ASPARTATE AMINO TRANSFERASE 39 Units/L (15-37); BLOOD UREA NITROGEN 12 mg/dL (7-18); CALCIUM 7.6 mg/dL (8.5-10.1); CARBON DIOXIDE 31.1 mmol/L (21-32); CHLORIDE 107 mmol/L (98-107); COR CA(FOR HYPOALB) 8.7 mg/dL (8.5-10.1); COR NA(FOR HYPERGLY) 146 mmol/L (136-145); SODIUM 145 mmol/L (136-145); TOTAL PROTEIN 5.2 g/dL (6.4-8.2); eGFR NON BLACK RACES > 60 (>60)
[2020-10-15 07:21] LABS: PLATELET MORPHOLOGY COMMENT NORMAL (NORMAL)
[2020-10-15 07:22] LABS: HYPOCHROMASIA SLIGHT
--- NOTE | 2020-10-15 08:12 | RAD ---
HISTORYSOBSTUDYCHEST, 1 [id number]/31/2020.TECHNIQUEAP view of the chestFINDINGSRight IJ central line in good position. Cardiac silhouette stably enlarged. Mediastinal contours appear stable. Similar appearance of left worse than right base airspace disease. Suspect small pleural effusions. No pneumothorax.IMPRESSIONNo significant change.Electronically signed by: Miller Loredo (Oct 15, 2020 08:10:03)
[2020-10-15] MEDS ORDERED: TOPROL XL PO ONE (08:35)
[2020-10-15] MEDS: LASIX IVP SCH ×2 (09:12→17:00)
[2020-10-15] MEDS: TOPROL XL PO SCH (09:12)
[2020-10-15] MEDS: LANTUS SC SCH (09:12)
[2020-10-15] MEDS: LOVENOX INJ 30 MG SYR SC SCH ×2 (09:13→20:55)
[2020-10-15] MEDS: NORVASC TAB 10 MG PO SCH (09:13)
[2020-10-15] MEDS: COZAAR PO SCH (09:13)
[2020-10-15] MEDS: SYNTHROID INJ 100 mcg VIAL IVP SCH (09:14)
[2020-10-15] MEDS: ALBUMIN HUMAN 25%- 100 ML 100 ML IV SCH (09:14)
[2020-10-15] MEDS: PREDNISONE TAB 10 MG PO SCH (09:14)
[2020-10-15] MEDS: LOPRESSOR TAB 50 MG PO SCH ×2 (09:22→20:55)
[2020-10-15] MEDS ORDERED: LOPRESSOR TAB 50 MG ONE (09:22)
[2020-10-15] MEDS: PULMICORT NEB TX 0.5 MG NEB SCH ×2 (09:49→20:00)
[2020-10-15] MEDS: MAGNESIUM SULFATE 1 GRAM/100 mL PREMIX 1 GM/100 ML BAG IV PRN ×3 (10:40→12:30)
[2020-10-15] MEDS ORDERED: MAGNESIUM SULFATE 1 GRAM/100 mL PREMIX 4 G/400 ML BAG IV SCH (12:24)
[2020-10-15] MEDS ORDERED: LINZESS PO SCH (13:00)
[2020-10-15] MEDS: APRESOLINE TAB 25 MG PO SCH ×2 (15:00→20:55)
[2020-10-15] MEDS ORDERED: CITROMA ONE (18:06)
[2020-10-15] MEDS ORDERED: CITROMA NG ONE (18:20)
[2020-10-15] MEDS: SNACK - Diabetic Appropriate PO SCH (20:55)
[2020-10-16] MEDS: NS 1/2 + KCL 20 MEQ/L 1,000 ML IV SCH ×5 (01:40→17:01)
[2020-10-16] MEDS: APRESOLINE TAB 25 MG PO SCH ×3 (05:45→21:50)
[2020-10-16] MEDS: XOPENEX 1.25 MG/3 ML NEBULE NEB SCH ×4 (06:10→20:16)
[2020-10-16 06:38] LABS: BASOPHILS % (AUTO) 0.2 % (0.2-1.0); EOSINOPHILS # (AUTO) 0.2 x10^3/uL (0.0-0.2); EOSINOPHILS % (AUTO) 3.2 % (0.9-2.9); HEMATOCRIT 25.1 % (36.0-47.0); HEMOGLOBIN 8.1 g/dL (12.0-16.0); LYMPHOCYTES % (AUTO) 17.5 % (21.0-51.0); MEAN CORPUSCULAR HEMOGLOBIN 24.4 pg (27.0-34.0); MEAN CORPUSCULAR HGB CONC 32.4 g/dL (33.0-35.0); MEAN CORPUSCULAR VOLUME 75.4 fL (80.0-100.0); MEAN PLATELET VOLUME 8.1 fL (7.4-11.0); MONOCYTES # (AUTO) 0.5 x10^3/uL (0.3-0.8); MONOCYTES % (AUTO) 9.7 % (0.0-13.0); NEUTROPHILS # (AUTO) 3.8 x10^3/uL (2.2-4.8); NEUTROPHILS % (AUTO) 69.4 % (42.0-75.0); PLATELET COUNT 107 X10^3/uL (150.0-450.0); RED BLOOD COUNT 3.33 X10^6/uL (3.5-5.4); RED CELL DISTRIBUTION WIDTH 15.9 % (11.6-16.5); WHITE BLOOD COUNT 5.4 X10^3/uL (3.6-10.0)
[2020-10-16 06:44] LABS: ALANINE AMINOTRANSFERASE 61 Units/L (12-78); ALBUMIN 2.8 g/dL (3.4-5.0); ALKALINE PHOSPHATASE 49 Units/L (46-116); ASPARTATE AMINO TRANSFERASE 26 Units/L (15-37); BLOOD UREA NITROGEN 12 mg/dL (7-18); CALCIUM 7.7 mg/dL (8.5-10.1); CARBON DIOXIDE 28.9 mmol/L (21-32); CHLORIDE 106 mmol/L (98-107); COR CA(FOR HYPOALB) 8.7 mg/dL (8.5-10.1); CREATININE 0.46 mg/dL (0.55-1.02); MAGNESIUM 2.6 mg/dL (1.7-2.9); SODIUM 140 mmol/L (136-145); TOTAL PROTEIN 5.4 g/dL (6.4-8.2); eGFR NON BLACK RACES > 60 (>60)
[2020-10-16] MEDS: PULMICORT NEB TX 0.5 MG NEB SCH ×2 (09:30→20:16)
[2020-10-16] MEDS: PREDNISONE TAB 10 MG PO SCH (10:00)
[2020-10-16] MEDS: SYNTHROID INJ 100 mcg VIAL IVP SCH (10:00)
[2020-10-16] MEDS: COZAAR PO SCH (10:00)
[2020-10-16] MEDS: LOPRESSOR TAB 50 MG PO SCH ×2 (10:00→21:50)
[2020-10-16] MEDS: LASIX IVP SCH ×2 (10:00→17:00)
[2020-10-16] MEDS: NORVASC TAB 10 MG PO SCH (10:00)
[2020-10-16] MEDS: ALBUMIN HUMAN 25%- 100 ML 100 ML IV SCH (10:36)
[2020-10-16] MEDS: LANTUS SC SCH (11:06)
[2020-10-16] MEDS: TYLENOL 325 MG TAB PO PRN (15:48)
[2020-10-16] MEDS: SNACK - Diabetic Appropriate PO SCH (21:50)
[2020-10-16] MEDS: MIRALAX POWDER (1 DOSE 17 G) PO SCH (21:50)
[2020-10-16] MEDS: HumuLIN R SC PRN (22:05)
[2020-10-17] MEDS: NS 1/2 + KCL 20 MEQ/L 1,000 ML IV SCH ×4 (03:12→21:27)
[2020-10-17] MEDS: XOPENEX 1.25 MG/3 ML NEBULE NEB SCH ×4 (05:00→20:25)
[2020-10-17 06:47] LABS: BASOPHILS % (AUTO) 0.3 % (0.2-1.0); EOSINOPHILS # (AUTO) 0.1 x10^3/uL (0.0-0.2); EOSINOPHILS % (AUTO) 3.9 % (0.9-2.9); HEMATOCRIT 24.8 % (36.0-47.0); HEMOGLOBIN 7.8 g/dL (12.0-16.0); LYMPHOCYTES # (AUTO) 0.9 X10^3/uL (1.3-2.9); LYMPHOCYTES % (AUTO) 23.3 % (21.0-51.0); MEAN CORPUSCULAR HEMOGLOBIN 23.8 pg (27.0-34.0); MEAN CORPUSCULAR HGB CONC 31.5 g/dL (33.0-35.0); MEAN CORPUSCULAR VOLUME 75.6 fL (80.0-100.0); MEAN PLATELET VOLUME 8.4 fL (7.4-11.0); MONOCYTES # (AUTO) 0.4 x10^3/uL (0.3-0.8); NEUTROPHILS # (AUTO) 2.4 x10^3/uL (2.2-4.8); NEUTROPHILS % (AUTO) 61.5 % (42.0-75.0); PLATELET COUNT 98 X10^3/uL (150.0-450.0); RED BLOOD COUNT 3.28 X10^6/uL (3.5-5.4); RED CELL DISTRIBUTION WIDTH 15.9 % (11.6-16.5); WHITE BLOOD COUNT 3.9 X10^3/uL (3.6-10.0)
[2020-10-17] MEDS: APRESOLINE TAB 25 MG PO SCH ×4 (06:50→21:37)
[2020-10-17 07:09] LABS: ALANINE AMINOTRANSFERASE 53 Units/L (12-78); ALBUMIN 2.5 g/dL (3.4-5.0); ALKALINE PHOSPHATASE 49 Units/L (46-116); ASPARTATE AMINO TRANSFERASE 22 Units/L (15-37); BLOOD UREA NITROGEN 10 mg/dL (7-18); CALCIUM 7.4 mg/dL (8.5-10.1); CHLORIDE 104 mmol/L (98-107); COR CA(FOR HYPOALB) 8.6 mg/dL (8.5-10.1); COR NA(FOR HYPERGLY) 138 mmol/L (136-145); CREATININE 0.57 mg/dL (0.55-1.02); SODIUM 137 mmol/L (136-145); eGFR NON BLACK RACES > 60 (>60)
[2020-10-17] MEDS: HumuLIN R SC PRN (08:57)
[2020-10-17] MEDS ORDERED: LOVENOX INJ 30 MG SYR SC SCH (09:00)
[2020-10-17] MEDS: PULMICORT NEB TX 0.5 MG NEB SCH ×2 (09:04→20:25)
[2020-10-17] MEDS ORDERED: PROCRIT or EPOGEN VIAL 10,000 UNITS SC ONE (09:12)
[2020-10-17] MEDS ORDERED: NS 100 ML IV 100 ML with VENOFER 200 MG IV NR ×2 (09:14)
[2020-10-17] MEDS: COZAAR PO SCH (10:20)
[2020-10-17] MEDS: LANTUS SC SCH (10:21)
[2020-10-17] MEDS: LASIX IVP SCH ×2 (10:22→17:46)
[2020-10-17] MEDS: NORVASC TAB 10 MG PO SCH (10:23)
[2020-10-17] MEDS: SYNTHROID INJ 100 mcg VIAL IVP SCH (10:24)
[2020-10-17] MEDS: PREDNISONE TAB 10 MG PO SCH (10:24)
[2020-10-17] MEDS: LOPRESSOR TAB 50 MG PO SCH ×2 (10:31→21:36)
[2020-10-17] MEDS: GLUCOPHAGE XR 24-HR PO SCH ×2 (10:35→21:35)
[2020-10-17] MEDS: ZOFRAN INJ 4 MG VIAL IVP PRN (14:26)
[2020-10-17] MEDS: SNACK - Diabetic Appropriate PO SCH (21:28)
[2020-10-17] MEDS: MIRALAX POWDER (1 DOSE 17 G) PO SCH (21:36)
[2020-10-18 04:25] LABS: ABG BASE EXCESS 8.3 mmol/L (-2.0-2.0); ABG HCO3 32.8 mmol/L (22-26)
[2020-10-18 04:26] LABS: ABG ALLEN TEST POS
[2020-10-18] MEDS: NS 1/2 + KCL 20 MEQ/L 1,000 ML IV SCH ×5 (04:59→22:33)
[2020-10-18] MEDS: APRESOLINE TAB 25 MG PO SCH ×3 (04:59→21:31)
[2020-10-18] MEDS: XOPENEX 1.25 MG/3 ML NEBULE NEB SCH ×3 (05:15→21:18)
[2020-10-18 07:15] LABS: BASOPHILS % (AUTO) 0.5 % (0.2-1.0); EOSINOPHILS # (AUTO) 0.2 x10^3/uL (0.0-0.2); EOSINOPHILS % (AUTO) 3.4 % (0.9-2.9); LYMPHOCYTES % (AUTO) 21.7 % (21.0-51.0); MEAN CORPUSCULAR HEMOGLOBIN 24.4 pg (27.0-34.0); MEAN CORPUSCULAR VOLUME 76.1 fL (80.0-100.0); MEAN PLATELET VOLUME 8.2 fL (7.4-11.0); MONOCYTES # (AUTO) 0.5 x10^3/uL (0.3-0.8); MONOCYTES % (AUTO) 10.6 % (0.0-13.0); NEUTROPHILS # (AUTO) 2.9 x10^3/uL (2.2-4.8); NEUTROPHILS % (AUTO) 63.8 % (42.0-75.0); PLATELET COUNT 99 X10^3/uL (150.0-450.0); RED BLOOD COUNT 3.29 X10^6/uL (3.5-5.4); RED CELL DISTRIBUTION WIDTH 15.7 % (11.6-16.5); WHITE BLOOD COUNT 4.6 X10^3/uL (3.6-10.0)
[2020-10-18 07:28] LABS: ALANINE AMINOTRANSFERASE 66 Units/L (12-78); ALBUMIN 2.3 g/dL (3.4-5.0); ALKALINE PHOSPHATASE 51 Units/L (46-116); ASPARTATE AMINO TRANSFERASE 35 Units/L (15-37); BLOOD UREA NITROGEN 11 mg/dL (7-18); CALCIUM 7.6 mg/dL (8.5-10.1); CARBON DIOXIDE 27.1 mmol/L (21-32); CHLORIDE 104 mmol/L (98-107); COR NA(FOR HYPERGLY) 140 mmol/L (136-145); CREATININE 0.59 mg/dL (0.55-1.02); SODIUM 138 mmol/L (136-145); TOTAL PROTEIN 4.8 g/dL (6.4-8.2); eGFR NON BLACK RACES > 60 (>60)
--- NOTE | 2020-10-18 08:02 | RAD ---
HISTORYSOBSTUDYCHEST, 1 [id number]/01/2021FINDINGSBilateral patchy areas of opacity are present compatible with broncho pneumonia. Findings on the left side have decreased. The findings on the right side have progressed.N o pleural effusion on the left but there is a small right effusion. No pneumothorax.Heart size is nor mal.Bones are unremarkable.Right jugular central venous catheter is in the expected location of the s uperior vena cava. EKG leads are noted.IMPRESSION1. Bronchopneumonia2. New small right effusionElectr onically signed by: Easton Kee (Oct 18, 2020 08:00:36)
[2020-10-18] MEDS: PULMICORT NEB TX 0.5 MG NEB SCH ×2 (08:54→21:18)
[2020-10-18] MEDS: LASIX IVP SCH ×2 (08:55→16:49)
[2020-10-18] MEDS: LOPRESSOR TAB 50 MG PO SCH ×2 (08:55→21:31)
[2020-10-18] MEDS: NORVASC TAB 10 MG PO SCH (08:55)
[2020-10-18] MEDS: GLUCOPHAGE XR 24-HR PO SCH ×2 (08:55→21:31)
[2020-10-18] MEDS: SYNTHROID INJ 100 mcg VIAL IVP SCH (08:55)
[2020-10-18] MEDS: COZAAR PO SCH (08:55)
[2020-10-18] MEDS: PREDNISONE TAB 10 MG PO SCH (08:56)
[2020-10-18] MEDS: LANTUS SC SCH (10:18)
[2020-10-18] MEDS: HumuLIN R SC PRN (12:04)
[2020-10-18] MEDS ORDERED: BUTT CREAM (COMPOUND) TOP PRN (13:31)
--- NOTE | 2020-10-18 20:37 | PCM.PROG ---
Progress Note - Progress Note for Day of Date of Exam: 10/18/20 - Subjective Subjective: IS BEING TREATED FOR PNEUMONIA DUE TO COVID-19, HYPOXIA, ACUTE RESPIRATORY FAILURE, AND A URINARY TRACT INFECTION. SHE HAS BEEN REMOVED FROM THE MECHANICAL VENTILLATOR AND IS CURRENTLY UTILIZING OXYGEN VIA NASAL CANNULA AT 3 LPM. HER OXYGEN SATURATIONS HAVE BEEN 93-97% ON NASAL CANNULA. NGT REMAINS IN PLACE. SHE IS RECEIVING FREE WATER THROUGH THE NG TUBE. SHE IS SLIGHTLY DROWSY THIS MORNING, BUT IS ABLE TO FOLLOW COMMANDS. SHE DOES REPORT WEAKNESS AND SHORTNESS OF BREATH. ON EXAMINATION, BILATERAL LUNGS ARE NOTED WITH DIMINISHED LUNG SOUNDS THROUGHOUT. ABDOMEN IS ROUND, SOFT, AND NON-TENDER WITH HYPERACTIVE BOWEL SOUNDS NOTED IN ALL QUADRANTS. THERE IS 2+ EDEMA TO THE RIGHT UPPER EXTREMITY. A GARCIA CATHETER IS NOTED TO BEDSIDE DRAINAGE. HER VITALS THIS MORNING ARE: 98.0-100-19-93%162/85. LABS WERE OBTAINED. ABNORMAL VALUES INCLUDE THE FOLLOWING: WBC 10.4, HGB 9.2, HCT 29.6, PLT COUNT 139, SODIUM 143, POTASSIUM 3.3, CHLORIDE 111, BUN 19, CALCIUM 7.9, FERRITIN 327, TOTAL PROTEIN 5.4, ALBUMIN 2.2. ABG REVEALED: 7.550, PC02 36, P02 77, HC03 31.5, 02 SAT 97, BASE EXCESS 8 .7, FI02 28. URINE CULTURE REVEALED GROWTH OF E.COLI. SPUTUM CULTURE REVEALS GROWTH OF ENTEROBACTER CLOACAAE AND KLEBSIELLA PNEUMONIAE. A CHEST XRAY WAS OBTAINED AND REVEALED: Left lower lobe retrocardiac density unchanged from 10/12/2020. SHE IS CURRENTLY RECEIVING D5W AT 50 ML/HR, INVANZ 1G IV DAILY, ZOSYN IV TID, SOLU-MEDROL 80MG IV Q8H, XOPENEX NEBS TID, PULMICORT NEBS BID, HUMULIN R SLIDING SCALE, LASIX 40MG IV BID, LANTUS 36 UNITS DAILY, A CATAPRES PATCH, APRESOLINE 10MG IV Q4H PRN, THE POTASSIUM AND MAGNESIUM PROTOCOLS. TODAY, WE WILL ADD ALBUMIN 25% IV DAILY AND OBTAIN A RUE DOPPLER. OTHERWISE, WE WILL CONTINUE WITH CURRENT PLAN OF CARE. WE PLAN TO FOLLOW UP WITH AM LABS, ABG, AND CHEST XRAY AND CONTINUE TO MONITOR. Time spent for clinical assessment, physical examination, reviewing labs/imaging and decision making more than 75 mins. - Past Medical Family Social History Past Med/Fam/Surg Hx: No changes since H&P Allergies: Allergies lisinopril Allergy (Verified 09/05/19 12:12) ciprofloxacin [From Cipro] Adverse Reaction (Verified 09/05/19 12:12) - Review of Systems ROS: No change since H&P - Vital Signs and I&O's Vital Signs: Temperature 98.6 F Pulse Rate [Left Radial] 75 Pulse Rate 73 Respiratory Rate 20 Blood Pressure [Left Radial 153/53 Artery] Blood Pressure [Left Arm] 152/77 Blood Pressure 131/68 O2 Sat by Pulse Oximetry 94 Intake and Output: Intake & Output 10/16/20 10/17/20 10/18/20 10/19/20 11:59 11:59 11:59 11:59 Intake Total 2350 / 2350 1520 / 1520 4375 / 4375 1610 / 1610 Output Total 1900 / 1900 3275 / 3275 4775 / 4775 1800 / 1800 Balance 450 / 450 -1755 / -1755 -400 / -400 -190 / -190 - Physical Exam Oriented: Unable to test Eyes: Normal, Other (Patient does open eyes when name called, looks towards the side of the sound. Not able to make eye contact.) Ear: Normal Nose: Normal Throat: Dry Respiratory: Generalized, Diminished Cardiovascular: Normal, Edema : Normal Auscultation: Bowel Sounds: Normal Palpation: Normal Tenderness: Normal Skin: Normal Musculoskeletal: Normal Psychiatric: Normal Mood Description: Calm Affect: Flat Speech Pattern: Clear, Appropriate - Laboratory and Diagnostics Result Diagrams: 10/18/20 06:20 10/18/20 06:20 Labs: 10/10/20 11:24 Buttock Gram Stain - Final 10/10/20 11:24 Buttock Wound Culture - Final 09/24/20 20:28 Blood Blood Culture - Final 09/24/20 20:24 Blood Blood Culture - Final 09/27/20 13:40 Sputum - Endotracheal Wash Sputum Culture - Final Enterobacter Cloacae Klebsiella Pneumoniae 09/27/20 13:40 Sputum - Endotracheal Wash - Final 09/24/20 21:52 Urine,Clean Catch Urine Culture - Final Escherichia Coli Laboratory WBC 4.6 X10^3/uL (3.6-10.0) 10/18/20 06:20 RBC 3.29 X10^6/uL (3.5-5.4) L 10/18/20 06:20 Hgb 8.0 g/dL (12.0-16.0) L 10/18/20 06:20 Hct 25.0 % (36.0-47.0) L 10/18/20 06:20 MCV 76.1 fL (80.0-100.0) L 10/18/20 06:20 MCH 24.4 pg (27.0-34.0) L 10/18/20 06:20 MCHC 32.0 g/dL (33.0-35.0) L 10/18/20 06:20 RDW 15.7 % (11.6-16.5) 10/18/20 06:20 Plt Count 99 X10^3/uL (150.0-450.0) L 10/18/20 06:20 Plt Count Comment Decreased (ADEQUATE) A 10/15/20 04:45 MPV 8.2 fL (7.4-11.0) 10/18/20 06:20 Neut % (Auto) 63.8 % (42.0-75.0) 10/18/20 06:20 Lymph % (Auto) 21.7 % (21.0-51.0) 10/18/20 06:20 [place] % (Auto) 10.6 % (0.0-13.0) 10/18/20 06:20 Eos % (Auto) 3.4 % (0.9-2.9) H 10/18/20 06:20 Baso % (Auto) 0.5 % (0.2-1.0) 10/18/20 06:20 Neut # (Auto) 2.9 x10^3/uL (2.2-4.8) 10/18/20 06:20 Lymph # (Auto) 1.0 X10^3/uL (1.3-2.9) L 10/18/20 06:20 [place] # (Auto) 0.5 x10^3/uL (0.3-0.8) 10/18/20 06:20 Eos # (Auto) 0.2 x10^3/uL (0.0-0.2) 10/18/20 06:20 Baso # (Auto) 0.0 X10^3/uL (0.0-0.1) 10/18/20 06:20 Absolute Nucleated RBC 0.1 /100WBC 10/18/20 06:20 Total Counted 100 10/14/20 05:15 Neutrophils % (Manual) 88 % (39-76) H 10/14/20 05:15 Band Neutrophils % 5 % (0-10) 10/14/20 05:15 Lymphocytes % (Manual) 5 % (13-43) L 10/14/20 05:15 Monocytes % (Manual) 2 % (4-9) L 10/14/20 05:15 Plt Morphology Comment Normal (NORMAL) 10/15/20 04:45 RBC Morphology Abnormal (NORMAL) A 10/15/20 04:45 Dimorphic RBCs Autom[employer] W[employer]y Administrator 10/04/20 05:06 Hypochromasia Slight A 10/15/20 04:45 Poikilocytosis Slight A 09/24/20 20:24 Microcytosis Slight A 10/14/20 05:15 [place] Cells Present 09/25/20 05:49 Crenated Cell Slight A 10/01/20 04:20 PT 14.3 SECONDS (11.8-14.3) 09/24/20 20:24 INR Target Range - 09/24/20 20:24 INR 1.15 (0.8-1.3) 09/24/20 20:24 D-Dimer 2.89 ug/ml (0.0-0.57) H* 10/08/20 04:38 Sample Site Lr 10/18/20 04:20 ABG pH 7.480 (7.35-7.45) H 10/18/20 04:20 ABG pCO2 44.0 mmHg (35.0-45.0) 10/18/20 04:20 ABG pO2 82.0 mmHg (80.0-100.0) 10/18/20 04:20 ABG HCO3 32.8 mmol/L (22-26) H* 10/18/20 04:20 ABG O2 Saturation 97.0 % (90-100) 10/18/20 04:20 ABG Base Excess 8.3 mmol/L (-2.0-2.0) H 10/18/20 04:20 Alexx Test Pos 10/18/20 04:20 A-a Gradient 63.0 mmHg 10/18/20 04:20 FiO2 28.0 10/18/20 04:20 Blood Gas Comments Erwin well ae 10/18/20 04:20 Sodium 138 mmol/L (136-145) 10/18/20 06:20 Corrected Sodium 140 mmol/L (136-145) 10/18/20 06:20 Potassium 4.4 mmol/L (3.5-5.1) 10/18/20 06:20 Chloride 104 mmol/L (98-107) 10/18/20 06:20 Carbon Dioxide 27.1 mmol/L (21-32) 10/18/20 06:20 BUN 11 mg/dL (7-18) 10/18/20 06:20 Creatinine 0.59 mg/dL (0.55-1.02) 10/18/20 06:20 Est GFR (MDRD) Af Amer > 60 (>60) 10/18/20 06:20 Est GFR (MDRD) Non-Af > 60 (>60) 10/18/20 06:20 Glucose 183 mg/dL (65-99) H 10/18/20 06:20 POC Glucose (mg/dL) 132 mg/dL (65-99) H 10/18/20 16:17 Lactic Acid 1.5 mmol/L (0.4-2.0) 09/24/20 21:56 Calcium 7.6 mg/dL (8.5-10.1) L 10/18/20 06:20 Corrected Calcium 9.0 mg/dL (8.5-10.1) 10/18/20 06:20 Magnesium 2.6 mg/dL (1.7-2.9) 10/16/20 05:38 Ferritin 178 ng/mL (8-252) 10/17/20 05:20 Total Bilirubin 0.40 mg/dL (0.2-1.0) 10/18/20 06:20 AST 35 Units/L (15-37) 10/18/20 06:20 ALT 66 Units/L (12-78) 10/18/20 06:20 Alkaline Phosphatase 51 Units/L (46-116) 10/18/20 06:20 Creatine Kinase 78 Units/L (26-192) 09/25/20 16:10 CK-MB (CK-2) < 1.0 ng/mL (0-4.0) 09/25/20 16:10 CK/CKMB % Calc 1.3 % (<4) 09/25/20 16:10 Troponin I < 0.02 ng/mL (0-1.5) 09/25/20 16:10 C-Reactive Protein < 0.50 mg/L (0-3.0) 10/18/20 06:20 B-Natriuretic Peptide 637 pg/mL (0-79) H* 09/24/20 20:24 Total Protein 4.8 g/dL (6.4-8.2) L 10/18/20 06:20 Albumin 2.3 g/dL (3.4-5.0) L 10/18/20 06:20 Globulin 2.5 g/dL (2.5-4.5) 10/18/20 06:20 Prealbumin 18.8 mg/dL (18-35.7) 09/30/20 04:25 Albumin/Globulin Ratio 0.9 Ratio (1.1-2.1) L 10/18/20 06:20 Specimen Type Clean catch urine 09/24/20 21:52 Urine Color Mabel (YELLOW) 09/24/20 21:52 Urine Appearance Slightly hazy (CLEAR) 09/24/20 21:52 Urine pH 5.0 (5.0 - 8.0) 09/24/20 21:52 Ur Specific [place] 1.015 (1.000-1.030) 09/24/20 21:52 Urine Protein 1+ (NEGATIVE) 09/24/20 21:52 Urine Glucose (UA) 3+ (NEGATIVE) 09/24/20 21:52 Urine Ketones Negative (NEGATIVE) 09/24/20 21:52 Urine Occult Blood 1+ (NEGATIVE) 09/24/20 21:52 Urine Nitrite Positive (NEGATIVE) 09/24/20 21:52 Urine Bilirubin Negative (NEGATIVE) 09/24/20 21:52 Urine Acetone Negative (NEGATIVE) 09/27/20 11:53 Urine Urobilinogen 1+ (NORMAL) 09/24/20 21:52 Ur Leukocyte Esterase 1+ (NEGATIVE) 09/24/20 21:52 Urine RBC 3-5 /HPF (0-3) A 09/24/20 21:52 Urine WBC 5-10 /HPF (0-5) A 09/24/20 21:52 Ur Squamous Epith Cells Few /HPF (NEGATIVE) 09/24/20 21:52 Urine Bacteria 2+ /HPF (NEGATIVE) 09/24/20 21:52 Ur Culture Indicated? Yes/culture set up 09/24/20 21:52 Influenza Type A (PCR) Negative (NEGATIVE) 09/24/20 22:20 Influenza Type B (PCR) Negative (NEGATIVE) 09/24/20 22:20 SARS CoV-2 RNA Rapid MICK Negative (NEGATIVE) 10/12/20 08:25 Miscellaneous Test Covid 19 10/13/20 16:10 Blood Type A POSITIVE 09/26/20 12:21 - Plan (1) Pneumonia due to 2019 novel coronavirus Status: Acute Plan: 1/2NS WITH 20MEQ KCL AT 125ML/HR, PREDNISONE 10MG PO DAILY, XANAX 0.5MG PO TID PRN, XOPENEX NEBS TID, PULMICORT NEBS BID, HUMULIN R SLIDING SCALE, LASIX 40MG IV BID, LANTUS 40 UNITS DAILY, A CATAPRES PATCH, APRESOLINE 10MG IV Q4H PRN, APRESOLINE 50MG PO TID, ZOFRAN 4MG IV Q6H PRN, THE POTASSIUM AND MAGNESIUM PROTOCOLS. (2) Acute respiratory failure with hypoxia Status: Acute (3) Diabetes mellitus Status: Acute Qualifiers: Diabetes mellitus type: type 2 Diabetes mellitus senior living insulin use: unspecified senior living insulin use status Diabetes mellitus complication status: with other specified complication Qualified Code(s): E11.69 - Type 2 diabetes mellitus with other specified complication
[2020-10-18] MEDS: SNACK - Diabetic Appropriate PO SCH (21:30)
[2020-10-18] MEDS: MIRALAX POWDER (1 DOSE 17 G) PO SCH (21:31)
[2020-10-19] MEDS: XOPENEX 1.25 MG/3 ML NEBULE NEB SCH ×3 (05:03→20:50)
[2020-10-19] MEDS: NS 1/2 + KCL 20 MEQ/L 1,000 ML IV SCH ×3 (06:01→21:45)
[2020-10-19] MEDS: APRESOLINE TAB 25 MG PO SCH ×3 (06:01→21:46)
[2020-10-19 06:28] LABS: BASOPHILS % (AUTO) 0.5 % (0.2-1.0); EOSINOPHILS # (AUTO) 0.2 x10^3/uL (0.0-0.2); EOSINOPHILS % (AUTO) 4.2 % (0.9-2.9); HEMATOCRIT 22.3 % (36.0-47.0); HEMOGLOBIN 7.1 g/dL (12.0-16.0); LYMPHOCYTES # (AUTO) 1.2 X10^3/uL (1.3-2.9); LYMPHOCYTES % (AUTO) 27.7 % (21.0-51.0); MEAN CORPUSCULAR HEMOGLOBIN 24.5 pg (27.0-34.0); MEAN CORPUSCULAR HGB CONC 31.9 g/dL (33.0-35.0); MEAN CORPUSCULAR VOLUME 76.7 fL (80.0-100.0); MONOCYTES # (AUTO) 0.5 x10^3/uL (0.3-0.8); MONOCYTES % (AUTO) 10.7 % (0.0-13.0); NEUTROPHILS # (AUTO) 2.4 x10^3/uL (2.2-4.8); NEUTROPHILS % (AUTO) 56.9 % (42.0-75.0); PLATELET COUNT 111 X10^3/uL (150.0-450.0); RED BLOOD COUNT 2.91 X10^6/uL (3.5-5.4); RED CELL DISTRIBUTION WIDTH 16.2 % (11.6-16.5); WHITE BLOOD COUNT 4.3 X10^3/uL (3.6-10.0)
[2020-10-19 06:43] LABS: ALANINE AMINOTRANSFERASE 69 Units/L (12-78); ALBUMIN 2.2 g/dL (3.4-5.0); ALKALINE PHOSPHATASE 41 Units/L (46-116); ASPARTATE AMINO TRANSFERASE 28 Units/L (15-37); BLOOD UREA NITROGEN 13 mg/dL (7-18); CALCIUM 7.6 mg/dL (8.5-10.1); CARBON DIOXIDE 27.9 mmol/L (21-32); CHLORIDE 105 mmol/L (98-107); SODIUM 139 mmol/L (136-145); TOTAL PROTEIN 4.7 g/dL (6.4-8.2); eGFR NON BLACK RACES > 60 (>60)
--- NOTE | 2020-10-19 07:09 | RAD ---
HISTORYSOBSTUDYCHEST, 1 VIEWCOMPARISONOne day prior.TECHNIQUEAP view of the chestFINDINGSRight IJ central line in good position. Stable cardiomegaly. Interval improvement in airspace and interstitial opacities compared to prior. Suspect small pleural effusions. No pneumothorax.IMPRESSIONInterval improvement in airspace and interstitial opacities consistent with pneumonia.Electronically signed by: Miller Loredo (Oct 19, 2020 07:07:15)
[2020-10-19] MEDS ORDERED: NS 500 ML IV 500 ML IV ONE (09:21)
[2020-10-19] MEDS ORDERED: BENADRYL INJ 50 MG VIAL IVP PRN (09:21)
[2020-10-19] MEDS: PULMICORT NEB TX 0.5 MG NEB SCH ×2 (09:30→20:50)
[2020-10-19] MEDS: COZAAR PO SCH (09:55)
[2020-10-19] MEDS: GLUCOPHAGE XR 24-HR PO SCH ×2 (09:55→21:45)
[2020-10-19] MEDS: SYNTHROID INJ 100 mcg VIAL IVP SCH (09:56)
[2020-10-19] MEDS: LANTUS SC SCH (09:56)
[2020-10-19] MEDS: NORVASC TAB 10 MG PO SCH (09:56)
[2020-10-19] MEDS: LOPRESSOR TAB 50 MG PO SCH ×2 (09:56→21:46)
[2020-10-19] MEDS: PREDNISONE TAB 10 MG PO SCH (09:56)
[2020-10-19] MEDS: LASIX IVP SCH ×2 (10:08→16:55)
[2020-10-19] MEDS: TYLENOL 325 MG TAB PO PRN (13:04)
--- NOTE | 2020-10-19 20:22 | PCM.PROG ---
Progress Note - Progress Note for Day of Date of Exam: 10/18/20 - Subjective Subjective: IS BEING TREATED FOR PNEUMONIA DUE TO COVID-19, HYPOXIA, ACUTE RESPIRATORY FAILURE, AND A URINARY TRACT INFECTION. SHE WAS REMOVED FROM THE MECHANICAL VENTILLATOR LAST WEEK AND IS CURRENTLY UTILIZING OXYGEN VIA NASAL CANNULA AT 2 LPM. HER OXYGEN SATURATIONS HAVE BEEN 92-97% ON NASAL CANNULA. SHE IS RECEIVING FREE WATER THROUGH THE NG TUBE. SHE IS ALERT AND ORIENTED THIS MORNING. SHE DOES REPORT WEAKNESS AND SHORTNESS OF BREATH, BUT REPORTS IMPROVEMENT SINCE WE LAST SAW HER. SHE HAS HAD SOME OCCASIONAL NAUSEA. PHYSICAL THERAPY HAS BEEN WORKING WITH PATIENT. SHE HAS BEEN COOPERATIVE. ON EXAMINATION, BILATERAL LUNGS ARE NOTED WITH DIMINISHED LUNG SOUNDS THROUGHOUT. ABDOMEN IS RO UND, SOFT, AND NON-TENDER WITH HYPERACTIVE BOWEL SOUNDS NOTED IN ALL QUADRANTS. THERE IS TRACE TO THE RIGHT UPPER EXTREMITY. HER VITALS THIS MORNING ARE: 99.5-78-22-93%-127/61. LABS WERE OBTAINED. ABNORMAL VALUES INCLUDE THE FOLLOWING: WBC RBC 3.29, HGB 8.0, HCT 25.0, PLT COUNT 99, GLUCOSE 183, CALCIUM 7.6, TOTAL PROTEIN 4.8, ALBUMIN 2.3. ABG REVEALED: 7.480, PC02 44, P02 82, HC03 32.8, 02 SAT 97, BASE EXCESS 8.3, FI02 28.0. A CHEST XRAY WAS OBTAINED AND REVEALED: 1. Bronchopneumonia 2. New small right effusion. SHE IS CURRENTLY RECEIVING 1/2NS WITH 20MEQ KCL AT 125ML/HR, PREDNISONE 10MG PO DAILY, XANAX 0.5MG PO TID PRN, XOPENEX NEBS TID, PULMICORT NEBS BID, HUMULIN R SLIDING SCALE, LASIX 40MG IV BID, LANTUS 40 UNITS DAILY, A CATAPRES PATCH, APRESOLINE 10MG IV Q4H PRN, APRESOLINE 50MG PO TID, ZOFRAN 4MG IV Q6H PRN, THE POTASSIUM AND MAGNESIUM PROTOCOLS. WE WILL CONTINUE WITH CURRENT PLAN OF CARE TODAY. OTHERWISE, WE WILL FOLLOW UP WITH AM LABS AND CHEST XRAY AND CONTINUE TO MONITOR. Time spent for clinical assessment, physical examination, reviewing labs/imaging and decision making more than 75 mins. - Past Medical Family Social History Past Med/Fam/Surg Hx: No changes since H&P Allergies: Allergies lisinopril Allergy (Verified 09/05/19 12:12) ciprofloxacin [From Cipro] Adverse Reaction (Verified 09/05/19 12:12) - Review of Systems ROS: No change since H&P - Vital Signs and I&O's Vital Signs: Temperature 98.4 F Pulse Rate [Left Radial] 75 Pulse Rate 82 Respiratory Rate 24 Blood Pressure [Left Radial 153/53 Artery] Blood Pressure [Left Arm] 152/77 Blood Pressure 118/63 O2 Sat by Pulse Oximetry 95 Intake and Output: Intake & Output 10/17/20 10/18/20 10/19/20 10/20/20 11:59 11:59 11:59 11:59 Intake Total 1520 / 1520 4375 / 4375 3220 / 3220 1775 / 1775 Output Total 3275 / 3275 4775 / 4775 4900 / 4900 2300 / 2300 Balance -1755 / -1755 -400 / -400 -1680 / -1680 -525 / -525 - Physical Exam Oriented: Normal Eyes: Normal Ear: Normal Nose: Normal Throat: Dry Respiratory: Generalized, Diminished Cardiovascular: Normal, Edema : Normal Auscultation: Bowel Sounds: Normal Palpation: Normal Tenderness: Normal Skin: Normal Musculoskeletal: Normal Psychiatric: Normal Mood Description: Calm Affect: Normal Speech Pattern: Clear, Appropriate - Laboratory and Diagnostics Result Diagrams: 10/19/20 05:29 10/19/20 05:29 Labs: 10/10/20 11:24 Buttock Gram Stain - Final 10/10/20 11:24 Buttock Wound Culture - Final 09/24/20 20:28 Blood Blood Culture - Final 09/24/20 20:24 Blood Blood Culture - Final 09/27/20 13:40 Sputum - Endotracheal Wash Sputum Culture - Final Enterobacter Cloacae Klebsiella Pneumoniae 09/27/20 13:40 Sputum - Endotracheal Wash - Final 09/24/20 21:52 Urine,Clean Catch Urine Culture - Final Escherichia Coli Laboratory WBC 4.3 X10^3/uL (3.6-10.0) 10/19/20 05:29 RBC 2.91 X10^6/uL (3.5-5.4) L 10/19/20 05:29 Hgb 7.1 g/dL (12.0-16.0) L 10/19/20 05:29 Hct 22.3 % (36.0-47.0) L 10/19/20 05:29 MCV 76.7 fL (80.0-100.0) L 10/19/20 05:29 MCH 24.5 pg (27.0-34.0) L 10/19/20 05:29 MCHC 31.9 g/dL (33.0-35.0) L 10/19/20 05:29 RDW 16.2 % (11.6-16.5) 10/19/20 05:29 Plt Count 111 X10^3/uL (150.0-450.0) L 10/19/20 05:29 Plt Count Comment Decreased (ADEQUATE) A 10/15/20 04:45 MPV 8.0 fL (7.4-11.0) 10/19/20 05:29 Neut % (Auto) 56.9 % (42.0-75.0) 10/19/20 05:29 Lymph % (Auto) 27.7 % (21.0-51.0) 10/19/20 05:29 [place] % (Auto) 10.7 % (0.0-13.0) 10/19/20 05:29 Eos % (Auto) 4.2 % (0.9-2.9) H 10/19/20 05:29 Baso % (Auto) 0.5 % (0.2-1.0) 10/19/20 05:29 Neut # (Auto) 2.4 x10^3/uL (2.2-4.8) 10/19/20 05:29 Lymph # (Auto) 1.2 X10^3/uL (1.3-2.9) L 10/19/20 05:29 [place] # (Auto) 0.5 x10^3/uL (0.3-0.8) 10/19/20 05:29 Eos # (Auto) 0.2 x10^3/uL (0.0-0.2) 10/19/20 05:29 Baso # (Auto) 0.0 X10^3/uL (0.0-0.1) 10/19/20 05:29 Absolute Nucleated RBC 0.1 /100WBC 10/19/20 05:29 Total Counted 100 10/14/20 05:15 Neutrophils % (Manual) 88 % (39-76) H 10/14/20 05:15 Band Neutrophils % 5 % (0-10) 10/14/20 05:15 Lymphocytes % (Manual) 5 % (13-43) L 10/14/20 05:15 Monocytes % (Manual) 2 % (4-9) L 10/14/20 05:15 Plt Morphology Comment Normal (NORMAL) 10/15/20 04:45 RBC Morphology Abnormal (NORMAL) A 10/15/20 04:45 Dimorphic RBCs Assembly Mechanic 10/04/20 05:06 Hypochromasia Slight A 10/15/20 04:45 Poikilocytosis Slight A 09/24/20 20:24 Microcytosis Slight A 10/14/20 05:15 [place] Cells Present 09/25/20 05:49 Crenated Cell Slight A 10/01/20 04:20 PT 14.3 SECONDS (11.8-14.3) 09/24/20 20:24 INR Target Range - 09/24/20 20:24 INR 1.15 (0.8-1.3) 09/24/20 20:24 D-Dimer 2.89 ug/ml (0.0-0.57) H* 10/08/20 04:38 Sample Site Lr 10/18/20 04:20 ABG pH 7.480 (7.35-7.45) H 10/18/20 04:20 ABG pCO2 44.0 mmHg (35.0-45.0) 10/18/20 04:20 ABG pO2 82.0 mmHg (80.0-100.0) 10/18/20 04:20 ABG HCO3 32.8 mmol/L (22-26) H* 10/18/20 04:20 ABG O2 Saturation 97.0 % (90-100) 10/18/20 04:20 ABG Base Excess 8.3 mmol/L (-2.0-2.0) H 10/18/20 04:20 Alexx Test Pos 10/18/20 04:20 A-a Gradient 63.0 mmHg 10/18/20 04:20 FiO2 28.0 10/18/20 04:20 Blood Gas Comments Erwin well ae 10/18/20 04:20 Sodium 139 mmol/L (136-145) 10/19/20 05:29 Corrected Sodium TNP 10/19/20 05:29 Potassium 4.2 mmol/L (3.5-5.1) 10/19/20 05:29 Chloride 105 mmol/L (98-107) 10/19/20 05:29 Carbon Dioxide 27.9 mmol/L (21-32) 10/19/20 05:29 BUN 13 mg/dL (7-18) 10/19/20 05:29 Creatinine 0.50 mg/dL (0.55-1.02) L 10/19/20 05:29 Est GFR (MDRD) Af Amer > 60 (>60) 10/19/20 05:29 Est GFR (MDRD) Non-Af > 60 (>60) 10/19/20 05:29 Glucose 83 mg/dL (65-99) 10/19/20 05:29 POC Glucose (mg/dL) 161 mg/dL (65-99) H 10/19/20 16:37 Lactic Acid 1.5 mmol/L (0.4-2.0) 09/24/20 21:56 Calcium 7.6 mg/dL (8.5-10.1) L 10/19/20 05:29 Corrected Calcium 9.0 mg/dL (8.5-10.1) 10/19/20 05:29 Magnesium 2.6 mg/dL (1.7-2.9) 10/16/20 05:38 Ferritin 178 ng/mL (8-252) 10/17/20 05:20 Total Bilirubin 0.40 mg/dL (0.2-1.0) 10/19/20 05:29 AST 28 Units/L (15-37) 10/19/20 05:29 ALT 69 Units/L (12-78) 10/19/20 05:29 Alkaline Phosphatase 41 Units/L (46-116) L 10/19/20 05:29 Creatine Kinase 78 Units/L (26-192) 09/25/20 16:10 CK-MB (CK-2) < 1.0 ng/mL (0-4.0) 09/25/20 16:10 CK/CKMB % Calc 1.3 % (<4) 09/25/20 16:10 Troponin I < 0.02 ng/mL (0-1.5) 09/25/20 16:10 C-Reactive Protein < 0.50 mg/L (0-3.0) 10/19/20 05:29 B-Natriuretic Peptide 637 pg/mL (0-79) H* 09/24/20 20:24 Total Protein 4.7 g/dL (6.4-8.2) L 10/19/20 05:29 Albumin 2.2 g/dL (3.4-5.0) L 10/19/20 05:29 Globulin 2.5 g/dL (2.5-4.5) 10/19/20 05:29 Prealbumin 18.8 mg/dL (18-35.7) 09/30/20 04:25 Albumin/Globulin Ratio 0.9 Ratio (1.1-2.1) L 10/19/20 05:29 Specimen Type Clean catch urine 09/24/20 21:52 Urine Color Mabel (YELLOW) 09/24/20 21:52 Urine Appearance Slightly hazy (CLEAR) 09/24/20 21:52 Urine pH 5.0 (5.0 - 8.0) 09/24/20 21:52 Ur Specific [place] 1.015 (1.000-1.030) 09/24/20 21:52 Urine Protein 1+ (NEGATIVE) 09/24/20 21:52 Urine Glucose (UA) 3+ (NEGATIVE) 09/24/20 21:52 Urine Ketones Negative (NEGATIVE) 09/24/20 21:52 Urine Occult Blood 1+ (NEGATIVE) 09/24/20 21:52 Urine Nitrite Positive (NEGATIVE) 09/24/20 21:52 Urine Bilirubin Negative (NEGATIVE) 09/24/20 21:52 Urine Acetone Negative (NEGATIVE) 09/27/20 11:53 Urine Urobilinogen 1+ (NORMAL) 09/24/20 21:52 Ur Leukocyte Esterase 1+ (NEGATIVE) 09/24/20 21:52 Urine RBC 3-5 /HPF (0-3) A 09/24/20 21:52 Urine WBC 5-10 /HPF (0-5) A 09/24/20 21:52 Ur Squamous Epith Cells Few /HPF (NEGATIVE) 09/24/20 21:52 Urine Bacteria 2+ /HPF (NEGATIVE) 09/24/20 21:52 Ur Culture Indicated? Yes/culture set up 09/24/20 21:52 Influenza Type A (PCR) Negative (NEGATIVE) 09/24/20 22:20 Influenza Type B (PCR) Negative (NEGATIVE) 09/24/20 22:20 SARS CoV-2 RNA Rapid MICK Negative (NEGATIVE) 10/12/20 08:25 Miscellaneous Test Covid 19 10/13/20 16:10 Blood Type A POSITIVE 10/19/20 09:46 Antibody Screen Negative 10/19/20 09:46 Crossmatch See Detail 10/19/20 09:46 - Plan (1) Pneumonia due to 2019 novel coronavirus Status: Acute Plan: 1/2NS WITH 20MEQ KCL AT 125ML/HR, PREDNISONE 10MG PO DAILY, XANAX 0.5MG PO TID PRN, XOPENEX NEBS TID, PULMICORT NEBS BID, HUMULIN R SLIDING SCALE, LASIX 40MG IV BID, LANTUS 40 UNITS DAILY, A CATAPRES PATCH, APRESOLINE 10MG IV Q4H PRN, APRESOLINE 50MG PO TID, ZOFRAN 4MG IV Q6H PRN, THE POTASSIUM AND MAGNESIUM PROTOCOLS. (2) Acute respiratory failure with hypoxia Status: Acute (3) Diabetes mellitus Status: Acute Qualifiers: Diabetes mellitus type: type 2 Diabetes mellitus custodial insulin use: unspecified custodial insulin use status Diabetes mellitus complication status: with other specified complication Qualified Code(s): E11.69 - Type 2 diabetes mellitus with other specified complication
--- NOTE | 2020-10-19 20:26 | PCM.PROG ---
Progress Note - Subjective Subjective: IS BEING TREATED FOR PNEUMONIA DUE TO COVID-19, HYPOXIA, ACUTE RESPIRATORY FAILURE, AND A URINARY TRACT INFECTION. SHE WAS REMOVED FROM THE MECHANICAL VENTILLATOR LAST WEEK AND IS CURRENTLY UTILIZING OXYGEN VIA NASAL CANNULA AT 2 LPM. HER OXYGEN SATURATIONS HAVE BEEN 92-97% ON NASAL CANNULA. SHE IS RECEIVING FREE WATER THROUGH THE NG TUBE. SHE IS ALERT AND ORIENTED THIS MORNING. SHE DOES REPORT WEAKNESS AND SHORTNESS OF BREATH, BUT REPORTS IMPROVEMENT SINCE WE LAST SAW HER. SHE HAS HAD SOME OCCASIONAL NAUSEA. PHYSICAL THERAPY HAS BEEN WORKING WITH PATIENT. SHE HAS BEEN COOPERATIVE. ON EXAMINATION, BILATERAL LUNGS ARE NOTED WITH DIMINISHED LUNG SOUNDS THROUGHOUT. ABDOMEN IS ROUND, SOFT, AND NON-TENDER WITH HYPERACTIVE BOWEL SOUNDS NOTED IN ALL QUADRANTS. THERE IS TRACE TO THE RIGHT UPPER EXTREMITY. HER VITALS THIS MORNING ARE: 98.6-76-20-97%-126/67. LABS WERE OBTAINED. ABNORMAL VALUES INCLUDE THE FOLLOWING: RBC 2.91, HGB 7.1, HCT 22.3, PLT COUNT 111, CREATININE 0.50, CALCIUM 7.6, ALK PHOS 41, TOTAL PROTEIN 4.7, ALBUMIN 2.2. A CHEST XRAY WAS OBTAINED AND REVEALED: Interval improvement in airspace and interstitial opacities consistent with pneumonia. SHE IS CURRENTLY RECEIVING 1/2NS WITH 20MEQ KCL AT 125ML/HR, PREDNISONE 10MG PO DAILY, XANAX 0.5MG PO TID PRN, XOPENEX NEBS TID, PULMICORT NEBS BID, HUMULIN R SLIDING SCALE, LASIX 40MG IV BID, LANTUS 40 UNITS DAILY, A CATAPRES PATCH, APRESOLINE 10MG IV Q4H PRN, APRESOLINE 50MG PO TID, ZOFRAN 4MG IV Q6H PRN, THE POTASSIUM AND MAGNESIUM PROTOCOLS. WE WILL TRANSFUSE TWO UNITS OF PRBC TODAY. OTHERWISE, WE WILL CONTINUE WITH CURRENT PLAN OF CARE. WE WILL PLAN FOR [facility] FOR PH[facility]ICAL THERAPY AND REHAB. OTHERWISE, WE WILL FOLLOW UP WITH AM LABS AND CHEST XRAY AND CONTINUE TO MONITOR. Time spent for clinical assessment, physical examination, reviewing labs/imaging and decision making more than 75 mins. - Past Medical Family Social History Past Med/Fam/Surg Hx: No changes since H&P Allergies: Allergies lisinopril Allergy (Verified 09/05/19 12:12) ciprofloxacin [From Cipro] Adverse Reaction (Verified 09/05/19 12:12) - Review of Systems ROS: No change since H&P - Vital Signs and I&O's Vital Signs: Temperature 98.4 F Pulse Rate [Left Radial] 75 Pulse Rate 82 Respiratory Rate 24 Blood Pressure [Left Radial 153/53 Artery] Blood Pressure [Left Arm] 152/77 Blood Pressure 118/63 O2 Sat by Pulse Oximetry 95 Intake and Output: Intake & Output 10/17/20 10/18/20 10/19/20 10/20/20 11:59 11:59 11:59 11:59 Intake Total 1520 / 1520 4375 / 4375 3220 / 3220 1775 / 1775 Output Total 3275 / 3275 4775 / 4775 4900 / 4900 2300 / 2300 Balance -1755 / -1755 -400 / -400 -1680 / -1680 -525 / -525 - Physical Exam Oriented: Normal Eyes: Normal Ear: Normal Nose: Normal Throat: Dry Respiratory: Generalized, Diminished Cardiovascular: Normal, Edema : Normal Auscultation: Bowel Sounds: Normal Tenderness: Normal Skin: Normal Musculoskeletal: Normal Psychiatric: Normal Mood Description: Calm Affect: Normal Speech Pattern: Clear, Appropriate - Laboratory and Diagnostics Result Diagrams: 10/19/20 05:29 10/19/20 05:29 Labs: 10/10/20 11:24 Buttock Gram Stain - Final 10/10/20 11:24 Buttock Wound Culture - Final 09/24/20 20:28 Blood Blood Culture - Final 09/24/20 20:24 Blood Blood Culture - Final 09/27/20 13:40 Sputum - Endotracheal Wash Sputum Culture - Final Enterobacter Cloacae Klebsiella Pneumoniae 09/27/20 13:40 Sputum - Endotracheal Wash - Final 09/24/20 21:52 Urine,Clean Catch Urine Culture - Final Escherichia Coli Laboratory WBC 4.3 X10^3/uL (3.6-10.0) 10/19/20 05:29 RBC 2.91 X10^6/uL (3.5-5.4) L 10/19/20 05:29 Hgb 7.1 g/dL (12.0-16.0) L 10/19/20 05:29 Hct 22.3 % (36.0-47.0) L 10/19/20 05:29 MCV 76.7 fL (80.0-100.0) L 10/19/20 05:29 MCH 24.5 pg (27.0-34.0) L 10/19/20 05:29 MCHC 31.9 g/dL (33.0-35.0) L 10/19/20 05:29 RDW 16.2 % (11.6-16.5) 10/19/20 05:29 Plt Count 111 X10^3/uL (150.0-450.0) L 10/19/20 05:29 Plt Count Comment Decreased (ADEQUATE) A 10/15/20 04:45 MPV 8.0 fL (7.4-11.0) 10/19/20 05:29 Neut % (Auto) 56.9 % (42.0-75.0) 10/19/20 05:29 Lymph % (Auto) 27.7 % (21.0-51.0) 10/19/20 05:29 [place] % (Auto) 10.7 % (0.0-13.0) 10/19/20 05:29 Eos % (Auto) 4.2 % (0.9-2.9) H 10/19/20 05:29 Baso % (Auto) 0.5 % (0.2-1.0) 10/19/20 05:29 Neut # (Auto) 2.4 x10^3/uL (2.2-4.8) 10/19/20 05:29 Lymph # (Auto) 1.2 X10^3/uL (1.3-2.9) L 10/19/20 05:29 [place] # (Auto) 0.5 x10^3/uL (0.3-0.8) 10/19/20 05:29 Eos # (Auto) 0.2 x10^3/uL (0.0-0.2) 10/19/20 05:29 Baso # (Auto) 0.0 X10^3/uL (0.0-0.1) 10/19/20 05:29 Absolute Nucleated RBC 0.1 /100WBC 10/19/20 05:29 Total Counted 100 10/14/20 05:15 Neutrophils % (Manual) 88 % (39-76) H 10/14/20 05:15 Band Neutrophils % 5 % (0-10) 10/14/20 05:15 Lymphocytes % (Manual) 5 % (13-43) L 10/14/20 05:15 Monocytes % (Manual) 2 % (4-9) L 10/14/20 05:15 Plt Morphology Comment Normal (NORMAL) 10/15/20 04:45 RBC Morphology Abnormal (NORMAL) A 10/15/20 04:45 Dimorphic RBCs Fork Operator 10/04/20 05:06 Hypochromasia Slight A 10/15/20 04:45 Poikilocytosis Slight A 09/24/20 20:24 Microcytosis Slight A 10/14/20 05:15 [place] Cells Present 09/25/20 05:49 Crenated Cell Slight A 10/01/20 04:20 PT 14.3 SECONDS (11.8-14.3) 09/24/20 20:24 INR Target Range - 09/24/20 20:24 INR 1.15 (0.8-1.3) 09/24/20 20:24 D-Dimer 2.89 ug/ml (0.0-0.57) H* 10/08/20 04:38 Sample Site Lr 10/18/20 04:20 ABG pH 7.480 (7.35-7.45) H 10/18/20 04:20 ABG pCO2 44.0 mmHg (35.0-45.0) 10/18/20 04:20 ABG pO2 82.0 mmHg (80.0-100.0) 10/18/20 04:20 ABG HCO3 32.8 mmol/L (22-26) H* 10/18/20 04:20 ABG O2 Saturation 97.0 % (90-100) 10/18/20 04:20 ABG Base Excess 8.3 mmol/L (-2.0-2.0) H 10/18/20 04:20 Alexx Test Pos 10/18/20 04:20 A-a Gradient 63.0 mmHg 10/18/20 04:20 FiO2 28.0 10/18/20 04:20 Blood Gas Comments Erwin well ae 10/18/20 04:20 Sodium 139 mmol/L (136-145) 10/19/20 05:29 Corrected Sodium TNP 10/19/20 05:29 Potassium 4.2 mmol/L (3.5-5.1) 10/19/20 05:29 Chloride 105 mmol/L (98-107) 10/19/20 05:29 Carbon Dioxide 27.9 mmol/L (21-32) 10/19/20 05:29 BUN 13 mg/dL (7-18) 10/19/20 05:29 Creatinine 0.50 mg/dL (0.55-1.02) L 10/19/20 05:29 Est GFR (MDRD) Af Amer > 60 (>60) 10/19/20 05:29 Est GFR (MDRD) Non-Af > 60 (>60) 10/19/20 05:29 Glucose 83 mg/dL (65-99) 10/19/20 05:29 POC Glucose (mg/dL) 161 mg/dL (65-99) H 10/19/20 16:37 Lactic Acid 1.5 mmol/L (0.4-2.0) 09/24/20 21:56 Calcium 7.6 mg/dL (8.5-10.1) L 10/19/20 05:29 Corrected Calcium 9.0 mg/dL (8.5-10.1) 10/19/20 05:29 Magnesium 2.6 mg/dL (1.7-2.9) 10/16/20 05:38 Ferritin 178 ng/mL (8-252) 10/17/20 05:20 Total Bilirubin 0.40 mg/dL (0.2-1.0) 10/19/20 05:29 AST 28 Units/L (15-37) 10/19/20 05:29 ALT 69 Units/L (12-78) 10/19/20 05:29 Alkaline Phosphatase 41 Units/L (46-116) L 10/19/20 05:29 Creatine Kinase 78 Units/L (26-192) 09/25/20 16:10 CK-MB (CK-2) < 1.0 ng/mL (0-4.0) 09/25/20 16:10 CK/CKMB % Calc 1.3 % (<4) 09/25/20 16:10 Troponin I < 0.02 ng/mL (0-1.5) 09/25/20 16:10 C-Reactive Protein < 0.50 mg/L (0-3.0) 10/19/20 05:29 B-Natriuretic Peptide 637 pg/mL (0-79) H* 09/24/20 20:24 Total Protein 4.7 g/dL (6.4-8.2) L 10/19/20 05:29 Albumin 2.2 g/dL (3.4-5.0) L 10/19/20 05:29 Globulin 2.5 g/dL (2.5-4.5) 10/19/20 05:29 Prealbumin 18.8 mg/dL (18-35.7) 09/30/20 04:25 Albumin/Globulin Ratio 0.9 Ratio (1.1-2.1) L 10/19/20 05:29 Specimen Type Clean catch urine 09/24/20 21:52 Urine Color Mabel (YELLOW) 09/24/20 21:52 Urine Appearance Slightly hazy (CLEAR) 09/24/20 21:52 Urine pH 5.0 (5.0 - 8.0) 09/24/20 21:52 Ur Specific [place] 1.015 (1.000-1.030) 09/24/20 21:52 Urine Protein 1+ (NEGATIVE) 09/24/20 21:52 Urine Glucose (UA) 3+ (NEGATIVE) 09/24/20 21:52 Urine Ketones Negative (NEGATIVE) 09/24/20 21:52 Urine Occult Blood 1+ (NEGATIVE) 09/24/20 21:52 Urine Nitrite Positive (NEGATIVE) 09/24/20 21:52 Urine Bilirubin Negative (NEGATIVE) 09/24/20 21:52 Urine Acetone Negative (NEGATIVE) 09/27/20 11:53 Urine Urobilinogen 1+ (NORMAL) 09/24/20 21:52 Ur Leukocyte Esterase 1+ (NEGATIVE) 09/24/20 21:52 Urine RBC 3-5 /HPF (0-3) A 09/24/20 21:52 Urine WBC 5-10 /HPF (0-5) A 09/24/20 21:52 Ur Squamous Epith Cells Few /HPF (NEGATIVE) 09/24/20 21:52 Urine Bacteria 2+ /HPF (NEGATIVE) 09/24/20 21:52 Ur Culture Indicated? Yes/culture set up 09/24/20 21:52 Influenza Type A (PCR) Negative (NEGATIVE) 09/24/20 22:20 Influenza Type B (PCR) Negative (NEGATIVE) 09/24/20 22:20 SARS CoV-2 RNA Rapid MICK Negative (NEGATIVE) 10/12/20 08:25 Miscellaneous Test Covid 19 10/13/20 16:10 Blood Type A POSITIVE 10/19/20 09:46 Antibody Screen Negative 10/19/20 09:46 Crossmatch See Detail 10/19/20 09:46 - Plan (1) Pneumonia due to 2019 novel coronavirus Status: Acute Plan: 1/2NS WITH 20MEQ KCL AT 125ML/HR, PREDNISONE 10MG PO DAILY, XANAX 0.5MG PO TID PRN, XOPENEX NEBS TID, PULMICORT NEBS BID, HUMULIN R SLIDING SCALE, LASIX 40MG IV BID, LANTUS 40 UNITS DAILY, A CATAPRES PATCH, APRESOLINE 10MG IV Q4H PRN, APRESOLINE 50MG PO TID, ZOFRAN 4MG IV Q6H PRN, THE POTASSIUM AND MAGNESIUM PROTOCOLS. (2) Acute respiratory failure with hypoxia Status: Acute (3) Diabetes mellitus Status: Acute Qualifiers: Diabetes mellitus type: type 2 Diabetes mellitus buttermaker helper insulin use: unspecified buttermaker helper insulin use status Diabetes mellitus complication status: with other specified complication Qualified Code(s): E11.69 - Type 2 diabetes mellitus with other specified complication
[2020-10-19] MEDS: SNACK - Diabetic Appropriate PO SCH (21:45)
[2020-10-19] MEDS: MIRALAX POWDER (1 DOSE 17 G) PO SCH (21:46)
[2020-10-20] MEDS: NS 1/2 + KCL 20 MEQ/L 1,000 ML IV SCH ×2 (04:22→11:06)
[2020-10-20] MEDS: XOPENEX 1.25 MG/3 ML NEBULE NEB SCH (05:55)
[2020-10-20] MEDS: APRESOLINE TAB 25 MG PO SCH (06:39)
[2020-10-20 06:44] LABS: ALANINE AMINOTRANSFERASE 62 Units/L (12-78); ALBUMIN 2.6 g/dL (3.4-5.0); ALKALINE PHOSPHATASE 63 Units/L (46-116); ASPARTATE AMINO TRANSFERASE 30 Units/L (15-37); BLOOD UREA NITROGEN 12 mg/dL (7-18); CALCIUM 8.2 mg/dL (8.5-10.1); CHLORIDE 105 mmol/L (98-107); COR CA(FOR HYPOALB) 9.3 mg/dL (8.5-10.1); CREATININE 0.53 mg/dL (0.55-1.02); SODIUM 141 mmol/L (136-145); TOTAL PROTEIN 5.4 g/dL (6.4-8.2); eGFR NON BLACK RACES > 60 (>60)
[2020-10-20 07:12] LABS: BASOPHILS # (AUTO) 0.1 X10^3/uL (0.0-0.1); BASOPHILS % (AUTO) 0.9 % (0.2-1.0); EOSINOPHILS # (AUTO) 0.2 x10^3/uL (0.0-0.2); HEMATOCRIT 32.1 % (36.0-47.0); HEMOGLOBIN 10.6 g/dL (12.0-16.0); LYMPHOCYTES # (AUTO) 1.6 X10^3/uL (1.3-2.9); LYMPHOCYTES % (AUTO) 27.4 % (21.0-51.0); MEAN CORPUSCULAR HEMOGLOBIN 26.5 pg (27.0-34.0); MEAN CORPUSCULAR VOLUME 80.4 fL (80.0-100.0); MEAN PLATELET VOLUME 7.9 fL (7.4-11.0); MONOCYTES # (AUTO) 0.8 x10^3/uL (0.3-0.8); MONOCYTES % (AUTO) 13.5 % (0.0-13.0); NEUTROPHILS # (AUTO) 3.1 x10^3/uL (2.2-4.8); NEUTROPHILS % (AUTO) 55.2 % (42.0-75.0); PLATELET COUNT 140 X10^3/uL (150.0-450.0); RED BLOOD COUNT 3.99 X10^6/uL (3.5-5.4); RED CELL DISTRIBUTION WIDTH 21.6 % (11.6-16.5); WHITE BLOOD COUNT 5.7 X10^3/uL (3.6-10.0)
[2020-10-20 07:35] LABS: ANISOCYTOSIS 1+; PLATELET MORPHOLOGY COMMENT NORMAL (NORMAL)
--- NOTE | 2020-10-20 08:02 | RAD ---
HISTORYSOBSTUDYCHEST, 1 [id number] is less opacity in the lungs than previously. This may represent improved pneumonia.No pleural effusion or pneumothorax.Heart size is normal.Bones are unremarkable.Right jugular central venous catheter is in the expected location of the superior vena cava. EKG leads are noted.IMPRESSION1. Improved pneumoniaElectronically signed by: Easton Kee (Oct 20, 2020 08:00:56)
[2020-10-20] MEDS ORDERED: D50W ABBOJECT SYR ONE (08:18)
[2020-10-20] MEDS: COZAAR PO SCH (08:30)
[2020-10-20] MEDS: GLUCOPHAGE XR 24-HR PO SCH (08:32)
[2020-10-20] MEDS: LOPRESSOR TAB 50 MG PO SCH (08:32)
[2020-10-20] MEDS: NORVASC TAB 10 MG PO SCH (08:32)
[2020-10-20] MEDS: PREDNISONE TAB 10 MG PO SCH (08:33)
[2020-10-20] MEDS: SYNTHROID INJ 100 mcg VIAL IVP SCH (08:37)
[2020-10-20] MEDS: LASIX IVP SCH (08:38)
[2020-10-20] MEDS: LANTUS SC SCH (08:38)
[2020-10-20] MEDS ORDERED: D50W ABBOJECT SYR IV ONE (08:39)
[2020-10-20 10:13] VITALS: BP 144/66
== END 2020-10-20 11:25 | DRG 208 ==
LOC: ER 19:21 → MED/SURG 09-25 00:35 → ICU 09-26 16:22 → MED/SURG 10-15 12:56
PROVIDERS: ADMIT Family Medicine; ATTEND Internal Medicine
DX: R26.89 Other abnormalities of gait and mobility; N30.00 Acute cystitis without hematuria; N17.8 Other acute kidney failure; J12.89 Other viral pneumonia; Z79.4 Long term (current) use of insulin; R13.11 Dysphagia, oral phase; J90 Pleural effusion, not elsewhere classified; E87.0 Hyperosmolality and hypernatremia; D64.9 Anemia, unspecified; U07.1 COVID-19; Z78.1 Physical restraint status; R79.89 Other specified abnormal findings of blood chemistry; B96.29 Other Escherichia coli [E. coli] as the cause of diseases classified elsewhere; J96.01 Acute respiratory failure with hypoxia; R79.82 Elevated C-reactive protein (CRP); J15.0 Pneumonia due to Klebsiella pneumoniae; B96.89 Other specified bacterial agents as the cause of diseases classified elsewhere; R41.82 Altered mental status, unspecified; E11.65 Type 2 diabetes mellitus with hyperglycemia

== ENCOUNTER 2024-06-26 16:15 | Observation (INO) ==
--- NOTE | 2024-06-26 16:58 | DR.GENAD ---
HPI Time Seen Time Seen by Provider: 06/26/24 16:41 Complaint/Symptoms Chief Complaint Doctors Comments: 68-year-old female presents for evaluation. Brought in by spouse. Patient was fine this a.m. left the house at around 2:00, to get the grandkids. Patient was bit wobbly and confused on returning home. Blood sugar earlier was down to 54 around 1:00, better when spouse checked it again with her confusion. Patient currently doing better. Denies headache, sinus congestion, sore throat. Denies cough, shortness of breath or chest pain. Recently admitted for COVID, urinary tract infection. Still taking antibiotic. Having slight discomfort of the lower abdomen. Able to move all extremities, good strength, no numbness or weakness. Chief Complaint:: patient brought in by family with alert and oriented but delayed intermittent confusion states she left around 2:30 to go fish bait picker her grandson and unsure when she came back due to him asleep on the couch but when he woke up a few min ago he noticed she wasnt acting the same. 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 patient states she did have a episode earlier around 1300 where her blood sugar dropped down to 54. patient denies any pain or symptoms. patient is alert to person,place,year,month Self Treatment fo Chief Complaint: patient is currently being treated with antibiotics and has a pic line in place to the left upper arm. COVID-19 Coronavirus risk:travel/contact w/high risk person: No Has patient experienced Coronavirus symptoms: No Nurses notes reviewed Nurses Notes Review: Yes Source History Provided: Patient Mode of Arrival Mode of Arrival: Wheelchair Timing Onset of Chief Complaint: 06/26/24 PMH PMH Past Medical History: Yes Past Medical History: Anxiety, Arthritis, Diabetes, Dyslipidemia, Hypertension, Hypothyroidism and Renal Disease Past Surgical History: Yes Surgical History: Hysterectomy and Ortho Surgery Family History History of Family Medical Conditions: Yes Family Medical History: Diabetes Mellitus Social History Does patient currently use any type of tobacco product: No Have you used tobacco products in the last 12 months: No Type of Tobacco Use: None Does any household member use tobacco: No Alcohol Use: None Do you use any recreational Drugs:: No Lives With: Family Lives Where: Home Travel Risk Coronavirus risk:travel/contact w/high risk person: No Has patient experienced Coronavirus symptoms: No Infectious screening In the last 2 months have you had wt loss of >10#?: NO Have you had fever, night sweats or hemotysis?: No Have you traveled outside the country in the last 6 months?: No Isolation: Standard ROS Review of Systems Constitutional: Malaise and Weakness Eyes: No Symptoms Reported ENTM: No Symptoms Reported Respiratoy: No Symptoms Reported Cardiovascular: No Symptoms Reported Gastrointestinal/Abdominal: Abdominal Pain Genitourinary: Frequency Neurological: Weakness Musculoskeletal: No Symptoms Reported Integumentary: No Symptoms Reported Hematologic/Lymphatic: No Symptoms Reported Psychiatric: No Symptoms Reported All Other Systems: Reviewed and Negative PE Vital Signs Vitals: Vital Signs Temperature 97.9 F Pulse Rate 60 Pulse Rate 59 Pulse Rate 59 Pulse Rate 50 Pulse Rate 58 Pulse Rate 58 Pulse Rate 54 Pulse Rate 55 Pulse Rate 52 Pulse Rate 50 Respiratory Rate 25 Respiratory Rate 26 Respiratory Rate 29 Respiratory Rate 38 Respiratory Rate 33 Respiratory Rate 31 Respiratory Rate 30 Respiratory Rate 27 Respiratory Rate 34 Respiratory Rate 30 Blood Pressure 164/83 Blood Pressure 146/73 O2 Sat by Pulse Oximetry 94 O2 Sat by Pulse Oximetry 97 O2 Sat by Pulse Oximetry 94 O2 Sat by Pulse Oximetry 96 O2 Sat by Pulse Oximetry 96 O2 Sat by Pulse Oximetry 96 O2 Sat by Pulse Oximetry 96 O2 Sat by Pulse Oximetry 92 O2 Sat by Pulse Oximetry 95 O2 Sat by Pulse Oximetry 92 General General Appearance: Alert and In No Apparent Distress Head Head Exam: Normal Inspection, Atraumatic and Normocephalic Eyes Eye exam: PERRL and EOMI ENT ENT Exam: Normal Oropharynx, Mucous Membranes Moist and TM's Normal Bilaterally Neck Neck Exam: Normal Inspection and Full ROM Respiratory Respiratory Exam: Normal Lung Sounds Bilat; negative Accessory Muscle Use or Respiratory Distress Cardiovascular Cardiovascular Exam: Regular Rate, Normal Rhythm and Normal Heart Sounds Abdominal Exam Abdominal Exam: Normal Bowel Sounds, Soft and Tenderness (LLQ, no guarding or rebound. ) Extremities Extremities Exam: Normal Inspection, Full ROM and Edema (2+ bilateral lower exts) Back Back Exam: Normal Inspection and Full ROM; negative (R) CVA Tenderness or (L) CVA Tenderness Neurologic Neurological Exam: Alert, Oriented X3 and CN II-XII Intact; negative Motor Sensory Deficit Skin Skin Exam: Warm and Dry COURSE Treatment Treatment: 60-year-old female brought in with episode of confusion, currently doing better. Physical exam benign, no active deficits. Recently hospitalized with COVID, treated for UTI. Currently receiving IV antibiotic, ertapenem, over 14 days. Urinalysis obtained, still with 20-30 white blood cells per high-power field, positive for bacteria & leukocyte estrace. Patient with a complicated UTI, had E. coli ESBL, resistant to most antibiotics. Supposedly sensitive the ertapenem that she has on. 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 Recommend admitting the patient overnight to ensure stability, hopefully can change to every 8 hours at home via the PICC line. Discussed with Dr. Amanda, accepts the admission. [facility] Labs Reviewed Laboratory Results Reviewed?: Yes 06/26/24 17:10 06/26/24 17:10 Laboratory: WBC 8.7 X10^3/uL (3.6-10.0) 06/26/24 17:10 RBC 3.39 X10^6/uL (3.5-5.4) L 06/26/24 17:10 Hgb 8.7 g/dL (12.0-16.0) L 06/26/24 17:10 Hct 27.3 % (36.0-47.0) L 06/26/24 17:10 MCV 80.7 fL (80.0-100.0) 06/26/24 17:10 MCH 25.8 pg (27.0-34.0) L 06/26/24 17:10 MCHC 32.0 g/dL (33.0-35.0) L 06/26/24 17:10 RDW 17.6 % (11.6-16.5) H 06/26/24 17:10 Plt Count 460 X10^3/uL (150.0-450.0) H 06/26/24 17:10 MPV 7.7 fL (7.4-11.0) 06/26/24 17:10 Neut % (Auto) 63.9 % (42.0-75.0) 06/26/24 17:10 Lymph % (Auto) 23.1 % (21.0-51.0) 06/26/24 17:10 [place] % (Auto) 8.5 % (0.0-13.0) 06/26/24 17:10 Eos % (Auto) 2.1 % (0.9-2.9) 06/26/24 17:10 Baso % (Auto) 2.4 % (0.2-1.0) H 06/26/24 17:10 Neut # (Auto) 5.5 x10^3/uL (2.2-4.8) H 06/26/24 17:10 Lymph # (Auto) 2.0 X10^3/uL (1.3-2.9) 06/26/24 17:10 [place] # (Auto) 0.7 x10^3/uL (0.3-0.8) 06/26/24 17:10 Eos # (Auto) 0.2 x10^3/uL (0.0-0.2) 06/26/24 17:10 Baso # (Auto) 0.2 X10^3/uL (0.0-0.1) H 06/26/24 17:10 Absolute Nucleated RBC 0.1 /100WBC 06/26/24 17:10 Sodium 139 mmol/L (136-145) 06/26/24 17:10 Corrected Sodium 139 mmol/L (136-145) 06/26/24 17:10 Potassium 4.0 mmol/L (3.5-5.1) 06/26/24 17:10 Chloride 102 mmol/L (98-107) 06/26/24 17:10 Carbon Dioxide 29.4 mmol/L (21-32) 06/26/24 17:10 BUN 19 mg/dL (7-18) H 06/26/24 17:10 Creatinine 1.51 mg/dL (0.55-1.02) H 06/26/24 17:10 Est GFR (MDRD) Af Amer 44 (>60) L 06/26/24 17:10 Est GFR (MDRD) Non-Af 36 (>60) L 06/26/24 17:10 Glucose 114 mg/dL (65-99) H 06/26/24 17:10 POC Glucose (mg/dL) 122 mg/dL (65-99) H 06/26/24 16:44 Calcium 8.0 mg/dL (8.5-10.1) L 06/26/24 17:10 Corrected Calcium 9.0 mg/dL (8.5-10.1) 06/26/24 17:10 Total Bilirubin 0.20 mg/dL (0.2-1.0) 06/26/24 17:10 AST 27 Units/L (15-37) 06/26/24 17:10 ALT 41 Units/L (12-78) 06/26/24 17:10 Alkaline Phosphatase 125 Units/L (46-116) H 06/26/24 17:10 Troponin I High Sens 7.8 ng/L (4.0-60.0) 06/26/24 17:10 Total Protein 7.7 g/dL (6.4-8.2) 06/26/24 17:10 Albumin 2.8 g/dL (3.4-5.0) L 06/26/24 17:10 Globulin 4.9 g/dL (2.5-4.5) H 06/26/24 17:10 Albumin/Globulin Ratio 0.6 Ratio (1.1-2.1) L 06/26/24 17:10 Lipase 15 Units/L (16-77) L 06/26/24 17:10 TSH 3rd Generation 6.833 uIU/mL (0.358-3.74) H 06/26/24 17:10 Specimen Type Catherized urine 06/26/24 17:34 Urine Color Yellow (YELLOW) 06/26/24 17:34 Urine Appearance Slightly hazy (CLEAR) 06/26/24 17:34 Urine pH 6.0 (5.0 - 8.0) 06/26/24 17:34 Ur Specific [place] 1.015 (1.000-1.030) 06/26/24 17:34 Urine Protein 2+ (NEGATIVE) 06/26/24 17:34 Urine Glucose (UA) Negative (NEGATIVE) 06/26/24 17:34 Urine Ketones Negative (NEGATIVE) 06/26/24 17:34 Urine Blood 1+ (NEGATIVE) 06/26/24 17:34 Urine Nitrite Negative (NEGATIVE) 06/26/24 17:34 Urine Bilirubin Negative (NEGATIVE) 06/26/24 17:34 Urine Urobilinogen Normal (NORMAL) 06/26/24 17:34 Ur Leukocyte Esterase 2+ (NEGATIVE) 06/26/24 17:34 Urine RBC 3-5 /HPF (0-3) A 06/26/24 17:34 Urine WBC 20-30 /HPF (0-5) A 06/26/24 17:34 Ur Squamous Epith Cells Moderate /HPF (NEGATIVE) 06/26/24 17:34 Urine Bacteria 1+ /HPF (NEGATIVE) 06/26/24 17:34 Ur Culture Indicated? Yes/culture set up 06/26/24 17:34 XRAY XRAY Interpreted by: Both X-ray Results: EXAM: BRAIN W/O CON HISTORY: altered mental status; COMPARISON: None. TECHNIQUE: Nonenhanced spiral CT imaging was performed through the head and axial, coronal, and sagittal CT images were generated. FINDINGS: The ventricles and sulci are prominent. There is hypodensity in the periventricular and subcortical white matter compatible with small-vessel isc hemic disease. The brain parenchyma otherwise has normal density. There is no sulcal effacement or focal loss of the denis-white junction to suggest acute infarct. There is no intracranial hemorrhage. There is no mass effect or midline shift. The calvarium is intact. Mastoid air cells and middle ear cavities are clear. The paranasal sinuses are clear. IMPRESSION: No acute abnormality. THIS IS AN ELECTRONICALLY VERIFIED FINAL REPORT 06/26/2024 5:13 PM - Electronically signed by Juan Alberto Garcia MD Chest x-ray unremarkable EKG Rate: 51 [place]: Normal Rhythm: Afib (w/slow ventricular response.) ST: Normal Opioid Opioid Risk Tool Age (Jesus box if 16-45): No History of Preadolescent Sexual Abuse: No Total: 0 Total Score Risk Category: Low Risk Copyright: Gurmeet LOPEZ predicting aberrant behaviors Discharge Plan Diagnosis Discharge Problem: Complicated UTI (urinary tract infection), Altered mental status Discharge Plan Patient Disposition: ADMITTED INPATIENT Condition: Stable Prescriptions: No Action furosemide 40 mg tablet 40 mg PO BID clonidine HCl 0.1 mg tablet 0.1 mg PO TID tizanidine 4 mg tablet 4 mg PO BID valacyclovir 1 gram tablet 1,000 mg PO QDAY clonazepam 1 mg tablet 1 mg PO QPM PRN oxycodone-acetaminophen 5-325 mg tablet 1 tab PO QID PRN potassium chloride 20 mEq tablet,ER particles/crystals 20 meq PO BID amlodipine 10 mg tablet 10 mg PO QDAY levothyroxine 50 mcg tablet 50 mcg PO QDAY pantoprazole 40 mg tablet,delayed release (DR/EC) 40 mg PO BID ropinirole 0.5 mg tablet 0.5 mg PO BID gabapentin 300 mg capsule 300 mg PO QDAY losartan 100 mg tablet 100 mg PO QDAY escitalopram oxalate 5 mg tablet 5 mg PO QDAY hydroxyzine HCl 25 mg tablet 25 mg PO QID PRN insulin degludec [Tresiba FlexTouch U-200] 200 unit/mL (3 mL) insulin pen 40 unit SUBCUT BID Patient Comments: [NO ORIGINAL SIG] ertapenem 1 gram Recon Soln 1 g IV Q24H Qty: 14 0RF amiodarone 200 mg Tablet 200 mg PO BID Qty: 60 0RF metoprolol tartrate [Lopressor] 50 mg Tablet 50 mg PO BID Qty: 60 0RF Eliquis 5 mg Tablet 5 mg PO BID Qty: 60 0RF Health Concerns: Post Hospitalization: new medications and changes needed to prevent readmission or further decline. Pt educated and given instructions on all concerns. Plan of Treatment: Continue with present treatment and follow up plan. Pt is to keep follow up appointment as instructed and take medications as ordered. Orders to Discharge Patient Discharge Orders: Transfer (Routine); Ordered 06/26/24 Ordered By: Roly Price Follow ups/Referrals Follow ups/Referrals: Deondre Khan [Primary Care Provider] - 3 days
--- NOTE | 2024-06-26 17:16 | CT ---
EXAM: BRAIN W/O CON HISTORY: altered mental status; COMPARISON: None. TECHNIQUE: Nonenhanced spiral CT imaging was performed through the head and axial, coronal, and sagittal CT imag es were generated. FINDINGS: The ventricles and sulci are prominent. There is hypodensity in the periventricular and subcortical white matter compatible with small-vessel ischemic disease. The brain parenchyma otherwise has samir l density. There is no sulcal effacement or focal loss of the denis-white junction to suggest acute i nfarct. There is no intracranial hemorrhage. There is no mass effect or midline shift. The calvari um is intact. Mastoid air cells and middle ear cavities are clear. The paranasal sinuses are clear. IMPRESSION: No acute abnormality. THIS IS AN ELECTRONICALLY VERIFIED FINAL REPORT 06/26/2024 5:13 PM - Electronically signed by Juan Alberto Garcia MD
[2024-06-26 17:21] LABS: HEMOGLOBIN 8.7 g/dL (12.0-16.0); MEAN PLATELET VOLUME 7.7 fL (7.4-11.0)
[2024-06-26 17:25] LABS: BASOPHILS # (AUTO) 0.2 X10^3/uL (0.0-0.1); BASOPHILS % (AUTO) 2.4 % (0.2-1.0); EOSINOPHILS # (AUTO) 0.2 x10^3/uL (0.0-0.2); EOSINOPHILS % (AUTO) 2.1 % (0.9-2.9); HEMATOCRIT 27.3 % (36.0-47.0); LYMPHOCYTES % (AUTO) 23.1 % (21.0-51.0); MEAN CORPUSCULAR HEMOGLOBIN 25.8 pg (27.0-34.0); MEAN CORPUSCULAR VOLUME 80.7 fL (80.0-100.0); MONOCYTES # (AUTO) 0.7 x10^3/uL (0.3-0.8); MONOCYTES % (AUTO) 8.5 % (0.0-13.0); NEUTROPHILS # (AUTO) 5.5 x10^3/uL (2.2-4.8); NEUTROPHILS % (AUTO) 63.9 % (42.0-75.0); PLATELET COUNT 460 X10^3/uL (150.0-450.0); RED BLOOD COUNT 3.39 X10^6/uL (3.5-5.4); RED CELL DISTRIBUTION WIDTH 17.6 % (11.6-16.5); WHITE BLOOD COUNT 8.7 X10^3/uL (3.6-10.0)
--- NOTE | 2024-06-26 17:28 | EKG ---
Test Reason : altered mental status Blood Pressure : */* mmHG Vent. Rate : 51 BPM Atrial Rate : * BPM P-R Int : * ms QRS Dur : 100 ms QT Int : 486 ms P-R-T Axes : * 22 28 degrees QTc Int : 447 ms Atrial fibrillation with slow ventricular response Abnormal ECG When compared with ECG of 17-JUN-2024 07:31, Vent. rate has decreased BY 39 BPM Nonspecific T wave abnormality, improved in Anterior leads QT has lengthened Confirmed by Mauricio Rangel MD ([id number]) on 06/27/2024 7:28:40 AM Referred By: Confirmed By: Mauricio Rangel MD
[2024-06-26 17:38] LABS: ALBUMIN 2.8 g/dL (3.4-5.0); CARBON DIOXIDE 29.4 mmol/L (21-32); CREATININE 1.51 mg/dL (0.55-1.02); TOTAL PROTEIN 7.7 g/dL (6.4-8.2); TSH (3RD GENERATION) 6.833 uIU/mL (0.358-3.74)
[2024-06-26 17:45] LABS: BILIRUBIN,URINE NEGATIVE (NEGATIVE); BLOOD/HEMOGLOBIN,URINE 1+ (NEGATIVE); GLUCOSE, URINE NEGATIVE (NEGATIVE); KETONES,URINE NEGATIVE (NEGATIVE); LEUKOCYTE ESTERASE ,URINE 2+ (NEGATIVE); NITRITES,URINE NEGATIVE (NEGATIVE); PROTEIN,URINE 2+ (NEGATIVE); UROBILINOGEN,URINE NORMAL (NORMAL)
[2024-06-26 17:46] LABS: APPEARANCE,URINE SLIGHTLY HAZY (CLEAR); COLOR,URINE YELLOW (YELLOW)
[2024-06-26 17:51] LABS: BACTERIA,URINE 1+ /HPF (NEGATIVE); SQUAMOUS EPITHELIAL CELL,UR MODERATE /HPF (NEGATIVE)
[2024-06-26] MEDS ORDERED: CONSULT PHARMACY - POTASSIUM & MAGNESIUM XX SCH (19:26)
[2024-06-26] MEDS ORDERED: NS 250 ML IV 25 ML IV PRN (19:26)
[2024-06-26] MEDS: D5 NS 1,000 ML IV 1,000 ML IV SCH (20:39)
[2024-06-26] MEDS: ZOSYN VIAL 3.375 GRAMS 3.375 G in NS 100 ML IV 100 ML IV SCH (20:39)
[2024-06-26] MEDS: ELIQUIS PO SCH (20:39)
[2024-06-26] MEDS: REQUIP PO SCH (20:39)
[2024-06-26] MEDS: PROTONIX TAB 40 MG PO SCH (20:40)
[2024-06-26] MEDS: CORDARONE TAB 200 MG PO SCH (20:40)
[2024-06-26] MEDS: LASIX PO SCH (20:40)
[2024-06-26] MEDS: K-DUR TAB 20 MEQ PO SCH (20:40)
[2024-06-26] MEDS: LOPRESSOR TAB 50 MG PO SCH (20:40)
[2024-06-26] MEDS: CATAPRES TAB 0.1 MG PO SCH (21:02)
[2024-06-26] MEDS: TRESIBA U-100 INSULIN SC SCH (21:11)
[2024-06-26 21:45] VITALS: BMI 34.7
[2024-06-27] MEDS: KLONOPIN TAB 1 MG PO PRN (02:04)
[2024-06-27] MEDS: PERCOCET TAB 5/325 MG PO PRN (02:05)
[2024-06-27] MEDS: SYNTHROID 50 mcg TAB PO SCH (05:36)
[2024-06-27] MEDS: NovoLIN R (or HumuLIN R) SUBCUT PRN (05:53)
[2024-06-27 06:24] LABS: BASOPHILS # (AUTO) 0.1 X10^3/uL (0.0-0.1); BASOPHILS % (AUTO) 1.3 % (0.2-1.0); EOSINOPHILS # (AUTO) 0.3 x10^3/uL (0.0-0.2); EOSINOPHILS % (AUTO) 2.7 % (0.9-2.9); HEMOGLOBIN 8.4 g/dL (12.0-16.0); LYMPHOCYTES # (AUTO) 1.9 X10^3/uL (1.3-2.9); LYMPHOCYTES % (AUTO) 20.1 % (21.0-51.0); MEAN CORPUSCULAR HEMOGLOBIN 26.1 pg (27.0-34.0); MEAN CORPUSCULAR HGB CONC 32.4 g/dL (33.0-35.0); MEAN CORPUSCULAR VOLUME 80.6 fL (80.0-100.0); MEAN PLATELET VOLUME 7.8 fL (7.4-11.0); MONOCYTES # (AUTO) 0.7 x10^3/uL (0.3-0.8); MONOCYTES % (AUTO) 7.4 % (0.0-13.0); NEUTROPHILS # (AUTO) 6.6 x10^3/uL (2.2-4.8); NEUTROPHILS % (AUTO) 68.5 % (42.0-75.0); PLATELET COUNT 394 X10^3/uL (150.0-450.0); RED BLOOD COUNT 3.23 X10^6/uL (3.5-5.4); RED CELL DISTRIBUTION WIDTH 17.6 % (11.6-16.5); WHITE BLOOD COUNT 9.6 X10^3/uL (3.6-10.0)
[2024-06-27 06:36] LABS: ALBUMIN 2.5 g/dL (3.4-5.0); CALCIUM 7.9 mg/dL (8.5-10.1); CARBON DIOXIDE 29.1 mmol/L (21-32); COR CA(FOR HYPOALB) 9.1 mg/dL (8.5-10.1); CREATININE 1.37 mg/dL (0.55-1.02); POTASSIUM 4.1 mmol/L (3.5-5.1); TOTAL PROTEIN 7.1 g/dL (6.4-8.2)
--- NOTE | 2024-06-27 06:45 | RAD ---
EXAM: CHEST, 1 VIEW HISTORY: altered mental status; COMPARISON: 06/18/2024 FINDINGS: The trachea is midline. The cardiac silhouette is unremarkable . The lungs are clear without focal infiltrate or effusion. The bony thorax is unremarkable. IMPRESSION: No acute cardiopulmonary disease. THIS IS AN ELECTRONICALLY VERIFIED FINAL REPORT 06/27/2024 6:42 AM - Electronically signed by Devyn Manrique MD
[2024-06-27] MEDS ORDERED: LEXAPRO ONE (08:21)
[2024-06-27] MEDS: VALTREX PO SCH (09:09)
[2024-06-27] MEDS: NEURONTIN CAP 300 MG PO SCH (09:09)
[2024-06-27] MEDS: NORVASC TAB 10 MG PO SCH (09:09)
[2024-06-27] MEDS: COZAAR PO SCH (09:09)
[2024-06-27] MEDS: ATARAX TAB 25 MG PO PRN (09:09)
[2024-06-27] MEDS: LEXAPRO PO SCH (09:10)
--- NOTE | 2024-06-27 09:48 | DR.H&P ---
H&P History & Physical for Day of: H&P Date: 06/27/24 Chief Complaint Chief Complaint: Confusion, low blood sugar History of Present Illness History of Present Illness: Patient is a 68-year-old female that presented after having confusion. She was noted at home to have blood sugar of 54. She was taken to the ED for further evaluation. Labs/imaging: WBC 9.6, hemoglobin 8.4, platelets 394, sodium 139, potassium 4.1, creatinine 1.37, glucose 263, troponin negative, UA consistent with infection, urine culture pending. Patient symptoms quickly improved while in the ED. She was admitted overnight for further observation. She was started on IV Zosyn for acute cystitis. On exam this morning patient is alert and oriented sitting in bed. Will change antibiotics to ertapenem that she was previously on and receiving at home for ESBL E. coli. Will also change her Tresiba to 20 units twice daily that is decreased from what she was taking before. Continue to monitor blood sugars and have her on sliding scale insulin. Restart home medications. Otherwise, continue with current treatment plan. Continue to closely monitor and follow-up labs/imaging. Past Medical History Past Medical History: Anxiety, Arthritis, Diabetes, Dyslipidemia, Hypertension, Hypothyroidism and Renal Disease Past Surgical History Surgical History: Ortho Surgery Family History Family Medical History: Diabetes Mellitus, Cancer and Hypertension Social History Does patient currently use any type of tobacco product: No Have you used tobacco products in the last 12 months: No Type of Tobacco Use: None Does any household member use tobacco: No Alcohol Use: None Drug Use: None Medications Home Medications: Home Medications Medication Instructions Recorded Confirmed Type amlodipine 10 mg tablet 10 mg PO QDAY 06/14/24 06/26/24 History clonazepam 1 mg tablet 1 mg PO QPM PRN 06/14/24 06/26/24 History clonidine HCl 0.1 mg tablet 0.1 mg PO TID 06/14/24 06/26/24 History escitalopram oxalate 5 mg tablet 5 mg PO QDAY 06/14/24 06/26/24 History furosemide 40 mg tablet 40 mg PO BID 06/14/24 06/26/24 History gabapentin 300 mg capsule 300 mg PO QDAY 06/14/24 06/26/24 History hydroxyzine HCl 25 mg tablet 25 mg PO QID PRN 06/14/24 06/26/24 History insulin degludec 200 unit/mL (3 40 unit subcut BID 06/14/24 06/26/24 History mL) subcutaneous pen (Tresiba FlexTouch U-200 insulin) levothyroxine 50 mcg tablet 50 mcg PO QDAY 06/14/24 06/26/24 History losartan 100 mg tablet 100 mg PO QDAY 06/14/24 06/26/24 History oxycodone-acetaminophen 5 mg-325 1 tab PO QID PRN 06/14/24 06/26/24 History mg tablet pantoprazole 40 mg tablet,delayed 40 mg PO BID 06/14/24 06/26/24 History release potassium chloride 20 mEq 20 meq PO BID 06/14/24 06/26/24 History tablet,extended release(part/cryst) ropinirole 0.5 mg tablet 0.5 mg PO BID 06/14/24 06/26/24 History tizanidine 4 mg tablet 4 mg PO BID 06/14/24 06/26/24 History valacyclovir 1 gram tablet 1,000 mg PO QDAY 06/14/24 06/26/24 History Allergies Allergies Allergy/AdvReac Type Severity Reaction Status Date / Time lisinopril Allergy Verified 06/14/24 01:13 ciprofloxacin [From Cipro] AdvReac Verified 06/14/24 01:13 Labs 06/27/24 05:55 06/27/24 05:55 Labs: 06/26/24 17:34 Urine,Catheterized Urine Culture - Preliminary Laboratory WBC 9.6 X10^3/uL (3.6-10.0) 06/27/24 05:55 RBC 3.23 X10^6/uL (3.5-5.4) L 06/27/24 05:55 Hgb 8.4 g/dL (12.0-16.0) L 06/27/24 05:55 Hct 26.0 % (36.0-47.0) L 06/27/24 05:55 MCV 80.6 fL (80.0-100.0) 06/27/24 05:55 MCH 26.1 pg (27.0-34.0) L 06/27/24 05:55 MCHC 32.4 g/dL (33.0-35.0) L 06/27/24 05:55 RDW 17.6 % (11.6-16.5) H 06/27/24 05:55 Plt Count 394 X10^3/uL (150.0-450.0) 06/27/24 05:55 MPV 7.8 fL (7.4-11.0) 06/27/24 05:55 Neut % (Auto) 68.5 % (42.0-75.0) 06/27/24 05:55 Lymph % (Auto) 20.1 % (21.0-51.0) L 06/27/24 05:55 [place] % (Auto) 7.4 % (0.0-13.0) 06/27/24 05:55 Eos % (Auto) 2.7 % (0.9-2.9) 06/27/24 05:55 Baso % (Auto) 1.3 % (0.2-1.0) H 06/27/24 05:55 Neut # (Auto) 6.6 x10^3/uL (2.2-4.8) H 06/27/24 05:55 Lymph # (Auto) 1.9 X10^3/uL (1.3-2.9) 06/27/24 05:55 [place] # (Auto) 0.7 x10^3/uL (0.3-0.8) 06/27/24 05:55 Eos # (Auto) 0.3 x10^3/uL (0.0-0.2) H 06/27/24 05:55 Baso # (Auto) 0.1 X10^3/uL (0.0-0.1) 06/27/24 05:55 Absolute Nucleated RBC 0.0 /100WBC 06/27/24 05:55 Sodium 139 mmol/L (136-145) 06/27/24 05:55 Corrected Sodium 143 mmol/L (136-145) 06/27/24 05:55 Potassium 4.1 mmol/L (3.5-5.1) 06/27/24 05:55 Chloride 102 mmol/L (98-107) 06/27/24 05:55 Carbon Dioxide 29.1 mmol/L (21-32) 06/27/24 05:55 BUN 16 mg/dL (7-18) 06/27/24 05:55 Creatinine 1.37 mg/dL (0.55-1.02) H 06/27/24 05:55 Est GFR (MDRD) Af Amer 49 (>60) L 06/27/24 05:55 Est GFR (MDRD) Non-Af 41 (>60) L 06/27/24 05:55 Glucose 263 mg/dL (65-99) H 06/27/24 05:55 POC Glucose (mg/dL) 242 mg/dL (65-99) H 06/27/24 05:35 Calcium 7.9 mg/dL (8.5-10.1) L 06/27/24 05:55 Corrected Calcium 9.1 mg/dL (8.5-10.1) 06/27/24 05:55 Total Bilirubin 0.30 mg/dL (0.2-1.0) 06/27/24 05:55 AST 18 Units/L (15-37) 06/27/24 05:55 ALT 34 Units/L (12-78) 06/27/24 05:55 Alkaline Phosphatase 118 Units/L (46-116) H 06/27/24 05:55 Troponin I High Sens 7.8 ng/L (4.0-60.0) 06/26/24 17:10 Total Protein 7.1 g/dL (6.4-8.2) 06/27/24 05:55 Albumin 2.5 g/dL (3.4-5.0) L 06/27/24 05:55 Globulin 4.6 g/dL (2.5-4.5) H 06/27/24 05:55 Albumin/Globulin Ratio 0.5 Ratio (1.1-2.1) L 06/27/24 05:55 Lipase 15 Units/L (16-77) L 06/26/24 17:10 TSH 3rd Generation 6.833 uIU/mL (0.358-3.74) H 06/26/24 17:10 Specimen Type Catherized urine 06/26/24 17:34 Urine Color Yellow (YELLOW) 06/26/24 17:34 Urine Appearance Slightly hazy (CLEAR) 06/26/24 17:34 Urine pH 6.0 (5.0 - 8.0) 06/26/24 17:34 Ur Specific [place] 1.015 (1.000-1.030) 06/26/24 17:34 Urine Protein 2+ (NEGATIVE) 06/26/24 17:34 Urine Glucose (UA) Negative (NEGATIVE) 06/26/24 17:34 Urine Ketones Negative (NEGATIVE) 06/26/24 17:34 Urine Blood 1+ (NEGATIVE) 06/26/24 17:34 Urine Nitrite Negative (NEGATIVE) 06/26/24 17:34 Urine Bilirubin Negative (NEGATIVE) 06/26/24 17:34 Urine Urobilinogen Normal (NORMAL) 06/26/24 17:34 Ur Leukocyte Esterase 2+ (NEGATIVE) 06/26/24 17:34 Urine RBC 3-5 /HPF (0-3) A 06/26/24 17:34 Urine WBC 20-30 /HPF (0-5) A 06/26/24 17:34 Ur Squamous Epith Cells Moderate /HPF (NEGATIVE) 06/26/24 17:34 Urine Bacteria 1+ /HPF (NEGATIVE) 06/26/24 17:34 Ur Culture Indicated? Yes/culture set up 06/26/24 17:34 Review of Systems Constitutional: No Symptoms Reported Eyes: No Symptoms Reported ENT: No Symptoms Reported Respiratory: No Symptoms Reported Cardiovascular: No Symptoms Reported Gastrointestinal: No Symptoms Reported Genitourinary: No Symptoms Reported Musculoskeletal: No Symptoms Reported Skin: No Symptoms Reported Neurological: Confusion Physical Exam Vital Signs: Vital Signs Temperature 97.4 F Temperature 99.0 F Pulse Rate [Bilateral Radial] 66 Pulse Rate [Bilateral Radial] 64 Respiratory Rate 20 Respiratory Rate 21 Respiratory Rate 22 Respiratory Rate 18 Blood Pressure [Left Arm] 174/79 Blood Pressure [Left Arm] 150/74 O2 Sat by Pulse Oximetry 94 O2 Sat by Pulse Oximetry 96 Oriented: Normal Eyes: Normal Ear: Normal Nose: Normal Throat: Normal Respiratory: Clear Throughout Cardiovascular: Normal : Normal Auscultation: Bowel Sounds: Normal Palpation: Normal Tenderness: Normal Skin: Normal Musculoskeletal: Normal Psychiatric: Normal Mood Description: Calm and Appropriate Affect: Normal Speech Pattern: Clear and Appropriate Assessment/Plan (1) Altered mental status: Status: Acute (2) Complicated UTI (urinary tract infection): Status: Acute (3) Hypoglycemia: Status: Acute Review H&P Reviewed: Yes Patient was examined?: Yes
[2024-06-27] MEDS: PATIENT'S HOME MEDICATION IV SCH (11:17)
[2024-06-27] MEDS: DUONEB 0.5 MG/3 MG (3 mL) NEB PRN (17:27)
[2024-06-27] MEDS: DUONEB 0.5 MG/3 MG (3 mL) NEB ONE (18:34)
[2024-06-27] MEDS: TRESIBA U-100 INSULIN SC SCH (21:05)
[2024-06-27] MEDS: SNACK - Diabetic Appropriate PO SCH (21:05)
[2024-06-28 00:27] VITALS: O2SAT 93
[2024-06-28 05:05] LABS: BASOPHILS # (AUTO) 0.2 X10^3/uL (0.0-0.1); BASOPHILS % (AUTO) 2.1 % (0.2-1.0); EOSINOPHILS # (AUTO) 0.2 x10^3/uL (0.0-0.2); EOSINOPHILS % (AUTO) 1.6 % (0.9-2.9); HEMATOCRIT 26.2 % (36.0-47.0); HEMOGLOBIN 8.3 g/dL (12.0-16.0); LYMPHOCYTES # (AUTO) 1.9 X10^3/uL (1.3-2.9); LYMPHOCYTES % (AUTO) 16.8 % (21.0-51.0); MEAN CORPUSCULAR HEMOGLOBIN 25.6 pg (27.0-34.0); MEAN CORPUSCULAR HGB CONC 31.7 g/dL (33.0-35.0); MEAN CORPUSCULAR VOLUME 80.8 fL (80.0-100.0); MEAN PLATELET VOLUME 8.1 fL (7.4-11.0); MONOCYTES # (AUTO) 0.9 x10^3/uL (0.3-0.8); MONOCYTES % (AUTO) 8.4 % (0.0-13.0); NEUTROPHILS # (AUTO) 7.8 x10^3/uL (2.2-4.8); NEUTROPHILS % (AUTO) 71.1 % (42.0-75.0); PLATELET COUNT 417 X10^3/uL (150.0-450.0); RED BLOOD COUNT 3.25 X10^6/uL (3.5-5.4); RED CELL DISTRIBUTION WIDTH 17.9 % (11.6-16.5)
[2024-06-28 05:13] LABS: ALANINE AMINOTRANSFERASE 31 Units/L (12-78); ALBUMIN 2.7 g/dL (3.4-5.0); ALKALINE PHOSPHATASE 121 Units/L (46-116); ASPARTATE AMINO TRANSFERASE 15 Units/L (15-37); BLOOD UREA NITROGEN 13 mg/dL (7-18); CALCIUM 8.1 mg/dL (8.5-10.1); CARBON DIOXIDE 30.7 mmol/L (21-32); CHLORIDE 104 mmol/L (98-107); COR CA(FOR HYPOALB) 9.1 mg/dL (8.5-10.1); CREATININE 1.22 mg/dL (0.55-1.02); GLUCOSE 106 mg/dL (65-99); POTASSIUM 3.9 mmol/L (3.5-5.1); SODIUM 140 mmol/L (136-145); TOTAL PROTEIN 7.4 g/dL (6.4-8.2); eGFR NON BLACK RACES 47 (>60)
[2024-06-28] MEDS ORDERED: CONSULT PHARMACY - POTASSIUM & MAGNESIUM XX SCH (07:00)
[2024-06-28] MEDS ORDERED: LEXAPRO ONE (08:38)
[2024-06-28] MEDS: MAG-OX TAB PO SCH (08:57)
[2024-06-28 09:33] VITALS: BP 159/76; PULSE 70; RESP 22; TEMP 100
--- NOTE | 2024-07-02 11:04 | W.DIS.FURT ---
Summary of Discharge Discharge Summary of Date Date of Exam: 06/28/24 Admission Date Date of Admission: 06/26/24 Admission Diagnosis Patient Problems (Updated 06/27/24 @ 09:46 by Ciro Puentes) Complicated UTI (urinary tract infection) (Acute) N39.0 Altered mental status (Acute) R41.82 Hospital Course: Ms White is a 68y/o female who was recently admitted for ESBL UTI and bacteremia. She is on IV antibiotics at home. She presented with AMS and hypoglycemia. Her glucose was 54. ER work up showed no pertinent lab abnormalities. UA was consistent with infection. Patient was more awake & alert in the ER. She was started on IV Zosyn and admitted for further management. She was doing well the following day. Her Tresiba was decreased to 20 units BID. She was restarted back on Invanz for ESBL UTI. Her labs were monitored daily and electrolytes replaced as needed. She was doing well, tolerating PO intake. She was stable to be discharged home. She will continue to finish her course of IV antibiotics and f/u with PCP. Vital Signs: Vital Signs (72 hours) 06/26/24 16:33 06/26/24 16:36 06/26/24 16:45 Temperature 97.9 F Pulse Rate 50 L 52 L 55 L Pulse Rate [Bilateral Radial] Respiratory Rate 30 H 34 H 27 H Blood Pressure 146/73 Blood Pressure [Left Arm] O2 Sat by Pulse Oximetry 92 L 95 92 L Oxygen Delivery Method Room Air Nasal Cannula Nasal Cannula Oxygen Flow Rate 2 2 FIO2% 06/26/24 17:20 06/26/24 17:21 06/26/24 17:21 Temperature Pulse Rate 54 L 58 L Pulse Rate [Bilateral Radial] Respiratory Rate 30 H 31 H Blood Pressure 164/83 Blood Pressure [Left Arm] O2 Sat by Pulse Oximetry 96 96 Oxygen Delivery Method Nasal Cannula Nasal Cannula Nasal Cannula Oxygen Flow Rate 2 2 2 FIO2% 06/26/24 17:30 06/26/24 17:45 06/26/24 18:00 Temperature Pulse Rate 58 L 50 L 59 L Pulse Rate [Bilateral Radial] Respiratory Rate 33 H 38 H 29 H Blood Pressure Blood Pressure [Left Arm] O2 Sat by Pulse Oximetry 96 96 94 L Oxygen Delivery Method Oxygen Flow Rate FIO2% 06/26/24 18:15 06/26/24 18:30 06/26/24 18:45 Temperature Pulse Rate 59 L 60 61 Pulse Rate [Bilateral Radial] Respiratory Rate 26 H 25 H 25 H Blood Pressure Blood Pressure [Left Arm] O2 Sat by Pulse Oximetry 97 94 L 95 Oxygen Delivery Method Oxygen Flow Rate FIO2% 06/26/24 19:30 06/26/24 19:00 06/26/24 19:15 Temperature Pulse Rate 62 65 Pulse Rate [Bilateral Radial] Respiratory Rate 41 H Blood Pressure Blood Pressure [Left Arm] O2 Sat by Pulse Oximetry 95 97 94 L Oxygen Delivery Method Room Air Oxygen Flow Rate FIO2% 06/26/24 20:47 06/26/24 20:00 06/26/24 20:45 Temperature 98.1 F Pulse Rate Pulse Rate [Bilateral Radial] 62 Respiratory Rate 21 Blood Pressure Blood Pressure [Left Arm] 167/83 O2 Sat by Pulse Oximetry 98 Oxygen Delivery Method Nasal Cannula Nasal Cannula Nasal Cannula Oxygen Flow Rate 2 2 FIO2% 28 06/27/24 00:00 06/27/24 02:05 06/27/24 03:05 Temperature 98.9 F Pulse Rate Pulse Rate [Bilateral Radial] 67 Respiratory Rate 19 18 22 Blood Pressure Blood Pressure [Left Arm] 180/72 O2 Sat by Pulse Oximetry 95 Oxygen Delivery Method Nasal Cannula Oxygen Flow Rate 2 FIO2% 06/27/24 04:00 06/27/24 08:00 06/27/24 07:00 Temperature 99.0 F 97.4 F L Pulse Rate Pulse Rate [Bilateral Radial] 64 66 Respiratory Rate 21 20 Blood Pressure Blood Pressure [Left Arm] 150/74 174/79 O2 Sat by Pulse Oximetry 96 94 L Oxygen Delivery Method Nasal Cannula Nasal Cannula Nasal Cannula Oxygen Flow Rate 2 2 FIO2% 06/27/24 12:00 06/27/24 16:00 06/27/24 17:30 Temperature 98.8 F 98.6 F Pulse Rate 62 Pulse Rate [Bilateral Radial] 59 L 62 Respiratory Rate 20 20 Blood Pressure Blood Pressure [Left Arm] 155/81 166/77 O2 Sat by Pulse Oximetry 93 L 91 L 93 L Oxygen Delivery Method Nasal Cannula Nasal Cannula Oxygen Flow Rate 2 2 FIO2% 06/27/24 19:31 06/27/24 19:31 06/27/24 19:00 Temperature Pulse Rate 62 Pulse Rate [Bilateral Radial] Respiratory Rate Blood Pressure Blood Pressure [Left Arm] O2 Sat by Pulse Oximetry 95 Oxygen Delivery Method Nasal Cannula Nasal Cannula Oxygen Flow Rate 2 FIO2% 28 06/27/24 20:00 06/27/24 23:17 06/28/24 00:00 Temperature 98.5 F 99.6 F Pulse Rate Pulse Rate [Bilateral Radial] 67 86 Respiratory Rate 22 22 22 Blood Pressure Blood Pressure [Left Arm] 162/76 178/86 O2 Sat by Pulse Oximetry 94 L 93 L Oxygen Delivery Method Nasal Cannula Nasal Cannula Oxygen Flow Rate 2 3 FIO2% 06/28/24 00:17 06/28/24 04:00 06/28/24 08:00 Temperature 99.8 F H 100.0 F H Pulse Rate Pulse Rate [Bilateral Radial] 71 70 Respiratory Rate 20 21 22 Blood Pressure Blood Pressure [Left Arm] 180/87 159/76 O2 Sat by Pulse Oximetry 93 L 93 L Oxygen Delivery Method Nasal Cannula Nasal Cannula Oxygen Flow Rate 3 3 FIO2% 06/28/24 07:00 Temperature Pulse Rate Pulse Rate [Bilateral Radial] Respiratory Rate Blood Pressure Blood Pressure [Left Arm] O2 Sat by Pulse Oximetry Oxygen Delivery Method Nasal Cannula Oxygen Flow Rate 2 FIO2% Labs: Laboratory Last Values WBC 11.0 X10^3/uL (3.6-10.0) H 06/28/24 04:31 RBC 3.25 X10^6/uL (3.5-5.4) L 06/28/24 04:31 Hgb 8.3 g/dL (12.0-16.0) L 06/28/24 04:31 Hct 26.2 % (36.0-47.0) L 06/28/24 04:31 MCV 80.8 fL (80.0-100.0) 06/28/24 04:31 MCH 25.6 pg (27.0-34.0) L 06/28/24 04:31 MCHC 31.7 g/dL (33.0-35.0) L 06/28/24 04:31 RDW 17.9 % (11.6-16.5) H 06/28/24 04:31 Plt Count 417 X10^3/uL (150.0-450.0) 06/28/24 04:31 MPV 8.1 fL (7.4-11.0) 06/28/24 04:31 Neut % (Auto) 71.1 % (42.0-75.0) 06/28/24 04:31 Lymph % (Auto) 16.8 % (21.0-51.0) L 06/28/24 04:31 Sargent % (Auto) 8.4 % (0.0-13.0) 06/28/24 04:31 Eos % (Auto) 1.6 % (0.9-2.9) 06/28/24 04:31 Baso % (Auto) 2.1 % (0.2-1.0) H 06/28/24 04:31 Neut # (Auto) 7.8 x10^3/uL (2.2-4.8) H 06/28/24 04:31 Lymph # (Auto) 1.9 X10^3/uL (1.3-2.9) 06/28/24 04:31 Sargent # (Auto) 0.9 x10^3/uL (0.3-0.8) H 06/28/24 04:31 Eos # (Auto) 0.2 x10^3/uL (0.0-0.2) 06/28/24 04:31 Baso # (Auto) 0.2 X10^3/uL (0.0-0.1) H 06/28/24 04:31 Absolute Nucleated RBC 0.1 /100WBC 06/28/24 04:31 Sodium 140 mmol/L (136-145) 06/28/24 04:31 Corrected Sodium TNP 06/28/24 04:31 Potassium 3.9 mmol/L (3.5-5.1) 06/28/24 04:31 Chloride 104 mmol/L (98-107) 06/28/24 04:31 Carbon Dioxide 30.7 mmol/L (21-32) 06/28/24 04:31 BUN 13 mg/dL (7-18) 06/28/24 04:31 Creatinine 1.22 mg/dL (0.55-1.02) H 06/28/24 04:31 Est GFR (MDRD) Af Amer 56 (>60) L 06/28/24 04:31 Est GFR (MDRD) Non-Af 47 (>60) L 06/28/24 04:31 Glucose 106 mg/dL (65-99) H 06/28/24 04:31 POC Glucose (mg/dL) 92 mg/dL (65-99) 06/28/24 05:18 Calcium 8.1 mg/dL (8.5-10.1) L 06/28/24 04:31 Corrected Calcium 9.1 mg/dL (8.5-10.1) 06/28/24 04:31 Magnesium 1.6 mg/dL (2.0-2.9) L 06/28/24 04:31 Total Bilirubin 0.70 mg/dL (0.2-1.0) 06/28/24 04:31 AST 15 Units/L (15-37) 06/28/24 04:31 ALT 31 Units/L (12-78) 06/28/24 04:31 Alkaline Phosphatase 121 Units/L (46-116) H 06/28/24 04:31 Troponin I High Sens 7.8 ng/L (4.0-60.0) 06/26/24 17:10 Total Protein 7.4 g/dL (6.4-8.2) 06/28/24 04:31 Albumin 2.7 g/dL (3.4-5.0) L 06/28/24 04:31 Globulin 4.7 g/dL (2.5-4.5) H 06/28/24 04:31 Albumin/Globulin Ratio 0.6 Ratio (1.1-2.1) L 06/28/24 04:31 Lipase 15 Units/L (16-77) L 06/26/24 17:10 TSH 3rd Generation 6.833 uIU/mL (0.358-3.74) H 06/26/24 17:10 Specimen Type Catherized urine 06/26/24 17:34 Urine Color Yellow (YELLOW) 06/26/24 17:34 Urine Appearance Slightly hazy (CLEAR) 06/26/24 17:34 Urine pH 6.0 (5.0 - 8.0) 06/26/24 17:34 Ur Specific Bennet 1.015 (1.000-1.030) 06/26/24 17:34 Urine Protein 2+ (NEGATIVE) 06/26/24 17:34 Urine Glucose (UA) Negative (NEGATIVE) 06/26/24 17:34 Urine Ketones Negative (NEGATIVE) 06/26/24 17:34 Urine Blood 1+ (NEGATIVE) 06/26/24 17:34 Urine Nitrite Negative (NEGATIVE) 06/26/24 17:34 Urine Bilirubin Negative (NEGATIVE) 06/26/24 17:34 Urine Urobilinogen Normal (NORMAL) 06/26/24 17:34 Ur Leukocyte Esterase 2+ (NEGATIVE) 06/26/24 17:34 Urine RBC 3-5 /HPF (0-3) A 06/26/24 17:34 Urine WBC 20-30 /HPF (0-5) A 06/26/24 17:34 Ur Squamous Epith Cells Moderate /HPF (NEGATIVE) 06/26/24 17:34 Urine Bacteria 1+ /HPF (NEGATIVE) 06/26/24 17:34 Ur Culture Indicated? Yes/culture set up 06/26/24 17:34 Reason For Visit: COMPLICATED UTI, ALTERED MENTAL STATUS Discharge Diagnosis All Active Problems (Updated 06/27/24 @ 09:46 by Ciro Puentes) Hypoglycemia (Acute) Complicated UTI (urinary tract infection) (Acute) Altered mental status (Acute) Hypomagnesemia (Acute) Streptococcal bacteremia (Acute) Urinary tract infection due to ESBL Klebsiella (Acute) Atrial fibrillation (Acute) CHF (congestive heart failure) (Acute) Pneumonia (Acute) Pleural effusion (Acute) Hypoxia (Acute) New onset atrial fibrillation (Acute) Hypertension (Chronic) Hypothyroidism (Chronic) COVID-19 (Acute) Hypoxia (Acute) Leucocytosis (Acute) Hyperglycemia (Acute) UTI (urinary tract infection), bacterial (Acute) Renal insufficiency (Acute) Klebsiella pneumonia (Acute) E-coli UTI (Acute) On mechanically assisted ventilation (Acute) Pneumonia due to 2019 novel coronavirus (Acute) Hypernatremia (Acute) Acute respiratory failure with hypoxia (Acute) Renal failure (ARF), acute on chronic (Acute) Fever (Acute) D-dimer, elevated (Acute) Altered mental status (Acute) Hypokalemia (Acute) Urinary tract infection (Acute) Sedated due to medication (Acute) Diabetes mellitus (Chronic) Anemia (Acute) Constipation due to opioid therapy (Acute) Hypoglycemia associated with type 2 diabetes mellitus (Acute) Accidental medication overdose (Acute) Acute hypokalemia (Acute) DANAE (acute kidney injury) (Acute) Pneumonia due to COVID-19 virus (Acute) Plan of Treatment: Continue with present treatment and follow up plan. Pt is to keep follow up appointment as instructed and take medications as ordered. Discharge Medications Discharge Medications: lisinopril Allergy (Verified 06/14/24 01:13) ciprofloxacin [From Cipro] Adverse Reaction (Verified 06/14/24 01:13) New Prescriptions insulin degludec 200 unit/mL (3 mL) subcutaneous pen (Tresiba FlexTouch U-200 insulin) 20 unit (0.1 mL) subcut BID 30 days #6 mL 06/28/24 [Rx] Discharge Disposition Discharge Disposition: home with home health Discharge Condition: stable Discharge Plan Discharge Plan Hospital Course: Ms White is a 68y/o female who was recently admitted for ESBL UTI and bacteremia. She is on IV antibiotics at home. She presented with AMS and hypoglycemia. Her glucose was 54. ER work up showed no pertinent lab abnormalities. UA was consistent with infection. Patient was more awake & alert in the ER. She was started on IV Zosyn and admitted for further management. She was doing well the following day. Her Tresiba was decreased to 20 units BID. She was restarted back on Invanz for ESBL UTI. Her labs were monitored daily and electrolytes replaced as needed. She was doing well, tolerating PO intake. She was stable to be discharged home. She will continue to finish her course of IV antibiotics and f/u with PCP. Patient Disposition: HOME, SELF-CARE Condition: Stable Health Concerns: Post Hospitalization: new medications and changes needed to prevent readmission or further decline. Pt educated and given instructions on all concerns. Plan of Treatment: Continue with present treatment and follow up plan. Pt is to keep follow up appointment as instructed and take medications as ordered. Prescription drug monitoring program results: PDMP reviewed and no concerns identified Prescriptions: Continued furosemide 40 mg tablet 40 mg PO BID clonidine HCl 0.1 mg tablet 0.1 mg PO TID tizanidine 4 mg tablet 4 mg PO BID valacyclovir 1 gram tablet 1,000 mg PO QDAY clonazepam 1 mg tablet 1 mg PO QPM PRN oxycodone-acetaminophen 5-325 mg tablet 1 tab PO QID PRN potassium chloride 20 mEq tablet,ER particles/crystals 20 meq PO BID amlodipine 10 mg tablet 10 mg PO QDAY levothyroxine 50 mcg tablet 50 mcg PO QDAY pantoprazole 40 mg tablet,delayed release (DR/EC) 40 mg PO BID ropinirole 0.5 mg tablet 0.5 mg PO BID gabapentin 300 mg capsule 300 mg PO QDAY losartan 100 mg tablet 100 mg PO QDAY escitalopram oxalate 5 mg tablet 5 mg PO QDAY hydroxyzine HCl 25 mg tablet 25 mg PO QID PRN ertapenem 1 gram Recon Soln 1 g IV Q24H Qty: 14 0RF amiodarone 200 mg Tablet 200 mg PO BID Qty: 60 0RF metoprolol tartrate [Lopressor] 50 mg Tablet 50 mg PO BID Qty: 60 0RF Eliquis 5 mg Tablet 5 mg PO BID Qty: 60 0RF Changed insulin degludec [Tresiba FlexTouch U-200] 200 unit/mL (3 mL) insulin pen 20 unit SUBCUT BID 30 Days Qty: 6 0RF Patient Comments: [NO ORIGINAL SIG] Orders to Discharge Patient Discharge Orders: Discharge (Routine); Ordered 06/28/24 Ordered By: Rhonda Walker Follow ups/Referrals Follow ups/Referrals: Deondre Khan [Primary Care Provider] - 3 days Instructions Stand Alone Forms: Excuse From Work or School, Post Hospital Follow Up Care
== END 2024-06-28 11:01 | disposition home or self-care (01) ==
LOC: MED/SURG 16:15 → ER 16:15 → MED/SURG 19:20
PROVIDERS: ADMIT Family Medicine; ATTEND Internal Medicine